=== PATIENT | female | born 1985 | race Caucasian/White ===

== ENCOUNTER 2019-09-12 09:33 | Emergency (ER) | payer OTHER, SELFPAY ==
[2019-09-12 09:39] VITALS: BP 126/86; PULSE 105; RESP 16; TEMP 36.8; O2SAT 97
--- NOTE | 2019-09-12 09:55 | ED.FEMALEGU ---
HPI - Female Genitourinary General Chief complaint: Urogenital-Female Stated complaint: uti Time Seen by Provider: 09/12/19 09:55 Source: patient Mode of arrival: ambulatory Limitations: no limitations History of Present Illness HPI Narrative: Adeline Gurrola is a 33 yo female with a PMH of MS, depression, anxiety, GERD, who comes with dysuria that started about midnight. She states that she has been drinking water, but has recurrent UTIs. Because of her MS she has had intermittent problems with movement and ability to swallow. Related Data Home Medications Medication Instructions Recorded Confirmed albuterol sulfate [Ventolin HFA] 2 puff INHALATION BID 02/15/19 03/25/19 bethanechol chloride 5 mg PO TID 02/15/19 03/25/19 biotin 5,000 mcg PO DAILY 02/15/19 03/25/19 carbamazepine 200 mg PO Q12H 02/15/19 03/25/19 cholecalciferol (vitamin D3) 14,000 unit PO DAILY 02/15/19 03/25/19 [Vitamin D3] clonazepam 0.5 mg PO BID PRN 02/15/19 03/25/19 dimethyl fumarate [Tecfidera] 240 mg PO BID 02/15/19 03/25/19 diphenhydramine HCl [Allergy 25 mg PO HS 02/15/19 03/25/19 Medication] fluticasone propionate 50 mcg INTRANASAL DAILY 02/15/19 03/25/19 gabapentin 600 mg PO TID 02/15/19 03/25/19 levetiracetam 500 mg PO BID 02/15/19 03/25/19 lithium carbonate 150 mg PO HS 02/15/19 03/25/19 melatonin 3 mg PO HS PRN 02/15/19 03/25/19 montelukast 10 mg PO HS 02/15/19 03/25/19 prochlorperazine maleate 10 mg PO BID PRN 02/15/19 03/25/19 sumatriptan succinate 100 mg PO ONCE PRN 02/15/19 03/25/19 topiramate 50 mg PO BID 02/15/19 03/25/19 venlafaxine 75 mg PO DAILY 02/15/19 03/25/19 Allergies Allergy/AdvReac Type Severity Reaction Status Date / Time Sulfa (Sulfonamide Allergy Mild Other Verified 09/12/19 09:59 Antibiotics) NSAIDS (Non-Steroidal AdvReac Intermediate GI doc Verified 09/12/19 09:59 Anti-Inflamma won't let her have it levofloxacin AdvReac Unknown Other Verified 09/12/19 09:59 AMOXICILLIN TRIHYDRATE Allergy Unknown Rash Uncoded 09/12/19 09:59 POTASSIUM CLAVULANATE Allergy Rash Uncoded 07 09:59 Review of Systems Review of Systems: Narrative: CONSTITUTIONAL: Denies fever, chills, sweats. EYES: Denies visual changes, redness, discharge. ENT: Denies rhinorrhea, congestion, sore throat, otalgia. CARDIOVASCULAR: Denies chest pain, palpitations, edema. RESPIRATORY: Denies dyspnea, wheezing, cough GASTROINTESTINAL: Denies abdominal pain, nausea, vomiting, diarrhea. GENITOURINARY:has dysuria, no hematuria, abnormal discharge SKIN: Denies rash or itching. NEUROLOGIC: Denies numbness, or focal weakness. PSYCHIATRIC: Denies anxiety or depression. [facility] Past Medical History Medical History Anxiety Asthma Depression Esophageal dysmotility GERD (gastroesophageal reflux disease) Hiatal hernia Migraine Multiple sclerosis Trigeminal neuralgia Surgical History Surgical History History of cholecystectomy Social History Social History (Updated 09/12/19 @ 10:03 by Jojo Bermudez CNP) Smoking status: Never smoker Alcohol intake: former Comments At time of signature, I agree with nursing past medical, surgical, social and family history. There is no relevant family history pertinent to the presenting complaint. Exam Narrative: Exam Narrative: GENERAL: This is a well-nourished, well-developed patient, in mild distress. HEAD: normocephalic, atraumatic. EYES:Sclera clear/white. Vision is grossly intact. EARS: External ears normal. Hearing grossly intact. NOSE: External nose normal without nasal discharge, nares without redness, no rhinorrhea. THROAT: Mucous membranes moist, NECK: Neck supple, CARDIOVASCULAR: Regular rate and rhythm without murmurs, gallops, or rubs. RESPIRATORY: Clear to auscultation. Breath sounds equal bilaterally. No wheezes, rales, or rhonchi. GASTROINTESTINAL: Abdomen s
== END 2019-09-12 10:10 | disposition home or self-care (01) ==
PROVIDERS: Emergency Provider Nurse Practitioner; PCP Internal Medicine
DX: N30.00 Acute cystitis without hematuria (principal); F41.9 Anxiety disorder, unspecified; F32.9 Major depressive disorder, single episode, unspecified; J45.909 Unspecified asthma, uncomplicated; K21.9 Gastro-esophageal reflux disease without esophagitis; G35 Multiple sclerosis
CPT/HCPCS: 81003; 87086; 87088; 99213; G0463

== ENCOUNTER 2019-10-14 10:41 | Emergency (ER) | payer OTHER, SELFPAY ==
[2019-10-14 10:45] VITALS: BP 129/86; PULSE 96; RESP 16; TEMP 36.3; O2SAT 98
--- NOTE | 2019-10-14 10:50 | ED.FEMALEGU ---
HPI - Female Genitourinary General Chief complaint: Urogenital-Female Stated complaint: urinary urgency/nausea Time Seen by Provider: 10/14/19 10:58 Source: patient and RN notes reviewed Mode of arrival: ambulatory Limitations: no limitations History of Present Illness HPI Narrative: This is a 33 years old female presents to the office for an evaluation of possible UTI. Onset three days ago with urinary pain, frequency and urgency. She was seen here recently with similar symptoms. She did not follow-up with her doctor. Stated her symptoms never resolved with an antibiotic. She used to see a urologist about 7 years ago to make sure her kidney is okay since she has MS. Related Data Home Medications Medication Instructions Recorded Confirmed albuterol sulfate [Ventolin HFA] 2 puff INHALATION BID 02/15/19 09/12/19 bethanechol chloride 5 mg PO TID 02/15/19 09/12/19 biotin 5,000 mcg PO DAILY 02/15/19 09/12/19 carbamazepine 200 mg PO Q12H 02/15/19 09/12/19 cholecalciferol (vitamin D3) 14,000 unit PO DAILY 02/15/19 09/12/19 [Vitamin D3] clonazepam 0.5 mg PO BID PRN 02/15/19 09/12/19 dimethyl fumarate [Tecfidera] 240 mg PO BID 02/15/19 09/12/19 diphenhydramine HCl [Allergy 25 mg PO HS 02/15/19 09/12/19 Medication] fluticasone propionate 50 mcg INTRANASAL DAILY 02/15/19 09/12/19 gabapentin 600 mg PO TID 02/15/19 09/12/19 levetiracetam 500 mg PO BID 02/15/19 09/12/19 lithium carbonate 150 mg PO HS 02/15/19 09/12/19 melatonin 3 mg PO HS PRN 02/15/19 09/12/19 montelukast 10 mg PO HS 02/15/19 09/12/19 prochlorperazine maleate 10 mg PO BID PRN 02/15/19 09/12/19 sumatriptan succinate 100 mg PO ONCE PRN 02/15/19 09/12/19 topiramate 50 mg PO BID 02/15/19 09/12/19 venlafaxine 75 mg PO DAILY 02/15/19 09/12/19 famotidine 40 mg PO DAILY 10/14/19 10/14/19 Allergies Allergy/AdvReac Type Severity Reaction Status Date / Time Sulfa (Sulfonamide Allergy Mild Other Verified 10/14/19 10:50 Antibiotics) NSAIDS (Non-Steroidal AdvReac Intermediate GI doc Verified 10/14/19 10:50 Anti-Inflamma won't let her have it levofloxacin AdvReac Unknown Other Verified 10/14/19 10:50 AMOXICILLIN TRIHYDRATE Allergy Unknown Rash Uncoded 09/12/19 09:59 POTASSIUM CLAVULANATE Allergy Rash Uncoded 09/12/19 09:59 Review of Systems Review of Systems: Narrative: CONSTITUTIONAL: Denies fever, chills ENT: Denies rhinorrhea, congestion, sore throat, otalgia. CARDIOVASCULAR: Denies chest pain, palpitation RESPIRATORY: Denies dyspnea, wheezing GASTROINTESTINAL: Denies abdominal pain, vomiting, diarrhea. Reports feeling nausea at times. GENITOURINARY: Denies vaginal discharge/lesions SKIN: Denies rash MUSCULOSKELETAL: Denies acute back pain NEUROLOGIC: Denies lightheaded All other systems reviewed are negative, except as documented in HPI. [facility] Past Medical History Medical History Anxiety Asthma Depression Esophageal dysmotility GERD (gastroesophageal reflux disease) Hiatal hernia Migraine Multiple sclerosis Trigeminal neuralgia Surgical History Surgical History History of cholecystectomy Family History Family History Mother Diabetes mellitus Sibling Family history of migraine headaches Social History Social History Smoking status: Never smoker Alcohol intake: former Comments At time of signature, I agree with nursing past medical, surgical, social and family history. There is no relevant family history pertinent to the presenting complaint. Exam Narrative: Exam Narrative: GENERAL: This is a well-nourished, well-developed patient, in no apparent distress. CARDIOVASCULAR: Regular rate and rhythm without murmurs, gallops, or rubs. RESPIRATORY: Clear to auscultation. Breath sounds equal bilaterally. No wheezes,
== END 2019-10-14 11:15 | disposition home or self-care (01) ==
PROVIDERS: Emergency Provider Nurse Practitioner; PCP Internal Medicine
DX: R39.15 Urgency of urination (principal); R11.0 Nausea; J45.909 Unspecified asthma, uncomplicated; F41.9 Anxiety disorder, unspecified; F32.9 Major depressive disorder, single episode, unspecified; K21.9 Gastro-esophageal reflux disease without esophagitis; G35 Multiple sclerosis; G50.0 Trigeminal neuralgia
CPT/HCPCS: 81003; 87086; 87088; 99213; G0463

== ENCOUNTER 2019-12-03 14:48 | Emergency (ER) | payer MEDICARE, SELFPAY ==
--- NOTE | ~2019-12-03 | XR_ITS ---
EXAMINATION: XR hand LT min 3V DATE: 12/03/2019 15:26 INDICATION: Swelling at the first metatarsophalangeal joint post fall TECHNIQUE: Posteroanterior, oblique and lateral views of the right hand were obtained. COMPARISON: None. FINDINGS: Alignment is normal. No fracture. Joint spaces are normal. Soft tissues are unremarkable. IMPRESSION: 1. Negative right hand radiographs. Reviewed, dictated and finalized at location A.
[2019-12-03 14:56] VITALS: BP 132/83; PULSE 105; RESP 20; TEMP 37.1; O2SAT 98
--- NOTE | 2019-12-03 14:57 | ED.UPPEXIN ---
HPI - Extremity Injury (Upper) General Chief Complaint: Extremity Injury, Upper Stated Complaint: left hand injury Time Seen by Provider: 12/03/19 14:57 Source: patient and RN notes reviewed History of Present Illness HPI narrative: Patient is a 34-year-old female who presents the urgent care with complaints of left hand pain. Patient states that she fell in her driveway earlier this morning and is still having hand pain. Patient denies of any pain to the wrist or left arm. Denies any use of [id number] medication for pain. Patient is right-hand dominant. Denies hitting her head. No other acute complaints or injuries. No acute distress noted. Patient aware of the plan of care. Some parts of this dictation were generated by voice recognition software and may contain typographical and/or grammatical inaccuracies. Related Data Home Medications Medication Instructions Recorded Confirmed albuterol sulfate [Ventolin HFA] 2 puff INHALATION BID 02/15/19 10/14/19 bethanechol chloride 5 mg PO TID 02/15/19 10/14/19 biotin 5,000 mcg PO DAILY 02/15/19 10/14/19 carbamazepine 200 mg PO Q12H 02/15/19 10/14/19 cholecalciferol (vitamin D3) 14,000 unit PO DAILY 02/15/19 10/14/19 [Vitamin D3] clonazepam 0.5 mg PO BID PRN 02/15/19 10/14/19 dimethyl fumarate [Tecfidera] 240 mg PO BID 02/15/19 10/14/19 diphenhydramine HCl [Allergy 25 mg PO HS 02/15/19 10/14/19 Medication] gabapentin 600 mg PO TID 02/15/19 10/14/19 levetiracetam 500 mg PO BID 02/15/19 10/14/19 lithium carbonate 150 mg PO HS 02/15/19 10/14/19 melatonin 3 mg PO HS PRN 02/15/19 10/14/19 montelukast 10 mg PO HS 02/15/19 10/14/19 prochlorperazine maleate 10 mg PO BID PRN 02/15/19 10/14/19 sumatriptan succinate 100 mg PO ONCE PRN 02/15/19 10/14/19 topiramate 50 mg PO BID 02/15/19 10/14/19 venlafaxine 75 mg PO DAILY 02/15/19 10/14/19 famotidine 40 mg PO DAILY 10/14/19 10/14/19 Allergies Allergy/AdvReac Type Severity Reaction Status Date / Time Sulfa (Sulfonamide Allergy Mild Other Verified 12/03/19 15:10 Antibiotics) amoxicillin [From Augmentin] Allergy Rash Verified 12/03/19 15:10 clavulanic acid Allergy Rash Verified 12/03/19 15:10 [From Augmentin] NSAIDS (Non-Steroidal AdvReac Intermediate GI doc Verified 12/03/19 15:10 Anti-Inflamma won't let her have it levofloxacin AdvReac Unknown Other Verified 12/03/19 15:10 Review of Systems Review of Systems: Narrative: CONSTITUTIONAL: Denies fever, chills, or sweats. EYES: Denies visual changes, redness, or discharge. ENT: Denies rhinorrhea, congestion, sore throat, or otalgia. CARDIOVASCULAR: Denies chest pain, palpitations, or edema. RESPIRATORY: Denies cough or dyspnea. GASTROINTESTINAL: Denies abdominal pain, nausea, vomiting, or diarrhea. GENITOURINARY: Denies dysuria or hematuria. SKIN: Denies rash or itching. Reports of multiple lacerations to left lower arm due to cutting patient states she is seeing a therapist/psychologist MUSCULOSKELETAL: Reports of left hand pain NEUROLOGIC: Denies headache, numbness, or weakness. All other systems reviewed are negative, except as documented in HPI. [facility] Social History Social History Smoking status: Never smoker Alcohol intake: former Comments At the time of my signature, I reviewed and agree with the nursing past medical, surgical, social, and family history. There is no relevant family history pertinent to the patient complaint. Exam Narrative: Exam Narrative: GENERAL: This is a well-nourished, well-developed patient, in no apparent distress. HEAD: normocephalic, atraumatic. EYES: PERRL. Sclera clear/white. Vision is grossly intact. EARS: External ears normal NOSE: External nose normal with no obvious nasal discharge, nares without redness, no rhinorrhea. THROAT: Mucous membranes moist NECK: Neck supple SKIN: warm, intact with no suspicious lesions or rash, good texture and turgor. NEURO:
== END 2019-12-03 15:40 | disposition home or self-care (01) ==
PROVIDERS: Emergency Provider Nurse Practitioner Family; PCP Internal Medicine
DX: S60.222A Contusion of left hand, initial encounter (principal); W19.XXXA Unspecified fall, initial encounter; G35 Multiple sclerosis; J45.909 Unspecified asthma, uncomplicated; K21.9 Gastro-esophageal reflux disease without esophagitis; F41.9 Anxiety disorder, unspecified; F32.9 Major depressive disorder, single episode, unspecified
CPT/HCPCS: 73130; 99213; G0463

== ENCOUNTER 2020-09-12 09:02 | Emergency (ER) | payer MEDICARE, SELFPAY ==
--- NOTE | 2020-09-12 09:04 | ED.FEMALEGU ---
HPI - Female Genitourinary General Chief complaint: Urogenital-Female Stated complaint: ?UTI Time Seen by Provider: 09/12/20 09:04 Source: patient Mode of arrival: ambulatory Limitations: no limitations History of Present Illness HPI Narrative: Patient is a 34-year-old female with a history of multiple sclerosis, depression, anxiety, recurrent urinary tract infections who presents for evaluation of nausea and urinary frequency. Patient states she feels as if she has another urinary tract infection. She reports mild pain with urination, denies hematuria. Mild lower abdominal pain. She denies any chest pain or shortness of breath. No fever or chills. She reports nausea without any episodes of emesis. Patient had a urinary tract infection last month which was treated with a course of ciprofloxacin. Patient has recurrent urinary tract infections, currently established with [facility] for her symptoms. Patient's neurologist is Dr. Ball. Related Data Home Medications Medication Instructions Recorded Confirmed albuterol sulfate [Ventolin HFA] 2 puff INHALATION BID 02/15/19 12/03/19 carbamazepine 200 mg PO Q12H 02/15/19 12/03/19 cholecalciferol (vitamin D3) 14,000 unit PO DAILY 02/15/19 12/03/19 [Vitamin D3] clonazepam 0.5 mg PO BID PRN 02/15/19 12/03/19 dimethyl fumarate [Tecfidera] 240 mg PO BID 02/15/19 12/03/19 gabapentin 600 mg PO TID 02/15/19 12/03/19 levetiracetam 500 mg PO BID 02/15/19 12/03/19 lithium carbonate 150 mg PO HS 02/15/19 12/03/19 montelukast 10 mg PO HS 02/15/19 12/03/19 prochlorperazine maleate 10 mg PO BID PRN 02/15/19 12/03/19 sumatriptan succinate 100 mg PO ONCE PRN 02/15/19 12/03/19 topiramate 50 mg PO BID 02/15/19 12/03/19 venlafaxine 75 mg PO DAILY 02/15/19 12/03/19 prednisolone acetate drp 09/12/20 Allergies Allergy/AdvReac Type Severity Reaction Status Date / Time Sulfa (Sulfonamide Allergy Mild Other Verified 07/10/21 09:14 Antibiotics) amoxicillin [From Augmentin] Allergy Rash Verified 09/12/20 09:14 clavulanic acid Allergy Rash Verified 09/12/20 09:14 [From Augmentin] NSAIDS (Non-Steroidal AdvReac Intermediate GI doc Verified 09/12/20 09:14 Anti-Inflamma won't let her have it levofloxacin AdvReac Unknown Other Verified 09/12/20 09:14 Review of Systems Review of Systems: Narrative: CONSTITUTIONAL: Denies fever, chills, or sweats. EYES: Denies visual changes, redness, or discharge. ENT: Denies rhinorrhea, congestion, sore throat, or otalgia. CARDIOVASCULAR: Denies chest pain, palpitations, or edema. RESPIRATORY: Denies cough or dyspnea. GASTROINTESTINAL: Reports lower abdominal pain, nausea without vomiting GENITOURINARY: Denies hematuria, reports frequency and urgency SKIN: Denies rash or itching. MUSCULOSKELETAL: Reports chronic upper and lower back pain NEUROLOGIC: Denies headache, numbness, or weakness. . [facility] Past Medical History Medical History (Updated 09/12/20 @ 11:21 by Jessica Connor MD) Anxiety Asthma Depression Esophageal dysmotility GERD (gastroesophageal reflux disease) Hiatal hernia Migraine Multiple sclerosis Trigeminal neuralgia Surgical History Surgical History History of cholecystectomy Family History Family History Mother Diabetes mellitus Sibling Family history of migraine headaches Social History Social History Smoking status: Never smoker Alcohol intake: former Gender identity (if verbalized by the patient): Female Exam Narrative: Exam Narrative: GENERAL: Awake, alert, conversant HEAD: Normocephalic, atraumatic. EYES: PERRLA and EOMI. ENT: Nares clear, no rhinorrhea or epistaxis. Mucous membranes moist. NECK: Supple. CHEST: No respiratory distress, breathing even and non labored HEART: Tachycardic rate, sinus rhythm ABDOMEN:No
[2020-09-12 09:07] VITALS: BP 134/88; PULSE 106; RESP 18; TEMP 37.1; O2SAT 97
[2020-09-12] MEDS: ONDANSETRON INJ 4 MG/2 ML VIAL IV PUSH (09:24)
[2020-09-12] MEDS: MORPHINE SULFATE (*CRX) 4 MG/ML INJ IV PUSH (09:24)
[2020-09-12] MEDS: SODIUM CHLORIDE 0.9% IV 1,000 ML 999 ML IV CONT (09:24)
[2020-09-12 09:27] LABS: Basophils Absolute Auto 0.1 K/mm3 (0.0-0.1); Basophils Percent Auto 0.6 % (0.2-1.2); Eosinophils Absolute Auto 0.3 K/mm3 (0-0.3); Eosinophils Percent Auto 3.2 % (0-4.4); Hematocrit 42.6 % (37.0-47.0); Hemoglobin 13.2 g/dL (12.0-15.0); Immature Granulocyte Absolute 0.04 K/mm3 (0.00-0.031); Immature Granulocyte Percent A 0.4 % (0-0.5); Lymphocytes Absolute Auto 2.36 K/mm3 (0.9-3.2); Lymphocytes Percent Auto 23.8 % (18.3-44.2); Mean Corpuscular Hemoglobin 25.1 pg (26-34); Mean Corpuscular Volume 81.1 fl (80-100); Monocytes Absolute Auto 0.5 K/mm3 (0.1-0.6); Neutrophils Absolute Auto 6.6 K/mm3 (1.3-6.7); Platelet Count Result 374 k/mm3 (150-375); Red Blood Count 5.25 M/mm3 (4.2-5.4); Red Cell Distribution Width 14.6 % (11.5-14.5); White Blood Count 9.9 K/mm3 (4.5-10.0)
[2020-09-12 09:41] LABS: Add Urine Microscopic? YES; Appearance Urine Clear (Clear); Bacteria Urine Trace /hpf; Bilirubin Urine Negative (Negative); Blood Urine 1+ (Negative); Color Urine Colorless (Yellow); Glucose Urine UA Negative (Negative); Ketones Urine Negative (Negative); Leukocyte Esterase Ur 1+ LEU/UL (Negative); Nitrate Urine Negative (Negative); Protein Urine Negative (Negative); RBC Urine 0-2 /hpf (0-2); Squamous Epithelial Cell Urine Occasional /hpf (Few); Transitional Epi Cells Urine Rare /hpf (None Seen); Urobilinogen Urine Negative mg/dL (<2.0)
[2020-09-12 09:42] LABS: Alanine Aminotransferase 24 U/L (4-35); Albumin Level 4.5 g/dL (3.5-5.1); Alkaline Phosphatase 97 U/L (38-126); Anion Gap 15 mmol/L (8-16); Aspartate Amino Transferase 36 U/L (14-36); Bilirubin,Total 0.4 mg/dL (0.2-1.3); Blood Urea Nitrogen 7 mg/dL (7-17); Calcium 9.5 mg/dL (8.4-10.2); Carbon Dioxide 20 mmol/L (22-30); Chloride 106 mmol/L (98-107); Estimated CRCL calculation 120 ml/min; Estimated Glomerular Filt Rate > 60; Glucose 148 mg/dL (65-105); Lipase 146 U/L (23-300); Lithium < 0.2 mmol/L (0.6-1.2); Potassium 4.2 mmol/L (3.4-5.0); Sodium 141 mmol/L (137-145)
[2020-09-12 09:43] LABS: Specific Grav Ur 1.002 (1.001-1.035)
[2020-09-12 10:58] VITALS: BP 126/83; PULSE 76; RESP 18; O2SAT 100
== END 2020-09-12 11:31 | disposition home or self-care (01) ==
PROVIDERS: Emergency Provider Emergency Medicine; PCP Internal Medicine
DX: N39.0 Urinary tract infection, site not specified (principal); G35 Multiple sclerosis; J45.909 Unspecified asthma, uncomplicated; K21.9 Gastro-esophageal reflux disease without esophagitis; F41.9 Anxiety disorder, unspecified; F32.9 Major depressive disorder, single episode, unspecified
CPT/HCPCS: 36415; 80053; 80178; 81001; 83690; 85025; 96365; 96375; 99284; J0131; J2270; J2405; J7030

== ENCOUNTER 2020-11-15 08:11 | Emergency (ER) | payer MEDICARE, SELFPAY ==
[2020-11-15 08:16] VITALS: BP 130/82; PULSE 100; RESP 18; TEMP 36.7; O2SAT 99
--- NOTE | 2020-11-15 08:38 | ED.URI ---
HPI - URI/Sore Throat General Chief Complaint: Upper Respiratory Infection Stated Complaint: cough pressure under eyes Time Seen by Provider: 11/15/20 08:36 Source: patient and RN notes reviewed Mode of arrival: ambulatory Limitations: no limitations History of Present Illness HPI Narrative: 35-year-old female with history of multiple sclerosis, asthma, GERD presents with concern for 11-day history of sinus congestion, pressure, drainage, cough. Reports just prior to symptoms starting she had a negative Covid test for a surgery. Reports she had an outpatient elbow surgery on November 03, the next day began having symptoms. Reports trying multiple [id number] remedies with little relief. Reports her primary doctor called her in a cough syrup that relieves the cough briefly. She denies fever, body aches. Reports general malaise. MD elicited complaint: nasal congestion Related Data Home Medications Medication Instructions Recorded Confirmed albuterol sulfate [Ventolin HFA] 2 puff INHALATION BID 02/15/19 11/15/20 carbamazepine 200 mg PO Q12H 02/15/19 11/15/20 cholecalciferol (vitamin D3) 14,000 unit PO DAILY 02/15/19 12/03/19 [Vitamin D3] clonazepam 0.5 mg PO BID PRN 02/15/19 12/03/19 dimethyl fumarate [Tecfidera] 240 mg PO BID 02/15/19 12/03/19 gabapentin 600 mg PO TID 02/15/19 12/03/19 levetiracetam 500 mg PO BID 02/15/19 12/03/19 lithium carbonate 150 mg PO HS 02/15/19 12/03/19 montelukast 10 mg PO HS 02/15/19 12/03/19 prochlorperazine maleate 10 mg PO BID PRN 02/15/19 12/03/19 sumatriptan succinate 100 mg PO ONCE PRN 02/15/19 12/03/19 topiramate 50 mg PO BID 02/15/19 12/03/19 venlafaxine 75 mg PO DAILY 02/15/19 12/03/19 prednisolone acetate drp 09/12/20 Allergies Allergy/AdvReac Type Severity Reaction Status Date / Time Sulfa (Sulfonamide Allergy Mild Other Verified 11/15/20 08:49 Antibiotics) amoxicillin [From Augmentin] Allergy Rash Verified 11/15/20 08:49 clavulanic acid Allergy Rash Verified 11/15/20 08:49 [From Augmentin] NSAIDS (Non-Steroidal AdvReac Intermediate GI doc Verified 11/15/20 08:49 Anti-Inflamma won't let her have it levofloxacin AdvReac Unknown Other Verified 11/15/20 08:49 Review of Systems Review of Systems: CONSTITUTIONAL: Reports malaise. Denies chills, sweats, or fever. EYES: Denies visual changes, redness, or discharge. ENT: Reports rhinorrhea, congestion, sinus pain, otalgia and scratchy throat. CARDIOVASCULAR: Denies chest pain, palpitations, or edema. RESPIRATORY: Reports cough. Denies dyspnea. GASTROINTESTINAL: Denies abdominal pain, nausea, vomiting, diarrhea SKIN: Denies rash or itching. MUSCULOSKELETAL: Denies myalgia. NEUROLOGIC: Denies headache. All systems reviewed & are unremarkable except as noted in HPI and below PMF[facility] Past Medical History Medical History (Updated 11/15/20 @ 08:46 by Chelsey Paulino NP) Anxiety Asthma Depression Esophageal dysmotility GERD (gastroesophageal reflux disease) Hiatal hernia Migraine Multiple sclerosis Trigeminal neuralgia Surgical History Surgical History History of cholecystectomy Family History Family History Mother Diabetes mellitus Sibling Family history of migraine headaches Social History Social History Smoking status: Never smoker Alcohol intake: former Gender identity (if verbalized by the patient): Female Comments At time of signature, agree with nursing past medical, surgical, social and family history. There is no relevant family history pertinent to the presenting complaint Exam Narrative: GENERAL: Well-appearing, nontoxic-nourished, and in no acute distress. HEAD: Normocephalic EYES: PERRLA, conjunctivae clear ENT: Nares clear, turbinates edematous and erythematous, sinus tenderness. Mucous membranes moist. TM pearly
== END 2020-11-15 08:56 | disposition home or self-care (01) ==
PROVIDERS: Emergency Provider Nurse Practitioner; PCP Internal Medicine
DX: J40 Bronchitis, not specified as acute or chronic (principal); F41.9 Anxiety disorder, unspecified; F32.9 Major depressive disorder, single episode, unspecified
CPT/HCPCS: 99213; G0463

== ENCOUNTER 2021-02-07 12:13 | Emergency (ER) | payer MEDICARE, SELFPAY ==
--- NOTE | ~2021-02-07 | XR_ITS ---
EXAMINATION: XR toe 1st RT min 2V DATE: 02/07/2021 12:58 INDICATION: Pain at the right great toe after jamming it against a door. TECHNIQUE: Dorsal plantar, lateral and oblique views of the right great toe were obtained. COMPARISON: None FINDINGS: Small nondisplaced likely avulsion fracture at the plantar/medial aspect of the base of the first dis tialia phalanx which likely involves a small portion of the margin of the articular surface. Alignment r emains essentially anatomic. No other fractures identified. Joint spaces are normal. IMPRESSION: Small nondisplaced likely intra-articular avulsion fracture at the plantar/medial base of the first d istal phalanx. Reviewed, dictated and finalized at location A. [employer] IMPRESSION: Small nondisplaced likely intra-articular avulsion fracture at the plantar/medi al base of the first distal phalanx.
[2021-02-07 12:33] VITALS: BP 144/96; PULSE 113; RESP 20; TEMP 36.5; O2SAT 99
--- NOTE | 2021-02-07 13:06 | ED.LOWEXIN ---
HPI - Extremity Injury (Lower) General Chief Complaint: Extremity Injury, Lower Stated Complaint: Toe Injury/Right Source: patient Mode of arrival: ambulatory Limitations: no limitations History of Present Illness HPI Narrative: Patient is a 35-year-old female who presents with a right great toe injury. She injured her toe while jamming on concrete this a.m. She denies other injuries. Abrasion to his left foot from where door closed. Tetanus up-to-date. Ambulatory without difficulty. Related Data Home Medications Medication Instructions Recorded Confirmed albuterol sulfate [Ventolin HFA] 2 puff INHALATION BID 02/15/19 11/15/20 carbamazepine 200 mg PO Q12H 02/15/19 11/15/20 cholecalciferol (vitamin D3) 14,000 unit PO DAILY 02/15/19 11/15/20 [Vitamin D3] clonazepam 0.5 mg PO BID PRN 02/15/19 11/15/20 dimethyl fumarate [Tecfidera] 240 mg PO BID 02/15/19 11/15/20 gabapentin 600 mg PO TID 02/15/19 11/15/20 levetiracetam 500 mg PO BID 02/15/19 11/15/20 lithium carbonate 150 mg PO HS 02/15/19 11/15/20 montelukast 10 mg PO HS 02/15/19 11/15/20 sumatriptan succinate 100 mg PO ONCE PRN 02/15/19 11/15/20 topiramate 50 mg PO BID 02/15/19 11/15/20 venlafaxine 75 mg PO DAILY 02/15/19 11/15/20 prednisolone acetate 1 drp LEFT EYE BID 09/12/20 11/15/20 ascorbic acid (vitamin C) [Vitamin 500 mg PO BID 11/15/20 11/15/20 C] hydroxyzine HCl 25 mg PO TID PRN 11/15/20 11/15/20 mirabegron [Myrbetriq] 25 mg PO HS 11/15/20 11/15/20 oxybutynin chloride 10 mg PO DAILY 11/15/20 11/15/20 timolol maleate 0.5 drp LEFT EYE QAM 11/15/20 11/15/20 Allergies Allergy/AdvReac Type Severity Reaction Status Date / Time Sulfa (Sulfonamide Allergy Mild Other Verified 11/15/20 08:49 Antibiotics) amoxicillin [From Augmentin] Allergy Rash Verified 11/15/20 08:49 clavulanic acid Allergy Rash Verified 11/15/20 08:49 [From Augmentin] NSAIDS (Non-Steroidal AdvReac Intermediate GI doc Verified 11/15/20 08:49 Anti-Inflamma won't let her have it levofloxacin AdvReac Unknown Other Verified 11/15/20 08:49 Review of Systems Review of Systems: CONSTITUTIONAL: Denies fever, chills, or sweats. EYES: Denies visual changes, redness, or discharge. ENT: Denies rhinorrhea, congestion, sore throat, or otalgia. CARDIOVASCULAR: Denies chest pain, palpitations, or edema. RESPIRATORY: Denies cough or dyspnea. GASTROINTESTINAL: Denies abdominal pain, nausea, vomiting, or diarrhea. GENITOURINARY: Denies dysuria or hematuria. SKIN: Denies rash or itching. MUSCULOSKELETAL: Reports right great toe pain NEUROLOGIC: Denies headache, numbness, dizziness, or weakness. PSYCHIATRIC: Denies anxiety or depression. [facility] Past Medical History Medical History (Updated 02/07/21 @ 13:13 by CHANTEL East) Anxiety Asthma Depression Esophageal dysmotility GERD (gastroesophageal reflux disease) Hiatal hernia Migraine Multiple sclerosis Trigeminal neuralgia Surgical History Surgical History History of cholecystectomy Family History Family History Mother Diabetes mellitus Sibling Family history of migraine headaches Social History Social History Smoking status: Never smoker Alcohol intake: former Gender identity (if verbalized by the patient): Female Comments At the time of signature, I have reviewed and agree with nursing past medical, surgical, social, and family history unless otherwise noted. Please see nursing chart for further information. There is no relevant family history pertinent to the presenting complaint. Exam Narrative: GENERAL: Well-appearing, well-nourished, and in no acute distress. HEAD: Normocephalic, atraumatic. EYES: EOMI. No redness or drainage. Conjunctiva are normal. ENT: Mucous membranes pink and moist. NECK: AROM. Supple. No lymphadenopathy. [facility]
== END 2021-02-07 13:20 | disposition home or self-care (01) ==
PROVIDERS: Emergency Provider Nurse Practitioner; PCP Internal Medicine
DX: S92.424A Nondisplaced fracture of distal phalanx of right great toe, initial encounter for closed fracture (principal); W22.8XXA Striking against or struck by other objects, initial encounter; K21.9 Gastro-esophageal reflux disease without esophagitis; G35 Multiple sclerosis; J45.909 Unspecified asthma, uncomplicated; F41.9 Anxiety disorder, unspecified; F32.9 Major depressive disorder, single episode, unspecified
CPT/HCPCS: 73660; 99214; G0463

== ENCOUNTER 2021-10-21 10:52 | Emergency (ER) | payer OTHER, MEDICARE, SELFPAY ==
--- NOTE | ~2021-10-21 | XR_ITS ---
EXAMINATION: XR hand LT min 3V INDICATION: Left hand pain TECHNIQUE: Three views of the left hand are obtained. COMPARISON: 12/03/2019 FINDINGS: There is no fracture, dislocation, or subluxation. The bones, soft tissues, and joint space s are normal. IMPRESSION: 1. No acute osseous abnormality. Reviewed, dictated and finalized at location A.
--- NOTE | ~2021-10-21 | XR_ITS ---
EXAMINATION: XR ribs RT 2V w CXR 2V INDICATION: Right-sided chest pain TECHNIQUE: PA and lateral views of the chest and 3 views of the right ribs were obtained. COMPARISON: None. FINDINGS: The lungs are free of acute opacities. No pleural effusion or pneumothorax. The cardiomedia stinal silhouette is normal. Surgical clips in the right upper quadrant are likely from prior cholecy stectomy. No displaced rib fracture is identified. IMPRESSION: 1. No acute cardiopulmonary abnormality or evidence of displaced rib fracture. Reviewed, dictated and finalized at location A.
[2021-10-21 11:17] VITALS: BP 122/70; PULSE 108; RESP 18; TEMP 36.5; O2SAT 99
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
[2021-10-21 14:00] VITALS: BP 137/101; PULSE 85; TEMP 36.6; O2SAT 100
== END 2021-10-21 14:03 | disposition home or self-care (01) ==
PROVIDERS: Emergency Provider Family Medicine; PCP Internal Medicine
DX: S20.211A Contusion of right front wall of thorax, initial encounter (principal); S60.312A Abrasion of left thumb, initial encounter; K21.9 Gastro-esophageal reflux disease without esophagitis; J45.909 Unspecified asthma, uncomplicated; G35 Multiple sclerosis; F41.9 Anxiety disorder, unspecified; F32.A Depression, unspecified; V43.52XA Car driver injured in collision with other type car in traffic accident, initial encounter
CPT/HCPCS: 71046; 71100; 73130; 99284

== ENCOUNTER 2023-07-05 16:07 | Emergency (ER) | payer MEDICARE, SELFPAY ==
[2023-07-05 16:13] VITALS: BP 146/91; PULSE 90; RESP 16; TEMP 36.6; O2SAT 100
--- NOTE | 2023-07-05 16:23 | ED.GENADULT ---
HPI - General Adult General Chief complaint: Skin/Abscess/Foreign Body Stated complaint: Skin Problem Source: patient, RN notes reviewed and old records reviewed Mode of arrival: ambulatory Limitations: no limitations History of Present Illness HPI narrative: 37-year-old female presents to [facility] with complaints of red excoriated area in her pelvic region. Patient states has been there for several weeks. Patient states normally uses cloth in between skin and it resolves on its own. Related Data Home Medications Medication Instructions Recorded Confirmed albuterol sulfate 90 mcg/actuation 2 puff inhalation BID 02/15/19 11/15/20 aerosol inhaler (Ventolin HFA) carbamazepine 200 mg tablet 200 mg PO Q12H 02/15/19 11/15/20 cholecalciferol (vitamin D3) 100 14,000 unit PO DAILY 02/15/19 11/15/20 mcg (4,000 unit) capsule (Vitamin D3) clonazepam 0.5 mg tablet 0.5 mg PO BID PRN Anxiety 02/15/19 11/15/20 dimethyl fumarate 240 mg 240 mg PO BID 02/15/19 11/15/20 capsule,delayed release (Tecfidera) gabapentin 600 mg tablet 600 mg PO TID 02/15/19 11/15/20 levetiracetam 500 mg tablet 500 mg PO BID 02/15/19 11/15/20 lithium carbonate 150 mg capsule 150 mg PO HS 02/15/19 11/15/20 sumatriptan succinate 100 mg tablet 100 mg PO ONCE PRN Migraine 02/15/19 11/15/20 Headache topiramate 50 mg capsule,extended 50 mg PO BID 02/15/19 11/15/20 release 24 hr venlafaxine 75 mg capsule,extended 75 mg PO DAILY 02/15/19 11/15/20 release 24 hr prednisolone acetate 1 % eye 1 drp LEFT EYE BID 09/12/20 11/15/20 drops,suspension ascorbic acid (vitamin C) 500 mg 500 mg PO BID 11/15/20 11/15/20 tablet (Vitamin C) hydroxyzine HCl 25 mg tablet 25 mg PO TID PRN Allergy Symptoms 11/15/20 11/15/20 mirabegron 25 mg tablet,extended 25 mg PO HS 11/15/20 11/15/20 release 24 hr (Myrbetriq) timolol maleate 0.5 % eye drops 0.5 drp LEFT EYE QAM 11/15/20 11/15/20 brimonidine 0.1 % eye drops 1 drp EACH EYE BID 10/21/21 Allergies Allergy/AdvReac Type Severity Reaction Status Date / Time Sulfa (Sulfonamide Allergy Mild Other Verified 10/21/21 11:40 Antibiotics) amoxicillin [From Augmentin] Allergy Rash Verified 10/21/21 11:40 clavulanic acid Allergy Rash Verified 10/21/21 11:40 [From Augmentin] NSAIDS (Non-Steroidal AdvReac Intermediate GI doc Verified 10/21/21 11:40 Anti-Inflamma won't let her have it levofloxacin AdvReac Unknown Other Verified 10/21/21 11:40 adhesive AdvReac Rash Verified 10/21/21 11:40 Review of Systems Constitutional: Constitutional: Reports no additional constitutional complaints, Denies body ache(s), Denies chills, Denies fatigue, Denies fever(s) and Denies headache(s) Eyes: Eyes: Reports no additional eye complaints and Denies blurry vision ENT: Reports system reviewed and no additional complaints, except as documented, Denies vertigo, Denies dizziness, Denies ear discharge, Denies otalgia, Denies facial pain, Denies headache(s), Denies nasal congestion, Denies nasal discharge, Denies sinus pain, Denies sinus pressure and Denies sore throat Cardiovascular: Cardiovascular: Reports no additional cardiovascular complaints, Denies chest pain, Denies chest pain at rest, Denies rapid heart rate and Denies dyspnea Respiratory: Respiratory: Reports no additional respiratory complaints, Denies chest congestion, Denies cough, Denies pain on inspiration, Denies pain with cough and Denies dyspnea Gastrointestinal: Gastrointestinal: Denies abdominal pain, Denies diarrhea, Denies nausea and Denies vomiting Integumentary/Breasts: Skin/Breast: Reports as per HPI, Reports rash and Reports skin pain Neurologic: Reports system reviewed and no additional complaints, except as documented, Denies vertigo, Denies dizziness and Denies headache(s) Endocrine: Endocrine: Denies fatigue [facility] Past Medical History Medical History (Updated 07/05/23 @ 16:27 by Jamia Gil, BUDDY) Anxiety Asthma Depression Esophageal
== END 2023-07-05 16:30 | disposition home or self-care (01) ==
PROVIDERS: Emergency Provider Registered Nurse; PCP Internal Medicine
DX: B37.89 Other sites of candidiasis (principal); J45.909 Unspecified asthma, uncomplicated; K21.9 Gastro-esophageal reflux disease without esophagitis; G35 Multiple sclerosis; F41.9 Anxiety disorder, unspecified; F32.A Depression, unspecified
CPT/HCPCS: 99213; G0463

== ENCOUNTER 2025-03-02 08:03 | Emergency (ER) | payer MEDICARE, SELFPAY ==
--- OUTSIDE RECORDS SUMMARY | 2025-03-02 08:09 | XMS_ITS | Clinical Summary ---
Author Organization [facility] Address [address] [place] [address] Phone Care Team Providers Care Assortment Planner Name Role Phone KODYTHANH Rogers Primary Care Provider [phone] AKI DUNN, JAZ C Unavailable [phone] Reason for Visit and Chief Complaint CHART UPDATE Problems Includes: Problems addressed during this encounter and other active Problems Current Visit Onset Date Resolved Date Provider Conditio n Status History of Irritable Bowel Syndrome 10/25/2012 MICHAELA SEPULVEDA RN [facility] Active Last Documented On 10/25/2012 8:03AM ; [facility] Note: Unchanged History of Esophagitis Chronic Reflux 03/18/2010 MANUEL WAYNE Active Last Documented On 03/18/2010 9:51AM ; [facility] Note: Unchanged Past Visits Onset Date Resolved Date Provider Condition Status Colonic Diverticulosis Without Perforation Or Abscess 07/28/2013 MICHAELA SEPULVEDA RN RACHEL Active Last Documented On 4 11:13AM ; [facility] Multiple Sclerosis 03/22/2012 MICHAELA SEPULVEDA RN RACHEL Active Last Documented On 4 8:07AM ; [facility] Urinary Tract Infection 03/22/2012 ANA CRISTINA SEPULVEDA RN RACHEL Active Last Documented On 03/22/2012 2:37PM ; [facility] Note: Unchanged FAMILY HX-BREAST MALIG 03/18/2010 MICHAELA SEPULVEDA RN RACHEL Active Last Documented On 07/29/2014 10:08AM ; [facility] Note: Mother diagnosed at age 45 ESTROGE N RECEPTOR POSITIVE. PT NEEDS ANNUAL MAMMOGRAM AGE 33 Smoking Cigarettes 03/18/2010 MANUEL Prather [place] Active Last Documented On 03/18/2010 9:40AM ; [facility] Note: Unchanged - 1/2 pack a day Plan of Treatment Pending Tests Order Diagnosis Results Due Ordering Denise felder Lab HSV 2 IGG, TYPE SPEC IFIC AB 07/31/23 MICHAELA SEPULVEDA RN [place] [facility] Last Documented On 4 8:14AM ; [facility] Assessments Includes: Assessments from this encounter Findings - [Z11.3 - Encounter for screening for infections with a predominantly sexual mode of transmission] SCREENING FOR STD - Last Documented On 07/24/2023 10:53AM ; [facility] - [N90.89 - Other specified noninflammatory disorders of vulva and perineum] Noninflammatory disorder of the vulva and perineum - Last Documented On 07/24/2023 10:53AM ; [facility] Medical Equipment - Implanted Devices Includes: Current Devices No Medical Equipment Recorded Medications Includes: Medications discussed during this encounter and other current Medications New / Renewed during this visit MICHAELA SEPULVEDA RN RACHEL HAYES on 07/24/2023 valACYclovir HCl 500 MG Oral Tablet Provider: MICHAELA SEPULVEDA RN RACHEL 90 day supply: 90 each, 2 refills Diagnosis: Oth noninflammatory disorders of vulva and perineum One tablet daily ONE TABLET DAILY DIRECTED Pharmacy: [address] [id number] - Last Documented On 4 11:00AM By MICHAELA RICHARDS ; [facility] Current Medications (continue as prescribed) Prolia 60 MG/ML Subcutaneous Solution Prefilled Syring e 10/06/2022 Provider: Diagnosis: Last Documented On 10/06/2022 9:45AM By Alexandria Dukes ; [facility] Ozurdex 0.7 MG Intravitreal Implant 10/06/2022 Provi lalo: Diagnosis: Last Documented On 10/06/2022 9:45AM By Alexandria Dukes ; [facility] Lyrica 150 MG Oral Capsule 10/06/2022 Provider: Diagnosis: Last Documented On 10/06/2022 9:44AM By Alexandria Dukes ; [facility] Atomoxetine HCl 60 MG Oral Capsule 09/05/2022 Provid er: NAVEED Winkler SUNI Diagnosis: Last Documented On 10/06/2022 9:41AM By Alexandria Dukes ; [facility] Zalma Carbonate 150 MG Oral Capsule 09/05/2022 Pro vider: NAVEED Winkler SUNI Diagnosis: Last Documented On 10/06/2022 9:41AM By Alexandria Dukes ; [facility] Venlafaxine HCl 100 MG Oral Tablet 09/05/2022 Provid er: NAVEED Winkler SUNI Diagnosis: Last Documented On 10/06/2022 9:42AM By Alexandria Dukes ; [facility] Myrbetriq 25 MG Oral Tablet Extended Release 24 Hour 0 07/18/2022 Provider: Diagnosis: Last Documented On 10/06/2022 9:42AM By Alexandria Dukes ; [facility] Timolol Maleate 0.5% Ophthalmic Solution 07/02/2022 Provider: Diagnosis: Last Documented On 10/06/2022 9:42AM By Alexandria Dukes ; [facility] clonazePAM 0.5 MG Oral Tablet 06/09/2022 Provider: NAVEED S SUNI Diagnosis: Last Documented On 10/06/2022 9:42AM By Alexandria Dukes ; [facility] Ondansetron HCl 4 MG Oral Tablet 04/15/2022 Provider : Diagnosis: Last Documented On 10/06/2022 9:42AM By Alexandria Dukes ; [facility] Brimonidine Tartrate 0.2% Ophthalmic Solution 04/06/19 Provider: Diagnosis: Last Documented On 10/06/2022 9:43AM By Alexandria Dukes ; [facility] hydrOXYzine HCl 50 MG Oral Tablet 10/05/2021 Provide r: Diagnosis: Last Documented On 10/05/2021 10:02AM By Alexandria Dukes ; [facility] All Day Allergy 10MG Oral Capsule 08/28/2018 Provide r: Diagnosis: Last Documented On 9 9:49AM By YAIMA MUNOZ ; [facility] Fluticasone Propionate 50MCG/ACT Nasal Suspension 08/28/2018 Provider: Diagnosis: Last Documented On 9 9:47AM By YAIMA MUNOZ ; [facility] Tecfidera 240MG Oral Capsule Delayed Release 8 Provider: Diagnosis: Last Documented On 08/24/2017 8:08AM By Juliet Degroot MA ; [facility] Biotin 5000MCG Oral Capsule 08/24/2017 Provider: Diagnosis: Last Documented On 08/24/2017 8:09AM By Juliet Degroot MA ; [facility] Bethanechol Chloride 5MG Oral Tablet 08/24/2017 Prov ider: Diagnosis: Last Documented On 08/24/2017 8:12AM By Juliet Degroot MA ; [facility] Zalma Carbonate 150MG Oral Capsule 08/24/2017 Prov ider: Diagnosis: Last Documented On 08/24/2017 8:12AM By Juliet Degroot MA ; [facility] Montelukast Sodium 10MG Oral Tablet 08/24/2017 Provi lalo: Diagnosis: Last Documented On 08/24/2017 8:11AM By Juliet Degroot MA ; [facility] LevETIRAcetam 500MG Oral Tablet 08/24/2017 Provider: Diagnosis: Last Documented On 08/24/2017 8:09AM By Juliet Degroot MA ; [facility] CarBAMazepine ER 200MG Oral Tablet Extended Rele ase 12 Hour 08/24/2017 Provider: Diagnosis: Last Documented On 08/24/2017 8:09AM By Juliet Degroot MA ; [facility] Omeprazole 40 MG Capsule, delayed-release 08/11/2015 Provider: Diagnosis: Last Documented On 08/11/2015 10:01AM By ARVIND CORONEL MA ; [facility] Ventolin HFA 108 (90 Base) MCG/ACT Aerosol, solution 0 08/11/2015 Provider: Diagnosis: Last Documented On 08/11/2015 10:00AM By ARVIND CORONEL MA ; [facility] SUMAtriptan Succinate 100 MG Tablet 08/11/2015 Provi lalo: Diagnosis: Last Documented On 08/11/2015 10:00AM By ARVIND CORONEL MA ; [facility] Vitamin D 1000 UNIT Tablet 07/29/2014 Provider: Diagnosis: 9000 mg Last Documented On 07/29/2014 9:32AM By BASIA VELASQUEZ ; [facility] Past Medications on file Lidocaine HCl 4% External Solution 07/20/2023 - 07/30/2023 Provider: MICHAELA SEPULVEDA RN [facility] Diagnosis: Oth noninflammat ory disorders of vulva and perineum as directed APPLY W/Q-TIP TO AFFECTED perineal AREAs tid Last Documented On 4 10:16AM By MICHAELA RICHARDS ; [facility] valACYclovir HCl 1 GM Oral Tablet 07/20/2023 - 07/30/2023 Provider: MICHAELA SEPULVEDA RN [facility] Diagnosis: Oth noninflammat ory disorders of vulva and perineum One tablet twice a day TAKE DIRECTED W/FOOD Last Documented On 4 10:16AM By MICHAELA RICHARDS ; [facility] Vitamin D (Ergocalciferol) 1.25 MG (59761 UT) Oral Capsule 10/22/2021 - 12/17/2021 Provider: MICHAELA SEPULVEDA RN RACHEL Diagnosis: Vitamin D defici ency, unspecified as directed ONE TABLET WEEKLY X 8 WEEKS Last Documented On 2 1:00PM By MICHAELA RICHARDS ; [facility] Acetaminophen 325MG Oral Tablet 2017 - 12/01/2017 Provider: MICHAELA SEPULVEDA RN RACHEL Diagnosis: Mastodynia as directed take 2 tablets QID as directed Last Documented On 8 9:01AM By MICHAELA RICHARDS ; [facility] Medications Administered Includes: Administered Medications from this encounter No Administered Medications Recorded Results Includes: Results discussed during this encounter No Results Recorded For Specified Dates History of Present Illness Includes: History of Present Illness from this encounter No History of Present Illness Recorded Social History No Social History Recorded - Smoking Status Unknown Procedures and Surgical History Surgical History Last Updated Surgical / procedural histor y pharengeal flap age 1 ~port instilled 03/21 ~[place] 202010/05/2021 Last Documented On 4 10:49AM ; [facility] History of hysterectomy 12/16/2013 Total hyst 08/11/2015 Last Documented On 4 10:49AM ; [facility] Surgical history unchanged 07/29/2014 Last Documented On 4 10:49AM ; [facility] History of total abdominal h ysterectomy BSO 10/2013 D/T CHRONIC PELVIC PAIN/FIBROIDS DR. GREEN 01/16/2014 Last Documented On 4 10:49AM ; [facility] History of cholecystectomy 05/2012 Last Documented On 4 10:49AM ; [facility] Tonsillectomy 198603/22/2012 Last Documented On 4 10:49AM ; [facility] History of appendectomy `198603/18/2010 Last Documented On 4 10:49AM ; [facility] Medical History Includes: Medical History addressed during this encounter Description Last Updated A mammogram was performed 10/2021 023 Last Documented On 4 10:49AM ; [facility] Last mammogram date: 10/202110/06/2022 Last Documented On 4 10:49AM ; [facility] History of screening mammogram was perfo rmed 10/202110/06/2022 Last Documented On 4 10:49AM ; [facility] Primary Care Provider: Yuki 10/05/2021 Last Documented On 4 10:49AM ; [facility] 0 10/05/2021 Last Documented On 4 10:49AM ; [facility] Result: normal [facility] 10/01/2020 Last Documented On 4 10:49AM ; [facility] Aborta 0 10/01/2020 Last Documented On 4 10:49AM ; [facility] Para 0 10/01/2020 Last Documented On 4 10:49AM ; [facility] Patient recently had a dexa scan 020 Last Documented On 4 10:49AM ; [facility] History of Pap smear done 07/28/201309/04 Last Documented On 4 10:49AM ; [facility] Not sexually active 10/01/2019 Last Documented On 4 10:49AM ; [facility] LMP: 201308/24/2017 Last Documented On 4 10:49AM ; [facility] Last pap smear date 03/22/2012 08/11/2015 Last Documented On 4 10:49AM ; [facility] No recent change in medical history 07/05 Last Documented On 4 10:49AM ; [facility] History of irritable bowel syndrome 10/04 Last Documented On 4 10:49AM ; [facility] History of chronic reflux esophagitis Last Documented On 4 10:50AM ; [facility] Family History Includes: Family History addressed during this encounter Description Last Updated No family history of malignant neoplasm of the ovary 2017 Last Documented On 4 10:49AM ; [facility] Maternal history of malignan t female breast neoplasm Mother ESTROGEN RECEPTOR POSITIVE PER PT REPORT 07/29/14 08/23/2016 Last Documented On 4 10:49AM ; [facility] Maternal uncle's history of malignant neoplasm of large intestine Maternal uncle 08/11/2015 Last Documented On 4 10:49AM ; [facility] Family history of malignant female breast neoplasm Mother ESTROGEN RECEPTOR POSITIVE PER PT REPORT 07/29/14 07/29/2014 Last Documented On 4 10:49AM ; [facility] Mother dx with endometrial cancer 11/201307/29/2014 Last Documented On 4 10:49AM ; [facility] Family history of diabetes mellitus Melgar rnal uncle 07/29/2014 Last Documented On 4 10:49AM ; [facility] Family history of malignant neoplasm of the large intestine Maternal uncle 07/29/2014 Last Documented On 4 10:49AM ; [facility] Family history unchanged 07/29/2014 Last Documented On 4 10:49AM ; [facility] Family history of hypertension Mother Last Documented On 4 10:49AM ; [facility] Family history of Cancer ---mom had sarc jocelyne in leg and mets to her lung 07/31/2013 Last Documented On 4 10:49AM ; [facility] Family history of hypercholesterolemia d ad 03/22/2012 Last Documented On 4 10:49AM ; [facility] Family medical history of Breast problem s 04/06/2009 Last Documented On 4 10:49AM ; [facility] Review of Systems Includes: Review of Systems from this encounter No Review of Systems Recorded Mental Status Includes: Mental Status from this encounter No Mental Status Recorded Functional Status Includes: Functional Status from this encounter No Functional Status Recorded Physical Exam Includes: Physical Exam from this encounter No Physical Exam Recorded Allergies Includes: Active Allergies Substance Type Reaction Onset Date Resolved Date Statu s NSAIDs Allergy Vomiting 2017 Active Last Documented On 4 9:26AM ; [facility] Note: d/t GERD levoFLOXacin Allergy 08/24/2017 Active Last Documented On 4 9:26AM ; [facility] Augmentin Allergy 04/06/2009 Active Last Documented On 4 9:26AM ; [facility] Adhesive Tape Allergy 10/05/2021 Activ e Last Documented On 4 9:26AM ; [facility] Encounters Encounter Provider Location Date Check-In Time Check-Out Time Diagnosis CHART UPDATE MICHAELA SEPULVEDA RN [facility]ACHEL 07/24/19 24 10:49AM 11:59PM Noninflammatory Disorder of Vulva and Perineum,Screening For Std Insurance Includes: Active Insurance Policies Plan Name Member ID Group # Subscriber Relationship Effect rohini Dates 1 - MEDICARE PART A CLAIMS/NGS [id number] [employer] 2 - [employer] [facility] [id number] PLAN G VALDEZ R VINSON Self Clinical Notes Includes: Clinical Notes from this encounter * Progress note Date Encounter Last Documented by 07/24/2023 CHART UPDATE Last documented on 07/24/2023; 10:53 AM, MICHAELA SEPULVEDA RN RACHEL ; [facility] Active Problems & Conditions - 562.10 - Colonic Diverticulosis Without Perforation Or Abscess - Z80.3 - Family History of Breast Neoplasm Malignant Female - mom - V17.49 - Family History of Hypertension Systemic - mom - 272.0 - Family History of Pure Hypercholesterolemia - dad - V16.3 - FAMILY HX-BREAST MALIG - Mother diagnosed at age 45 ESTROGEN RECEPTOR POSITIVE. PT NEEDS ANNUAL MAMMOGRAM AGE 33 - Z87.19 - History of Esophagitis Chronic Reflux - 564.1 - History of Irritable Bowel Syndrome - G35 - Multiple Sclerosis - V15.82 - Smoking Cigarettes - 1/2 pack a day - N39.0 - Urinary Tract Infection Current Medication - All Day Allergy 10MG Oral Capsule 10 MG 0 days, 0 refills - Atomoxetine HCl 60 MG Oral Capsule 28 days, 0 refills - Bethanechol Chloride 5MG Oral Tablet 5 MG 0 days, 0 refills - Biotin 5000MCG Oral Capsule 5000 MCG 0 days, 0 refills - Brimonidine Tartrate 0.2% Ophthalmic Solution 37 days, 0 refills - CarBAMazepine ER 200MG Oral Tablet Extended Release 12 Hour 200 MG 0 days, 0 refills - clonazePAM 0.5 MG Oral Tablet 30 days, 0 refills - [facility] Fluticasone Propionate 50MCG/ACT Nasal Suspension 50 MCG/ACT 0 days, 0 refills - hydrOXYzine HCl 50 MG Oral Tablet 0 days, 0 refills - LevETIRAcetam 500MG Oral Tablet 500 MG 0 days, 0 refills - Lidocaine HCl 4% External Solution as directed APPLY W/Q-TIP TO AFFECTED perineal AREAs tid, 10 days, 0 refills - Zalma Carbonate 150 MG Oral Capsule 28 days, 0 refills - Zalma Carbonate 150MG Oral Capsule 150 MG 0 days, 0 refills - Lyrica 150 MG Oral Capsule 0 days, 0 refills - Montelukast Sodium 10MG Oral Tablet 10 MG 0 days, 0 refills - Myrbetriq 25 MG Oral Tablet Extended Release 24 Hour 90 days, 0 refills - Omeprazole 40 MG Capsule, delayed-release Capsule Delayed Release 0 days, 0 refills - Ondansetron HCl 4 MG Oral Tablet 3 days, 0 refills - Ozurdex 0.7 MG Intravitreal Implant 0 days, 0 refills - Prolia 60 MG/ML Subcutaneous Solution Prefilled Syringe 0 days, 0 refills - SUMAtriptan Succinate 100 MG Tablet 0 days, 0 refills - Tecfidera 240MG Oral Capsule Delayed Release 240 MG 0 days, 0 refills - Timolol Maleate 0.5% Ophthalmic Solution 74 days, 0 refills - valACYclovir HCl 1 GM Oral Tablet One tablet twice a day TAKE DIRECTED W/FOOD, 10 days, 0 refills - Venlafaxine HCl 100 MG Oral Tablet 28 days, 0 refills - Ventolin HFA 108 (90 Base) MCG/ACT Aerosol, solution Aerosol Solution 0 days, 0 refills - Vitamin D 1000 UNIT Tablet 9000 mg, 0 days, 0 refills Past Medical/Surgical History Other: Primary Care Provider: Yuki Reported: No recent change in medical history, LMP: 2013, Last pap smear date 03/22/2012, and Last mammogram date: 10/2021 result: normal [facility]. Surgical / Procedural: Surgical / procedural history pharengeal flap age 1 port instilled 03/21 [place] 2020. Tonsillectomy 1986 and surgical history unchanged. Tests: A mammogram was performed 10/2021 and patient recently had a dexa scan. : 0, para 0, and aborta 0. Sexual: Not sexually active. Other: Screening mammogram was performed 10/2021 Diagnoses: Chronic reflux esophagitis Irritable bowel syndrome Procedural: - Pap smear done 07/28/2013 Surgical: - Appendectomy `1986 - Cholecystectomy 05/2012 - Hysterectomy 12/16/2013 Total hyst - Total abdominal hysterectomy BSO 10/2013 D/T CHRONIC PELVIC PAIN/FIBROIDS DR. GREEN Allergies - Adhesive Tape - Augmentin - levoFLOXacin - NSAIDs Reaction: Vomiting Family History Family history unchanged Family medical history of Breast problems Mother dx with endometrial cancer 11/2013 Cancer ---mom had sarcoma in leg and mets to her lung Systemic hypertension Mother Pure hypercholesterolemia dad Diabetes mellitus Paternal uncle Malignant neoplasm of large intestine Maternal uncle Malignant female breast neoplasm Mother ESTROGEN RECEPTOR POSITIVE PER PT REPORT 07/29/14 No diagnosis of malignant neoplasm of ovary Maternal: Malignant female breast neoplasm Mother ESTROGEN RECEPTOR POSITIVE PER PT REPORT 07/29/14 Maternal uncle's: Malignant neoplasm of large intestine Maternal uncle Assessment - [Z11.3 - Encounter for screening for infections with a predominantly sexual mode of transmission] SCREENING FOR STD - [N90.89 - Other specified noninflammatory disorders of vulva and perineum] Noninflammatory disorder of the vulva and perineum Plan StartCited - Encntr screen for infections w sexl mode of transmiss Lab: HSV 2 IGG, TYPE SPECIFIC AB EndCited StartCited - Oth noninflammatory disorders of vulva and perineum valACYclovir HCl 500 MG each One tablet daily ONE TABLET DAILY DIRECTED, 90 days, 2 refills EndCited
--- OUTSIDE RECORDS SUMMARY | 2025-03-02 08:09 | XMS_ITS | Continuity of Care Document ---
Author Organization [facility] Melyssa (Adult Med) Address [address] [place] [address] Care Team Providers Care Engineer Station Mainline Name Role Phone DEVANTE CUNNINGHAM Primary Care Provider Unavailabl e Assessment No assessment recorded. Plan of Treatment Reminders Order Date Submit Date Provider Last Modified By Organization Details Last Modified Time Details Appointments MEDICARE WELLNESS VISIT 2025 10:00A M DEVANTE CUNNINGHAM, [facility]- Not available Not available Not available Lab vitamin D, 25-hydrox y, total, serum 2024 025 [facility], [address] [place] [address], [place], [address], 12/27/2024 08:25:50 lipid panel, serum 2024 025 [facility], [address] [place] [address] 2, [place], [address], 12/27/2024 08:25:48 HbA1c (hemoglob in A1c), blood 2024 025 [facility], [address] [place] [address] 2, [place], [address], 12/27/2024 08:25:49 CBC w/ auto diff 2024 025 [facility], [address] [place] [address] 2, [place], [address], 12/27/2024 08:25:49 TSH + free T4, serum 2024 025 [facility], [address] [facility], [place], [address], 12/27/2024 08:25:47 CMP, serum or plasma 2024 025 [facility], [address] [facility], [place], [address], 12/27/2024 08:25:48 Referral None recorded. Procedures None recorded. Surgeries None recorded. Imaging None recorded. Medication Orders None recorded. Patient TargetsNo targets recorded. Patient Instructions Encounter Date Encounter Id Patient Instructions Last Modified By Organization Details Last Modified Time 12/26/2024 [id number] A healthy lifestyle: care instructions [email or web address] Not available 12/26/2024 09:24:58 Plan of care has been discussed with patient including expected therapeutic benefits and potential side effects of prescribed medication and treatments. Patient verbalizes understanding and is in agreement with the plan of care. Patient was instructed to keep all scheduled appointments and contact the clinic for any additional problems. Health Maintenance: - CRC screening (45-75):Due at 45 years. - Osteoporosis screening: Due at 65. - Lipid screening (>45 unless additional risk factors): 11/13/23 - HIV: declined - HepC: declined -Eye exam: 2023 -Dental Exam: endentulous - Immunizations: - Influenza: 12/06/23 - Prevnar 20: 10/17/22 - Tdap/Td ([id number]): 06/27/16 - Zoster (>60): 11/04/23, 08/04/23 - COVID-19: 11/04/23, 10/17/22, 05/30/21, 12/04/20, 06/01/20, 05/05/20 -Labs ordered this visit:annual lab work ordered Females: Pap smear: total hysterectomy Mammogram: December 2023-requesting records DEXA: n/a [email or web address] Not available 12/26/2024 09:24:39 Reason for Referral None Reported. Results Created Date Observation Date Name Description Value Unit Range Abnormal Flag Note LastModifiedBy Organization Detail LastModifiedTime 12/27/1912/27/2024 TSH+F REE T4 TSH 1.570 uIU/m L 0.450- 4.500 Not Available [facility] ([facility]) [address] [place], [address], 12/27/2024 08:25:47 12/27/1912/27/2024 TSH+F REE T4 T4,free(dire ct) 0.85 NG/dL 0.82-1 .77 Not Available [facility] ([facility]) [address] [place], [address], 12/27/2024 08:25:47 12/27/1912/27/2024 LIPID PANEL cholesterol, total 191 mg/dL 100-19 9 Not Available [facility] ([facility]) [address] [place], [address], 12/27/2024 08:25:48 12/27/1912/27/2024 LIPID PANEL triglyceride s 153 mg/dL 0-149 above high normal Not Available [facility] ([facility]) [address] [place], [address], 12/27/2024 08:25:48 12/27/1912/27/2024 LIPID PANEL HDL cholesterol 48 mg/dL >39 Not Available [facility] ([facility]) [address] [place], [address], 12/27/2024 08:25:48 12/27/1912/27/2024 LIPID PANEL VLDL cholesterol cyn 27 mg/dL 5-40 Not Available [facility] ([facility]) [address] [place], [address], 12/27/2024 08:25:48 12/27/1912/27/2024 LIPID PANEL LDL chol calc ([facility]) 116 mg/dL 0-99 above high normal Not Available [facility] ([facility]) [address] [place], [address], 12/27/2024 08:25:48 1012/26/2024 COMP. METAB OLIC PANEL (14) interpretati on: COMMEN T GFR estim ate at the follo wing level for >or=3 month s is class ified as follo ws: GFR WITH KIDNE Y DAMAG E WITHO UT KIDNE Y DAMAG E >or=9 0 Stage 1 Emily l 60-89 Stage 2 Decr eased GFR 30-59 Stage 3 Stage 3 15-29 Stage 4 Stage 4 <15 (or dialy sis) Stage 5 Stage 5 Estim ated GFR will over estim ate true GFR if serum creat inine is risin g as in acute renal failu re and will under estim ate true GFR if serum creat inine is decli monroe as in resol ving acute renal failu re. Addit ional infor lewis mcneil may be found at [email or web address]. org. Not Available [facility] ([facility]) [address] [place], [address], 12/27/2024 08:25:48 12/27/19 25 12/27/2024 COMP. METAB OLIC PANEL (14) glucose 86 mg/dL 70-99 Not Available [facility] ([facility]) [address] [place], [address], 12/27/2024 08:25:48 12/27/19 25 12/27/2024 COMP. METAB OLIC PANEL (14) BUN 14 mg/dL 6-24 Not Available [facility] ([facility]) [address] [place], [address], 12/27/2024 08:25:48 12/27/19 25 12/27/2024 COMP. METAB OLIC PANEL (14) creatinine 0.64 mg/dL 0.57-1 .00 Not Available [facility] ([facility]) [address] [place], [address], 12/27/2024 08:25:48 12/27/19 25 12/27/2024 COMP. METAB OLIC PANEL (14) eGFR 114 mL/mi n/1.7 3 >59 Not Available [facility] ([facility]) [address] [facility], [place], [address], 12/27/2024 08:25:48 12/27/1912/27/2024 COMP. METAB OLIC PANEL (14) BUN/creatini ne ratio 22 9-23 Not Available [facility] ([facility]) [address] [facility], [place], [address], 12/27/2024 08:25:48 12/27/19 25 12/27/2024 COMP. METAB OLIC PANEL (14) sodium 141 mmol/ L 134-14 4 Not Available [facility] ([facility]) [address] [facility], [place], [address], 12/27/2024 08:25:48 12/27/19 25 12/27/2024 COMP. METAB OLIC PANEL (14) potassium 4.8 mmol/ L 3.5-5. 2 Not Available [facility] ([facility]) [address] [facility], [place], [address], 12/27/2024 08:25:48 12/27/19 25 12/27/2024 COMP. METAB OLIC PANEL (14) chloride 107 mmol/ L 96-106 above high normal Not Available [facility] ([facility]) [address] [facility] [place], [address], 12/27/2024 08:25:48 12/27/19 25 12/27/2024 COMP. METAB OLIC PANEL (14) carbon dioxide, total 19 mmol/ L 20-29 below low normal Not Available [facility] ([facility]) [address] [facility] [place], [address], 12/27/2024 08:25:48 12/27/19 25 12/27/2024 COMP. METAB OLIC PANEL (14) calcium 9.0 mg/dL 8.7-10 .2 Not Available [facility] ([facility]) [address] [facility] [place], [address], 12/27/2024 08:25:48 12/27/19 25 12/27/2024 COMP. METAB OLIC PANEL (14) protein, total 7.2 g/dL 6.0-8. 5 Not Available [facility] ([facility]) [address] [facility], [place], [address], 12/27/2024 08:25:48 12/27/19 25 12/27/2024 COMP. METAB OLIC PANEL (14) albumin 4.4 g/dL 3.9-4. 9 Not Available [facility] ([facility]) [address] [facility], [place], [address], 12/27/2024 08:25:48 12/27/19 25 12/27/2024 COMP. METAB OLIC PANEL (14) globulin, total 2.8 g/dL 1.5-4. 5 Not Available [facility] ([facility]) [address] [facility], [place], [address], 12/27/2024 08:25:48 12/27/19 25 12/27/2024 COMP. METAB OLIC PANEL (14) bilirubin, total <0.2 mg/dL 0.0-1. 2 Not Available [facility] ([facility]) [address] [facility], [place], [address], 12/27/2024 08:25:48 12/27/1912/27/2024 COMP. METAB OLIC PANEL (14) alkaline phosphatase 81 IU/L 41-116 Not Available [facility] ([facility]) [address] [facility], [place], [address], 12/27/2024 08:25:48 12/27/19 25 12/27/2024 COMP. METAB OLIC PANEL (14) AST (SGOT) 14 IU/L 0-40 Not Available [facility] ([facility]) [address] [facility], [place], [address], 12/27/2024 08:25:48 12/27/1912/27/2024 COMP. METAB OLIC PANEL (14) ALT (SGPT) 25 IU/L 0-32 Not Available [facility] ([facility]) [address] [facility], [place], [address], 12/27/2024 08:25:48 12/27/19 25 12/27/2024 HEMOG LOBIN A1C hemoglobin A1C 5.6 % 4.8-5. 6 Predi abete s: 5.7 - 6.4 Diabe juan david: >6.4 Glyce milton contr ol for adult s with diabe juan david: <7.0 Not Available [facility] ([facility]) [address] [facility], [place], [address], 12/27/2024 08:25:49 12/27/19 25 12/27/2024 CBC WITH DIFFE RENTI AL/PL ATELE T WBC 10.0 x10e3 /uL 3.4-10 .8 Not Available [facility] ([facility]) [address] [facility], [place], [address], 12/27/2024 08:25:49 12/27/1912/27/2024 CBC WITH DIFFE RENTI AL/PL ATELE T RBC 5.43 x10e6 /uL 3.77-5 .28 above high normal Not Available [facility] ([facility]) [address] [place], [address], 12/27/2024 08:25:49 12/27/1912/27/2024 CBC WITH DIFFE RENTI AL/PL ATELE T hemoglobin 13.8 g/dL 11.1-1 5.9 Not Available [facility] ([facility]) [address] [place], [address], 12/27/2024 08:25:49 12/27/19 25 12/27/2024 CBC WITH DIFFE RENTI AL/PL ATELE T hematocrit 44.1 % 34.0-4 6.6 Not Available [facility] ([facility]) [address] [facility], [place], [address], 12/27/2024 08:25:49 12/27/1912/27/2024 CBC WITH DIFFE RENTI AL/PL ATELE T MCV 81 fL 79-97 Not Available [facility] ([facility]) [address] [facility], [place], [address], 12/27/2024 08:25:49 12/27/1912/27/2024 CBC WITH DIFFE RENTI AL/PL ATELE T MCH 25.4 pg 26.6-3 3.0 below low normal Not Available [facility] ([facility]) [address] [facility], [place], [address], 12/27/2024 08:25:49 12/27/1912/27/2024 CBC WITH DIFFE RENTI AL/PL ATELE T MCHC 31.3 g/dL 31.5-3 5.7 below low normal Not Available [facility] ([facility]) [address] [facility], [place], [address], 12/27/2024 08:25:49 12/27/1912/27/2024 CBC WITH DIFFE RENTI AL/PL ATELE T RDW 15.1 % 11.7-1 5.4 Not Available [facility] ([facility]) [address] [facility], [place], [address], 12/27/2024 08:25:49 12/27/1912/27/2024 CBC WITH DIFFE RENTI AL/PL ATELE T platelets 402 x10e3 /uL 150-45 0 Not Available [facility] ([facility]) [address] [facility], [place], [address], 12/27/2024 08:25:49 12/27/19 25 12/27/2024 CBC WITH DIFFE RENTI AL/PL ATELE T neutrophils 59 % notest ab. Not Available [facility] ([facility]) [address] [facility], [place], [address], 12/27/2024 08:25:49 12/27/1912/27/2024 CBC WITH DIFFE RENTI AL/PL ATELE T lymphs 30 % notest ab. Not Available [facility] ([facility]) [address] [facility], [place], [address], 12/27/2024 08:25:49 12/27/1912/27/2024 CBC WITH DIFFE RENTI AL/PL ATELE T monocytes 7 % notest ab. Not Available [facility] ([facility]) [address] [facility], [place], [address], 12/27/2024 08:25:49 12/27/1912/27/2024 CBC WITH DIFFE RENTI AL/PL ATELE T eos 3 % notest ab. Not Available [facility] ([facility]) [address] [facility], [place], [address], 12/27/2024 08:25:49 12/27/1912/27/2024 CBC WITH DIFFE RENTI AL/PL ATELE T basos 1 % notest ab. Not Available [facility] ([facility]) [address] [place], [address], 12/27/2024 08:25:49 12/27/1912/27/2024 CBC WITH DIFFE RENTI AL/PL ATELE T neutrophils (absolute) 5.9 x10e3 /uL 1.4-7. 0 Not Available [facility] ([facility]) [address] [place], [address], 12/27/2024 08:25:49 12/27/1912/27/2024 CBC WITH DIFFE RENTI AL/PL ATELE T lymphs (absolute) 3.0 x10e3 /uL 0.7-3. 1 Not Available [facility] ([facility]) [address] [place], [address], 12/27/2024 08:25:49 12/27/19 25 12/27/2024 CBC WITH DIFFE RENTI AL/PL ATELE T monocytes(ab solute) 0.7 x10e3 /uL 0.1-0. 9 Not Available [facility] ([facility]) [address] [facility], [place], [address], 12/27/2024 08:25:49 12/27/19 25 12/27/2024 CBC WITH DIFFE RENTI AL/PL ATELE T eos (absolute) 0.3 x10e3 /uL 0.0-0. 4 Not Available [facility] ([facility]) [address] [facility], [place], [address], 12/27/2024 08:25:49 12/27/19 25 12/27/2024 CBC WITH DIFFE RENTI AL/PL ATELE T baso (absolute) 0.1 x10e3 /uL 0.0-0. 2 Not Available [facility] ([facility]) [address] [facility], [place], [address], 12/27/2024 08:25:49 12/27/19 25 12/27/2024 CBC WITH DIFFE RENTI AL/PL ATELE T immature granulocytes 0 % notest ab. Not Available [facility] ([facility]) [address] [facility], [place], [address], 12/27/2024 08:25:49 12/27/19 25 12/27/2024 CBC WITH DIFFE RENTI AL/PL ATELE T immature grans (abs) 0.0 x10e3 /uL 0.0-0. 1 Not Available [facility] ([facility]) [address] [facility], [place], [address], 12/27/2024 08:25:49 12/27/19 25 12/27/2024 VITAM IN D, 25-HY DROXY vitamin D, 25-hydroxy 28.9 NG/mL 30.0-1 00.0 below low normal Vitam in D defic iency has been defin ed by the Insti tute of Medic ine and an Endoc rine Socie ty pract ice guide line as a level of serum 25-OH vitam in D less than 20 ng/mL (1,2) . The Endoc rine Socie ty went on to furth er defin e vitam in D insuf ficie ncy as a level betwe en 21 and 29 ng/mL (2). 1. IOM (Inst itute of Medic ine). 2009. Dieta ry refer ence intak es for calci um and D. Funmi mcdonald [place]: [facility] . 2. Mary Lou nayak MF, Brenda steward [place], Stacie off-F kaelynar i GOMES, et al. Evalu ation , treat ment, and preve ntion of vitam in D defic iency : an Endoc rine Socie ty clini cyn pract ice guide line. JCEM. 2010; 96(7) :1911 -30. Not Available [facility] ([facility]) [address] [facility], [place], [address], 12/27/2024 08:25:50 Result Notes None recorded. 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 Quinn Mirza MD Attn: Fernando petty,[address] [place], [address], [place] - [facility] 2 15:27:10 Spasmodi c movement 190401074 Completed 201711/16/2018 Kathy Mirza MD Attn: Fernando petty,[address] [place], [address], [place] [facility] 9 10:29:56 Chronic headache disorder 541421378 Active 2017 Kathy Mirza MD Attn: Fernando petty,[address] [place], [address], [place] [facility] 2 15:27:10 Dysphagi a 26732530 Active 2017 sees GI Kathy Mirza MD Attn: Fernando petty,[address] [facility], [place], [address], [place] [facility] 3 09:09:49 Lumbar radiculo guerline 842295557 Active 2017 Kathy Mirza MD Attn: Fernando petty,[address] [facility], [place], [address], [place] [facility] 3 09:12:46 Persiste nt cough 922327522 Completed 201711/16/2018 Kathy Mirza MD Attn: Fernando petty,[address] [facility], [place], [address], [place] [facility] 9 10:29:49 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 Kathy Mirza MD Attn: Fernando petty,[address] [facility], [place], [address], [place] [facility] 2 15:27:10 Generali zed anxiety disorder 68127075 Active 2017 sees psych /BHA Kathy Mirza MD Attn: Fernando petty,[address] [facility], [place], [address], [place] [facility] 2 15:27:10 Uterine leiomyom a 78162925 Completed 201704/05/2017 Removal Reason: s/p total hysterect lesly Yanelis Vasquez PA-C Attn: Fernando petty,[address] [facility], [place], [address], [place] [facility] 8 08:21:09 [facility] Completed 201704/05/2017 Yanelis Vasquez PA-C Attn: Fernando petty,[address] [facility], [place], [address], [place] [facility] 8 08:21:22 Cyst of ovary 60725980 Completed 201704/05/2017 Removal Reason: bilateral ; s/p BSO Yanelis Vasquez PA-C Attn: Fernando petty,[address] [facility], [place], [address], [facility] - [facility] 8 08:22:00 Psycholo gic conversi on disorder 37870833 Active 2017 Kathy Mirza MD Attn: Fernando petty,[address] [facility], [place], [address], [facility] - [facility] 2 15:27:10 Strain of Achilles tendon 41675687 Active 2017 Deloris little, [facility] 1 12:16:09 Bilatera l cataract s 33418706 Active 2020 sees ophthalmo logist Kathy Mirza MD Attn: Fernando petty,[address] [facility], [place], [address], [facility] 2 15:27:10 Pain of elbow region 32605146 Active 2020 sees ortho Deloris little, [facility] 1 12:16:09 Overacti ve urinary bladder 089834711 Active 2020 sees urologist Kathy Mirza MD Attn: Fernando petty,[address] [facility], [place], [address], [facility] SI 2 15:27:10 Problem Notes None recorded. Procedures Surgical History Date Name Laterality Status Provider Name and Address Organization Details Recorded Time 12/26/19 21 Eye Surgery completed Zunilda Fox MA [facility] 02/15/2021 09:42:02 11/04/19 21 procedure on elbow completed Zunilda Fox MA [facility] 11/12/2020 14:36:17 03/24/19 21 repair of retina completed ALEXANDER Argueta [facility] 05/04/2020 11:46:06 02/07/20 20 extraction of cataract completed ALEXANDER Argueta ID - [facility] 05/04/2020 11:45:43 05/25/19 19 Cerumen Removal completed Yanelis Vasquez PA-C Attn: Accounting, [address] [place], [place], [address] [place] [address], [facility] 05/24/2018 11:55:53 12/05/19 14 Total hysterectomy completed Yanelis Vasquez PA-C Attn: Accounting, [address] [place], [place], [address] [place] [address], [facility] 03/23/2017 10:11:03 03/06/19 14 Removal of ovary(s) completed Yanelis Vasquez PA-C Attn: Accounting, [address] [place], [place], [address] [place] [address], [facility] 03/23/2017 10:10:58 Gastrointestinal Surgery completed Morena hernandez MA [facility] 03/23/2017 09:19:55 Tonsillectomy completed Morena hernandez MA [facility] 03/23/2017 09:20:03 Insert picvad cath completed Yanelis Vasquez PA-C Attn: Accounting, [address] [place], [place], [address] [place] [address], [facility] 03/30/2017 13:12:32 Xcapsl ctrc rmvl cplx wo ecp completed Casandra Medrano MA [facility] 08/12/2020 09:15:38 Imaging Results None recorded. Procedure Notes None recorded. Medical Equipment None Reported. Allergies Allergen ID Allergen Name Allergen Category Reaction Reaction Severity Criticality Documentation Date Start Date Code Code System Note Provider Name and Address Organization Details Recorded Time [id number] Augmentin medicatio n rash Not available Not available 03/23/2017 35252 2 RxNorm DAQUAN Sen, [facility] 8 09:09:52 325826 Levaquin medicatio n other moderate Not available 04/03/20172017 20292 2 RxNorm left ankle achil les tendo n pain Yanelis Vasquez PA-C Attn: Accountin g,[address], [place], [address], [facility] 8 15:48:13 279181 Non-stero idal anti-infl ammatory agent (substanc e) medicatio n other moderate Not available 04/03/2017 73534 5008 SNOMED GIFTY Vasquez PA-C Attn: Accountin g,[address], [place], [address], [place] [facility] 8 16:18:27 578181 brimonidi ne medicatio n eye redness Not available Not available 05/04/2020 62423 5 RxNorm ALEXANDER Argueta, [facility] 11:53:23 101964 Substance with sulfonami de structure and antibacte rial mechanism of action (substanc e) medicatio n eye redness Not available Not available 05/05/2020 73611 8003 SNOMED ALEXANDER Argueta null, [facility] 11:35:29 015680 Adhesive agent (substanc e) environme nt,medica tion itching rash Not available Not available high 12/26/20242020 87338 0007 SNOMED unrec ogniz ed react ion (text : Carlos ers, code: 43102 [id number]) (from exter nal sourc e) Not Available [employer] - prod 03:12:58 331547 amoxicill in medicatio n rash Not available Not available 12/26/2024 723 RxNorm React ion: Rash, , Not Available bg - External Data Service - prod 03:12:58 347674 amoxicill in / clavulana te medicatio n rash Not available high 12/26/20242009 36157 RxNorm Occur red as child , Rash when taken as infan t Occur red as child , Rash when taken as infan t Occur red as child , Not Available bg - External Data Service - prod 03:12:58 026209 brimonidi ne / timolol medicatio n Not available Not available low 12/26/20242020 76731 2 RxNorm unrec ogniz ed react ion (text : Eye irrit ation , code: 53355 3008) (from extreplaced by [facility]) Not Available bg - External Data Service - prod 5 03:12:58 654616 levofloxa megan medicatio n arthralgi a (joint pain) other Not available Not available low 12/26/20242017 18254 RxNorm tendo nitis Other react ion(s ): Joint pain tendo nitis Tendo n swell s tendo nitis Tendo n swell s Joint pain, tendo nitis Not Available bg - External Data Service - prod 5 03:12:58 894088 tolmetin medicatio n Not available Not available Not available 02/11/20252017 37869 RxNorm GI DOCTO R DOESN 'T WANT PT TO TAKE Not Available bg - External Data Service - prod 5 03:24:51 Medications Name Sig Start Date Stop Date Status Note LastModified by Organization Details LastModified Time Tussin DM 10 mg-100 mg/5 mL oral syrup TAKE 10 ML 3 TIMES A DAY BY ORAL ROUTE FOR 5 DAYS. 11/20 completed Not Available Not Available Not Available amoxicill in 500 mg capsule 05/12 completed Not Available Not Available Not Available methocarb arthur 500 mg tablet TAKE 1 TABLET BY MOUTH EVERYDAY AT BEDTIME 07/02 completed Not Available Not Available Not Available buspirone 5 mg tablet active Not Available Not Available Not Available terbinafi ne HCl 1 % topical cream APPLY TO THE AFFECTED AND SURROUND ING AREAS OF SKIN BY TOPICAL ROUTE ONCE DAILY 12/19 completed Not Available Not Available Not Available venlafaxi ne ER 37.5 mg capsule,e xtended release 24 hr Take 1 capsule every day by oral route. 11/16 completed Not Available Not Available Not Available prednison e 10 mg tablet 11/16 completed Not Available Not Available Not Available gabapenti n 600 mg tablet TAKE 1 TABLET BY MOUTH FOUR TIMES A DAY 12/19 completed Not Available Not Available Not Available doxycycli ne hyclate 100 mg capsule TAKE 1 CAPSULE BY MOUTH TWICE A DAY FOR 7 DAYS 05/04 completed Not Available Not Available Not Available venlafaxi ne 75 mg tablet TAKE 1 TABLET BY MOUTH EVERY DAY 10/13 completed Not Available Not Available Not Available haloperid ol 5 mg tablet 08/23 completed Not Available Not Available Not Available Vitamin C 500 mg tablet TAKE 1 TABLET BY MOUTH TWICE A DAY 02/07 completed not taking Not Available Not Available Not Available cetirizin e 10 mg tablet 11/11 completed Not Available Not Available Not Available oxybutyni n chloride ER 10 mg tablet,ex tended release 24 hr TAKE 1 TABLET BY MOUTH EVERY 24HR 11/12 completed not taking Not Available Not Available Not Available azithromy emgan 250 mg tablet TAKE 2 TABLETS BY MOUTH TODAY, THEN TAKE 1 TABLET DAILY FOR 4 DAYS DIRECTED 05/24 completed Not Available Not Available Not Available ofloxacin 0.3 % eye drops INSTILL 1 DROP INTO AFFECTED EYE THREE TIMES A DAY DIRECTED TO BEGIN TWO DAYS PRIOR TO SURGERY 10/13 completed Not Available Not Available Not Available benzonata te 200 mg capsule 03/23 completed Not Available Not Available Not Available acetamino phen 120 mg-codein e 12 mg/5 mL oral solution 03/23 completed Not Available Not Available Not Available levetirac etam 500 mg tablet TAKE 1 TABLET BY MOUTH TWICE A DAY active Not Available Not Available No t Available valacyclo vir 1 gram tablet TAKE 1 TABLET BY MOUTH TWICE A DAY DIRECTED WITH FOOD 05/24 completed Not Available Not Available Not Available ranitidin e 300 mg tablet 11/16 completed Not Available Not Available Not Available sumatript an 100 mg tablet TAKE 1 TABLET BY MOUTH ONCE NEEDED FOR MIGRAINE DIRECTED MAY REPEAT IN 2 HOURS active Not Available Not Available No t Available hydrocodo ne 5 mg-acetam inophen 325 mg tablet TAKE 1 TABLET BY MOUTH EVERY 6 HOURS FOR UP TO 12 DOSES NEEDED FOR PAIN 07/02 completed Not Available Not Available Not Available Nystop 100,000 unit/gram topical powder APPLY TOPICALL Y TWICE A DAY 12/07 completed Not Available Not Available Not Available sucralfat e 100 mg/mL oral suspensio n GI 05/04 completed Not Available Not Available Not Available prochlorp erazine maleate 5 mg tablet TAKE 1 TABLET BY MOUTH EVERY 6 HOURS NEEDED FOR NAUSEA 12/07 completed Not Available Not Available Not Available sucralfat e 1 gram tablet TAKE 1 TABLET BY MOUTH THREE TIMES A DAY FOR 3 MONTHS 02/07 completed not taking Not Available Not Available Not Available phenazopy ridine 200 mg tablet TAKE 1 TABLET BY MOUTH 3 TIMES DAILY FOR 3 DAYS. 12/19 completed Not Available Not Available Not Available ondansetr on HCl 4 mg tablet TAKE 1 TABLET BY MOUTH EVERY 8 HOURS NEEDED FOR NAUSEA FIRST LINE 12/19 completed Not Available Not Available Not Available famotidin e 40 mg tablet TAKE 1 TABLET BY MOUTH EVERY DAY 02/07 completed not taking Not Available Not Available Not Available prednison e 20 mg tablet TAKE 2 TABLETS BY MOUTH DAILY FOR 5 DAYS 11/20 completed Not Available Not Available Not Available clonazepa m 0.5 mg tablet TAKE 1 TABLET BY MOUTH EVERY DAY NEEDED active Not Available Not Available No t Available clobetaso l 0.05 % topical cream PLEASE SEE ATTACHED FOR DETAILED DIRECTIO NS 07/19 completed Not Available Not Available Not Available haloperid ol 1 mg tablet TAKE 2 TABLETS BY MOUTH EVERY DAY active Not Available Not Available No t Available topiramat e 25 mg tablet Take 2 tablets twice a day by oral route for 30 days. 05/30 completed migraine s Not Available Not Available Not Available lithium carbonate 150 mg capsule TAKE 1 CAPSULE BY MOUTH EVERYDAY AT BEDTIME 07/19 completed Not Available Not Available Not Available hydroxyzi ne HCl 50 mg tablet TAKE 1 TABLET BY MOUTH THREE TIMES A DAY DIRECTED FOR 90 DAYS active Not Available Not Available No t Available acetamino phen 300 mg-codein e 30 mg tablet 02/15 completed not taking Not Available Not Available Not Available prochlorp erazine maleate 10 mg tablet TAKE 1 TABLET BY MOUTH EVERY 6 HOURS NEEDED FOR NAUSEA AND VOMITING 02/07 completed Not Available Not Available Not Available divalproe x 500 mg tablet,de layed release 05/24 completed Not Available Not Available Not Available valacyclo vir 500 mg tablet TAKE 1 TABLET BY MOUTH EVERY DAY active Not Available Not Available No t Available ciproflox acin 500 mg tablet TAKE 1 TABLET BY MOUTH EVERY 12 HOURS 10/13 completed Not Available Not Available Not Available sulfameth oxazole 800 mg-trimet hoprim 160 mg tablet TAKE 1 TABLET BY MOUTH EVERY 12 HOURS FOR 10 DAYS 12/19 completed Not Available Not Available Not Available omeprazol e 40 mg capsule,d elayed release TAKE 1 CAPSULE BY MOUTH TWICE A DAY active Not Available Not Available No t Available doxycycli ne monohydra te 100 mg tablet 03/23 completed Not Available Not Available Not Available tramadol 50 mg tablet TAKE 1 TABLET EVERY 6 HOURS NEEDED FOR PAIN. 11/12 completed not taking Not Available Not Available Not Available amitripty line 50 mg tablet Take 1 tablet every day by oral route at bedtime for 30 days. 08/23 completed Not Available Not Available Not Available triamcino lone acetonide 0.1 % topical cream APPLY A THIN LAYER TO THE AFFECTED AREA(S) BY TOPICAL ROUTE 2 TIMES PER DAY 08/24 completed Not Available Not Available Not Available butalbita l-acetami nophen-ca ffeine 50 mg-325 mg-40 mg tablet 03/23 completed Not Available Not Available Not Available ondansetr on 8 mg disintegr ating tablet TAKE 1 TABLET BY MOUTH EVERY 8 HOURS NEEDED FOR NAUSEA OR VOMITING . 07/02 completed Not Available Not Available Not Available ketorolac 0.5 % eye drops INSTILL 1 DROP INTO THE OPERATIV E EYE 3 TIMES DAILY BEGINNIN G 2 DAYS BEFORE SURGERY 10/13 completed Not Available Not Available Not Available cyclopent olate 1 % eye drops 11/11 completed Not Available Not Available Not Available neomycin- bacitraci n-polymyx n 3.5 mg-400 unit-10,0 00 unit/gram eye oint 02/19 completed Not Available Not Available Not Available venlafaxi ne 100 mg tablet TAKE 1 TABLET BY MOUTH EVERY DAY IN THE MORNING active Not Available Not Available No t Available amoxicill in 875 mg tablet TAKE 1 TABLET BY MOUTH TWICE A DAY FOR 7 DAYS 05/24 completed Not Available Not Available Not Available famotidin e 20 mg tablet TAKE 1 TABLET BY MOUTH EVERY DAY AT NIGHT active Not Available Not Available No t Available amitripty line 25 mg tablet 03/23 completed Not Available Not Available Not Available prednisol one acetate 1 % eye drops,ekaterina pension INSTILL 1 DROP INTO LEFT EYE 4 TIMES A DAY 07/02 completed PRN Not Available Not Available Not Available lidocaine HCl 4 % (40 mg/mL) mucosal solution DIRECTED APPLY W/Q-TIP TO AFFECTED PERINEAL AREAS 3 TIMES A DAY 07/19 completed Not Available Not Available Not Available dicyclomi ne 20 mg tablet 11/11 completed not taking Not Available Not Available Not Available prednison e 1 mg tablet 05/24 completed Not Available Not Available Not Available amitripty line 10 mg tablet take 1 tab PO QHS x7 days, then 1 tab PO every other day at bedtime x 7 days; then 1 tab PO twice a week for 7 days then stop 11/16 completed Not Available Not Available Not Available meclizine 25 mg tablet TAKE 1 TABLET BY MOUTH 3 TIMES A DAY NEEDED FOR DIZZINES S 12/07 completed Not Available Not Available Not Available carbamaze pine ER 200 mg tablet,ex tended release,1 2 hr Take 1 tablet 3 times a day by oral route for 30 days. 05/30 completed for trigemin al neuralgi a Not Available Not Available Not Available baclofen 10 mg tablet taking BID til 03/30 completed Not Available Not Available Not Available benzonata te 100 mg capsule Take 1 capsule 3 times a day by oral route as needed for 10 days. 12/08 completed Not Available Not Available Not Available doxycycli ne monohydra te 100 mg capsule Take 1 capsule twice a day by oral route for 7 days. 02/06 completed Not Available Not Available Not Available bethanech ol chloride 5 mg tablet Take 3 tablets every day by oral route before meal(s). active Not Available Not Available No t Available hydrocodo ne 7.5 mg-acetam inophen 325 mg tablet dentist 05/12 completed Not Available Not Available Not Available cephalexi n 500 mg capsule TAKE 1 CAPSULE (500 MG TOTAL) BY MOUTH 2 (TWO) TIMES A DAY FOR 4 DAYS FIRST DOSE GIVEN IN ER. 12/19 completed Not Available Not Available Not Available methylpre dnisolone 8 mg tablet 05/04 completed Not Available Not Available Not Available nitrofura ntoin macrocrys italia 100 mg capsule TAKE 1 CAPSULE BY MOUTH TWICE A DAY FOR 7 DAYS 06/13 completed Not Available Not Available Not Available ranitidin e 150 mg tablet Take 1 tablet twice a day by oral route. 11/16 completed Not Available Not Available Not Available prednison e 50 mg tablet 03/30 completed Not Available Not Available Not Available carbamaze pine 100 mg chewable tablet 03/23 completed Not Available Not Available Not Available brimonidi ne 0.2 % eye drops INSTILL ONE DROP INTO THE LEFT EYE TWICE A DAY active Not Available Not Available No t Available Mapap (acetamin ophen) 325 mg tablet 03/30 completed Not Available Not Available Not Available gabapenti n 300 mg capsule Take 3 capsules 3 times a day by oral route. 05/24 completed Not Available Not Available Not Available monteluka st 10 mg tablet TAKE 1 TABLET BY MOUTH EVERYDAY AT BEDTIME active Not Available Not Available No t Available hydroxyzi ne HCl 25 mg tablet TAKE 1 TABLET BY MOUTH THREE TIMES A DAY NEEDED 02/15 completed not taking Not Available Not Available Not Available levetirac etam 750 mg tablet TAKE 1 TABLET BY MOUTH TWICE A DAY active Not Available Not Available No t Available ergocalci ferol (vitamin D2) 1,250 mcg (50,000 unit) capsule TAKE 1 CAPSULE BY MOUTH EVERY WEEK active Not Available Not Available No t Available Prometheg an 25 mg rectal supposito ry Insert 1 supposit ory twice a day by rectal route as needed. 05/12 completed Not Available Not Available Not Available cefuroxim e axetil 500 mg tablet 03/30 completed bid x 7 days Not Available Not Available Not Available levofloxa megan 750 mg tablet 04/03 completed pt is not taking Not Available Not Available Not Available methylpre dnisolone 4 mg tablets in a dose pack TAKE 6 TABLETS ON DAY 1 DIRECTED ON PACKAGE AND DECREASE BY 1 TAB EACH DAY FOR A TOTAL OF 6 DAYS 11/21 completed Not Available Not Available Not Available albuterol sulfate HFA 90 mcg/actua tion aerosol inhaler INHALE 2 PUFFS BY MOUTH EVERY 6 HOURS NEEDED 07/02 completed Not Available Not Available Not Available timolol maleate 0.5 % eye drops INSTILL ONE DROP INTO THE LEFT EYE TWICE A DAY active Not Available Not Available No t Available haloperid ol 2 mg tablet TAKE 1 TABLET BY MOUTH THREE TIMES A DAY NEEDED FOR NERVE PAIN 07/19 completed Not Available Not Available Not Available methylpre dnisolone 16 mg tablet 05/04 completed Not Available Not Available Not Available ondansetr on 4 mg disintegr ating tablet TAKE 1 TABLET BY MOUTH EVERY 6 HOURS active Not Available Not Available No t Available cefdinir 300 mg capsule TAKE 1 CAPSULE BY MOUTH EVERY 12 HOURS FOR 10 DAYS 02/15 completed Not Available Not Available Not Available SF 5000 Plus 1.1 % dental cream 03/23 completed Not Available Not Available Not Available fluticaso ne propionat e 50 mcg/actua tion nasal spray,ekaterina pension SPRAY 2 SPRAYS INTO EACH NOSTRIL EVERY DAY NEEDED active Not Available Not Available No t Available amitripty line 100 mg tablet 03/30 completed Not Available Not Available Not Available dicyclomi ne 10 mg capsule TAKE 2 CAPSULES (20 MG TOTAL) BY MOUTH 4 TIMES A DAY BEFORE MEALS AND NIGHTLY 02/07 completed Not Available Not Available Not Available brimonidi ne 0.15 % eye drops INSTILL 1 DROP INTO LEFT EYE TWICE A DAY DIRECTED 05/04 completed Not Available Not Available Not Available metoclopr amide 10 mg tablet TAKE 1 TABLET BY MOUTH FOUR TIMES DAILY NEEDED FOR NAUSEA 07/02 completed Not Available Not Available Not Available tobramyci n 0.3 %-dexamet hasone 0.1 % eye drops,ekaterina pension 08/24 completed Not Available Not Available Not Available neomycin- polymyxin -hydrocor t 3.5 mg-10,000 unit/mL-1 % ear drops,ekaterina p ADMINIST ER 2 DROPS INTO THE RIGHT EAR 4 (FOUR) TIMES A DAY FOR 7 DAYS 05/24 completed Not Available Not Available Not Available atomoxeti ne 25 mg capsule 06/13 completed Not Available Not Available Not Available atomoxeti ne 40 mg capsule 06/13 completed Not Available Not Available Not Available atomoxeti ne 60 mg capsule Take 1 capsule every day by oral route. active Not Available Not Available No t Available guaifenes in 400 mg tablet Take 1 tablet every 4 hours by oral route as needed for 7 days, for cough. 12/05 completed Not Available Not Available Not Available cyclobenz aprine 5 mg tablet 02/15 completed not taking Not Available Not Available Not Available ciproflox acin 0.3 %-dexamet hasone 0.1 % ear drops,ekaterina pension INSTILL 4 DROPS INTO AFFECTED EAR(S) TWICE A DAY FOR 7 DAYS 11/21 completed Not Available Not Available Not Available topiramat e 50 mg tablet TAKE 1 TABLET BY MOUTH TWICE A DAY 12/19 completed Not Available Not Available Not Available nitrofura ntoin monohydra te/macroc rystals 100 mg capsule TAKE 1 CAPSULE BY MOUTH TWICE A DAY FOR 7 DAYS 07/02 completed Not Available Not Available Not Available duloxetin e 30 mg capsule,d elayed release TAKE 1 CAPSULE BY MOUTH EVERY DAY 11/16 completed Not Available Not Available Not Available carbamaze pine ER 200 mg capsule,e xtended release [id number] TAKE 1 CAPSULE BY MOUTH TWICE A DAY active Not Available Not Available No t Available pregabali n 100 mg capsule TAKE 1 CAPSULE BY MOUTH THREE TIMES A DAY 06/13 completed Not Available Not Available Not Available pregabali n 150 mg capsule TAKE 1 CAPSULE BY MOUTH THREE TIMES A DAY active Not Available Not Available No t Available Lyrica 25 mg capsule 08/23 completed Not Available Not Available Not Available Lyrica 300 mg capsule Take 1 capsule twice a day by oral route. 05/30 completed Not Available Not Available Not Available chlorhexi dine gluconate 0.12 % mouthwash 05/24 completed Not Available Not Available Not Available biotin 5,000mcg BID 02/19 completed for hair loss, weight loss Not Available Not Available Not Available famotidin e 20 mg at hs 11/21 completed Not Available Not Available Not Available sucralfat e 05/12 completed Not Available Not Available Not Available brimonidi ne 0.2 %-timolol 0.5 % eye drops INSTILL 1 DROP INTO LEFT EYE TWICE A DAY 07/02 completed Not Available Not Available Not Available diclofena c 1 % topical gel 03/23 completed Not Available Not Available Not Available Ozurdex active eye injectio ns every 4-6 mths Not Available Not Available Not Available Prolia active Not Available Not Availa ble Not Available Myrbetriq 25 mg tablet,ex tended release TAKE 1 TABLET BY MOUTH EVERYDAY AT BEDTIME active Not Available Not Available No t Available Tecfidera 120 mg (14)-240 mg (46) capsule,d elayed release 03/23 completed Not Available Not Available Not Available dimethyl fumarate 240 mg capsule,d elayed release Take 1 capsule twice a day by oral route for 23 days. 07/19 completed Not Available Not Available Not Available Tecfidera 120 mg capsule,d elayed release Take 1 capsule twice a day by oral route for 7 days. 04/03 completed Not Available Not Available Not Available marijuana (cannabis ) PRN 11/16 completed medical marijuan a for nerve pain from [place] Not Available Not Available Not Available cholecalc iferol (vitamin D3) 350 mcg (14,000 unit) capsule Take every day by oral route. 05/30 completed Not Available Not Available Not Available Fluzone Quad [id number] 60 mcg (15 mcg x 4)/0.5 mL IM suspensio n 03/30 completed Not Available Not Available Not Available Fluzone Quad 2017-(P F) 60 mcg(15 mcgx4)/0. 5 mL intramusc ular syringe 01/09 completed Not Available Not Available Not Available melatonin 3 mg capsule Take 2 capsules by oral route at bedtime. 05/05 completed Not Available Not Available Not Available Vitals Date Recorded Body height Body mass index (BMI) Body weight Oxygen saturation Heart rate Respiratory rate Body temperature Systolic And Diastolic Provider Name and Address Organization Details Last Updated DateTime 5 170.18 cm 37.4 kg/m2 158665. 86 g 98 % 92 /min 16 /min 97.3 [degF] 117/84 mm[Hg] Zunilda Fox MA ID - [facility] 5 09:10:00 Social History Question Answer Notes LastModified by Organizat ion Details LastModified Time Tobacco Smoking Status Former Smoker Quit 2011 Zunilda Fox MA null, [place] - [facility] 02/19/2019 15:12:18 Do You Have An Advance Directive? No Information not available 06/16/2020 Are You Blind Or Do You Have Difficulty Seeing? No Reading Glasses Information not available 02/15/2021 What Is Your Level Of Caffeine Consumption? Moderate Information not available 02/15/2021 How Much Tobacco Do You Chew? None [email or web address] Information not available 03/23/2017 In The 14 Days Before Symptom Onset, Have You Had Close Contact With A Laboratory-confi rmed COVID-19 While That Case Was Ill? No Information not available 11/12/2019 In The 14 Days Before Symptom Onset, Have You Had Close Contact With A Person Who Is Under Investigation For COVID-19 While That Person Was Ill? No Information not available 11/12/2019 Have You Been To An Area Known To Be High Risk For COVID-19? No Information not available 11/12/2019 Are You Deaf Or Do You Have Serious Difficulty Hearing? No Information not available 05/04/2020 What Type Of Diet Are You Following? REGULAR High Protein Low Carbs Information not available 11/21/2024 Which Illicit Or Recreational Drugs Have You Used? None Information not available 08/06/2018 Education 2 Year College [email or web address] Information not available 03/23/2017 What Is The Highest Grade Or Level Of School You Have Completed Or The Highest Degree You Have Received? [id number] Information not available 07/06/2020 Are There Any Guns Present In Your Home? No Information not available 03/23/2017 Marital Status Single Infor mation not available 03/23/2017 What Was The Date Of Your Most Recent Tobacco Screening? 02/11/2025 Information not available 02/11/2025 How Many Children Do You Have? 0 Information not available 12/26/2024 Performs Monthly Self-breast Exam? Yes Information not available 03/23/2017 Do You Have Any Pets? Yes 1 Dog Information not available 02/11/2025 What Is Your Relationship Status? Single Information not available 05/04/2020 Do You Use Your Seat Belt Or Car Seat Routinely? Yes Information not available 05/04/2020 Seat Belts Used Routinely Yes Information not available 03/23/2017 Smoke Alarm In Home Yes Information not available 03/23/2017 Do You Have Smoke And Carbon Monoxide Detectors In Your Home? Yes Information not available 06/16/2020 At What Age Did You Start Smoking Tobacco? 16 Information not available 06/26/2024 How Much Tobacco Do You Smoke? 0.5 PPD Information not available 03/23/2017 General Stress Level Medium Information not available 11/12/2019 Do You Use Sunscreen Routinely? Yes Information not available 03/23/2017 Has Tobacco Cessation Counseling Been Provided? No Information not available 02/07/2022 How Many Years Have You Smoked Tobacco? 10 Information not available 03/23/2017 Sex: Female Functional Status Question Answer Note LastModified by Organizat ion Details LastModified Time Do you use any illicit or recreational drugs? No [email or web address] Information not available 11/20/2020 Do you or have you ever used any other forms of tobacco or nicotine? No Information not available 06/16/2020 What is your level of alcohol consumption? None Information not available 03/23/2017 Do you or have you ever used smokeless tobacco? Never used smokeless tobacco Information not available 02/19/2019 Are you currently employed? No Information not available 05/04/2020 Are you able to care for yourself independently? Yes Information not available 07/06/2020 What is your occupation? disabled Information not available 03/23/2017 Do you or have you ever used e-cigarettes or vape? Never used electronic cigarettes Information not available 02/19/2019 What is your exercise level? None Information not available 12/26/2024 Mental Status Question Answer Note LastModified by Organization D etails LastModified Time Do you feel stressed (tense, restless, nervous, or anxious, or unable to sleep at night)? [id number] Information not available 08/24/2021 Family History Relationship Description Onset Age of this Age Resolved Age Notes LastModified by Organization Details LastModified Time Brother Migraine [email or web address] back Not available 03/23/2017 09:16:58 Mother Malignant neoplasm of breast Not available 2024 15:24:46 Mother Sarcoma Not available 06/26/2024 15:24:56 Notes:breast cancer- mom Medical History Condition Response Coronary Artery Disease N Other N High Blood Pressure N Atrial Fibrillation N Thyroid Problems N Kidney or Bladder Problems N GI Problems Y Depression Y COPD N Blood Clots N Skin Problems N Anemia N Heart Attack (NH) N Anxiety Disorder Y Diabetes N Muscle, Joint, or Bone Problems N Seizures/Epilepsy N Acid Reflux (GERD) Y Cancer N Stroke N Asthma Y Allergies N High Cholesterol N Hepatitis N Liver Disease N Headaches Y Osteoporosis N Heart Failure N Gynecological History Statement/Question Response Current Control Method Hysterectom y Obstetrics History GPAL:G 0 P 0 0 0 0 Immunizations Vaccine Type Date Status Note Provider Nam e and Address Organization Details Recorded Time Hib, unspecified formulation 9 completed Deloris Andrade null, [place] - [facility] 11/20/2020 12:16:14 Influenza, split virus, quadrivalent, preservative 0 completed [place] [facility] 11/20/2020 12:16:14 SARS-COV-2 (COVID-19) vaccine, UNSPECIFIED 1 completed Del[place] [facility] 11/20/2020 12:16:14 SARS-COV-2 (COVID-19) vaccine, UNSPECIFIED 1 completed Sunshine Flores RN [place] [facility] 06/04/2021 12:36:10 Influenza, split virus, quadrivalent, preservative 1 completed Zunilda Fox [place] [facility] 02/15/2021 09:37:38 COVID-19, mRNA, LNP-S, PF, 30 mcg/0.3 mL dose 1 completed Zunilda [place] [facility] 02/15/2021 09:38:48 COVID-19, mRNA, LNP-S, PF, 30 mcg/0.3 mL dose 2 completed Zunilda [place] [facility] 08/24/2021 08:48:01 influenza, unspecified formulation 3 completed Zunilda Fox [place] [facility] 12/19/2022 08:42:37 COVID-19, mRNA, LNP-S, bivalent, PF, 30 mcg/0.3 mL dose 3 completed Zunilda [place] [facility] 12/19/2022 08:44:11 influenza, unspecified formulation 4 completed Lulu Thorne [place] [facility] 12/08/2023 12:12:26 SARS-COV-2 (COVID-19) vaccine, UNSPECIFIED 4 completed Alanis Berger [place] [facility] 05/24/2024 16:16:40 zoster, unspecified formulation 4 completed Alanis Berger [place] [facility] 05/24/2024 16:17:13 zoster, unspecified formulation 4 completed Alanis Berger [place] [facility] 05/24/2024 16:17:18 pneumococcal, unspecified formulation 3 completed Alanis Berger [place] [facility] 05/24/2024 16:18:25 MMR 5 completed Not Available [facility] 02/11/2025 09:52:29 MMR 3 completed Not Available [facility] 02/11/2025 09:52:29 Hep A, pediatric, unspecified formulation 0 completed Not Available [facility] 02/11/2025 09:52:29 Influenza, split virus, trivalent, preservative 4 completed Not Available [facility] 02/11/2025 09:52:29 Influenza, split virus, quadrivalent, PF 5 completed Not Available [facility] 02/11/2025 09:52:29 zoster live 5 completed Not Available [facility] 02/11/2025 09:52:29 Influenza, split virus, trivalent, preservative 5 completed Not Available [facility] 02/11/2025 09:52:29 Influenza, split virus, trivalent, preservative 6 completed Not Available [facility] 02/11/2025 09:52:29 Influenza, split virus, quadrivalent, preservative 7 completed Not Available [facility] 02/11/2025 09:52:29 Influenza, split virus, quadrivalent, preservative 9 completed Not Available [facility] 02/11/2025 09:52:29 COVID-19, mRNA, LNP-S, bivalent, PF, 30 mcg/0.3 mL dose 2 completed Not Available [facility] 02/11/2025 09:52:29 Influenza, split virus, quadrivalent, PF 2 completed Not Available [facility] 02/11/2025 09:52:29 COVID-19, mRNA, LNP-S, PF, shelia-sucrose, 30 mcg/0.3 mL 4 completed Not Available [facility] 02/11/2025 09:52:29 Influenza, split virus, trivalent, PF 5 completed Not Available [facility] 02/11/2025 09:52:29 COVID-19, mRNA, LNP-S, PF, 50 mcg/0.5 mL 5 completed Not Available [facility] 02/11/2025 09:52:29 Influenza, split virus, quadrivalent, preservative 7 completed [place]is [place], [place] 11/20/2020 12:16:14 Tdap 7 completed DAQUAN Te[place], [place] 02/19/2019 15:11:17 Influenza, split virus, quadrivalent, PF 8 completed Deloris little, [place] - [facility] 11/20/2020 12:16:14 Past Encounters Encounter ID Performer Location Encounter Start Date Encounter Closed Date Diagnosis/Indication Diagnosis SNOMED-CT Code Diagnosis ICD10 Code Diagnosis IMO Codes Diagnosis Note [id number] Quinton Chávez MD [facility] (Adult Med) [address] [place] [address] 12/26/2024 08:39:51 12/27/2024 18:30:42 Mixed anxiety and depressive disorder [id number] F41.8 [id number] -Managemayito jack per psychiatry -Denies active suicidal or homicidal thoughts. Denies history of suicidal or homicidal thoughts.- patient reports symptoms are stable at this time-PHQ9 score: n/a-Kathe jack was educated on her prescribed medication s, rationale for medication s, dosing indication s, adverse reactions, black box warning, dosing indication s, SE (e.g., decreased libido, weight gain, gynecomast ia, and galactorrh ea) and the risks and benefits.- Patient instructed to go to ER or call 911 or 988 for crisis (e.g., suicidal behaviors, suicidal ideations, intent or plan emerge). Additional ly, patient has suicide hotline #.- continue current therapy-Ad vised patient to call clinic with questions Multiple sclerosis [id number] [id number] G35.D 25674 -Managemen t per Neurology- Symptoms worsening with change in season.-Dominic estrella to follow up with neurologis t to have medication adjustment s-ER precaution s advised Osteoporosis [id number] M8 1.0 [id number] -Last calcium level: ordered- Vitamin D level: ordered- DEXA scan: 2023-reque st records-Tr end vitamin d and calcium levels-Adv ised patient to:-Increa se calcium and vitamin D intake.-Sm oking cessation. -Limit alcohol intake.-Sandra rae caffeine intake.-Ta gege measures to prevent falling (with low bone density, falls can result in fractured or broken bones fairly easily) Prediabetes [id number] R7 3.03 678130 -Recheck A1c today-No medication therapy-Re commended diabetic diet-Educa swapna to check feet daily. Mixed hyperlipidemia [id number] 670508 E78.2 39594 -No medication therapy-Re check lipid panel-Nimo harris LFTs-Danny nt educated on the importance of diet, exercise and medication in the management of this condition. Long-term current use of drug therapy [id number] Z79.899 [id number] Overweight [id number] E66 .3 Health Concerns Section Related Observation LastModified by Organization Detai ls LastModified Time None Recorded Concern Status LastModified by Organization Details LastModified Time None Recorded Payers Encounter Date Sequence Insurance Name Policy Number Policy Orellana Covered Member ID Orellana Member ID Guarantor Name 12/26/2024 1 [place] Yue Gurrola [id number] Yue Gurrola 12/26/2024 2 [employer] (MEDICARE SUPPLEMENT) Yue Gurrola [id number] Yue Gurrola Notes Date Note Type Note Provider Name and Address Organization Details Recorded Time 12/26/2024 text/html Patient is a 39-year-old female presenting to the clinic for her six-month follow up appointment. Patient's past medical history includes: headache, anxiety, anxiety, depression, ADHD, back pain, tobacco use, marijuana use, GERD, asthma, prediabetes, MS, total hysterectomy, and tonsillectomyOther providersNeurologist-Dr Jessica Ball with [facility]. Amos [facility]ATIONS [facility]Dr. Amezquita -Patient reports she is feeling better.-She has follow up with neurology to discuss some new neurological side effects with MS. She may need her medications adjusted. CHANTEL RUBIO- Attn: Accounting,[address] [place], [address], [facility] - [facility] 12/26/2024 09:28:30 OBGyn Episode No OBEpisode recorded.
--- OUTSIDE RECORDS SUMMARY | 2025-03-02 08:09 | XMS_ITS | Encounter Summary ---
Author Organization [facility] Address [address] [place] [address] Phone Care Team Providers Care Radiation Control Health Physicist Name Role Phone Geovanna Alvarado APRN, MONOLOGIST Unavailable [phone] Kathy Mirza MD Primary Care Provider [phone] Loyd Ball MD Unavailable Unique Saba APRN, MONOLOGIST Primary Care Provider Reason for Visit * Reason Comments Medication Refill Encounter Details Date Type Department Care Team (Late st Contact Info) Description 07/21/2020 Refill [facility] [address] [place] [id number] Loyd Ball MD [address] [place] [address] Medication Refill Social History Tobacco Use Types Packs/Day Years Used Date Smoking Tobacco: Former Cigarettes 0.5 10 0 06/29/2004 - 06/29/2014 Smokeless Tobacco: Former Alcohol Use Standard Drinks/Week Comments No 0 (1 standard drink = 0.6 oz pur e alcohol) none Comments No Sex and Gender Information Value Date Recorded Sex Assigned at Female 11/12/2022 3:59 AM CDT Legal Sex Female 7:31 PM CDT Gender Identity Female 11/12/2022 3:59 AM CDT Sexual Orientation Not on file Occupation Industry Job Start Date Job End Date disabled Not on file Not on file Not on file COVID-19 Exposure Response Date Recorded In the last month, have you been in contact with someone who was confirmed or suspected to have Coronavirus / COVID-19? No / Unsure 07/22/2020 1:06 AM CDT documented as of this encounter Plan of Treatment Upcoming Encounters Date Type Department Care Team (Late st Contact Info) Description 07/17/2025 10:00 AM CDT Office Visit [facility] - Neurology [facility] [address] [place] [address] Loyd Ball MD [address] [place] [address] documented as of this encounter Visit Diagnoses Diagnosis Migraine without status migrainosus, not intractable, unspecified migraine type documented in this encounter Additional Health Concerns Infection Onset Date Last Indicated Resolved Time COVID - 19 08/13/2020 08/13/2020 08/15/2020 6:42 AM CDT COVID - 19 03/13/2021 03/13/2021 04/02/2021 12:1 6 AM PROJECT SCIENTIST COVID - 19 04/15/2021 04/15/2021 05/05/2021 12:1 6 AM PROJECT SCIENTIST COVID - 19 09/05/2021 09/05/2021 09/15/2021 12:1 6 AM CDT COVID - 19 02/16/2022 02/16/2022 02/26/2022 12:1 6 AM PROJECT SCIENTIST Respiratory Rule-Out 02/16/2022 02/16/2022 022 8:42 AM PROJECT SCIENTIST COVID - 19 06/21/2022 06/21/2022 07/01/2022 12:1 7 AM CDT COVID - 19 11/12/2022 11/12/2022 11/22/2022 12:1 6 AM CDT documented as of this encounter Care Teams Radiation Control Health Physicist Relationship Specialty Start Date End Date Kathy Mirza MD [address] [place] [address] PCP - General Internal Medicine 11/20/18 07/10/24 Unique Saba APRN, MONOLOGIST [address] [place] [address] PCP - General Advanced Practice Nurse 07/11/24 Geovanna Alvarado APRN, MONOLOGIST Nurse Practitioner Advanced Practice Nurse 03/24/16 Loyd Ball MD [address] [place] [address] Consulting Physician Neurology 02/08/22 documented as of this encounter
--- OUTSIDE RECORDS SUMMARY | 2025-03-02 08:09 | XMS_ITS | Clinical Summary ---
Author Organization [facility] Address [address] [place] [address] Phone Care Team Providers Care Territory Business Manager Name Role Phone THANH RYAN Primary Care Provider [phone] AKI DUNN, JAZ C Unavailable [phone] Reason for Visit and Chief Complaint The Chief Complaint is: Pt complains of a lump on right vagina lip, tender Problems Includes: Problems addressed during this encounter and other active Problems Current Visit Onset Date Resolved Date Provider Conditio n Status History of Irritable Bowel Syndrome 10/25/2012 MICHAELA SEPULVEDA RN RACHEL Active Last Documented On 10/25/2012 8:03AM ; [facility] Note: Unchanged History of Esophagitis Chronic Reflux 03/18/2010 MANUEL WAYNE Active Last Documented On 03/18/2010 9:51AM ; [facility] Note: Unchanged Past Visits Onset Date Resolved Date Provider Condition Status Colonic Diverticulosis Without Perforation Or Abscess 07/28/2013 MICHAELA SEPULVEDA RN RACHEL Active Last Documented On 4 11:13AM ; [facility] Multiple Sclerosis 03/22/2012 MICHAELA SEPULVEDA RN RACHEL Active Last Documented On 4 8:07AM ; [facility] Urinary Tract Infection 03/22/2012 MICHAELA Rogers RN RACHEL Active Last Documented On 03/22/2012 2:37PM ; [facility] Note: Unchanged FAMILY HX-BREAST MALIG 03/18/2010 MICHAELA SEPULVEDA RN RACHEL Active Last Documented On 07/29/2014 10:08AM ; [facility] Note: Mother diagnosed at age 45 ESTROGE N RECEPTOR POSITIVE. PT NEEDS ANNUAL MAMMOGRAM AGE 33 Smoking Cigarettes 03/18/2010 MANUEL WAYNE Active Last Documented On 03/18/2010 9:40AM ; [facility] Note: Unchanged - 1/2 pack a day Plan of Treatment Pending Tests Order Diagnosis Results Due Ordering P rovider Lab HSV IGG 1&2 Type Specific 07/20/23 MICHAELA SEPULVEDA RN RACHEL Last Documented On 4 8:15AM ; [facility] Lab Varicella Screen 07/20/23 MICHAELA SEPULVEDA RN RACHEL BC Last Documented On 4 8:15AM ; [facility] Lab Sureswab BV Panel Pl us (CT/NG ,Trich,BV, Yeast [id number] 07/27/23 MICHAELA SEPULVEDA RN N P BC Last Documented On 4 8:14AM ; [facility] Instructions to patient Return to the clinic if cond ition worsens or new symptoms arise Last Documented On 4 10:00AM ; [facility] Assessments Includes: Assessments from this encounter Findings - [N90.89 - Other specified noninflammatory disorders of vulva and perineum] Noninflammatory disorder of the vulva and perineum r/o HSV vs. varicella zoster - Last Documented On 07/20/2023 10:05AM ; [facility] Instructions Includes: Instructions from this encounter Instructions to patient Return to the clinic if cond ition worsens or new symptoms arise Last Documented On 4 10:00AM ; [facility] Medical Equipment - Implanted Devices Includes: Current Devices No Medical Equipment Recorded Medications Includes: Medications discussed during this encounter and other current Medications New / Renewed during this visit MICHAELA SEPULVEDA RN RACHEL on 07/20/2023 Lidocaine HCl 4% External Solution Provider: MICHAELA SEPULVEDA RN RACHEL 10 day supply: 1 mL, 0 refills Diagnosis: Oth noninflammatory disorders of vulva and perineum as directed APPLY W/Q-TIP TO AFFECTED perineal AREAs tid Pharmacy: [facility] [address], [address] - Last Documented On 4 10:16AM By MICHAELA SCHULZ- ; [facility] valACYclovir HCl 1 GM Oral Tablet Provider: MICHAELA SEPULVEDA RN RACHEL 10 day supply: 20 tablet, 0 refills Diagnosis: Oth noninflammatory disorders of vulva and perineum One tablet twice a day TAKE DIRECTED W/FOOD Pharmacy: [address], [address] - Last Documented On 10:16AM By MICHAELA SEPULVEDA [facility] ; [facility] Current Medications (continue as prescribed) Prolia 60 MG/ML Subcutaneous Solution Prefilled Syring e 10/06/2022 Provider: Diagnosis: Last Documented On 10/06/2022 9:45AM By Alexandria Dukes ; [facility] Ozurdex 0.7 MG Intravitreal Implant 10/06/2022 Provi lalo: Diagnosis: Last Documented On 10/06/2022 9:45AM By Alexandria Dukes ; [facility] Lyrica 150 MG Oral Capsule 10/06/2022 Provider: Diagnosis: Last Documented On 10/06/2022 9:44AM By Alexandria Dukes ; [facility] Atomoxetine HCl 60 MG Oral Capsule 09/05/2022 Provid er: NAVEED CULP Diagnosis: Last Documented On 10/06/2022 9:41AM By Alexandria Dukes ; [facility] [place] Carbonate 150 MG Oral Capsule 09/05/2022 Pro vider: NAVEED CULP Diagnosis: Last Documented On 10/06/2022 9:41AM By Alexandria Dukes ; [facility] Venlafaxine HCl 100 MG Oral Tablet 09/05/2022 Provid er: NAVEED CULP Diagnosis: Last Documented On 10/06/2022 9:42AM By Alexandria Dukes ; [facility] Myrbetriq 25 MG Oral Tablet Extended Release 24 Hour 0 07/18/2022 Provider: Diagnosis: Last Documented On 10/06/2022 9:42AM By Alexandria Dukes ; [facility] Timolol Maleate 0.5% Ophthalmic Solution 07/02/2022 Provider: Diagnosis: Last Documented On 10/06/2022 9:42AM By Alexandria Dukes ; [facility] clonazePAM 0.5 MG Oral Tablet 06/09/2022 Provider: NAVEED CULP Diagnosis: Last Documented On 10/06/2022 9:42AM By Alexandria Dukes ; [facility] Ondansetron HCl 4 MG Oral Tablet 04/15/2022 Provider : Diagnosis: Last Documented On 10/06/2022 9:42AM By Alexandria Dukes ; [facility] Brimonidine Tartrate 0.2% Ophthalmic Solution 04/06/19 Provider: Diagnosis: Last Documented On 10/06/2022 9:43AM By Alexandria Dukes ; [facility] hydrOXYzine HCl 50 MG Oral Tablet 10/05/2021 Provide r: Diagnosis: Last Documented On 10/05/2021 10:02AM By Alexandria Dukes ; [facility] All Day Allergy 10MG Oral Capsule 08/28/2018 Provide r: Diagnosis: Last Documented On 9 9:49AM By YAIMA MUNOZ ; [facility] Fluticasone Propionate 50MCG/ACT Nasal Suspension 08/28/2018 Provider: Diagnosis: Last Documented On 9 9:47AM By YAIMA MUNOZ ; [facility] Tecfidera 240MG Oral Capsule Delayed Release 8 Provider: Diagnosis: Last Documented On 08/24/2017 8:08AM By Juliet Degroot MA ; [facility] Biotin 5000MCG Oral Capsule 08/24/2017 Provider: Diagnosis: Last Documented On 08/24/2017 8:09AM By Juliet Degroot MA ; [facility] [place] Chloride 5MG Oral Tablet 08/24/2017 Prov ider: Diagnosis: Last Documented On 08/24/2017 8:12AM By Juliet Degroot MA ; [facility] [place] Carbonate 150MG Oral Capsule 08/24/2017 Prov ider: Diagnosis: Last Documented On 08/24/2017 8:12AM By Juliet Degroot MA ; [facility] Montelukast Sodium 10MG Oral Tablet 08/24/2017 Provi lalo: Diagnosis: Last Documented On 08/24/2017 8:11AM By Juliet Degroot MA ; [facility] LevETIRAcetam 500MG Oral Tablet 08/24/2017 Provider: Diagnosis: Last Documented On 08/24/2017 8:09AM By Juliet Degroot MA ; [facility] CarBAMazepine ER 200MG Oral Tablet Extended Rele ase 12 Hour 08/24/2017 Provider: Diagnosis: Last Documented On 08/24/2017 8:09AM By Juliet Degroot MA ; [facility] Omeprazole 40 MG Capsule, delayed-release 08/11/2015 Provider: Diagnosis: Last Documented On 08/11/2015 10:01AM By ARVIND CORONEL MA ; [facility] Ventolin HFA 108 (90 Base) MCG/ACT Aerosol, solution 0 08/11/2015 Provider: Diagnosis: Last Documented On 08/11/2015 10:00AM By ARVIND CORONEL MA ; [facility] SUMAtriptan Succinate 100 MG Tablet 08/11/2015 Provi lalo: Diagnosis: Last Documented On 08/11/2015 10:00AM By ARVIND CORONEL MA ; [facility] Vitamin D 1000 UNIT Tablet 07/29/2014 Provider: Diagnosis: 9000 mg Last Documented On 07/29/2014 9:32AM By BASIA VELASQUEZ ; [facility] Past Medications on file valACYclovir HCl 500 MG Oral Tablet 07/24/2023 - 04/19/2024 Provider: MICHAELA SEPULVEDA RN RACHEL Diagnosis: Oth noninflammat ory disorders of vulva and perineum One tablet daily ONE TABLET DAILY DIRECTED Last Documented On 4 11:00AM By MICHAELA RICHARDS ; [facility] Vitamin D (Ergocalciferol) 1.25 MG (91490 UT) Oral Capsule 10/22/2021 - 12/17/2021 Provider: MICHAELA HAYES Diagnosis: Vitamin D defici ency, unspecified as directed ONE TABLET WEEKLY X 8 WEEKS Last Documented On 2 1:00PM By MICHAELA RICHARDS ; [facility] Acetaminophen 325MG Oral Tablet 2017 - 12/01/2017 Provider: MICHAELA HAYES Diagnosis: Mastodynia as directed take 2 tablets QID as directed Last Documented On 8 9:01AM By MICHAELA RICHARDS ; [facility] Medications Administered Includes: Administered Medications from this encounter No Administered Medications Recorded Vital Signs Includes: Vital Signs from this encounter Vital Name 07/20/2023 09:18A Blood Pressure Sitting L 122/70 BP Cuff Size Regular Temp-Temporal 97.6 Height (in) 67 Weight (lb) 240 Body Mass Index 37.6 Body Surface Area 2.2 Last Documented: On 07/20/2023 9:28AM ; [facility] Results Includes: Results discussed during this encounter No Results Recorded For Specified Dates History of Present Illness Includes: History of Present Illness from this encounter HPI Pt comes with the below symptoms and history. - Allergy list reviewed - Medication list reviewed - Vulvar itching or burning since Monday as well as pain to R labia. Pt. denies area enlarging, no rx to date Social History No Social History Recorded - Smoking Status Unknown Procedures and Surgical History Surgical History Last Updated Surgical / procedural histor y pharengeal flap age 1 ~port instilled 03/21 ~Ellbow 202010/05/2021 Last Documented On 4 9:10AM ; [facility] History of hysterectomy 12/16/2013 Total hyst 08/11/2015 Last Documented On 4 9:10AM ; [facility] Surgical history unchanged 07/29/2014 Last Documented On 4 9:10AM ; [facility] History of total abdominal h ysterectomy BSO 10/2013 D/T CHRONIC PELVIC PAIN/FIBROIDS DR. GREEN 01/16/2014 Last Documented On 4 9:10AM ; [facility] History of cholecystectomy 05/2012 Last Documented On 4 9:10AM ; [facility] Tonsillectomy 198603/22/2012 Last Documented On 4 9:10AM ; [facility] History of appendectomy `198603/18/2010 Last Documented On 4 9:10AM ; [facility] Medical History Includes: Medical History addressed during this encounter Description Last Updated A mammogram was performed 10/2021 023 Last Documented On 4 9:10AM ; [facility] Last mammogram date: 10/202110/06/2022 Last Documented On 4 9:10AM ; [facility] History of screening mammogram was perfo rmed 10/202110/06/2022 Last Documented On 4 9:10AM ; [facility] Primary Care Provider: Yuki 10/05/2021 Last Documented On 4 9:10AM ; [facility] 0 10/05/2021 Last Documented On 4 9:10AM ; [facility] Result: normal [facility] 10/01/2020 Last Documented On 4 9:10AM ; [facility] Aborta 0 10/01/2020 Last Documented On 4 9:10AM ; [facility] Para 0 10/01/2020 Last Documented On 4 9:10AM ; [facility] Patient recently had a dexa scan 020 Last Documented On 4 9:10AM ; [facility] History of Pap smear done 07/28/201309/04 Last Documented On 4 9:10AM ; [facility] Not sexually active 10/01/2019 Last Documented On 4 9:10AM ; [facility] LMP: 201308/24/2017 Last Documented On 4 9:10AM ; [facility] Last pap smear date 03/22/2012 08/11/2015 Last Documented On 4 9:10AM ; [facility] No recent change in medical history 07/05 Last Documented On 4 9:10AM ; [facility] History of irritable bowel syndrome 10/04 Last Documented On 4 9:10AM ; [facility] History of chronic reflux esophagitis Last Documented On 4 9:44AM ; [facility] Family History Includes: Family History addressed during this encounter Description Last Updated No family history of malignant neoplasm of the ovary 2017 Last Documented On 4 9:10AM ; [facility] Maternal history of malignan t female breast neoplasm Mother ESTROGEN RECEPTOR POSITIVE PER PT REPORT 07/29/14 08/23/2016 Last Documented On 4 9:10AM ; [facility] Maternal uncle's history of malignant neoplasm of large intestine Maternal uncle 08/11/2015 Last Documented On 4 9:10AM ; [facility] Family history of malignant female breast neoplasm Mother ESTROGEN RECEPTOR POSITIVE PER PT REPORT 07/29/14 07/29/2014 Last Documented On 4 9:10AM ; [facility] Mother dx with endometrial cancer 11/201307/29/2014 Last Documented On 4 9:10AM ; [facility] Family history of diabetes mellitus Melgar rnal uncle 07/29/2014 Last Documented On 4 9:10AM ; [facility] Family history of malignant neoplasm of the large intestine Maternal uncle 07/29/2014 Last Documented On 4 9:10AM ; [facility] Family history unchanged 07/29/2014 Last Documented On 4 9:10AM ; [facility] Family history of hypertension Mother Last Documented On 4 9:10AM ; [facility] Family history of Cancer ---mom had sarc jocelyne in leg and mets to her lung 07/31/2013 Last Documented On 4 9:10AM ; [facility] Family history of hypercholesterolemia d ad 03/22/2012 Last Documented On 4 9:10AM ; [facility] Family medical history of Breast problem s 04/06/2009 Last Documented On 4 9:10AM ; [facility] Review of Systems Includes: Review of Systems from this encounter Systemic: No fever and no chills. Head: No headache. Eyes: No vision problems. Cardiovascular: No chest pain or discomfort. Pulmonary: No dyspnea. Gastrointestinal: No nausea, no vomiting, and no abdominal pain. Skin: Pruritus and skin lesion: Mental Status Includes: Mental Status from this encounter No Mental Status Recorded Functional Status Includes: Functional Status from this encounter No Functional Status Recorded Physical Exam Includes: Physical Exam from this encounter Allergies Includes: Active Allergies Substance Type Reaction Onset Date Resolved Date Statu s NSAIDs Allergy Vomiting 2017 Active Last Documented On 4 9:26AM ; [facility] Note: d/t GERD levoFLOXacin Allergy 08/24/2017 Active Last Documented On 4 9:26AM ; [facility] Augmentin Allergy 04/06/2009 Active Last Documented On 4 9:26AM ; [facility] Adhesive Tape Allergy 10/05/2021 Activ e Last Documented On 4 9:26AM ; [facility] Encounters Encounter Provider Location Date Check-In Time Check-Out Time Diagnosis PROBLEM VISIT MICHAELA SEPULVEDA RN RACHEL [facility] 024 9:05AM 9:57AM Noninflammatory Disorder of Vulva and Perineum Insurance Includes: Active Insurance Policies Plan Name Member ID Group # Subscriber Relationship Effect rohini Dates 1 - MEDICARE PART A CLAIMS/NGS [id number] VALDEZ VINSON Self 2 - [employer] [id number] PLAN G VALDEZ VINSON Self Clinical Notes Includes: Clinical Notes from this encounter * Progress note Date Encounter Last Documented by 07/20/2023 PROBLEM VISIT Last documented on 07/20/2023; 10:05 AM, MICHAELA SEPULVEDA RN RACHEL ; [facility] Active Problems & Conditions - 562.10 - [...] day - N39.0 - Urinary Tract Infection Chief Complaint The Chief Complaint is: Pt complains of a lump on right vagina lip, tender. History of Present Illness Pt comes with the below symptoms and history. - Allergy list reviewed - Medication list reviewed - Vulvar itching or burning since Monday as well as pain to R labia. Pt. denies area enlarging, no rx to date Current Medication - All Day Allergy 10MG [...] 500 MG 0 days, 0 refills - [place] Carbonate 150 MG Oral Capsule 28 days, 0 refills - [place] Carbonate 150MG Oral Capsule 150 MG 0 [...] Ophthalmic Solution 74 days, 0 refills - Venlafaxine HCl 100 [...] and Last mammogram date: 10/2021 result: normal [facility]. Surgical / Procedural: Surgical / procedural history pharengeal flap age 1 port instilled 03/21 Ellbow 2020. Tonsillectomy 1986 and surgical history unchanged. [...] Malignant neoplasm of large intestine Maternal uncle Review Of Systems Systemic: No fever and no chills. Head: No headache. Eyes: No vision problems. Cardiovascular: No chest pain or discomfort. Pulmonary: No dyspnea. Gastrointestinal: No nausea, no vomiting, and no abdominal pain. Skin: Pruritus and skin lesion: Physical Findings - Vitals taken 07/20/2023 09:18 am BP-Sitting L 122/70 mmHg BP Cuff Size Regular Temp-Temporal 97.6 F Height 67 in Weight 240 lbs Body Mass Index 37.6 kg/m2 Body Surface Area 2.2 m2 Lymph Nodes: - Normal. Genitalia: External: - Genitalia showed abnormalities single lesion to R labia majora near introitus erythema, no exudate on inspection. Area is not firm or pointed. Assessment - [N90.89 - Other specified noninflammatory disorders of vulva and perineum] Noninflammatory disorder of the vulva and perineum r/o HSV vs. varicella zoster Counseling/Education - Return to the clinic if condition worsens or new symptoms arise Plan StartCited - Oth noninflammatory disorders of vulva and perineum Lab: HSV IGG 1&2 Type Specific Instructions: IgG and IGM Lab: Varicella Screen Instructions: IgG and IGM Lidocaine HCl 4% mL as directed APPLY W/Q-TIP TO AFFECTED perineal AREAs tid, 10 days, 0 refills valACYclovir HCl 1 GM tablet One tablet twice a day TAKE DIRECTED W/FOOD, 10 days, 0 refills EndCited StartCited - Other PHY ORDER/COMMENT annual after 10/07/23 thanks EndCited Health Reminders - Assess BMI satisfied 07/20/2023.
--- OUTSIDE RECORDS SUMMARY | 2025-03-02 08:09 | XMS_ITS | Clinical Summary ---
Author Organization [facility] Address [address] [place] [address] Phone Care Team Providers Care Sulfonator Operator Name Role Phone KODYTHANH Rogers Primary Care Provider [phone] AKI DUNN, JAZ C Unavailable [phone] Reason for Visit and Chief Complaint CHART UPDATE Problems Includes: Problems addressed during this encounter and other active Problems Current Visit Onset Date Resolved Date Provider Conditio n Status History of Irritable Bowel Syndrome 10/25/2012 MICHAELA SEPULVEDA RN [facility] Active Last Documented On 10/25/2012 8:03AM ; [facility] Note: Unchanged History of Esophagitis Chronic Reflux 03/18/2010 MANUEL WAYNE Active Last Documented On 03/18/2010 9:51AM ; [facility] Note: Unchanged Past Visits Onset Date Resolved Date Provider Condition Status Colonic Diverticulosis Without Perforation Or Abscess 07/28/2013 MICHAELA SEPULVEDA RN [facility] Active Last Documented On 4 11:13AM ; [facility] Multiple Sclerosis 03/22/2012 MICHAELA SEPULVEDA RN [facility] Active Last Documented On 4 8:07AM ; [facility] Urinary Tract Infection 03/22/2012 ANA CRISTINA SEPULVEDA RN [facility] Active Last Documented On 03/22/2012 2:37PM ; [facility] Note: Unchanged FAMILY HX-BREAST MALIG 03/18/2010 MICHAELA SEPULVEDA RN [facility] Active Last Documented On 07/29/2014 10:08AM ; [facility] Note: Mother diagnosed at age 45 ESTROGE N RECEPTOR POSITIVE. PT NEEDS ANNUAL MAMMOGRAM AGE 35 Smoking Cigarettes 03/18/2010 MANUEL WAYNE Active Last Documented On 03/18/2010 9:40AM ; [facility] Note: Unchanged - 1/2 pack a day Plan of Treatment No Plan of Treatment Recorded Assessments Includes: Assessments from this encounter No Assessments Recorded Medical Equipment - Implanted Devices Includes: Current Devices No Medical Equipment Recorded Medications Includes: Medications discussed during this encounter and other current Medications Current Medications (continue as prescribed) Prolia 60 MG/ML Subcutaneous Solution Prefilled Syring e 10/06/2022 Provider: Diagnosis: Last Documented On 10/06/2022 9:45AM By Alexandria Dukes ; [facility] Ozurdex 0.7 MG Intravitreal Implant 10/06/2022 Provi lalo: Diagnosis: Last Documented On 10/06/2022 9:45AM By Alexandria Dukes ; [facility] Lyrica 150 MG Oral Capsule 10/06/2022 Provider: Diagnosis: Last Documented On 10/06/2022 9:44AM By Alexandria Dukes ; [facility] Atomoxetine HCl 60 MG Oral Capsule 09/05/2022 Provid er: NAVEED CULP Diagnosis: Last Documented On 10/06/2022 9:41AM By Alexandria Dukes ; [facility] [place] Carbonate 150 MG Oral Capsule 09/05/2022 Pro vider: NAVEED CULP Diagnosis: Last Documented On 10/06/2022 9:41AM By Alexandria Dukes ; [facility] Venlafaxine HCl 100 MG Oral Tablet 09/05/2022 Provid er: NAVEED CULP Diagnosis: Last Documented On 10/06/2022 9:42AM By Alexandria Dukes ; [facility] Myrbetriq 25 MG Oral Tablet Extended Release 24 Hour 0 07/18/2022 Provider: Diagnosis: Last Documented On 10/06/2022 9:42AM By Alexandria Dukes ; [facility] Timolol Maleate 0.5% Ophthalmic Solution 07/02/2022 Provider: Diagnosis: Last Documented On 10/06/2022 9:42AM By Alexandria Dukes ; [facility] clonazePAM 0.5 MG Oral Tablet 06/09/2022 Provider: NAVEED CULP Diagnosis: Last Documented On 10/06/2022 9:42AM By Alexandria Dukes ; [facility] Ondansetron HCl 4 MG Oral Tablet 04/15/2022 Provider : Diagnosis: Last Documented On 10/06/2022 9:42AM By Alexandria Dukes ; [facility] Brimonidine Tartrate 0.2% Ophthalmic Solution 04/06/19 Provider: Diagnosis: Last Documented On 10/06/2022 9:43AM By Alexandria Dukes ; [facility] hydrOXYzine HCl 50 MG Oral Tablet 10/05/2021 Provide r: Diagnosis: Last Documented On 10/05/2021 10:02AM By Alexandria Dukes ; [facility] All Day Allergy 10MG Oral Capsule 08/28/2018 Provide r: Diagnosis: Last Documented On 9 9:49AM By YAIMA MUNOZ ; [facility] Fluticasone Propionate 50MCG/ACT Nasal Suspension 08/28/2018 Provider: Diagnosis: Last Documented On 9 9:47AM By YAIMA MUNOZ ; [facility] Tecfidera 240MG Oral Capsule Delayed Release 8 Provider: Diagnosis: Last Documented On 08/24/2017 8:08AM By Juliet Degroot MA ; [facility] Biotin 5000MCG Oral Capsule 08/24/2017 Provider: Diagnosis: Last Documented On 08/24/2017 8:09AM By Juliet Degroot MA ; [facility] Bethanechol Chloride 5MG Oral Tablet 08/24/2017 Prov ider: Diagnosis: Last Documented On 08/24/2017 8:12AM By Juliet Degroot MA ; [facility] [place] Carbonate 150MG Oral Capsule 08/24/2017 Prov ider: Diagnosis: Last Documented On 08/24/2017 8:12AM By Juliet Degroot MA ; [facility] Montelukast Sodium 10MG Oral Tablet 08/24/2017 Provi lalo: Diagnosis: Last Documented On 08/24/2017 8:11AM By Juliet Degroot MA ; [facility] LevETIRAcetam 500MG Oral Tablet 08/24/2017 Provider: Diagnosis: Last Documented On 08/24/2017 8:09AM By Juliet Degroot MA ; [facility] CarBAMazepine ER 200MG Oral Tablet Extended Rele ase 12 Hour 08/24/2017 Provider: Diagnosis: Last Documented On 08/24/2017 8:09AM By Juliet Degroot MA ; [facility] Omeprazole 40 MG Capsule, delayed-release 08/11/2015 Provider: Diagnosis: Last Documented On 08/11/2015 10:01AM By ARVIND CORONEL MA ; [facility] Ventolin HFA 108 (90 Base) MCG/ACT Aerosol, solution 0 08/11/2015 Provider: Diagnosis: Last Documented On 08/11/2015 10:00AM By ARVIND CORONEL MA ; [facility] SUMAtriptan Succinate 100 MG Tablet 08/11/2015 Provi lalo: Diagnosis: Last Documented On 08/11/2015 10:00AM By ARVIND CORONEL MA ; [facility] Vitamin D 1000 UNIT Tablet 07/29/2014 Provider: Diagnosis: 9000 mg Last Documented On 07/29/2014 9:32AM By BASIA VELASQUEZ ; [facility] Past Medications on file valACYclovir HCl 500 MG Oral Tablet 07/24/2023 - 04/19/2024 Provider: MICHAELA SEPULVEDA RN [facility] Diagnosis: Oth noninflammat ory disorders of vulva and perineum One tablet daily ONE TABLET DAILY DIRECTED Last Documented On 4 11:00AM By MICHAELA BARRIOS ; [facility] Lidocaine HCl 4% External Solution 07/20/2023 - 07/30/2023 Provider: MICHAELA SEPULVEDA RN [facility] Diagnosis: Oth noninflammat ory disorders of vulva and perineum as directed APPLY W/Q-TIP TO AFFECTED perineal AREAs tid Last Documented On 4 10:16AM By MICHAELA RICHARDS ; [facility] valACYclovir HCl 1 GM Oral Tablet 07/20/2023 - 07/30/2023 Provider: MICHAELA SEPULVEDA RN [facility] Diagnosis: Oth noninflammat ory disorders of vulva and perineum One tablet twice a day TAKE DIRECTED W/FOOD Last Documented On 4 10:16AM By MICHAELA RICHARDS ; [facility] Vitamin D (Ergocalciferol) 1.25 MG (53769 UT) Oral Capsule 10/22/2021 - 12/17/2021 Provider: MICHAELA SEPULVEDA RN [facility] Diagnosis: Vitamin D defici ency, unspecified as directed ONE TABLET WEEKLY X 8 WEEKS Last Documented On 2 1:00PM By MICHAELA SEPULVEDA R[facility]HEL- ; [facility] Acetaminophen 325MG Oral Tablet 2017 - 12/01/2017 Provider: MICHAELA SEPULVEDA RN [facility] Diagnosis: Mastodynia as directed take 2 tablets QID as directed Last Documented On 8 9:01AM By MICHAELA SEPULVEDA RACHEL- ; [facility] Medications Administered Includes: Administered Medications [...] instilled 03/21 ~Ellbow 202010/05/2021 Last Documented On 2 12:16PM ; [facility] History of hysterectomy 12/16/2013 Total hyst 08/11/2015 Last Documented On 2 12:16PM ; [facility] Surgical history unchanged 07/29/2014 Last Documented On 2 12:16PM ; [facility] History of total abdominal h ysterectomy BSO 10/2013 D/T CHRONIC PELVIC PAIN/FIBROIDS DR. GREEN 01/16/2014 Last Documented On 2 12:16PM ; [facility] History of cholecystectomy 05/2012 Last Documented On 2 12:16PM ; [facility] Tonsillectomy 198603/22/2012 Last Documented On 2 12:16PM ; [facility] History of appendectomy `198603/18/2010 Last Documented On 2 12:16PM ; [facility] Medical History Includes: Medical History addressed during this encounter Description Last Updated A mammogram was performed 10/2020 023 Last Documented On 2 12:16PM ; [facility] Last mammogram date: 10/202010/06/2022 Last Documented On 2 12:16PM ; [facility] History of screening mammogram was perfo rmed 10/202010/06/2022 Last Documented On 2 12:16PM ; [facility] Primary Care Provider: Yuki 10/05/2021 Last Documented On 2 12:16PM ; [facility] 0 10/05/2021 Last Documented On 2 12:16PM ; [facility] Result: normal [facility] 10/01/2020 Last Documented On 2 12:16PM ; [facility] Aborta 0 10/01/2020 Last Documented On 2 12:16PM ; [facility] Para 0 10/01/2020 Last Documented On 2 12:16PM ; [facility] Patient recently had a dexa scan 020 Last Documented On 2 12:16PM ; [facility] History of Pap smear done 07/28/201309/04 Last Documented On 2 12:16PM ; [facility] Not sexually active 10/01/2019 Last Documented On 2 12:16PM ; [facility] LMP: 201308/24/2017 Last Documented On 2 12:16PM ; [facility] Last pap smear date 03/22/2012 08/11/2015 Last Documented On 2 12:16PM ; [facility] No recent change in medical history 07/05 Last Documented On 2 12:16PM ; [facility] History of irritable bowel syndrome 10/04 Last Documented On 2 12:16PM ; [facility] History of chronic reflux esophagitis Last Documented On 2 12:16PM ; [facility] Family History Includes: Family History addressed during this encounter Description Last Updated No family history of malignant neoplasm of the ovary 2017 Last Documented On 2 12:16PM ; [facility] Maternal history of malignan t female breast neoplasm Mother ESTROGEN RECEPTOR POSITIVE PER PT REPORT 07/29/14 08/23/2016 Last Documented On 2 12:16PM ; [facility] Maternal uncle's history of malignant neoplasm of large intestine Maternal uncle 08/11/2015 Last Documented On 2 12:16PM ; [facility] Family history of malignant female breast neoplasm Mother ESTROGEN RECEPTOR POSITIVE PER PT REPORT 07/29/14 07/29/2014 Last Documented On 2 12:16PM ; [facility] Mother dx with endometrial cancer 11/201307/29/2014 Last Documented On 2 12:16PM ; [facility] Family history of diabetes mellitus Melgar rnal uncle 07/29/2014 Last Documented On 2 12:16PM ; [facility] Family history of malignant neoplasm of the large intestine Maternal uncle 07/29/2014 Last Documented On 2 12:16PM ; [facility] Family history unchanged 07/29/2014 Last Documented On 2 12:16PM ; [facility] Family history of hypertension Mother Last Documented On 2 12:16PM ; [facility] Family history of Cancer ---mom had sarc jocelyne in leg and mets to her lung 07/31/2013 Last Documented On 2 12:16PM ; [facility] Family history of hypercholesterolemia d ad 03/22/2012 Last Documented On 2 12:16PM ; [facility] Family medical history of Breast problem s 04/06/2009 Last Documented On 2 12:16PM ; [facility] Review of Systems Includes: [...] Active Last Documented On 4 9:26AM ; [facility] Note: d/t GERD levoFLOXacin Allergy 08/24/2017 Active Last Documented On 4 9:26AM ; [facility] Augmentin Allergy 04/06/2009 Active Last Documented On 4 9:26AM ; [facility] Adhesive Tape Allergy 10/05/2021 Activ e Last Documented On 4 9:26AM ; [facility] Encounters Encounter Provider Location Date Check-In Time Check-Out Time Diagnosis CHART UPDATE MICHAELA SEPULVEDA RN [facility] 12/23/2021 12:16PM 11:59PM Insurance Includes: Active Insurance Policies Plan Name Member ID Group # Subscriber Relationship Effect rohini Dates 1 - MEDICARE PART A CLAIMS/NGS [id number] VALDEZ Potter 2 - [employer] [facility] [id number] PLAN G VALDEZ Potter Clinical Notes Includes: Clinical Notes from this encounter No Clinical Notes Recorded
--- OUTSIDE RECORDS SUMMARY | 2025-03-02 08:09 | XMS_ITS | Continuity of Care Document ---
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 Plan of Treatment Reminders Order Date Submit Date Provider Last Modified By Organization Details Last Modified Time Details Appointments MEDICARE WELLNESS VISIT 2025 10:00A M RANDOLPH RUBIOP-BC Not available Not available Not available Lab influenza virus A + B + SARS-CoV- 2 (COVID19) Ag panel, rapid IA, upper respirato ry specimen 2024 025 BG In-Office Order, Internal Use Only DO Not Attach Compendium DO Not Attach Compendium, Do Not Delete/merge, [id number] 01/23/2025 17:11:25 Referral None recorded. Procedures None recorded. Surgeries None recorded. Imaging None recorded. Medication Orders doxycycli ne monohydra te 100 mg capsule 2024 025 [facility] [id number], [address], 02/06/2025 05:02:21 Patient TargetsNo targets recorded. Patient Instructions Encounter Date Encounter Id Patient Instructions Last Modified By Organization Details Last Modified Time 01/23/2025 [id number] ear infection (otitis media): care instructions Not available 01/23/2025 12:13:27 Plan of care has been discussed with [...] 12/06/23 - Prevnar 20: 10/17/22 - Tdap/Td ([id number]): 06/27/16 - Zoster (>60): 11/04/23, 08/04/23 - COVID-19: 11/04/23, 10/17/22, 05/30/21, 12/04/20, 06/01/20, 05/05/20 -Labs ordered this visit:annual lab work ordered Females: Pap smear: total hysterectomy Mammogram: December 2023-requesting records DEXA: n/a [email or web address] Not available 01/23/2025 12:08:08 Reason for Referral None Reported. Results Created Date Observation Date Name Description Value Unit Range Abnormal Flag Note LastModifiedBy Organization Detail LastModifiedTime 12/27/1912/27/2024 TSH+F REE T4 TSH 1.570 uIU/m L 0.450- 4.500 Not Available [facility] ([facility]) [address] [place], [address], 12/27/2024 08:25:47 12/27/1912/27/2024 TSH+F REE T4 T4,free(dire ct) 0.85 NG/dL 0.82-1 .77 Not Available [facility] ([facility]) [address] [place], [address], 12/27/2024 08:25:47 12/27/1912/27/2024 LIPID PANEL cholesterol, total 191 mg/dL 100-19 9 Not Available [facility] ([facility]) [address] [place], [address], 12/27/2024 08:25:48 12/27/1912/27/2024 LIPID PANEL triglyceride s 153 mg/dL 0-149 above high normal Not Available [facility] ([facility]) [address] [place], [address], 12/27/2024 08:25:48 12/27/19 25 12/27/2024 LIPID PANEL HDL cholesterol 48 mg/dL >39 Not Available [facility] ([facility]) [address] [place], [address], 12/27/2024 08:25:48 12/27/1912/27/2024 LIPID PANEL VLDL cholesterol cyn 27 mg/dL 5-40 Not Available [facility] ([facility]) [address] [place], [address], 12/27/2024 08:25:48 12/27/19 25 12/27/2024 LIPID PANEL LDL chol calc ([facility]) 116 mg/dL 0-99 above high normal Not Available [facility] ([facility]) [address] [facility], [place], [address], 12/27/2024 08:25:48 12/27/1912/26/2024 COMP. METAB OLIC PANEL (14) interpretati on: [...] at www.k doqi. org. Not Available [facility] ([facility]) [address] [facility], [place], [address], 12/27/2024 08:25:48 12/27/19 25 12/27/2024 COMP. METAB OLIC PANEL (14) glucose 86 mg/dL 70-99 Not Available [facility] ([facility]) [address] [place], [address], 12/27/2024 08:25:48 12/27/19 25 12/27/2024 COMP. METAB OLIC PANEL (14) BUN 14 mg/dL 6-24 Not Available [facility] ([facility]) [address] [place], [address], 12/27/2024 08:25:48 12/27/19 25 12/27/2024 COMP. METAB OLIC PANEL (14) creatinine 0.64 mg/dL 0.57-1 .00 Not Available [facility] ([facility]) [address] [place], [address], 12/27/2024 08:25:48 12/27/19 25 12/27/2024 COMP. METAB OLIC PANEL (14) eGFR 114 mL/mi n/1.7 3 >59 Not Available [facility] ([facility]) [address] [place], [address], 12/27/2024 08:25:48 12/27/19 25 12/27/2024 COMP. METAB OLIC PANEL (14) BUN/creatini ne ratio 22 9-23 Not Available [facility] ([facility]) [address] [place], [address], 12/27/2024 08:25:48 12/27/19 25 12/27/2024 COMP. METAB OLIC PANEL (14) sodium 141 mmol/ L 134-14 4 Not Available [facility] ([facility]) [address] [place], [address], 12/27/2024 08:25:48 12/27/19 25 12/27/2024 COMP. METAB OLIC PANEL (14) potassium 4.8 mmol/ L 3.5-5. 2 Not Available [facility] ([facility]) [address] [facility] [place], [address], 12/27/2024 08:25:48 12/27/19 25 12/27/2024 COMP. METAB OLIC PANEL (14) chloride 107 mmol/ L 96-106 above high normal Not Available [facility] ([facility]) [address] [facility] [place], [address], 12/27/2024 08:25:48 12/27/19 25 12/27/2024 COMP. METAB OLIC PANEL (14) carbon dioxide, total 19 mmol/ L 20-29 below low normal Not Available [facility] ([facility]) [address] [facility], [place], [address], 12/27/2024 08:25:48 12/27/19 25 12/27/2024 COMP. METAB OLIC PANEL (14) calcium 9.0 mg/dL 8.7-10 .2 Not Available [facility] ([facility]) [address] [facility] [place], [address], 12/27/2024 08:25:48 12/27/19 25 12/27/2024 COMP. METAB OLIC PANEL (14) protein, total 7.2 g/dL 6.0-8. 5 Not Available [facility] ([facility]) [address] [facility] [place], [address], 12/27/2024 08:25:48 12/27/19 25 12/27/2024 COMP. METAB OLIC PANEL (14) albumin 4.4 g/dL 3.9-4. 9 Not Available [facility] ([facility]) [address] [facility] [place], [address], 12/27/2024 08:25:48 12/27/19 25 12/27/2024 COMP. METAB OLIC PANEL (14) globulin, total 2.8 g/dL 1.5-4. 5 Not Available [facility] ([facility]) [address] [facility], [place], [address], 12/27/2024 08:25:48 12/27/1912/27/2024 COMP. METAB OLIC PANEL (14) bilirubin, total <0.2 mg/dL 0.0-1. 2 Not Available [facility] ([facility]) [address] [place], [address], 12/27/2024 08:25:48 12/27/19 25 12/27/2024 COMP. METAB OLIC PANEL (14) alkaline phosphatase 81 IU/L 41-116 Not Available [facility] ([facility]) [address] [facility], [place], [address], 12/27/2024 08:25:48 12/27/19 25 12/27/2024 COMP. METAB OLIC PANEL (14) AST (SGOT) 14 IU/L 0-40 Not Available [facility] ([facility]) [address] [facility], [place], [address], 12/27/2024 08:25:48 12/27/1912/27/2024 COMP. METAB OLIC PANEL (14) ALT (SGPT) 25 IU/L 0-32 Not Available [facility] ([facility]) [address] [place], [address], 12/27/2024 08:25:48 12/27/1912/27/2024 HEMOG LOBIN A1C hemoglobin A1C 5.6 % 4.8-5. 6 Predi abete s: 5.7 - 6.4 Diabe juan david: >6.4 Glyce milton contr ol for adult s with diabe juan david: <7.0 Not Available [facility] ([facility]) [address] [place], [address], 12/27/2024 08:25:49 12/27/19 25 12/27/2024 CBC WITH DIFFE RENTI AL/PL ATELE T WBC 10.0 x10e3 /uL 3.4-10 .8 Not Available [facility] ([facility]) [address] [place], [address], 12/27/2024 08:25:49 12/27/1912/27/2024 CBC WITH DIFFE RENTI AL/PL ATELE T RBC 5.43 x10e6 /uL 3.77-5 .28 above high normal Not Available [facility] ([facility]) [address] [place], [address], 12/27/2024 08:25:49 12/27/1912/27/2024 CBC WITH DIFFE RENTI AL/PL ATELE T hemoglobin 13.8 g/dL 11.1-1 5.9 Not Available [facility] ([facility]) [address] [place], [address], 12/27/2024 08:25:49 12/27/1912/27/2024 CBC WITH DIFFE RENTI AL/PL ATELE T hematocrit 44.1 % 34.0-4 6.6 Not Available [facility] ([facility]) [address] [place], [address], 12/27/2024 08:25:49 12/27/1912/27/2024 CBC WITH DIFFE RENTI AL/PL ATELE T MCV 81 fL 79-97 Not Available [facility] ([facility]) [address] [place], [address], 12/27/2024 08:25:49 12/27/1912/27/2024 CBC WITH DIFFE RENTI AL/PL ATELE T MCH 25.4 pg 26.6-3 3.0 below low normal Not Available [facility] ([facility]) [address] [place], [address], 12/27/2024 08:25:49 12/27/1912/27/2024 CBC WITH DIFFE RENTI AL/PL ATELE T MCHC 31.3 g/dL 31.5-3 5.7 below low normal Not Available [facility] ([facility]) [address] [facility], [place], [address], 12/27/2024 08:25:49 12/27/19 25 12/27/2024 CBC WITH DIFFE RENTI AL/PL ATELE T RDW 15.1 % 11.7-1 5.4 Not Available [facility] ([facility]) [address] [facility], [place], [address], 12/27/2024 08:25:49 12/27/1912/27/2024 CBC WITH DIFFE RENTI AL/PL ATELE T platelets 402 x10e3 /uL 150-45 0 Not Available [facility] ([facility]) [address] [facility], [place], [address], 12/27/2024 08:25:49 12/27/1912/27/2024 CBC WITH DIFFE RENTI AL/PL ATELE T neutrophils 59 % notest ab. Not Available [facility] ([facility]) [address] [facility], [place], [address], 12/27/2024 08:25:49 12/27/1912/27/2024 CBC WITH DIFFE RENTI AL/PL ATELE T lymphs 30 % notest ab. Not Available [facility] ([facility]) [address] [place], [address], 12/27/2024 08:25:49 12/27/19 25 12/27/2024 CBC WITH DIFFE RENTI AL/PL ATELE T monocytes 7 % notest ab. Not Available [facility] ([facility]) [address] [place], [address], 12/27/2024 08:25:49 12/27/19 25 12/27/2024 CBC WITH DIFFE RENTI AL/PL ATELE T eos 3 % notest ab. Not Available [facility] ([facility]) [address] [facility], [place], [address], 12/27/2024 08:25:49 12/27/1912/27/2024 CBC WITH DIFFE RENTI AL/PL ATELE T basos 1 % notest ab. Not Available [facility] ([facility]) [address] [facility], [place], [address], 12/27/2024 08:25:49 12/27/19 25 12/27/2024 CBC WITH DIFFE RENTI AL/PL ATELE T neutrophils (absolute) 5.9 x10e3 /uL 1.4-7. 0 Not Available [facility] ([facility]) [address] [facility], [place], [address], 12/27/2024 08:25:49 12/27/1912/27/2024 CBC WITH DIFFE RENTI AL/PL ATELE T lymphs (absolute) 3.0 x10e3 /uL 0.7-3. 1 Not Available [facility] ([facility]) [address] [facility], [place], [address], 12/27/2024 08:25:49 12/27/19 25 12/27/2024 CBC WITH DIFFE RENTI AL/PL ATELE T monocytes(ab solute) 0.7 x10e3 /uL 0.1-0. 9 Not Available [facility] ([facility]) [address] [place], [address], 12/27/2024 08:25:49 12/27/19 25 12/27/2024 CBC WITH DIFFE RENTI AL/PL ATELE T eos (absolute) 0.3 x10e3 /uL 0.0-0. 4 Not Available [facility] ([facility]) [address] [facility], [place], [address], 12/27/2024 08:25:49 12/27/19 25 12/27/2024 CBC WITH DIFFE RENTI AL/PL ATELE T baso (absolute) 0.1 x10e3 /uL 0.0-0. 2 Not Available [facility] ([facility]) [address] [facility], [place], [address], 12/27/2024 08:25:49 12/27/19 25 12/27/2024 CBC WITH DIFFE RENTI AL/PL ATELE T immature granulocytes 0 % notest ab. Not Available [facility] ([facility]) [address] [facility], [place], [address], 12/27/2024 08:25:49 12/27/1912/27/2024 CBC WITH DIFFE RENTI AL/PL ATELE T immature grans (abs) 0.0 x10e3 /uL 0.0-0. 1 Not Available [facility] ([facility]) [address] [place], [address], 12/27/2024 08:25:49 12/27/1912/27/2024 VITAM IN D, 25-HY DROXY vitamin D, [...] 1. IOM (Inst itute of Medic ine). 2010. Dieta ry refer ence ifrah es for calci um and D. Funmi mcdonald [place]: The Natio nal [employer] [facility] Press . 2. Mary Lou nayak MF, Brenda ey [place], Stacie off-F errar i GOMES, et al. Evalu ation , treat ment, and preve ntion of vitam in D defic iency : an Endoc rine Socie ty clini cyn pract ice guide line. JCEM. 2010; 96(7) :1911 -30. Not Available [facility] ([facility]) [address] [facility], [place], [address], 12/27/2024 08:25:50 01/24/2001/23/2025 influ syeda virus A + B + SARS- CoV-2 (COVI D19) Ag panel , rapid IA, upper respi rator y speci men Flu A negati ve Not Available In-Office Order Internal Use Only DO Not Attach Compendium DO Not Attach Compendium, Do Not Delete/merge, [id number] 01/23/2025 12:13:47 01/24/2001/23/2025 influ syeda virus A + B + SARS- CoV-2 (COVI D19) Ag panel , rapid IA, upper respi rator y speci men Flu B negati ve Not Available In-Office Order Internal Use Only DO Not Attach Compendium DO Not Attach Compendium, Do Not Delete/merge, [id number] 01/23/2025 12:13:47 01/24/2001/23/2025 influ syeda virus A + B + SARS- CoV-2 (COVI D19) Ag panel , rapid IA, upper respi rator y speci men Rapid SARS CoV 2 Ag, QL IA, respiratory specimen negati ve Not Available In-Office Order Internal Use Only DO Not Attach Compendium DO Not Attach Compendium, Do Not Delete/merge, [id number] 01/23/2025 12:13:47 Result Notes None recorded. 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 Quinn Mirza MD Attn: Fernando petty,[address] [facility], [place], [address], [facility] - SI 15:27:10 Spasmodi c movement 334171509 Completed 201711/16/2018 Kathy Mirza MD Attn: Fernadno petty,[address] [facility], [place], [address], [place] - [facility] 9 10:29:56 Chronic headache disorder 029318421 Active 2017 Kathy Mirza MD Attn: Fernando petty,[address] [facility], [place], [address], [place] [facility] 2 15:27:10 Dysphagi a 10096407 Active 2017 sees GI Kathy Mirza MD Attn: Fernando petty,[address] [facility], [place], [address], [place] [facility] 3 09:09:49 Lumbar radiculo guerline 530867807 Active 2017 Kathy Mirza MD Attn: Fernando petty,[address] [facility], [place], [address], [place] [facility] 3 09:12:46 Persiste nt cough 141090267 Completed 201711/16/2018 Kathy Mirza MD Attn: Fernando petty,[address] 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, [place], [address], [place] [facility] 2 15:27:10 Generali zed anxiety disorder 31988078 Active 2017 sees psych /BHA Kathy Mirza MD Attn: Fernando petty,[address] [facility], [place], [address], [place] [facility] 2 15:27:10 Uterine leiomyom a 42426397 Completed 201704/05/2017 Removal Reason: s/p total hysterect lesly Vasquez PA-C Attn: Fernando petty,[address] [facility], [place], [address], [place] - [facility] 8 08:21:09 History of ramon es 777435791 Completed 201704/05/2017 Yanelis Vasquez PA-C Attn: Fernando petty,[address] [facility], [place], [address], [facility] - [facility] 8 08:21:22 Cyst of ovary 35630734 Completed 201704/05/2017 Removal Reason: bilateral ; s/p BSO Yanelis Vasquez PA-C Attn: Fernando petty,[address] [facility], [place], [address], [facility] - [facility] 8 08:22:00 Psycholo gic conversi on disorder 68789558 Active 2017 Kathy Mirza MD Attn: Fernando petty,[address] [facility], [place], [address], [facility] - SI 2 15:27:10 Strain of Achilles tendon 01145890 Active 2017 Deloris little, [place] - [facility] 1 12:16:09 Bilatera l cataract s 70182441 Active 2020 sees ophthalmo logist Kathy Mirza MD Attn: Fernando petty,[address] [facility], [place], [address], [facility] - SI 2 15:27:10 Pain of elbow region 97925264 Active 2020 sees ortho Deloris little [facility] 1 12:16:09 Overacti ve urinary bladder 659322673 Active 2020 sees urologist Kathy Mirza MD Attn: Fernando petty,[address] [facility], [place], [address], [facility] - [facility] 2 15:27:10 Problem Notes None recorded. Procedures Surgical History Date Name Laterality Status Provider Name and Address Organization Details Recorded Time 12/26/19 21 Eye Surgery completed Zunilda Fox MA [facility] 02/15/2021 09:42:02 11/04/19 21 procedure on elbow completed Zunilda Fox MA PA - [facility] 11/12/2020 14:36:17 03/24/19 21 repair of retina completed Jody El Daniela PA - [facility] 05/04/2020 11:46:06 02/07/20 20 extraction of cataract completed Jody El Daniela [facility] 05/04/2020 11:45:43 05/25/19 19 Cerumen Removal completed Yanelis Vasquez PA-C Attn: Accounting, [address] [place], [address], [facility] - [facility] 05/24/2018 11:55:53 12/05/19 14 Total hysterectomy completed Yanelis Vasquez PA-C Attn: Accounting, [address] [place], [address], [facility] - [facility] 03/23/2017 10:11:03 03/06/19 14 Removal of ovary(s) completed Yanelis Vasquez PA-C Attn: Accounting, [address] [place], [address], [facility] 03/23/2017 10:10:58 Gastrointestinal Surgery completed Morena hernandez MA PA - [facility] 03/23/2017 09:19:55 Tonsillectomy completed Morena hernandez MA PA - [facility] 03/23/2017 09:20:03 Insert picvad cath completed Yanelis Vasquez PA-C Attn: Accounting, [address] [place], [address], [facility] 03/30/2017 13:12:32 Xcapsl ctrc rmvl cplx wo ecp completed Casandra Medrano MA [facility] 08/12/2020 09:15:38 Imaging Results None recorded. Procedure Notes None recorded. Medical Equipment None Reported. Allergies Allergen ID Allergen Name Allergen Category Reaction Reaction Severity Criticality Documentation Date Start Date Code Code System Note Provider Name and Address Organization Details Recorded Time 457879 Augmentin medicatio n rash Not available Not available 03/23/2017 64295 2 RxNorm Morena hooker MA null, [place] - [facility] 8 09:09:52 474449 Levaquin medicatio n other moderate Not available 04/03/20172017 63570 2 RxNorm left ankle achil les tendo n pain Yanelis Vasquez PA-C Attn: Accountin g,[address] [facility], [place], [address], [facility] - [facility] 8 15:48:13 710750 Non-stero idal anti-infl ammatory agent (substanc e) medicatio n other moderate Not available 04/03/2017 56918 5008 SNOMED GERD Yanelis Vasquez PA-C Attn: Accountin g,[address] [facility], [place], [address], [facility] - [facility] 8 16:18:27 146148 brimonidi ne medicatio n eye redness Not available Not available 05/04/2020 05733 5 RxNorm Jody El, RMA null, [place] - [place] 11:53:23 291838 Substance with sulfonami de structure and antibacte rial mechanism of action (substanc e) medicatio n eye redness Not available Not available 05/05/2020 16514 8003 SNOMED Jody El, RMA null, [place] - [facility] 11:35:29 492377 Adhesive agent (substanc e) environme nt,medica tion itching rash Not available Not available high 12/26/20242020 19748 0007 SNOMED unrec ogniz ed react ion (text : Carlos ers, code: 44515 7009) (from exter nal sourc e) Not Available bg - External Data Service - prod 03:12:58 713093 amoxicill in medicatio n rash Not available Not available 12/26/2024 723 RxNorm React ion: Rash, , Not Available bg - External Data Service - prod 03:12:58 408942 amoxicill in / clavulana te medicatio n rash Not available high 12/26/20242009 00955 RxNorm Occur red as child , Rash when taken as infan t Occur red as child , Rash when taken as infan t Occur red as child , Not Available [employer] Data Service - prod 5 03:12:58 915038 brimonidi ne / timolol medicatio n Not available Not available low 12/26/20242020 21364 2 RxNorm unrec ogniz ed react ion (text : Eye irrit ation , code: 60147 3008) (from exter [facility] e) Not Available bg [employer] External Data Service - prod 5 03:12:58 359532 levofloxa megan medicatio n arthralgi a (joint pain) other Not available Not available low 12/26/20242017 60472 RxNorm tendo nitis Other react ion(s ): Joint pain tendo nitis Tendo n swell s tendo nitis Tendo n swell s Joint pain, tendo nitis Not Available [employer] Data Service - prod 5 03:12:58 749709 tolmetin medicatio n Not available Not available Not available 02/11/20252017 42446 RxNorm GI DOCTO R DOESN 'T WANT PT TO TAKE Not Available bg - External Data Service - prod 03:24:51 Medications Name Sig Start Date Stop [...] Not Available Not Available Not Available azithromy megan 250 mg tablet TAKE 2 TABLETS BY [...] pine ER 200 mg capsule,e xtended release [id number] r TAKE 1 CAPSULE BY MOUTH TWICE [...] Available Not Available Not Available Fluzone Quad 4469-1802 60 mcg (15 mcg x 4)/0.5 mL [...] Details Last Updated DateTime 5 170.18 cm 39.1 kg/m2 860455. 66 g 96 % 96 /min 16 /min 97.3 [degF] 120/85 mm[Hg] Zunilda Fox MA [place] - [facility] 5 11:53:05 Social History Question Answer Notes LastModified by Organizat ion Details LastModified Time Tobacco Smoking Status Former Smoker Quit 2011 Zunilda Fox MA [facility], [place] - [place] 02/19/2019 15:12:18 Do You Have An Advance Directive? No Information not available 06/16/2020 Are You Blind Or Do You Have Difficulty Seeing? No Reading Glasses Information not available 02/15/2021 What Is Your Level Of Caffeine Consumption? Moderate Information not available 02/15/2021 How Much Tobacco Do You Chew? None Information not available 03/23/2017 In The 14 [...] not available 08/06/2018 Education 2 Year College Information not available 03/23/2017 What Is The Highest Grade Or Level Of School You Have Completed Or The Highest Degree You Have Received? [id number] Information not available 07/06/2020 Are There Any Guns Present In Your Home? No Information not available 03/23/2017 Marital Status Single Infor mation not available 03/23/2017 What Was The Date Of Your Most Recent Tobacco Screening? 02/11/2025 Information not available 02/11/2025 How Many Children Do You Have? 0 Information not available 12/26/2024 Performs Monthly Self-breast Exam? Yes [email or web address] Information not available 03/23/2017 Do You Have Any Pets? Yes 1 Dog Information not available 02/11/2025 What Is Your Relationship Status? Single Information not available 05/04/2020 Do You Use Your Seat Belt Or Car Seat Routinely? Yes Information not available 05/04/2020 Seat Belts Used Routinely Yes Information not available 03/23/2017 Smoke Alarm In Home Yes [email or web address] Information not available 03/23/2017 Do You Have Smoke And Carbon Monoxide Detectors In Your Home? Yes Information not available 06/16/2020 At What Age Did You Start Smoking Tobacco? 16 Information not available 06/26/2024 How Much Tobacco Do You Smoke? 0.5 PPD Information not available 03/23/2017 General Stress Level Medium Information not available 11/12/2019 Do You Use Sunscreen Routinely? Yes [email or web address] Information not available 03/23/2017 Has Tobacco Cessation Counseling Been Provided? No Information not available 02/07/2022 How Many Years Have You Smoked Tobacco? 10 Information not available 03/23/2017 Sex: Female Functional Status Question Answer Note LastModified by Organizat ion Details LastModified Time Do you use any illicit or recreational drugs? No [email or web address] Information not available 11/20/2020 Do you or [...] anxious, or unable to sleep at night)? [id number] Information not available 08/24/2021 Family History Relationship Description Onset Age of this Age Resolved Age Notes LastModified by Organization Details LastModified Time Brother Migraine [email or web address] back Not available 03/23/2017 09:16:58 Mother Malignant neoplasm of breast Not available 2024 15:24:46 Mother Sarcoma Not available 06/26/2024 15:24:56 Notes:breast cancer- mom Medical History Condition Response Coronary Artery Disease N Other N Atrial Fibrillation N High Blood Pressure N Kidney or Bladder Problems N Thyroid Problems N GI Problems Y Depression Y COPD N Blood Clots N Skin Problems N Anemia N Heart Attack (MA) N Anxiety Disorder Y Diabetes N Muscle, [...] split virus, quadrivalent, preservative 1 completed Zunilda Fox, [place] null, [place] - [facility] 02/15/2021 09:37:38 [...] 05/24/2024 16:18:25 MMR 5 completed Not Available [facility] 02/11/2025 09:52:29 MMR 3 completed Not Available [facility] 02/11/2025 09:52:29 Hep A, pediatric, unspecified formulation 0 completed Not Available [facility] 02/11/2025 09:52:29 Influenza, split virus, trivalent, preservative 4 completed Not Available [facility] 02/11/2025 09:52:29 Influenza, split virus, quadrivalent, PF 5 completed Not Available [facility] 02/11/2025 09:52:29 zoster live 5 completed Not Available [facility] 02/11/2025 09:52:29 Influenza, split virus, trivalent, preservative 5 completed Not Available [facility] 02/11/2025 09:52:29 Influenza, split virus, trivalent, preservative 6 completed Not Available [facility] 02/11/2025 09:52:29 Influenza, split virus, quadrivalent, preservative 7 completed Not Available [facility] 02/11/2025 09:52:29 Influenza, split virus, quadrivalent, preservative 9 completed Not Available [facility] 02/11/2025 09:52:29 COVID-19, mRNA, LNP-S, bivalent, PF, 30 mcg/0.3 mL dose 2 completed Not Available [facility] 02/11/2025 09:52:29 Influenza, split virus, quadrivalent, PF 2 completed Not Available [facility] 02/11/2025 09:52:29 COVID-19, mRNA, LNP-S, PF, shelia-sucrose, 30 mcg/0.3 mL 4 completed Not Available [facility] 02/11/2025 09:52:29 Influenza, split virus, trivalent, PF 5 completed Not Available [facility] 02/11/2025 09:52:29 COVID-19, mRNA, LNP-S, PF, 50 mcg/0.5 mL 5 completed Not Available [facility] 02/11/2025 09:52:29 Influenza, split virus, quadrivalent, preservative 7 completed Deloris little, [facility] 11/20/2020 12:16:14 Tdap 7 completed DAQUAN Teague, [place] - [facility] 02/19/2019 15:11:17 Influenza, split virus, quadrivalent, PF 09/06/201 8 completed Deloris little [place] - [facility] 11/20/2020 12:16:14 Past Encounters Encounter ID Performer Location Encounter Start Date Encounter Closed Date Diagnosis/Indication Diagnosis SNOMED-CT Code Diagnosis ICD10 Code Diagnosis IMO Codes Diagnosis Note [id number] Quinton Chávez MD [facility] (Adult Med) [address] [place] [address] 12/26/2024 08:39:51 12/27/2024 18:30:42 Mixed anxiety and depressive disorder 623270184 F41.8 [id number] -Managemen t per psychiatry -Denies active suicidal or homicidal [...] to call clinic with questions Multiple sclerosis 96444 007 G35.D 99270 -Managemen t per Neurology- Symptoms worsening with change in season.-Dominic estrella to follow up with neurologis t to have medication adjustment s-ER precaution s advised Osteoporosis 45964865 M8 1.0 33149528 -Last calcium level: ordered- Vitamin D level: ordered- DEXA scan: 2023-reque st records-Tr end vitamin d and calcium levels-Adv ised patient to:-Increa se calcium and vitamin D intake.-Sm oking cessation. -Limit alcohol intake.-Li butch caffeine intake.-Ta ke measures to prevent falling (with low bone density, falls can result in fractured or broken bones fairly easily) Prediabetes 470213612 R7 3.03 396526 -Recheck A1c today-No medication therapy-Re commended diabetic diet-Educa swapna to check feet daily. Mixed hyperlipidemia 267 303917 E78.2 38459 -No medication therapy-Re check lipid panel-Nimo harris LFTs-Danny lutz educated on the importance of diet, exercise and medication in the management of this condition. Long-term current use of drug therapy 304969736 Z79.899 [id number] Overweight 848546057 E66 .3 [id number] [facility] [address] [place] [address] 01/23/2025 11:33:08 01/27/2025 14:18:19 Acute bilateral otitis media 536037528 H66.93 [id number] -Neative for influenza and covid-Bila teral TMs erythemato us. Patient presentati on consistent with bilateral otitis media.-Pat ient agreeable to treatment to doxycyclin e BID for 7 days. CONTRACT IMPLEMENTATION ANALYST advised patient to consume OTC probiotic or yogurt while on antibiotic therapy.-P atient to follow up in clinic if symptoms worsen or do not improve-ER precaution s advised Health Concerns Section Related Observation LastModified by Organization Detai ls LastModified Time None Recorded Concern Status LastModified by Organization Details LastModified Time None Recorded Payers Encounter Date Sequence Insurance Name Policy Number Policy Orellana Covered Member ID Orellana Member ID Guarantor Name 01/23/2025 1 [place] Adeline Gurrola [id number] Adeline Gurrola 01/23/2025 2 [employer]TRY [employer] (MEDICARE SUPPLEMENT) Adeline Gurrola [id number] Adeline Gurrola Notes Date Note Type Note Provider Name and Address Organization Details Recorded Time 01/23/2025 text/html Patient is a 39 year old female presenting to the clinic with acute complaint of sinus congestion. Patient's past medical history includes: headache, anxiety, anxiety, depression, ADHD, back pain, tobacco use, marijuana use, GERD, asthma, prediabetes, MS, total hysterectomy, and tonsillectomyOther providersNeurologist-Dr Jessica Ball with [facility]. 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 She is also taking benadryl. DEVANTE CUNNINGHAM, TAWNYA Attn: Accounting,[address] [place], [address], [facility] 01/23/2025 14:20:02 OBGyn Episode No OBEpisode recorded.
[2025-03-02 08:10] VITALS: BP 144/78; PULSE 99; RESP 20; TEMP 36.6; O2SAT 98
--- OUTSIDE RECORDS SUMMARY | 2025-03-02 08:10 | XMS_ITS | Clinical Summary ---
Author Organization [facility] Address [address] [facility], [address] [address] Phone Care Team Providers Care Product Marketing Consultant Name Role Phone Geovanna Alvarado APRN, CARDIAC CATH TECHNOLOGIST Unavailable [phone] Loyd Ball MD Unavailable [phone] Unique Saba VASCULAR TECH, CARDIAC CATH TECHNOLOGIST Primary Care Provider Allergies Active Allergy Reactions Criticality Noted Date Comments Amoxicillin-Pot Clavulanate Rash Levofloxacin Other (see Comments) Low 04/05/2017 tendonitis Nsaids Unknown 03/27/2017 GI DOCTOR DOESN'T WANT PT TO TAKE Sulfa Antibiotics Other (see Comments) 03/31/19 20 eye irritation Medications clonazePAM (KLONOPIN) 0.5 MG Tablet 0.5 mg 3 times daily as needed. 10/25/19 15 Active fluticasone (FLONASE) 50 MCG/ACT Suspension 1-2 Sprays by Nasal route daily. Use in each nostril as directed. Active venlafaxine (EFFEXOR-XR) 37.5 MG CAPSULE SR 24 HR Take 37.5 mg by mouth daily. Active omeprazole (PRILOSEC) 40 MG CAPSULE DELAYED RELEASE TAKE 1 CAPSULE BY MOUTH DAILY 30 Cap 6 11/13/19 19 Active Denosumab (PROLIA SC) by Subcutaneous route. Active brimonidine (ALPHAGAN) 0.2 % Solution Place 1 Drop in affected eye(s) 3 times daily. Active hydrOXYzine (ATARAX) 50 MG Tablet Take 50 mg by mouth every 6 hours as needed. Active montelukast (SINGULAIR) 10 MG Tablet Take 10 mg by mouth every evening. Active meclizine (ANTIVERT) 25 MG Tablet Take 1 Tablet by mouth 3 times daily as needed for Dizziness. 30 Tablet 07/02/19 23 Active ondansetron (ZOFRAN) 4 MG Tablet Take 1 Tablet by mouth every 8 hours as needed for Nausea - 1st line. 10 Tablet 11/11/19 23 Active METHOCARBAMOL PO Take 500 mg by mouth 2 times daily. Active clonazePAM ODT (KlonoPIN) 0.25 MG TABLET DISPERSIBLEInd ications:Anxie ty attack,Anxiety and depression Take 2 Tablets by mouth 2 times daily as needed for Anxiety. 10 Tablet 05/05/19 24 Active SUMAtriptan (IMITREX) 100 MG Tablet Take 1 Tablet by mouth once as needed for Migraine. Use as directed. May repeat dose in 2 hours if headache recurs. 9 Tablet 2 06/26/19 24 Active atomoxetine (STRATTERA) 60 MG Capsule 09/06/19 23 Active busPIRone (BUSPAR) 5 MG Tablet 08/01/19 24 Active carBAMazepine (CARBATROL) 200 MG CAPSULE SR 12 HRIndications: Trigeminal neuralgia of right side of face TAKE 1 CAPSULE BY MOUTH TWICE A DAY 180 Capsule 3 05/03/19 25 Active VITAMIN D PO Take by mouth. Ac tive TIMOLOL MALEATE OP Place in affected eye(s). Active pregabalin (LYRICA) 150 MG CapsuleIndicat ions:MS (multiple sclerosis) TAKE 1 CAPSULE BY MOUTH THREE TIMES A DAY 90 Capsule 12/14/19 25 Active Calcium Carbonate-Vit D-Min (CALCIUM 1200 PO) Take by mouth. Activ e levETIRAcetam (Keppra) 750 MG TabletIndicati ons:Neuropathi c pain Take 1 Tablet by mouth 2 times daily. 60 Tablet 2 01/28/20 25 Active haloperidol (HALDOL) 1 MG TabletIndicati ons:Trigeminal neuralgia of right side of face,Neuropath ic pain TAKE 2 TABLETS BY MOUTH EVERY DAY 60 Tablet 02/25/20 25 Active dimethyl fumarate (TECFIDERA) 240 MG CAPSULE DELAYED RELEASE TAKE 1 CAPSULE TWICE A DAY. (STORE IN ORIGINAL CONTAINER AT ROOM TEMPERATURE) 180 Capsule 1 02/25/20 Active Dimethyl Fumarate 240 MG CAPSULE DELAYED RELEASE TAKE 1 CAPSULE TWICE A DAY. (STORE IN ORIGINAL CONTAINER AT ROOM TEMPERATURE) 180 Capsule 1 09/24/19 25 025 Discontinued haloperidol (HALDOL) 1 MG TabletIndicati ons:Trigeminal neuralgia of right side of face,Neuropath ic pain Take 2 Tablets by mouth daily. 60 Tablet 01/28/20 025 Discontinued Active Problems Problem Noted Date Diagnosed Date Severe episode of recurrent major depressive disorder, without psychotic features 01/16/2025 Chronic pain in left foot 09/07/2017 Bursitis of left ankle 07/04/2017 Achilles tendinitis of left lower extremity 03/2017 Equinus contracture of left ankle 07/04/2017 Multiple sclerosis exacerbation 03/28/2017 UTI (urinary tract infection) 03/28/2017 GERD (gastroesophageal reflux disease) 8 PUD (peptic ulcer disease) 03/28/2017 Ochoa's esophagus 03/28/2017 Anxiety and depression 03/28/2017 Migraines 03/28/2017 Neuropathy 03/28/2017 Encounters Date Type Department Care Team Description 02/24/2025 Refill [facility] [address] [place] [phone] Loyd Ball MD Medication Refill 02/24/2025 Refill [facility] [address] [place] [phone] Loyd Ball MD Medication Refill 02/06/2025 Results Follow-Up [facility] [address] [place] [phone] Tessa Avalos RN MRI BRAIN W/WO CONTRAST 01/30/2025 Refill [facility] [address] [place] [address] Loyd Ball MD Medication Refill 01/27/2025 Telephone [facility] [address] [place] [address] Loyd Ball MD 01/24/2025 6:35 AM INTERNAL INVESTIGATOR - 01/24/2025 11:59 PM INTERNAL INVESTIGATOR Hospital Encounter [facility] MRI [address] [place] [address] Loyd Ball MD Discharge Disposition: Discharged to home or Selfcare 01/24/2025 Travel 01/16/2025 9:30 AM INTERNAL INVESTIGATOR Office Visit [facility] [address] [place] [address] Loyd Ball MD Multiple sclerosis (Primary Dx); Neuropathic pain; Vitamin D deficiency Discharge Disposition: Discharged to home or Selfcare 01/16/2025 Travel 01/01/2025 Refill [facility] [address] [place] [address] Loyd Ball MD Medication Refill 12/12/2024 Refill [facility] [address] [place] [address] Loyd Ball MD Medication Refill from Last 3 Months Immunizations Immunization Administration Dates Next Due Covid-19, Mrna, Lnp-s, Pf, 3 0 Mcg/0.3 Ml Dose (Medityplus) 05/26/2020,05/05/2020 Influenza Vaccine greater than 3 yrs 11/26/2015 Influenza Vaccine, Quadrivalent, PF 10/04,11/18/2021,12/04/2020,2019 Influenza, Injectable, Mdck, Preservative Free 12/06/2023 Family History Medical History Relation Name Comments No Known Problems Father Breast Cancer Mother Cancer Mother sarcoma x2 Endometrial Cancer Mother Relation Name Status Comments Father Alive Mother Alive Social History Tobacco Use Types Packs/Day Years Used Date Smoking Tobacco: Former Cigarettes 0.5 10 0 06/29/2004 - 06/29/2014 Smokeless Tobacco: Former Tobacco Cessation:Counseling Given: Not Answered Alcohol Use Standard Drinks/Week Comments No 0 (1 standard drink = 0.6 oz pur e alcohol) none [facility] Utilities Answer Date Recorded In the past 12 months has th e electric, gas, oil, or water company threatened to shut off services in your home? No 02/21/2024 Social Connection and Isolation Panel Answer Date Recorded In a typical week, how many times do you talk on the phone with family, friends, or neighbors? More than three times a week 02/21/2024 How often do you get togethe r with friends or relatives? More than three times a week 02/21/2024 How often do you attend chur ch or hinduism services? Never 02/21/2024 Do you belong to any clubs o r organizations such as yazdanism groups, unions, fraternal or athletic groups, or school groups? No 02/21/2024 How often do you attend meet ings of the clubs or organizations you belong to? Never 02/21/2024 Are you , , di vorced, , never , or living with a partner? Never 02/21/2024 AUDIT-C Answer Date Recorded Q1: How often do you have a drink containing alcohol? Never 02/21/2024 Q2: How many drinks containi ng alcohol do you have on a typical day when you are drinking? Patient does not drink Q3: How often do you have si x or more drinks on one occasion? Never 02/21/2024 Overall Financial Resource Strain (CARDIA) Answe r Date Recorded How hard is it for you to pa y for the very basics like food, housing, medical care, and heating? Somewhat hard 02/21/2024 [facility] - Occupational Stress Questionnaire Answer Date Recorded Do you feel stress - tense, restless, nervous, or anxious, or unable to sleep at night because your mind is troubled all the time - these days? To some extent 02/21/2024 Exercise Vital Sign Answer Date Recorde d On average, how many days pe r week do you engage in moderate to strenuous exercise (like a brisk walk)? 0 days 02/21/2024 On average, how many minutes do you engage in exercise at this level? 0 min 02/21/2024 Hunger Vital Sign Answer Date Recorded Within the past 12 months, y ou worried that your food would run out before you got the money to buy more. Never true 02/21/20 24 Within the past 12 months, t he food you bought just didn't last and you didn't have money to get more. Never true 02/21/2024 PRAPARE - Transportation Answer Date Re corded In the past 12 months, has l ack of transportation kept you from medical appointments or from getting medications? No 02/03 In the past 12 months, has l ack of transportation kept you from meetings, work, or from getting things needed for daily living? No 02/21/2024 Housing Stability Vital Sign Answer Brennan e Recorded In the last 12 months, was t here a time when you were not able to pay the mortgage or rent on time? No 02/21/2024 Number of Times Moved in the Last Year Not on fi le 02/21/2024 At any time in the past 12 m [facility], were you homeless or living in a usp (including now)? No 02/21/2024 Comments No Sex and Gender Information Value Date Recorded Sex Assigned at Female 11/12/2022 3:59 AM CDT Legal Sex Female 7:31 PM CDT Gender Identity Female 11/12/2022 3:59 AM CDT Sexual Orientation Not on file Occupation Industry Job Start Date Job End Date disabled Not on file Not on file Not on file Last Filed Vital Signs Vital Sign Reading Time Taken Comments Blood Pressure 110/80 01/16/2025 9:09 AM INTERNAL INVESTIGATOR Pulse 106 01/16/2025 9:09 AM INTERNAL INVESTIGATOR Temperature 36.5 C (97.7 F) 01/16/2025 9:09 AM INTERNAL INVESTIGATOR Respiratory Rate 16 01/16/2025 9:09 AM INTERNAL INVESTIGATOR Oxygen Saturation 96% 01/16/2025 9:09 AM INTERNAL INVESTIGATOR Inhaled Oxygen Concentration - - Weight 110.3 kg (243 lb 3.2 oz) 01/16/2025 9:09 AM INTERNAL INVESTIGATOR Height 165.1 cm (5' 5) 01/16/2025 9:09 AM INTERNAL INVESTIGATOR Body Mass Index 40.47 01/16/2025 9:09 AM INTERNAL INVESTIGATOR Plan of Treatment Upcoming Encounters Date Type Department Care Team (Late st Contact Info) Description 07/17/2025 10:00 AM CDT [facility] [address] [place] [address] Loyd Ball MD [address] [place] [address] Health Maintenance Due Date Last Done Comments Hepatitis C Virus (HCV) Screening 1983 Varicella Immunization (1 of 2 - 13+ 2-dose series) 10/31/1996 Hepatitis B Immunization (1 of 3 - 19+ 3-dose series) 10/31/2002 Medicare Initial AWV [id number] 11/04/2020 Mammogram 10/23/2025 10/23/2024, 07/2023, 10/21/2022, Additional history exists Respiratory Syncytial Virus (RSV) Immunization (Adult) (1 - 1-dose 75+ series) 10/31/2058 Human Papillomavirus (HPV) Immunization Completed 06/09/2008, 02/11/2008, 12/04/2007 DTaP/Tdap/Td Immunization Discontinued 06/27/2016 TdaP Immunization Completed 06/27/2016 Pneumococcal Immunization Combined Aged Out 10/17/2022, 10/17/2022 No longer eligibl e based on patient's age to complete this topic Discussion re Starting/Frequency of Mammograms Completed 10/23/2024, 01/09/2024, 10/21/2022, Additional history exists Influenza Immunization Completed , 12/06/2023, 10/17/2022, Additional history exists SARS-COV-2 Immunization Completed 12/10/19, 11/04/2023, 05/13/2023, Additional history exists Meningococcal Immunization (ACWY) Aged Out No longer eligible based on patient's age to complete this topic Rotavirus Immunization Aged Out No lo nger eligible based on patient's age to complete this topic Procedures Procedure Name Priority Date/Time Associated Diagnosis Comments MRI BRAIN W/WO CONTRAST Routine 01/24/2025 7:27 AM INTERNAL INVESTIGATOR Multiple sclerosis SHAMIKA SCREENING BILATERAL DIGITAL W CAD W MILAGROS Routine 01/09/2024 9:05 AM INTERNAL INVESTIGATOR Encounter for screening mammogram for malignant neoplasm of breast from Last 3 Months or Most Recently Relevant to Health Maintenance Results * MRI BRAIN W/WO CONTRAST (01/24/2025 7:27 AM INTERNAL INVESTIGATOR) Anatomical Region Laterality Modality Head N/A Magnetic Resonan ce 01/24/2025 7:27 AM INTERNAL INVESTIGATOR Impressions 01/25/2025 7:13 PM INTERNAL INVESTIGATOR IMPRESSION: 1. No acute intracranial abnormality. 2. Scattered white matter change as described. These findings are most consistent with chronic demyelination in a patient with known multiple sclerosis. There is no evidence of abnormal enhancement to suggest acute or active demyelination. Narrative 01/25/2025 7:13 PM INTERNAL INVESTIGATOR DICTATING PHYSICIAN: Gatito Drake Jr., MD EXAMINATION: MRI BRAIN W/WO CONTRAST, 01/24/2025 7:27 AM HISTORY: Multiple sclerosis, unspecified. TECHNIQUE: Imaging protocol: Multiplanar, multisequence MR images of the brain. Contrast: 20 mL ProHance IV. COMPARISON: Brain MRI May 17, 2023. FINDINGS: Pre-gadolinium brain: Sulci, cisterns and ventricles are age appropriate. There are a few scattered foci of T2 prolongation in the periventricular and subcortical white matter of both hemispheres. This is a nonspecific finding which would be consistent with chronic demyelination in a patient with known multiple sclerosis. There is no evidence of acute territorial infarction, hemorrhage, mass, mass effect, or midline shift. There are no abnormal intra-axial or extra axial fluid collections. The major intracranial vascular flow voids are intact. Post-gadolinium brain: Following the uneventful administration of intravenous gadolinium, there is no evidence of abnormal brain parenchymal or leptomeningeal enhancement. Orbits: No acute abnormality. Bilateral aphakia. Skullbase/Calvarium: No acute abnormality. Soft tissues: Unremarkable. Paranasal sinuses: No air fluid levels. Mastoid air cells: The mastoid air cells are well aerated. No significant effusion. Procedure Note Gatito Drake MD - 01/25/2025 DICTATING PHYSICIAN: Gatito Drake Jr., MD EXAMINATION: MRI BRAIN W/WO CONTRAST, 01/24/2025 7:27 AM HISTORY: Multiple sclerosis, unspecified. TECHNIQUE: Imaging protocol: Multiplanar, multisequence MR images of the brain. Contrast: 20 mL ProHance IV. COMPARISON: Brain MRI May 17, 2023. FINDINGS: Pre-gadolinium brain: Sulci, cisterns and ventricles are age appropriate. There are a few scattered foci of T2 prolongation in the periventricularand subcortical white matter of both hemispheres. This is a nonspecificfinding which would be consistent with chronic demyelination in a patientwith known multiple sclerosis. There is no evidence of acute territorial infarction, hemorrhage, mass,mass effect, or midline shift. There are no abnormal intra-axial or extraaxial fluid collections. The major intracranial vascular flow voids areintact. Post-gadolinium brain: Following the uneventful administration ofintravenous gadolinium, there is no evidence of abnormal brain parenchymalor leptomeningeal enhancement. Orbits: No acute abnormality. Bilateral aphakia. Skullbase/Calvarium: No acute abnormality. Soft tissues: Unremarkable. Paranasal sinuses: No air fluid levels. Mastoid air cells: The mastoid air cells are well aerated. No significanteffusion. IMPRESSION: 1. No acute intracranial abnormality. 2. Scattered white matter change as described. These findings are mostconsistent with chronic demyelination in a patient with known multiplesclerosis. There is no evidence of abnormal enhancement to suggest acuteor active demyelination. us Loyd Ball MD IMG MR ORDERABLES Final Resu lt * SHAMIKA SCREENING BILATERAL DIGITAL W CAD W MILAGROS (01/09/2024 9:05 AM INTERNAL INVESTIGATOR) Anatomical Region Laterality Modality breast Bilateral Mammography 01/09/2024 9:49 AM INTERNAL INVESTIGATOR Narrative 01/10/2024 4:05 PM INTERNAL INVESTIGATOR - SHAMIKA SCREENING BILATERAL DIGITAL W CAD W MILAGROS BILATERAL DIGITAL SCREENING MAMMOGRAM 3D/2D WITH CAD WITH MEDIOLATERAL OBLIQUE CRANIOCAUDAL: 01/09/2024 The study was acquired using digital technology and interpreted from soft copy. Current study was also evaluated with ICAD version 7.2. 2D digital mammographic views, as well as 3D digital tomosynthesis were performed in the CC and MLO projections. CLINICAL: Routine screening. Patient has no complaints. She reports a 15 pound weight loss since her last exam. No personal history of cancer. Mother with premenopausal breast cancer. COMPARISONS: Comparison is made to exams dated: 10/21/2022, 10/06/2021 [facility], and 10/05/2020 [facility]. BREAST TISSUE:There are scattered areas of fibroglandular density. FINDINGS: No significant masses, calcifications, or other findings are seen in either breast. There has been no significant interval change. IMPRESSION: NEGATIVE There is no mammographic evidence of malignancy. A 1 year screening mammogram is recommended. A letter will be sent to the patient with these results. The patient will be entered into a reminder system with a target due date of 1 year for her next screening exam. Electronically signed by: Harmony marina/petr:01/09/2024 22:53:29 Clutch Inspector(s): RT Jeannie(R)(M), [facility] letter sent: Normal Exam Reading location: [facility] Mammogram BI-RADS: Category 1: Negative Procedure Note Harmony Gallego MD - 01/10/2024 - SHAMIKA SCREENING BILATERAL DIGITAL W CAD W MILAGROS BILATERAL DIGITAL SCREENING MAMMOGRAM 3D/2D WITH CAD WITH MEDIOLATERAL OBLIQUE CRANIOCAUDAL: 01/09/2024 The study was acquired using digital technology and interpreted from soft copy. Current study was also evaluated with ICAD version 7.2. 2D digital mammographic views, as well as 3D digital tomosynthesis were performed in the CC and MLO projections. CLINICAL: Routine screening. Patient has no complaints. She reports a 15 pound weight loss since her last exam. No personal history of cancer. Mother with premenopausal breast cancer. COMPARISONS: Comparison is made to exams dated: 10/21/2022, 10/06/2021 [facility], and 10/05/2020 [facility]. BREAST TISSUE:There are scattered areas of fibroglandular density. FINDINGS: No significant masses, calcifications, or other findings are seen in either breast. There has been no significant interval change. IMPRESSION: NEGATIVE There is no mammographic evidence of malignancy. A 1 year screening mammogram is recommended. A letter will be sent to the patient with these results. The patient will be entered into a reminder system with a target due date of 1 year for her next screening exam. Electronically signed by: Harmony marina/petr:01/09/2024 22:53:29 Clutch Inspector(s): RT Jeannie(R)(M), [facility] letter sent: Normal Exam Reading location: [place] Mammogram BI-RADS: Category 1: Negative Sabine Batista APRN, CNP IMG MAMMO ORDERABLES Fi nal Result from Last 3 Months or Most Recently Relevant to Health Maintenance Insurance MEDICARE Advance Directives * Full Code (Latest Code Status on File) Date Activated Date Inactivated Comments 03/28/2017 2:30 PM 03/28/2017 5:45 PM CPR-Full Girma atment: FULL ARREST: Attempt Resuscitation/CPR wit intubation and mechanical ventilation. PRE-ARREST: Use entire range of life support measures to stabilize the patient. Care Teams Product Marketing Consultant Relationship Specialty Start Date End Date Unique Saba APRN, KYLE [address] [place] [address] PCP - General Advanced Practice Nurse 07/11/24 Geovanna Alvarado APRN, CARDIAC CATH TECHNOLOGIST Nurse Practitioner Advanced Practice Nurse 03/24/16 Loyd Ball MD [address] [place] [address] Consulting Physician Neurology 02/08/22
--- OUTSIDE RECORDS SUMMARY | 2025-03-02 08:10 | XMS_ITS | Encounter Summary ---
Author Organization [facility] Address [address] [place] [address] Phone Care Team Providers Care Cap Sewer Name Role Phone Geovanna Alvarado APRN, PERFORMANCE SPECIALIST Unavailable [phone] Kathy Mirza MD Primary Care Provider [phone] Loyd Ball MD Unavailable [phone] Unique Saba APRN, PERFORMANCE SPECIALIST Primary Care Provider Reason for Visit * Reason Comments Medication Refill Encounter Details Date Type Department Care Team (Late st Contact Info) Description 05/13/2021 Refill [facility] [address] [place] [phone] Loyd Ball MD [address] [place] [address] Medication Refill Social History Tobacco Use Types [...] have Coronavirus / COVID-19? No / Unsure 04/15/2021 7:55 AM MANAGER INTERN documented as of this encounter Plan of Treatment Upcoming Encounters Date Type Department Care Team (Late st Contact Info) Description 07/17/2025 10:00 AM CDT [facility] [address] [place] [address] Loyd Ball MD [address] [place] [address] documented as of this encounter Visit Diagnoses Diagnosis Neuropathy Mononeuritis of unspecified site documented in this encounter Additional Health Concerns Infection Onset Date Last Indicated Resolved Time COVID - 19 09/05/2021 09/05/2021 09/15/2021 12:1 6 AM CDT COVID - 19 02/16/2022 02/16/2022 02/26/2022 12:1 6 AM MANAGER INTERN Respiratory Rule-Out 02/16/2022 02/16/2022 022 8:42 AM MANAGER INTERN COVID - 19 06/21/2022 06/21/2022 07/01/2022 12:1 7 AM CDT COVID - 19 11/12/2022 11/12/2022 11/22/2022 12:1 6 AM CDT documented as of this encounter Care Teams Cap Sewer Relationship Specialty Start Date End Date Kathy Mirza MD [address] [place] [address] PCP - General Internal Medicine 11/20/18 07/10/24 Unique Saba, FUR SCRAPER, PERFORMANCE SPECIALIST [address] [place] [address] PCP - General Advanced Practice Nurse 07/11/24 Geovanna Alvarado APRN, KYLE Nurse Practitioner Advanced Practice Nurse 03/24/16 Loyd Ball MD [address] [place] [address] Consulting Physician Neurology 02/08/22 documented as of this encounter
--- OUTSIDE RECORDS SUMMARY | 2025-03-02 08:10 | XMS_ITS | Clinical Summary ---
Author Organization [facility] Address [address] [place] [address] Phone Care Team Providers Care Pattern Scratcher Name Role Phone THANH RYAN Primary Care Provider [phone] AKI DUNN, JAZ C Unavailable [phone] Reason for Visit and Chief Complaint visit for: screening for malignant breast neoplasm, gynecologic annual exam - The Chief Complaint is: CBE only Problems Includes: Problems addressed during this encounter and other active Problems Current Visit Onset Date Resolved Date Provider Conditio n Status History of Irritable Bowel Syndrome 10/25/2012 MICHAELA SEPULVEDA RN RACHEL Active Last Documented On 10/25/2012 8:03AM ; [facility] Note: Unchanged History of Esophagitis Chronic Reflux 03/18/2010 MANUEL WAYNE Active Last Documented On 03/18/2010 9:51AM ; [facility] Note: Unchanged Past Visits Onset Date Resolved Date Provider Condition Status Colonic Diverticulosis Without Perforation Or Abscess 07/28/2013 MICHAELA SEPULVEDA RN RACHEL Active Last Documented On 4 11:13AM ; [facility] Multiple Sclerosis 03/22/2012 MICHAELA SEPULVEDA RN RACHEL Active Last Documented On 4 8:07AM ; [facility] Urinary Tract Infection 03/22/2012 MICHAELA Rogers RN RACHEL Active Last Documented On 03/22/2012 2:37PM ; [facility] Note: Unchanged FAMILY HX-BREAST MALIG 03/18/2010 MICHAELA SEPULVEDA RN RACHEL Active Last Documented On 07/29/2014 10:08AM ; [facility] Note: Mother diagnosed at age 45 ESTROGE N RECEPTOR POSITIVE. PT NEEDS ANNUAL MAMMOGRAM AGE 35 Smoking Cigarettes 03/18/2010 MANUEL WAYNE Active Last Documented On 03/18/2010 9:40AM ; [facility] Note: Unchanged - 1/2 pack a day Plan of Treatment - Weight loss diet - Last Documented On 10/06/2022 9:56AM ; [facility] - Clinical summary provided to patient - Last Documented On 10/06/2022 9:56AM ; [facility] PT TO CALL WITH ANY CHANGE IN STATUS ALL QUESTIONS ANSWERED WITH UNDERSTANDING VERBALIZED BY PT. - Last Documented On 10/06/2022 9:56AM ; [facility] Instructions to patient Instructions for patient : B reast Self Exam discussed and technique reviewed Last Documented On 3 9:52AM ; [facility] Instructed to call if excess orhini bleeding or abdominal/pelvic pain Last Documented On 3 9:52AM ; [facility] Recommend diet and exercise at least 30 min three times per week Last Documented On 3 9:52AM ; [facility] Education and Decision Aids were provided during visit for: Discussed smoking and drug u se Last Documented On 3 9:52AM ; [facility] Discussed risk-taking behavi or Last Documented On 3 9:52AM ; [facility] Patient Education: Daily cyn cium and vitamin D Last Documented On 3 9:52AM ; [facility] Assessments Includes: Assessments from this encounter Findings - [Z12.39 - Encounter for other screening for malignant neoplasm of breast] OTHER SCREENING FOR MALIGNANT NEOPLASM OF BREAST Z12.39 - Last Documented On 10/06/2022 9:56AM ; [facility] Instructions Includes: Instructions from this encounter Instructions to patient Instructions for patient : B reast Self Exam discussed and technique reviewed Last Documented On 3 9:52AM ; [facility] Instructed to call if excess rohini bleeding or abdominal/pelvic pain Last Documented On 3 9:52AM ; [facility] Recommend diet and exercise at least 30 min three times per week Last Documented On 3 9:52AM ; [facility] Education and Decision Aids were provided during visit for: Discussed smoking and drug u se Last Documented On 9:52AM ; [facility] Discussed risk-taking behavi or Last Documented On 9:52AM ; [facility] Patient Education: Daily cyn cium and vitamin D Last Documented On 9:52AM ; [facility] Medical Equipment - Implanted Devices Includes: Current Devices No Medical Equipment Recorded Medications Includes: Medications discussed during this encounter and other current Medications Discontinued / Stopped on this date on 08/28/2018 Gabapentin 600MG Oral Tablet Provider: Diagnosis: Last Documented On 10/06/2022 9:38AM By Alexandria Dukes ; [facility] Venlafaxine HCl 37.5MG Oral Tablet Provid er: Diagnosis: Last Documented On 10/06/2022 9:37AM By Alexandria Dukes ; [facility] Topiramate 50MG Oral Tablet Provider: Diagnosis: Last Documented On 10/06/2022 9:36AM By Alexandria Dukes ; [facility] Sucralfate 1 GM Tablet Provider: Diagnosis: Last Documented On 10/06/2022 9:35AM By Alexandria Dukes ; [facility] Famotidine 20 MG Tablet Provider: Diagnosis: Last Documented On 10/06/2022 9:36AM By Alexandria Dukes ; [facility] Current Medications (continue as prescribed) Prolia 60 MG/ML Subcutaneous Solution Prefilled Syring e 10/06/2022 Provider: Diagnosis: Last Documented On 10/06/2022 9:45AM By Alexandria Dukes ; [facility] Ozurdex 0.7 MG Intravitreal Implant 10/06/2022 Provi lalo: Diagnosis: Last Documented On 10/06/2022 9:45AM By Alexandria Dukes ; [facility] Lyrica 150 MG Oral Capsule 10/06/2022 Provider: Diagnosis: Last Documented On 10/06/2022 9:44AM By Alexandria Dukes ; [facility] Atomoxetine HCl 60 MG Oral Capsule 09/05/2022 Provid er: NAVEED CULP Diagnosis: Last Documented On 10/06/2022 9:41AM By Alexandria Dukes ; [facility] [place] Carbonate 150 MG Oral Capsule 09/05/2022 Pro vider: NAVEED CULP Diagnosis: Last Documented On 10/06/2022 9:41AM By Alexandria uDkes ; [facility] Venlafaxine HCl 100 MG Oral Tablet 09/05/2022 Provid er: NAVEED CULP Diagnosis: Last Documented On 10/06/2022 9:42AM By Alexandria Dukes ; [facility] Myrbetriq 25 MG Oral Tablet Extended Release 24 Hour 0 07/18/2022 Provider: Diagnosis: Last Documented On 10/06/2022 9:42AM By Alexandria Dukes ; [facility] Timolol Maleate 0.5% Ophthalmic Solution 07/02/2022 Provider: Diagnosis: Last Documented On 10/06/2022 9:42AM By Alexandria Dukes ; [facility] clonazePAM 0.5 MG Oral Tablet 06/09/2022 Provider: NAVEED CULP Diagnosis: Last Documented On 10/06/2022 9:42AM By Alexandria Dukes ; [facility] Ondansetron HCl 4 MG Oral Tablet 04/15/2022 Provider : Diagnosis: Last Documented On 10/06/2022 9:42AM By Alexandria Dukes ; [facility] Brimonidine Tartrate 0.2% Ophthalmic Solution 04/06/19 Provider: Diagnosis: Last Documented On 10/06/2022 9:43AM By Alexandria Dukes ; [facility] hydrOXYzine HCl 50 MG Oral Tablet 10/05/2021 Provide r: Diagnosis: Last Documented On 10/05/2021 10:02AM By Alexandria Dukes ; [facility] All Day Allergy 10MG Oral Capsule 08/28/2018 Provide r: Diagnosis: Last Documented On 9 9:49AM By YAIMA MUNOZ ; [facility] Fluticasone Propionate 50MCG/ACT Nasal Suspension 08/28/2018 Provider: Diagnosis: Last Documented On 9 9:47AM By YAIMA MUNOZ ; [facility] Tecfidera 240MG Oral Capsule Delayed Release 8 Provider: Diagnosis: Last Documented On 08/24/2017 8:08AM By Juliet Degroot MA ; [facility] Biotin 5000MCG Oral Capsule 08/24/2017 Provider: Diagnosis: Last Documented On 08/24/2017 8:09AM By Juliet Degroot MA ; [facility] Bethanechol Chloride 5MG Oral Tablet 08/24/2017 Prov ider: Diagnosis: Last Documented On 08/24/2017 8:12AM By Juliet Degroot MA ; [facility] [place] Carbonate 150MG Oral Capsule 08/24/2017 Prov ider: Diagnosis: Last Documented On 08/24/2017 8:12AM By Juliet Degroot MA ; [facility] Montelukast Sodium 10MG Oral Tablet 08/24/2017 Provi lalo: Diagnosis: Last Documented On 08/24/2017 8:11AM By Juliet Degroot MA ; [facility] LevETIRAcetam 500MG Oral Tablet 08/24/2017 Provider: Diagnosis: Last Documented On 08/24/2017 8:09AM By Juliet Degroot MA ; [facility] CarBAMazepine ER 200MG Oral Tablet Extended Rele ase 12 Hour 08/24/2017 Provider: Diagnosis: Last Documented On 08/24/2017 8:09AM By Juliet Degroot MA ; [facility] Omeprazole 40 MG Capsule, delayed-release 08/11/2015 Provider: Diagnosis: Last Documented On 08/11/2015 10:01AM By ARVIND CORONEL MA ; [facility] Ventolin HFA 108 (90 Base) MCG/ACT Aerosol, solution 0 08/11/2015 Provider: Diagnosis: Last Documented On 08/11/2015 10:00AM By ARVIND COROENL MA ; [facility] SUMAtriptan Succinate 100 MG Tablet 08/11/2015 Provi lalo: Diagnosis: Last Documented On 08/11/2015 10:00AM By ARVIND CORONEL MA ; [facility] Vitamin D 1000 UNIT Tablet 07/29/2014 Provider: Diagnosis: 9000 mg Last Documented On 07/29/2014 9:32AM By BASIA VELASQUEZ ; [facility] Past Medications on file valACYclovir HCl 500 MG Oral Tablet 07/24/2023 - 04/19/2024 Provider: MICHAELA SCHULZ Diagnosis: Oth noninflammat ory disorders of vulva and perineum One tablet daily ONE TABLET DAILY DIRECTED Last Documented On 11:00AM By MICHAELA SCHULZ- ; [facility] Lidocaine HCl 4% External Solution 07/20/2023 - 07/30/2023 Provider: MICHAELA HAYES Diagnosis: Oth noninflammat ory disorders of vulva and perineum as directed APPLY W/Q-TIP TO AFFECTED perineal AREAs tid Last Documented On 4 10:16AM By MICHAELA RICHARDS ; [facility] valACYclovir HCl 1 GM Oral Tablet 07/20/2023 - 07/30/2023 Provider: MICHAELA HAYES Diagnosis: Oth noninflammat ory disorders of vulva and perineum One tablet twice a day TAKE DIRECTED W/FOOD Last Documented On 4 10:16AM By MICHAELA RICHARDS ; [facility] Vitamin D (Ergocalciferol) 1.25 MG (25401 UT) Oral Capsule 10/22/2021 - 12/17/2021 Provider: MICHAELA HAYES Diagnosis: Vitamin D defici ency, unspecified as directed ONE TABLET WEEKLY X 8 WEEKS Last Documented On 2 1:00PM By MICHAELA RICHARDS ; [facility] Acetaminophen 325MG Oral Tablet 2017 - 12/01/2017 Provider: MICHAELA HAYES Diagnosis: Mastodynia as directed take 2 tablets QID as directed Last Documented On 8 9:01AM By MICHAELA RICHARDS ; [facility] Medications Administered Includes: Administered Medications from this encounter No Administered Medications Recorded Vital Signs Includes: Vital Signs from this encounter Vital Name 10/06/2022 09:17A Blood Pressure Sitting L 124/68 BP Cuff Size Regular Temp-Temporal 97.6 Height (in) 67 Weight (lb) 227 Body Mass Index 35.6 Body Surface Area 2.1 Last Documented: On 10/06/2022 9:26AM ; [facility] Results Includes: Results discussed during this encounter No Results Recorded For Specified Dates History of Present Illness Includes: History of Present Illness from this encounter HPI - Allergy list reviewed - Medication list reviewed Social History Description Last Updated not sexually active 10/06/2022 Last Documented On 3 9:56AM ; [facility] Activities 10/06/2022 Last Documented On 3 9:56AM ; [facility] Age of 1st intercourse was was 14 08/03/ 2023 Last Documented On 3 9:56AM ; [facility] Alcohol use: 2 drinks or less per day no ne 10/06/2022 Last Documented On 3 9:56AM ; [facility] Caffeine use 10/06/2022 Last Documented On 3 9:56AM ; [facility] Currently in school 10/06/2022 Last Documented On 3 9:56AM ; [facility] Daily coffee consumption was one cups pe r day 10/06/2022 Last Documented On 3 9:56AM ; [facility] Denied sexual activity 10/06/2022 Last Documented On 3 9:56AM ; [facility] Education history 10/06/2022 Last Documented On 3 9:56AM ; [facility] Educational level 10/06/2022 Last Documented On 3 9:56AM ; [facility] Educational level: grade 10/06/2022 Last Documented On 3 9:56AM ; [facility] Former smoker 10/06/2022 Last Documented On 3 9:56AM ; [facility] No consumption of alcohol 10/06/2022 Last Documented On 3 9:56AM ; [facility] Non-smoker 10/06/2022 Last Documented On 3 9:56AM ; [facility] Not a smoker 10/06/2022 Last Documented On 3 9:56AM ; [facility] Not exercising regularly 10/06/2022 Last Documented On 3 9:56AM ; [facility] Not using alcohol 10/06/2022 Last Documented On 3 9:56AM ; [facility] Not using drugs 10/06/2022 Last Documented On 3 9:56AM ; [facility] Occupation [employer] 10/06/2022 Last Documented On 3 9:56AM ; [facility] Personal history 10/06/2022 Last Documented On 3 9:56AM ; [facility] Racial background 10/06/2022 Last Documented On 3 9:56AM ; [facility] Sexually active 10/06/2022 Last Documented On 3 9:56AM ; [facility] Single 10/06/2022 Last Documented On 3 9:56AM ; [facility] Smoking status : Former smoker 3 Last Documented On 3 9:56AM ; [facility] Social history unchanged 10/06/2022 Last Documented On 3 9:56AM ; [facility] Tobacco non-user 10/06/2022 Last Documented On 3 9:56AM ; [facility] Not using drugs 10/06/2022 Last Documented On 3 9:56AM ; [facility] Procedures and Surgical History Includes: Procedures from this encounter Procedures Code Diagnosis Performing Provider Service L ocation Service Date education and instructions Last Documented On 3 9:52AM ; [facility] explanation of plan Last Documented On 3 9:52AM ; [facility] junk-free diet including sodas Last Documented On 3 9:52AM ; [facility] medical regimen review Last Documented On 3 9:52AM ; [facility] Urged Exercise and Diet , exercise at le ast 30 min three times per week Last Documented On 3 9:52AM ; [facility] Clinical summary provided to patient Last Documented On 3 9:52AM ; [facility] Surgical History Last Updated Surgical / procedural histor y pharengeal flap age 1 ~port instilled 03/21 ~Ellbow 202010/05/2021 Last Documented On 3 9:17AM ; [facility] History of hysterectomy 12/16/2013 Total hyst 08/11/2015 Last Documented On 3 9:17AM ; [facility] Surgical history unchanged 07/29/2014 Last Documented On 3 9:17AM ; [facility] History of total abdominal h ysterectomy BSO 10/2013 D/T CHRONIC PELVIC PAIN/FIBROIDS DR. GREEN 01/16/2014 Last Documented On 3 9:17AM ; [facility] History of cholecystectomy 05/2012 Last Documented On 3 9:17AM ; [facility] Tonsillectomy 198603/22/2012 Last Documented On 3 9:17AM ; [facility] History of appendectomy `198603/18/2010 Last Documented On 3 9:17AM ; [facility] Medical History Includes: Medical History addressed during this encounter Description Last Updated A mammogram was performed 10/2021 023 Last Documented On 3 9:56AM ; [facility] Last mammogram date: 10/202110/06/2022 Last Documented On 3 9:56AM ; [facility] History of screening mammogram was perfo rmed 10/202110/06/2022 Last Documented On 3 9:56AM ; [facility] Primary Care Provider: Yuki 10/05/2021 Last Documented On 3 9:17AM ; [facility] 0 10/05/2021 Last Documented On 3 9:17AM ; [facility] Result: normal [facility] 10/01/2020 Last Documented On 3 9:17AM ; [facility] Aborta 0 10/01/2020 Last Documented On 3 9:17AM ; [facility] Para 0 10/01/2020 Last Documented On 3 9:17AM ; [facility] Patient recently had a dexa scan 020 Last Documented On 3 9:17AM ; [facility] History of Pap smear done 07/28/201309/04 Last Documented On 3 9:17AM ; [facility] Not sexually active 10/01/2019 Last Documented On 3 9:17AM ; [facility] LMP: 201308/24/2017 Last Documented On 3 9:17AM ; [facility] Last pap smear date 03/22/2012 08/11/2015 Last Documented On 3 9:17AM ; [facility] No recent change in medical history 07/05 Last Documented On 3 9:17AM ; [facility] History of irritable bowel syndrome 10/04 Last Documented On 3 9:17AM ; [facility] History of chronic reflux esophagitis Last Documented On 3 9:44AM ; [facility] Family History Includes: Family History addressed during this encounter Description Last Updated No family history of malignant neoplasm of the ovary 2017 Last Documented On 3 9:17AM ; [facility] Maternal history of malignan t female breast neoplasm Mother ESTROGEN RECEPTOR POSITIVE PER PT REPORT 07/29/14 08/23/2016 Last Documented On 3 9:17AM ; [facility] Maternal uncle's history of malignant neoplasm of large intestine Maternal uncle 08/11/2015 Last Documented On 3 9:17AM ; [facility] Family history of malignant female breast neoplasm Mother ESTROGEN RECEPTOR POSITIVE PER PT REPORT 07/29/14 07/29/2014 Last Documented On 3 9:17AM ; [facility] Mother dx with endometrial cancer 11/201307/29/2014 Last Documented On 3 9:17AM ; [facility] Family history of diabetes mellitus Melgar rnal uncle 07/29/2014 Last Documented On 3 9:17AM ; [facility] Family history of malignant neoplasm of the large intestine Maternal uncle 07/29/2014 Last Documented On 3 9:17AM ; [facility] Family history unchanged 07/29/2014 Last Documented On 3 9:17AM ; [facility] Family history of hypertension Mother Last Documented On 3 9:17AM ; [facility] Family history of Cancer ---mom had sarc jocelyne in leg and mets to her lung 07/31/2013 Last Documented On 3 9:17AM ; [facility] Family history of hypercholesterolemia d ad 03/22/2012 Last Documented On 3 9:17AM ; [facility] Family medical history of Breast problem s 04/06/2009 Last Documented On 3 9:17AM ; [facility] Review of Systems Includes: Review of Systems from this encounter Systemic: General overall feeling. Feeling fine, not tiring easily, no unusual bleeding, and no recent weight change. No pain. Head: No headache. Neck: No neck pain and no swollen glands in the neck. Eyes: No vision problems. Breasts: No breast symptoms, no breast lump, no nipple discharge, and no pain in breast. Cardiovascular: No chest pain or discomfort, no palpitations, no intermittent leg claudication, and no varicosities. Pulmonary: No pulmonary symptoms, no dyspnea, no rapid breathing, no cough, and no wheezing. Gastrointestinal: No nausea, no vomiting, no abdominal pain, no diarrhea, and no constipation. Genitourinary: No change in urinary frequency and no incomplete emptying of bladder. No urinary loss of control and no dysuria. No genital lesion and no vaginal discharge. Endocrine: No polydipsia and no temperature intolerance. Hematologic: No blood clotting problems. Musculoskeletal: No back pain, no muscle aches, and no localized joint pain. Neurological: No dizziness. Psychological: No anxiety, no depression, no sleep disturbances, and a desire to continue living. Skin: No pruritus. No skin lesions and no rash. Allergic and Immunologic: No hay fever. Mental Status Includes: Mental Status from this encounter Description Oriented to time, place, and person No anxiety A desire to continue living Functional Status Includes: Functional Status from this encounter No Functional Status Recorded Physical Exam Includes: Physical Exam from this encounter Allergies Includes: Active Allergies Substance Type Reaction Onset Date Resolved Date Statu s NSAIDs Allergy Vomiting 2017 Active Last Documented On 4 9:26AM ; [facility] Note: d/t GERD levoFLOXacin Allergy 08/24/2017 Active Last Documented On 4 9:26AM ; [facility] Augmentin Allergy 04/06/2009 Active Last Documented On 4 9:26AM ; [facility] Adhesive Tape Allergy 10/05/2021 Activ e Last Documented On 4 9:26AM ; [facility] Encounters Encounter Provider Location Date Check-In Time Check-Out Time Diagnosis BREAST EXAM MICHAELA SEPULVEDA RN RACHEL [facility] 3 9:16AM 9:46AM Other Screening For Malignant Neoplasm of Breast Z12.39 Insurance Includes: Active Insurance Policies Plan Name Member ID Group # Subscriber Relationship Effect rohini Dates 1 - MEDICARE PART A CLAIMS/NGS [id number] VALDEZ VINSON Self 2 - [employer] [facility] [id number] PLAN G VALDEZ Potter Clinical Notes Includes: Clinical Notes from this encounter * Progress note Date Encounter Last Documented by 10/06/2022 BREAST EXAM Last documented on 10/06/2022; 9:56 AM, MICHAELA SEPULVEDA RN NP ; [facility] Active Problems & Conditions - 562.10 - [...] Infection Chief Complaint The Chief Complaint is: CBE only. Well Woman visit Reason For Visit Visit for: screening for malignant breast neoplasm and gynecologic annual exam. Denies onset of sexual activity History of Present Illness - Allergy list reviewed - Medication list reviewed Current Medication - All Day Allergy 10MG [...] 500 MG 0 days, 0 refills - [place] Carbonate 150 MG Oral Capsule 28 days, 0 refills - [place] Carbonate 150MG Oral Capsule 150 MG 0 [...] and Last mammogram date: 10/2021 result: normal [facility]. Surgical / Procedural: Surgical / procedural history pharengeal flap age 1 [facility] 1986 and surgical history unchanged. [...] 10/2013 D/T CHRONIC PELVIC PAIN/FIBROIDS DR. GREEN Social History Racial background and social history unchanged. Personal: Personal history. Caffeine use: Daily coffee consumption was one cups per day. Tobacco use: Former smoker. Not a smoker. Non-smoker. Smoking status: Former smoker. Alcohol: No consumption of alcohol and not using alcohol. Alcohol use: 2 drinks or less per day none. Drug Use: Not using drugs and not using drugs. Habits: Not exercising regularly. Education: Currently in school and grade level. Work: Occupation [employer]. Activities: Activities. Marital: Single. Sexual: Sexually active age of 1st intercourse was was 14 and denied sexual activity. Not sexually active. Allergies - Adhesive Tape - Augmentin - [...] intestine Maternal uncle Review Of Systems Systemic: General overall feeling. Feeling fine, not tiring easily, no unusual bleeding, and no recent weight change. No pain. Head: No headache. Neck: No neck pain and no swollen glands in the neck. Eyes: No vision problems. Breasts: No breast symptoms, no breast lump, no nipple discharge, and no pain in breast. Cardiovascular: No chest pain or discomfort, no palpitations, no intermittent leg claudication, and no varicosities. Pulmonary: No pulmonary symptoms, no dyspnea, no rapid breathing, no cough, and no wheezing. Gastrointestinal: No nausea, no vomiting, no abdominal pain, no diarrhea, and no constipation. Genitourinary: No change in urinary frequency and no incomplete emptying of bladder. No urinary loss of control and no dysuria. No genital lesion and no vaginal discharge. Endocrine: No polydipsia and no temperature intolerance. Hematologic: No blood clotting problems. Musculoskeletal: No back pain, no muscle aches, and no localized joint pain. Neurological: No dizziness. Psychological: No anxiety, no depression, no sleep disturbances, and a desire to continue living. Skin: No pruritus. No skin lesions and no rash. Allergic and Immunologic: No hay fever. Physical Findings - Vitals taken 10/06/2022 09:17 am BP-Sitting L 124/68 mmHg BP Cuff Size Regular Temp-Temporal 97.6 F Height 67 in Weight 227 lbs Body Mass Index 35.6 kg/m2 Body Surface Area 2.1 m2 Standard Measurements: - Weight. General Appearance: - Normal. - Well developed. - Well nourished. - In no acute distress. - No jaundice. - Well developed. - Well nourished. - In no acute distress. Neck: - Normal. Appearance: - Neck was not swollen. - Neck was symmetrical. Palpation: - No tenderness of the neck. Thyroid: - Showed no abnormalities. - Did not have a nodule. - Not tender. - Is normal. Eyes: General/bilateral: Pupils: - PERRL. Nose: Right Side Of Nose: - Normal. Left Side Of Nose: - Normal. Oral Cavity: Gums: - Examination showed no abnormalities. Teeth: - Dental abnormalities teeth absent. Lymph Nodes: - No adenopathy. - Cervical lymph nodes: normal. - Supraclavicular lymph Nodes: normal. Breasts: General/bilateral: - Palpation of the breast revealed dense, thickened tissue. - Nipples showed no abnormalities. - No abnormal breast secretion was observed. - No dimpling was seen in the breast. - No breast asymmetry was observed. - No breast mass was found. - No tenderness of the breast. Right Breast: - Normal. - Was normal to palpation. Left Breast: - Normal. - Was normal to palpation. Lungs: - Respiration rhythm and depth was normal. - Clear to auscultation. - No wheezing was heard. - No rhonchi were heard. Cardiovascular: - System: normal. Heart Rate And Rhythm: - Normal. - Heart rhythm regular. Heart Sounds: - Normal. - S1 normal. - S2 normal. - No gallop was heard. Murmurs: - No murmurs were heard. Edema: - Not present. Abdomen: - No organomegaly. Visual Inspection: - Abdomen was normal on visual inspection. Palpation: - Abdominal non-tender. Liver: - Not enlarged. Spleen: - Not enlarged. Musculoskeletal System: Fingers: General/bilateral: - No cyanosis of the fingers. - No acropachy of the fingers was observed. Neurological: - System: normal. - Oriented to time, place, and person. Psychiatric: - Mood was not anxious. - Mood was not depressed. Appearance: - Grooming was normal. Affect: - Normal. - Not agitated. Skin: - General appearance was normal. - Texture was normal. - Turgor was normal. - Moisture was normal. - No skin lesions. - No rash. Assessment - [Z12.39 - Encounter for other screening for malignant neoplasm of breast] OTHER SCREENING FOR MALIGNANT NEOPLASM OF BREAST Z12.39 Therapy - Urged Exercise and Diet, exercise at least 30 min three times per week. - Junk-free diet including sodas. - Education and instructions. - Medical regimen review. - Clinical summary provided to patient. - Explanation of plan. Counseling/Education - Instructions for patient: Breast Self Exam discussed and technique reviewed - Instructed to call if excessive bleeding or abdominal/pelvic pain - Recommend diet and exercise at least 30 min three times per week - Discussed smoking and drug use - Discussed risk-taking behavior - Patient Education: Daily calcium and vitamin D Plan StartCited - Encounter for [facility] screening for malignant neoplasm of breast Radiology @ other/*MAMMOGRAPHY: SCREENING MAMMOGRAM Instructions: Additional images/ultrasounds if indicated Please send to PCP EndCited StartCited - Other PHY ORDER/COMMENT 1 yr and release for [facility] Prolia injection 08/26 thanks PHY ORDER/COMMENT Please begin Prolia paperwork for admin. twice yearly at [facility] thanks EndCited - Weight loss diet - Clinical summary provided to patient PT TO CALL WITH ANY CHANGE IN STATUS ALL QUESTIONS ANSWERED WITH UNDERSTANDING VERBALIZED BY PT. Health Reminders - Assess BMI satisfied 10/06/2022. - Assess Tobacco Use satisfied 10/06/2022.
--- OUTSIDE RECORDS SUMMARY | 2025-03-02 08:10 | XMS_ITS | Clinical Summary ---
Author Organization [facility] Address [address] [place] [address] Phone Care Team Providers Care [employer] Worker Name Role Phone SHELBYTHANH Primary Care Provider [phone] AKI DUNN, JAZ C Unavailable [phone] Reason for Visit and Chief Complaint * PHONE CALL Problems Includes: Problems addressed during this encounter and other active Problems Current Visit Onset Date Resolved Date Provider Conditio n Status History of Irritable Bowel Syndrome 10/25/2012 MICHAELA SEPULVEDA RN [facility] Active Last Documented On 10/25/2012 8:03AM ; [facility] Note: Unchanged History of Esophagitis Chronic Reflux 03/18/2010 MANUEL WAYNE Active Last Documented On 03/18/2010 9:51AM ; [facility] Note: Unchanged Past Visits Onset Date Resolved Date Provider Condition Status Colonic Diverticulosis Without Perforation Or Abscess 07/28/2013 MICHAELA SEPULVEDA RN [facility] Active Last Documented On 4 11:13AM ; [facility] Multiple Sclerosis 03/22/2012 MICHAELA SEPULVEDA RN [facility]HEL Active Last Documented On 4 8:07AM ; [facility] Urinary Tract Infection 03/22/2012 ANA CRISTINA SEPULVEDA RN [facility]ACHEL Active Last Documented On 03/22/2012 2:37PM ; [facility] Note: Unchanged FAMILY HX-BREAST MALIG 03/18/2010 MICHAELA SEPULVEDA RN [facility]HEL Active Last Documented On 07/29/2014 10:08AM ; [facility] Note: Mother diagnosed at age 45 ESTROGE N RECEPTOR POSITIVE. PT NEEDS ANNUAL MAMMOGRAM AGE 33 Smoking Cigarettes 03/18/2010 MANUEL WAYNE Active Last Documented On 03/18/2010 9:40AM ; [facility] Note: Unchanged - 1/2 pack [...] Dukes ; [facility] Ozurdex 0.7 MG Intravitreal Implant 10/06/2022 Provi lalo: Diagnosis: Last Documented On 10/06/2022 9:45AM By Alexandria Dukes ; [facility] Lyrica 150 MG Oral Capsule 10/06/2022 Provider: Diagnosis: Last Documented On 10/06/2022 9:44AM By Alexandria Dukes ; [facility] Atomoxetine HCl 60 MG Oral Capsule 09/05/2022 Provid er: NAVEED CULP Diagnosis: Last Documented On 10/06/2022 9:41AM By Alexandria Dukes ; [facility] Correll Carbonate 150 MG Oral Capsule 09/05/2022 Pro vider: NAVEED CULP Diagnosis: Last Documented On 10/06/2022 9:41AM By Alexandria Dukes ; [facility] Venlafaxine HCl 100 MG Oral Tablet 09/05/2022 Provid er: NAVEED CULP Diagnosis: Last Documented On 10/06/2022 9:42AM By Alexandria Dukes ; [facility] Myrbetriq 25 MG Oral Tablet Extended Release 24 Hour 0 07/18/2022 Provider: Diagnosis: Last Documented On 10/06/2022 9:42AM By Alexandria Dukes ; [facility] Timolol Maleate 0.5% Ophthalmic Solution 07/02/2022 Provider: Diagnosis: Last Documented On 10/06/2022 9:42AM By Alexandria Dukes ; [facility] clonazePAM 0.5 MG Oral Tablet 06/09/2022 Provider: NAVEED CULP Diagnosis: Last Documented On 10/06/2022 9:42AM By Alexandria Dukes ; [facility] Ondansetron HCl 4 MG Oral Tablet 04/15/2022 Provider : Diagnosis: Last Documented On 10/06/2022 9:42AM By Alexandria Dukes ; [facility] Brimonidine Tartrate 0.2% Ophthalmic Solution 04/06/19 Provider: Diagnosis: Last Documented On 10/06/2022 9:43AM By Alexandria Dukes ; [facility] hydrOXYzine HCl 50 MG Oral Tablet 10/05/2021 Provide r: Diagnosis: Last Documented On 10/05/2021 10:02AM By Alexandria Dukes ; [facility] All Day Allergy 10MG Oral Capsule 08/28/2018 Provide r: Diagnosis: Last Documented On 9 9:49AM By YAIMA MUNOZ ; [facility] Fluticasone Propionate 50MCG/ACT Nasal Suspension 08/28/2018 Provider: Diagnosis: Last Documented On 9 9:47AM By YAIMA MUNOZ ; [facility] Tecfidera 240MG Oral Capsule Delayed Release 8 Provider: Diagnosis: Last Documented On 08/24/2017 8:08AM By Juliet Degroot MA ; [facility] Biotin 5000MCG Oral Capsule 08/24/2017 Provider: Diagnosis: Last Documented On 08/24/2017 8:09AM By Juliet Degroot MA ; [facility] Bethanechol Chloride 5MG Oral Tablet 08/24/2017 Prov ider: Diagnosis: Last Documented On 08/24/2017 8:12AM By Juliet Degroot MA ; [facility] Correll Carbonate 150MG Oral Capsule 08/24/2017 Prov ider: Diagnosis: Last Documented On 08/24/2017 8:12AM By Juliet Degroot MA ; [facility] Montelukast Sodium 10MG Oral Tablet 08/24/2017 Provi lalo: Diagnosis: Last Documented On 08/24/2017 8:11AM By Juliet Degroot MA ; [facility] LevETIRAcetam 500MG Oral Tablet 08/24/2017 Provider: Diagnosis: Last Documented On 08/24/2017 8:09AM By Juliet Degroot MA ; [facility] CarBAMazepine ER 200MG Oral Tablet Extended Rele ase 12 Hour 08/24/2017 Provider: Diagnosis: Last Documented On 08/24/2017 8:09AM By Juliet Degroot MA ; [facility] Omeprazole 40 MG Capsule, delayed-release 08/11/2015 Provider: Diagnosis: Last Documented On 08/11/2015 10:01AM By ARVIND CORONEL MA ; [facility] Ventolin HFA 108 (90 Base) MCG/ACT Aerosol, solution 0 08/11/2015 Provider: Diagnosis: Last Documented On 08/11/2015 10:00AM By ARVIND CORONEL MA ; [facility] SUMAtriptan Succinate 100 MG Tablet 08/11/2015 Provi lalo: Diagnosis: Last Documented On 08/11/2015 10:00AM By ARVIND CORONEL MA ; [facility] Vitamin D 1000 UNIT Tablet 07/29/2014 Provider: Diagnosis: 9000 mg Last Documented On 07/29/2014 9:32AM By BASIA VELASQUEZ ; [facility] Past Medications on file valACYclovir HCl 500 MG Oral Tablet 07/24/2023 - 04/19/2024 Provider: MICHAELA SEPULVEDA RN [facility] Diagnosis: Oth noninflammat ory disorders of vulva and perineum One tablet daily ONE TABLET DAILY DIRECTED Last Documented On 4 11:00AM By MICHAELA BARRIOS ; [facility] Lidocaine HCl 4% External Solution 07/20/2023 - 07/30/2023 Provider: MICHAELA SEPULVEDA RN [facility] Diagnosis: Oth noninflammat ory disorders of vulva and perineum as directed APPLY W/Q-TIP TO AFFECTED perineal AREAs tid Last Documented On 4 10:16AM By MICHAELA BARRIOS ; [facility] valACYclovir HCl 1 GM Oral Tablet 07/20/2023 - 07/30/2023 Provider: MICHAELA SEPULVEDA RN R[facility]HEL Diagnosis: Oth noninflammat ory disorders of vulva and perineum One tablet twice a day TAKE DIRECTED W/FOOD Last Documented On 4 10:16AM By MICHAELA RICHARDS ; [facility] Vitamin D (Ergocalciferol) 1.25 MG (39371 UT) Oral Capsule 10/22/2021 - 12/17/2021 Provider: MICHAELA SEPULVEDA RN [facility] Diagnosis: Vitamin D defici ency, unspecified as directed ONE TABLET WEEKLY X 8 WEEKS Last Documented On 2 1:00PM By MICHAELA SEPULVEDA RACHEL- ; [facility] Acetaminophen 325MG Oral Tablet 2017 - 12/01/2017 Provider: MICHAELA SEPULVEDA RN RACHEL BC Diagnosis: Mastodynia as directed take 2 tablets QID as directed Last Documented On 8 9:01AM By MICHAELA SEPULVEDA RACHEL-ABIGAIL ; [facility] Medications Administered Includes: Administered Medications from this [...] 03/21 ~Ellbow 202010/05/2021 Last Documented On 3 11:33AM ; [facility] History of hysterectomy 12/16/2013 Total hyst 08/11/2015 Last Documented On 3 11:33AM ; [facility] Surgical history unchanged 07/29/2014 Last Documented On 3 11:33AM ; [facility] History of total abdominal h ysterectomy BSO 10/2013 D/T CHRONIC PELVIC PAIN/FIBROIDS DR. GREEN 01/16/2014 Last Documented On 3 11:33AM ; [facility] History of cholecystectomy 05/2012 Last Documented On 3 11:33AM ; [facility] Tonsillectomy 198603/22/2012 Last Documented On 3 11:33AM ; [facility] History of appendectomy `198603/18/2010 Last Documented On 3 11:33AM ; [facility] Medical History Includes: Medical History addressed during this encounter Description Last Updated A mammogram was performed 10/2021 023 Last Documented On 3 11:33AM ; [facility] Last mammogram date: 10/202110/06/2022 Last Documented On 3 11:33AM ; [facility] History of screening mammogram was perfo rmed 10/202110/06/2022 Last Documented On 3 11:33AM ; [facility] Primary Care Provider: Yuki 10/05/2021 Last Documented On 3 11:33AM ; [facility] 0 10/05/2021 Last Documented On 3 11:33AM ; [facility] Result: normal [facility] 10/01/2020 Last Documented On 3 11:33AM ; [facility] Aborta 0 10/01/2020 Last Documented On 3 11:33AM ; [facility] Para 0 10/01/2020 Last Documented On 3 11:33AM ; [facility] Patient recently had a dexa scan 020 Last Documented On 3 11:33AM ; [facility] History of Pap smear done 07/28/201309/04 Last Documented On 3 11:33AM ; [facility] Not sexually active 10/01/2019 Last Documented On 3 11:33AM ; [facility] LMP: 201308/24/2017 Last Documented On 3 11:33AM ; [facility] Last pap smear date 03/22/2012 08/11/2015 Last Documented On 3 11:33AM ; [facility] No recent change in medical history 07/05 Last Documented On 3 11:33AM ; [facility] History of irritable bowel syndrome 10/04 Last Documented On 3 11:33AM ; [facility] History of chronic reflux esophagitis Last Documented On 3 9:59AM ; [facility] Family History Includes: Family History addressed during this encounter Description Last Updated No family history of malignant neoplasm of the ovary 2017 Last Documented On 3 11:33AM ; [facility] Maternal history of malignan t female breast neoplasm Mother ESTROGEN RECEPTOR POSITIVE PER PT REPORT 07/29/14 08/23/2016 Last Documented On 3 11:33AM ; [facility] Maternal uncle's history of malignant neoplasm of large intestine Maternal uncle 08/11/2015 Last Documented On 3 11:33AM ; [facility] Family history of malignant female breast neoplasm Mother ESTROGEN RECEPTOR POSITIVE PER PT REPORT 07/29/14 07/29/2014 Last Documented On 3 11:33AM ; [facility] Mother dx with endometrial cancer 11/201307/29/2014 Last Documented On 3 11:33AM ; [facility] Family history of diabetes mellitus Melgar rnal uncle 07/29/2014 Last Documented On 3 11:33AM ; [facility] Family history of malignant neoplasm of the large intestine Maternal uncle 07/29/2014 Last Documented On 3 11:33AM ; [facility] Family history unchanged 07/29/2014 Last Documented On 3 11:33AM ; [facility] Family history of hypertension Mother Last Documented On 3 11:33AM ; [facility] Family history of Cancer ---mom had sarc jocelyne in leg and mets to her lung 07/31/2013 Last Documented On 3 11:33AM ; [facility] Family history of hypercholesterolemia d ad 03/22/2012 Last Documented On 3 11:33AM ; [facility] Family medical history of Breast problem s 04/06/2009 Last Documented On 3 11:33AM ; [facility] Review of Systems Includes: Review of Systems [...] Active Last Documented On 4 9:26AM ; [facility] Note: d/t GERD levoFLOXacin Allergy 08/24/2017 Active Last Documented On 4 9:26AM ; [facility] Augmentin Allergy 04/06/2009 Active Last Documented On 4 9:26AM ; [facility] Adhesive Tape Allergy 10/05/2021 Activ e Last Documented On 4 9:26AM ; [facility] Encounters Encounter Provider Location Date Check-In Time Check-Out Time Diagnosis * PHONE CALL MICHAELA SCHULZ 10/07/2022 11:33AM 11:59PM Insurance Includes: Active Insurance Policies Plan Name Member ID Group # Subscriber Relationship Effect rohini Dates 1 - MEDICARE PART A CLAIMS/NGS [id number] VALDEZ Potter 2 - [employer] [facility] [id number] PLAN G VALDEZ VINSON Self Clinical Notes Includes: Clinical Notes from this encounter * Progress note Date Encounter Last Documented by 10/07/2022 * PHONE CALL Last documented on 10/09/2022; 10:00 AM, MICHAELA SCHULZ ; [facility] Active Problems & Conditions - 562.10 - [...] N39.0 - Urinary Tract Infection Chief Complaint Phone Call - Chief Concern: Reason for call: [facility] called stating that dx code on mammogram order is Z12.39 and it is flagging an ABN for pt, dx code needs to be Z12.31 so insurance will cover it. pt phone # for return call: Date/Initials: 10/07/2022 MY. Current Medication - All Day Allergy 10MG [...] 500 MG 0 days, 0 refills - [place] Carbonate 150 MG Oral Capsule 28 days, 0 refills - [place] Carbonate 150MG Oral Capsule 150 MG 0 [...] result: normal [facility]. Surgical / Procedural: Surgical / procedural history [...] Malignant neoplasm of large intestine Maternal uncle Plan StartCited - Encntr screen mammogram for malignant neoplasm of breast Radiology @ other/*MAMMOGRAPHY: SCREENING MAMMOGRAM Instructions: Additional images/ultrasounds if indicated Please send to PCP EndCited StartCited - Other PHY ORDER/COMMENT new order in chart thanks EndCited
--- OUTSIDE RECORDS SUMMARY | 2025-03-02 08:10 | XMS_ITS | Encounter Summary ---
Author Organization [facility] Address [address] [place] [address] Phone Care Team Providers Care Malt Specifications Control Assistant Name Role Phone Geovanna Alvarado APRN, ENTERPRISE ACCOUNT MANAGER Unavailable [phone] Kathy Mirza MD Primary Care Provider [phone] Loyd Ball MD Unavailable Unique Saba APRN, ENTERPRISE ACCOUNT MANAGER Primary Care Provider Reason for Visit * Reason Comments Medication Refill Encounter Details Date Type Department Care Team (Late st Contact Info) Description 10/20/2020 Refill [facility] [address] [place] [id number] Loyd Ball MD [address] [place] [address] Medication Refill Social History Tobacco Use Types [...] have Coronavirus / COVID-19? No / Unsure 09/30/2020 1:25 PM CDT documented as of this encounter Plan of Treatment Upcoming Encounters Date Type Department Care Team (Late st Contact Info) Description 07/17/2025 10:00 AM CDT Office Visit [facility] - Neurology [facility] [address] [place] [phone] Loyd Ball MD [address] [place] [address] documented as of this encounter Visit Diagnoses Diagnosis Migraine without status migrainosus, not intractable, unspecified migraine type documented in this encounter Additional Health Concerns Infection Onset Date Last Indicated Resolved Time COVID - 19 03/13/2021 03/13/2021 04/02/2021 12:1 6 AM NUCLEAR FUELS RECLAMATION ENGINEER COVID - 19 04/15/2021 04/15/2021 05/05/2021 12:1 6 AM NUCLEAR FUELS RECLAMATION ENGINEER COVID - 19 09/05/2021 09/05/2021 09/15/2021 12:1 6 AM CDT COVID - 19 02/16/2022 02/16/2022 02/26/2022 12:1 6 AM NUCLEAR FUELS RECLAMATION ENGINEER Respiratory Rule-Out 02/16/2022 02/16/2022 022 8:42 AM NUCLEAR FUELS RECLAMATION ENGINEER COVID - 19 06/21/2022 06/21/2022 07/01/2022 12:1 7 AM CDT COVID - 19 11/12/2022 11/12/2022 11/22/2022 12:1 6 AM CDT documented as of this encounter Care Teams Malt Specifications Control Assistant Relationship Specialty Start Date End Date Kathy Mirza MD [address] [place] [address] PCP - General Internal Medicine 11/20/18 07/10/24 Unique Saba APRN, ENTERPRISE ACCOUNT MANAGER [address] [place] [address] PCP - General Advanced Practice Nurse 07/11/24 Geovanna Alvarado APRN, ENTERPRISE ACCOUNT MANAGER Nurse Practitioner Advanced Practice Nurse 03/24/16 Loyd Ball MD [address] [place] [address] Consulting Physician Neurology 02/08/22 documented as of this encounter
--- OUTSIDE RECORDS SUMMARY | 2025-03-02 08:10 | XMS_ITS | Encounter Summary ---
Author Organization [facility] Address [address] [place] [address] Phone Care Team Providers Care Supervisor Jewelry Department Name Role Phone Geovanna Alvarado APRN, MEDICAL DETAILIST Unavailable Kathy Mirza MD Primary Care Provider [phone] Loyd Ball MD Unavailable Unique Saab APRN, MEDICAL DETAILIST Primary Care Provider Reason for Visit * Reason Comments Medication Refill Encounter Details Date Type Department Care Team (Late st Contact Info) Description 05/28/2021 Refill [facility] [address] [place] [phone] Loyd Ball MD [address] [place] [address] Medication Refill Social History Tobacco Use Types [...] file Not on file Not on file documented as of this encounter Plan of Treatment Upcoming Encounters Date Type Department Care Team (Late st Contact Info) Description 07/17/2025 10:00 AM CDT Office Visit [facility] [address] [place] [address] Loyd Ball MD [address] [place] [address] documented as of this encounter Visit Diagnoses Diagnosis Trigeminal neuralgia of right side of face documented in this encounter Additional Health Concerns Infection Onset Date Last Indicated Resolved Time COVID - 19 09/05/2021 09/05/2021 09/15/2021 12:1 6 AM CDT COVID - 19 02/16/2022 02/16/2022 02/26/2022 12:1 6 AM ATHLETIC EVENTS SCORER Respiratory Rule-Out 02/16/2022 02/16/2022 022 8:42 AM ATHLETIC EVENTS SCORER COVID - 19 06/21/2022 06/21/2022 07/01/2022 12:1 7 AM CDT COVID - 19 11/12/2022 11/12/2022 11/22/2022 12:1 6 AM CDT documented as of this encounter Care Teams Supervisor Jewelry Department Relationship Specialty Start Date End Date Kathy Mirza MD [address] [place] [address] PCP - General Internal Medicine 11/20/18 07/10/24 Unique Saba SENIOR SOUS CHEF, MEDICAL DETAILIST [address] [place] [address] PCP - General Advanced Practice Nurse 07/11/24 Geovanna Alvarado SENIOR SOUS CHEF, MEDICAL DETAILIST Nurse Practitioner Advanced Practice Nurse 03/24/16 Loyd Ball MD [address] [place] [phone] Consulting Physician Neurology 02/08/22 documented as of this encounter
--- OUTSIDE RECORDS SUMMARY | 2025-03-02 08:10 | XMS_ITS | Continuity of Care Document ---
Author Organization [facility] Melyssa (Adult Med) Address [address] [place] [address] Care Team Providers Care Erp Consultant Name Role Phone DEVANTE CUNNINGHAM Primary Care Provider Unavailabl e Assessment No assessment recorded. Plan of Treatment Reminders Order Date Submit Date Provider Last Modified By Organization Details Last Modified Time Details Appointments MEDICARE WELLNESS VISIT 2025 10:00A M YAIR RUBIO Not available Not available Not available Lab None recorded. Referral None recorded. Procedures None recorded. Surgeries None recorded. Imaging None recorded. Medication Orders None recorded. Patient TargetsNo targets recorded. Patient InstructionsNo instructions recorded. Reason for Referral None Reported. Results Created Date Observation Date Name Description Value Unit Range Abnormal Flag Note LastModifiedBy Organization Detail LastModifiedTime 01/24/2001/23/2025 influ syeda virus A + B + SARS- CoV-2 (COVI D19) Ag panel , rapid IA, upper respi rator y speci men Flu A negati ve Not Available In-Office Order Internal Use Only DO Not Attach Compendium DO Not Attach Compendium, Do Not Delete/merge, [id number] 01/23/2025 12:13:47 01/24/2001/23/2025 influ syeda virus A + B + SARS- CoV-2 (COVI D19) Ag panel , rapid IA, upper respi rator y speci men Flu B negati ve Not Available In-Office Order Internal Use Only DO Not Attach Compendium DO Not Attach Compendium, Do Not Delete/merge, [id number] 01/23/2025 12:13:47 01/24/2001/23/2025 influ syeda virus A + B + SARS- CoV-2 (COVI D19) Ag panel , rapid IA, upper respi rator y speci men Rapid SARS CoV 2 Ag, QL IA, respiratory specimen negati ve Not Available In-Office Order Internal Use Only DO Not Attach Compendium DO Not Attach Compendium, Do Not Delete/merge, [id number] 01/23/2025 12:13:47 Result Notes None recorded. 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 Quinn Mirza MD Attn: Fernando petty,[address] [place], [address], [facility] - [facility] 2 15:27:10 Spasmodi c movement 872566780 Completed 201711/16/2018 Kathy Mirza MD Attn: Fernando petty,[address] [place], [address], [place] - [facility] 9 10:29:56 Chronic headache disorder 199366985 Active 2017 Kathy Mirza MD Attn: Fernando petty,[address] [place], [address], [place] [facility] 2 15:27:10 Dysphagi a 85435008 Active 2017 sees GI Kathy Mirza MD Attn: Fernando petty,[address] [place], [address], [place] [facility] 3 09:09:49 Lumbar radiculo guerline 005720605 Active 2017 Kathy Mirza MD Attn: Fernando petty,[address] [place], [address], [place] [facility] 3 09:12:46 Persiste nt cough 305801497 Completed 201711/16/2018 Kathy Mirza MD Attn: Fernando petty,[address] [place], [address], [place] [facility] 9 10:29:49 Transien t global amnesia 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 2017 Kathy Mirza MD Attn: Fernando petty,[address] [facility], [place], [address], [place] - [facility] 2 15:27:10 Generali zed anxiety disorder 80329571 Active 2017 sees psych /BHA Kathy Mirza MD Attn: Fernando petty,[address] [facility], [place], [address], [place] - [facility] 2 15:27:10 Uterine leiomyom a 42301424 Completed 201704/05/2017 Removal Reason: s/p total hysterect lesly Yanelis Vasquez PA-C Attn: Fernando petty,[address] [facility], [place], [address], [place] - [facility] 8 08:21:09 History of [facility] es 228340308 Completed 201704/05/2017 Yanelis Vasquez PA-C Attn: Fernando petty,[address] [facility], [place], [address], [place] - [facility] 8 08:21:22 Cyst of ovary 32439570 Completed 201704/05/2017 Removal Reason: bilateral ; s/p BSO Yanelis Vasquez PA-C Attn: Fernando petty,[address] [facility], [place], [address], [place] - [facility] 8 08:22:00 Psycholo gic conversi on disorder 97628026 Active 2017 Kathy Mirza MD Attn: Fernando petty,[address] [facility], [place], [address], [place] [facility] 2 15:27:10 Strain of Achilles tendon 15951124 Active 2017 Deloris little, [place] - [facility] 1 12:16:09 Bilatera l cataract s 96229241 Active 2020 sees ophthalmo logist Kathy Mirza MD Attn: Fernando petty,[address] [facility], [place], [address], [facility] 2 15:27:10 Pain of elbow region 35529803 Active 2020 sees ortho Deloris little, [facility] 1 12:16:09 Overacti ve urinary bladder 505117771 Active 2020 sees urologist Kathy Mirza MD Attn: Fernando petty,[address] [facility], [place], [address], [facility] 2 15:27:10 Problem Notes None recorded. Procedures Surgical History Date Name Laterality Status Provider Name and Address Organization Details Recorded Time 12/26/19 21 Eye Surgery completed Zunilda Fox MA [facility] 02/15/2021 09:42:02 11/04/19 21 procedure on elbow completed Zunilda Fox MA [facility] 11/12/2020 14:36:17 03/24/19 21 repair of retina completed Jody El [facility] 05/04/2020 11:46:06 02/07/20 20 extraction of cataract completed Jody El Daniela [facility] 05/04/2020 11:45:43 05/25/19 19 Cerumen Removal completed Yanelis Vasquez PA-C Attn: Accounting, [address] [facility], [place], [address], [facility] 05/24/2018 11:55:53 12/05/19 14 Total hysterectomy completed Yanelis Vasquez PA-C Attn: Accounting, [address] [facility], [place], [address], [facility] 03/23/2017 10:11:03 03/06/19 14 Removal of ovary(s) completed Yanelis Vasquez PA-C Attn: Accounting, [address] [facility], [place], [address], [facility] 03/23/2017 10:10:58 Gastrointestinal Surgery completed Morena hernandez MA [place] - [facility] 03/23/2017 09:19:55 Tonsillectomy completed Morena hernandez [place] - [facility] 03/23/2017 09:20:03 Insert picvad cath completed Yanelis Vasquez PA-C Attn: Accounting, [address] [place], [address], [facility] - [place] 03/30/2017 13:12:32 Xcapsl ctrc rmvl cplx wo ecp completed Casandra Medrano MA [place] - [facility] 08/12/2020 09:15:38 Imaging Results None recorded. Procedure Notes None recorded. Medical Equipment None Reported. Allergies Allergen ID Allergen Name Allergen Category Reaction Reaction Severity Criticality Documentation Date Start Date Code Code System Note Provider Name and Address Organization Details Recorded Time 176746 Augmentin medicatio n rash Not available Not available 03/23/2017 90380 2 RxNorm Morena hooker MA null, [facility] 8 09:09:52 641899 Levaquin medicatio n other moderate Not available 04/03/20172017 63579 2 RxNorm left ankle achil les tendo n pain Yanelis Vasquez PA-C Attn: Accountin g,[address] [place], [address], [facility] - [facility] 8 15:48:13 491694 Non-stero idal anti-infl ammatory agent (substanc e) medicatio n other moderate Not available 04/03/2017 63776 5008 SNOMED GERD Yanelis Vasquez PA-C Attn: Accountin g,[address] [place], [address], [facility] - [facility] 8 16:18:27 977136 brimonidi ne medicatio n eye redness Not available Not available 05/04/2020 46573 5 RxNorm ALEXANDER Argueta, [facility] 1 11:53:23 388818 Substance with sulfonami de structure and antibacte rial mechanism of action (substanc e) medicatio n eye redness Not available Not available 05/05/2020 79969 8003 SNOMED Jody El, ALEXANDER little, [place] - [facility] 11:35:29 817880 Adhesive agent (substanc e) environme nt,medica tion itching rash Not available Not available high 12/26/20242020 62885 0007 SNOMED unrec ogniz ed react ion (text : Blist ers, code: 09994 7009) (from exter nal sourc e) Not Available [employer] - prod 03:12:58 769017 amoxicill in medicatio n rash Not available Not available 12/26/2024 723 RxNorm React ion: Rash, , Not Available [employer] - prod 03:12:58 410587 amoxicill in / clavulana te medicatio n rash Not available high 12/26/20242009 60796 RxNorm Occur red as child , Rash when taken as infan t Occur red as child , Rash when taken as infan t Occur red as child , Not Available [employer] - prod 03:12:58 438769 brimonidi ne / timolol medicatio n Not available Not available low 12/26/20242020 35770 2 RxNorm unrec ogniz ed react ion (text : Eye irrit ation , code: 85651 3008) (from exter nal sourc e) Not Available [employer] - prod 5 03:12:58 242846 levofloxa megan medicatio n arthralgi a (joint pain) other Not available Not available low 12/26/20242017 28390 RxNorm tendo nitis Other react ion(s ): Joint pain tendo nitis Tendo n swell s tendo nitis Tendo n swell s Joint pain, tendo nitis Not Available [employer] - prod 5 03:12:58 788790 tolmetin medicatio n Not available Not available Not available 02/11/20252017 75244 RxNorm GI DOCTO R DOESN 'T WANT PT TO TAKE Not Available hart - [employer] - prod 5 [...] pine ER 200 mg capsule,e xtended release [id number] r TAKE 1 CAPSULE BY MOUTH TWICE [...] Available Not Available Not Available Fluzone Quad 60 mcg (15 mcg x 4)/0.5 mL IM suspensio n 03/30 completed Not Available Not Available Not Available Fluzone Quad (P F) 60 mcg(15 mcgx4)/0. 5 mL intramusc ular syringe 01/09 completed Not Available Not Available Not Available melatonin 3 mg capsule Take 2 capsules by oral route at bedtime. 05/05 completed Not Available Not Available Not Available Vitals Date Recorded Body height Body mass index (BMI) Body weight Heart rate Respiratory rate Body temperature Systolic And Diastolic Provider Name and Address Organization Details Last Updated DateTime 5 170.18 cm 39.4 kg/m2 435785. 84 g 99 /min 16 /min 97.3 [degF] 115/82 mm[Hg] Zunilda Fox MA [place] - [place] 5 10:03:33 Social History Question Answer Notes LastModified by Organizat ion Details LastModified Time Tobacco Smoking Status Former Smoker Quit 2011 Zunilda Fox [place] null, [place] [facility] 02/19/2019 15:12:18 Do You Have An Advance [...] Or The Highest Degree You Have Received? [id number] Information not available 07/06/2020 Are There Any [...] use any illicit or recreational drugs? No [email or web address] Information not available 11/20/2020 Do you or [...] anxious, or unable to sleep at night)? [id number] Information not available 08/24/2021 Family History Relationship Description Onset Age of this Age Resolved Age Notes LastModified by Organization Details LastModified Time Brother Migraine arynhung me Not available 03/23/2017 09:16:58 Mother Malignant neoplasm [...] Skin Problems N Anemia N Heart Attack ([place]) N Anxiety Disorder Y Diabetes N Muscle, Joint, or Bone Problems N Seizures/Epilepsy N Acid Reflux (GERD) Y Cancer N Stroke N Asthma Y Allergies N High Cholesterol N Hepatitis N Liver Disease N Headaches Y Heart Failure N Osteoporosis N Gynecological History Statement/Question Response Current Control [...] SARS-COV-2 (COVID-19) vaccine, UNSPECIFIED 4 completed Alanis Berger, [place], [place] [facility] 05/24/2024 16:16:40 zoster, unspecified formulation 4 completed Alanis Shoemakerts, [place], [place] [facility] 05/24/2024 16:17:13 zoster, unspecified formulation 4 completed Alanis [place], [place] [facility] 05/24/2024 16:17:18 pneumococcal, unspecified formulation 3 completed Alanis Sho[place]erts, [place], [place] [facility] 05/24/2024 16:18:25 MMR 5 completed Not Available [facility] 02/11/2025 09:52:29 MMR 3 completed Not Available [facility] 02/11/2025 09:52:29 Hep A, pediatric, unspecified formulation 0 completed Not Available [facility] 02/11/2025 09:52:29 Influenza, split virus, trivalent, preservative 4 completed Not Available [facility] 02/11/2025 09:52:29 Influenza, split virus, quadrivalent, PF 5 completed Not Available [facility] 02/11/2025 09:52:29 zoster live 5 completed Not Available [facility] 02/11/2025 09:52:29 Influenza, split virus, trivalent, preservative 5 completed Not Available [facility] 02/11/2025 09:52:29 Influenza, split virus, trivalent, preservative 6 completed Not Available [facility] 02/11/2025 09:52:29 Influenza, split virus, quadrivalent, preservative 7 completed Not Available [facility] 02/11/2025 09:52:29 Influenza, split virus, quadrivalent, preservative 9 completed Not Available [facility] 02/11/2025 09:52:29 COVID-19, mRNA, LNP-S, bivalent, PF, 30 mcg/0.3 mL dose 2 completed Not Available [facility] 02/11/2025 09:52:29 Influenza, split virus, quadrivalent, PF 2 completed Not Available [facility] 02/11/2025 09:52:29 COVID-19, mRNA, LNP-S, PF, shelia-sucrose, 30 mcg/0.3 mL 4 completed Not Available [facility] 02/11/2025 09:52:29 Influenza, split virus, trivalent, PF 5 completed Not Available [facility] 02/11/2025 09:52:29 COVID-19, mRNA, LNP-S, PF, 50 mcg/0.5 mL 5 completed Not Available [facility] 02/11/2025 09:52:29 Influenza, split virus, quadrivalent, preservative 7 completed Deloris little, [place] - [place] 11/20/2020 12:16:14 Tdap 7 completed Zunilda Fox [place] null, [place] [facility] 02/19/2019 15:11:17 Influenza, split virus, quadrivalent, PF 8 completed Deloris little, [place] - [place] 11/20/2020 12:16:14 Past Encounters Encounter ID Performer Location Encounter Start Date Encounter Closed Date Diagnosis/Indication Diagnosis SNOMED-CT Code Diagnosis ICD10 Code Diagnosis IMO Codes Diagnosis Note [id number] [facility] [address] [place] [address] 01/23/2025 11:33:08 01/27/2025 14:18:19 Acute bilateral otitis media 722110142 H66.93 6915691 -Neative for influenza and covid-Bila teral TMs erythemato us. Patient presentati on consistent with bilateral otitis media.-Pat ient agreeable to treatment to doxycyclin e BID for 7 days. DIRECTOR OF CHILD WELFARE SERVICES advised patient to consume OTC probiotic or yogurt while on antibiotic therapy.-P atient to follow up in clinic if symptoms worsen or do not improve-ER precaution s advised [id number] MD [facility] (Adult Med) [address] [place] [address] 02/11/2025 09:51:30 02/12/2025 11:59:32 Temporomandibular joint disorder 98269501 M26.609 984979 soft diet anti inflammato francia return if she has more problems Health Concerns Section Related Observation LastModified by Organization Detai ls LastModified Time None Recorded Concern Status LastModified by Organization Details LastModified Time None Recorded Payers Encounter Date Sequence Insurance Name Policy Number Policy Orellana Covered Member ID Orellana Member ID Guarantor Name 02/11/2025 1 [place] Adeline Gurrola [id number] Adeline Gurrola 02/11/2025 2 [employer]TRY [employer] (MEDICARE SUPPLEMENT) Adeline Gurrola [id number] Adeline Gurrola Notes Date Note Type Note Provider Name and Address Organization Details Recorded Time 02/11/2025 text/html ROS as noted in the HPI Pt complaining of ear pain for the last month. She was told she had an ear infection. She does not have a problem with hearing. She says she has had infections 4 times this year Austen Holland MD Attn: Accounting[address] [facility], [place], [address], [facility] - [facility] 02/11/2025 10:15:12 OBGyn Episode No OBEpisode recorded.
--- OUTSIDE RECORDS SUMMARY | 2025-03-02 08:10 | XMS_ITS | Encounter Summary ---
Author Organization [facility] Address [address] [place] [address] Phone Care Team Providers Care Director Of Cardiac Rehabilitation Name Role Phone Geovanna Alvarado APRN, ELECTRICAL ASSEMBLY TECHNICIAN Unavailable [phone] Kathy Mirza MD Primary Care Provider Loyd Ball MD Unavailable Unique Saba APRN, ELECTRICAL ASSEMBLY TECHNICIAN Primary Care Provider Reason for Visit * Reason Comments Medication Refill Encounter Details Date Type Department Care Team (Late st Contact Info) Description 12/03/2020 Refill [facility] [address] [place] [address] Loyd Ball MD [address] [place] [address] Medication Refill Social History Tobacco Use Types [...] have Coronavirus / COVID-19? No / Unsure 11/24/2020 3:07 AM CDT documented as of this encounter Plan of Treatment Upcoming Encounters Date Type Department Care Team (Late st Contact Info) Description 07/17/2025 10:00 AM CDT [facility] [address] [place] [phone] Loyd Ball MD [address] [place] [address] documented as of this encounter Visit Diagnoses Not on filedocumented in this encounter Additional Health Concerns Infection Onset Date Last Indicated Resolved Time COVID - 19 03/13/2021 03/13/2021 04/02/2021 12:1 6 AM [employer]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 COVID - 19 04/15/2021 04/15/2021 05/05/2021 12:1 6 AM [employer]ETING COVID - 19 09/05/2021 09/05/2021 09/15/2021 12:1 6 AM CDT COVID - 19 02/16/2022 02/16/2022 02/26/2022 12:1 6 AM [employer]P MARKETING Respiratory Rule-Out 02/16/2022 02/16/2022 022 8:42 AM [employer]ETING COVID - 19 06/21/2022 06/21/2022 07/01/2022 12:1 7 AM CDT COVID - 19 11/12/2022 11/12/2022 11/22/2022 12:1 6 AM CDT documented as of this encounter Care Teams Director Of Cardiac Rehabilitation Relationship Specialty Start Date End Date Kathy Mirza MD [address] [place] [address] PCP - General Internal Medicine 11/20/18 07/10/24 Unique Saba APRN, ELECTRICAL ASSEMBLY TECHNICIAN [address] [place] [address] PCP - General Advanced Practice Nurse 07/11/24 Geovanna Alvarado APRN, ELECTRICAL ASSEMBLY TECHNICIAN Nurse Practitioner Advanced Practice Nurse 03/24/16 Loyd Ball MD [address] [place] [address] Consulting Physician Neurology 02/08/22 documented as of this encounter
--- OUTSIDE RECORDS SUMMARY | 2025-03-02 08:10 | XMS_ITS ---
Author Organization [facility] Address [address] [place] [address] Phone Care Team Providers Care Gin Operator Name Role Phone THANH RYAN Primary Care Provider [phone] AKI DUNN, JAZ C Unavailable [phone] Reason for Referral Date Encounter Description Provider Reason for Referral 11/13/17 REFERRAL MICHAELA SPEULVEDA RN RACHEL BC Req uest Consultation By Specialist Problems Includes: Active, inactive, and resolved Problems All Visits Onset Date Resolved Date Provider Condition S tatus Colonic Diverticulosis Without Perforation Or Abscess 07/28/2013 MICHAELA SEPULVEDA RN RACHEL BC Active Last Documented On 4 11:13AM ; [facility] History of Irritable Bowel Syndrome 10/25/2012 MICHAELA SEPULVEDA RN RACHEL BC Active Last Documented On 10/25/2012 8:03AM ; [facility] Note: Unchanged Nonpuerperal Uterine Hypertrophy 10/25/2012 Unknown MICHAELA SEPULVEDA RN RACHEL BC Resolved Last Documented On 02/20/2014 8:08AM ; [facility] Note: Unchanged - MICHELLE/BSO 10/17 Ovarian Cyst Right 03/26/2012 Unknown MICHAELA CONRAD RN RACHEL BC Resolved Last Documented On 02/20/2014 8:07AM ; [facility] Note: Unchanged - MICHELEL/BSO 10/17 Uterine Neoplasm, Benign Leiomyoma 03/26/2012 Unknown MICHAELA SCHULZ BC Resolved Last Documented On 02/20/2014 8:07AM ; [facility] Note: Unchanged - CT OF UTERUS 07/19/13 I NDICATES ISCHEMIC CHANGES TO FIBROID MICHELLE/BSO 10/17 Female Pelvic Pain 03/22/2012 Unknown MICHAELA [place] CONRAD RN NP BC Resolved Last Documented On 02/20/2014 8:06AM ; [facility] Note: Unchanged - MICHELLE/BSO 10/17 Multiple Sclerosis 03/22/2012 MICHAELA [place] CONRAD RN NP BC Active Last Documented On 4 8:07AM ; [facility] Urinary Tract Infection 03/22/2012 ANA CRISTINA SEPULVEDA RN NP BC Active Last Documented On 03/22/2012 2:37PM ; [facility] Note: Unchanged FAMILY HX-BREAST MALIG 03/18/2010 MICHAELA SEPULVEDA RN NP Active Last Documented On 07/29/2014 10:08AM ; [facility] Note: Mother diagnosed at age 45 ESTROGE N RECEPTOR POSITIVE. PT NEEDS ANNUAL MAMMOGRAM AGE 33 MIGRNE UNSP WO NTRC MGRN 03/18/2010 TORRIE SEPULVEDA RN [facility] Inactive Last Documented On 07/29/2014 10:13AM ; [facility] Note: H/O MIGRAINES RESOLVED W/MICHELLE/BSO History of Esophagitis Chronic Reflux 03/18/2010 MANUEL WAYNE Active Last Documented On 03/18/2010 9:51AM ; [facility] Note: Unchanged Smoking Cigarettes 03/18/2010 MANUEL M URAM Active Last Documented On 03/18/2010 9:40AM ; [facility] Note: Unchanged - 1/2 pack a day Plan of Treatment Findings Encounter Date Ordered Clinical summary pro vided to patient BREAST EXAM with MICHAELA SEPULVEDA RN [facility] 10/06/2022 Last Documented On 3 9:56AM ; [facility] Ordered weight loss diet BREAST EXAM with MICHAELA SEPULVEDA RN [facility] 10/06/2022 Last Documented On 3 9:56AM ; [facility] Ordered Clinical summary pro vided to patient WELL WOMAN - ESTABLISHED PT with MICHAELA SEPULVEDA RN [facility] 10/05/2021 Last Documented On 2 10:21AM ; [facility] Ordered weight loss diet WELL WOMAN - ES TABLISHED PT with MICHAELA SEPULVEDA RN [facility] 10/05/2021 Last Documented On 2 10:21AM ; [facility] Ordered Clinical summary pro vided to patient WELL WOMAN - ESTABLISHED PT with MICHAELA SEPULVEDA RN [facility] 10/01/2020 Last Documented On 1 8:39AM ; [facility] Ordered weight loss diet WELL WOMAN - ES TABLISHED PT with MICHAELA SEPULVEDA RN [facility] 10/01/2020 Last Documented On 1 8:39AM ; [facility] Ordered Clinical summary pro vided to patient 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 EXAM with MICHAELA SEPULVEDA RN [facility] 10/01/2019 Last Documented On 0 8:29AM ; [facility] Ordered Clinical summary pro vided to patient 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 EXAM with MICHAELA SEPULVEDA RN [facility] 08/28/2018 Last Documented On 9 10:04AM ; [facility] Ordered Transition in care, clinical summary provided REFERRAL with MICHAELA SEPULVEDA RN [facility] 11/13/2017 Last Documented On 8 10:41AM ; [facility] Requested request consultati on by specialist REFERRAL with MICHAELA SEPULVEDA RN [facility]HEL 11/13/2017 Last Documented On 8 10:41AM ; [facility] Ordered Clinical summary pro vided to patient PROBLEM VISIT with MICHAELA SEPULVEDA RN RACHEL 2017 Last Documented On 8 8:57AM ; [facility] Ordered Clinical summary pro vided to patient ANNUAL COUNTER CLERK EXAM with MICHAELA SEPULVEDA RN RACHEL 08/24/2017 Last Documented On 8 8:29AM ; [facility] Ordered Clinical summary pro vided to patient 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 EXAM with MICHAELA SEPULVEDA RN [facility] 08/23/2016 Last Documented On 7 2:36PM ; [facility] Ordered Clinical summary pro vided to patient 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 EXAM with MICHAELA SEPULVEDA RN [facility] 08/11/2015 Last Documented On 6 10:33AM ; [facility] Ordered Clinical summary pro vided to patient 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 Ordered DNA probe for Neisse gricel gonorrhoeae and Chlamydia trachomatis NEW 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 EXAM with MICHAELA SEPULVEDA RN [facility] 03/22/2012 Last Documented On 3 2:37PM ; [facility] Ordered follow-up visit as n eeded or at annual exam NEW 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 EXAM with MICHAELA SEPULVEDA RN [facility] 03/22/2012 Last Documented On 3 2:37PM ; [facility] Ordered follow-up visit 1 year or as needed 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 EXAM with MANUEL WAYNE 03/18/2010 Last Documented On 1 10:04AM ; [facility] Referrals To Diagnosis Breast Specialist JACE Micheli celina Note: bilateral mastodynia w ith negative mammogram. Mom breast cancer age 39 please evaluate Last Documented On 0 9:20AM ; [facility] Instructions to patient Return to the clinic if cond ition worsens or new symptoms arise Last Documented On 4 10:00AM ; [facility] Instructions for patient : B reast Self Exam discussed and technique reviewed Last Documented On 3 9:52AM ; [facility] Instructed to call if excess rohini bleeding or abdominal/pelvic pain Last Documented On 3 9:52AM ; [facility] Recommend diet and exercise at least 30 min three times per week Last Documented On 3 9:52AM ; [facility] Instructions for patient : B reast Self Exam discussed and technique reviewed Last Documented On 2 10:07AM ; [facility] Use a condom during sexual i ntercourse Last Documented On 2 10:07AM ; [facility] Instructed to call if excess rohini bleeding or abdominal/pelvic pain Last Documented On 2 10:07AM ; [facility] Recommend diet and exercise at least 30 min three times per week Last Documented On 2 10:07AM ; [facility] Instructions for patient : B reast Self Exam discussed and technique reviewed Last Documented On 1 8:23AM ; [facility] Use a condom during sexual i ntercourse Last Documented On 1 8:23AM ; [facility] Instructed to call if excess rohini bleeding or abdominal/pelvic pain Last Documented On 1 8:23AM ; [facility] Recommend diet and exercise at least 30 min three times per week Last Documented On 1 8:23AM ; [facility] Lose weight Last Documented On 0 8:10AM ; [facility] Instructed to call if excess rohini bleeding or abdominal/pelvic pain Last Documented On 0 8:10AM ; [facility] Instructions For Patient: Mo nthly Self Breast Exam Last Documented On 0 8:10AM ; [facility] Recommend diet and exercise at least 30 min three times per week Last Documented On 0 8:10AM ; [facility] Instructed to call if excess rohini bleeding or abdominal/pelvic pain Last Documented On 9 9:51AM ; [facility] Instructions For Patient: Mo nthly Self Breast Exam Last Documented On 9 9:51AM ; [facility] Recommend diet and exercise at least 30 min three times per week Last Documented On 9 9:51AM ; [facility] Instructed to call if excess rohini bleeding or abdominal/pelvic pain Last Documented On 8 8:04AM ; [facility] Instructions For Patient: Mo nthly Self Breast Exam Last Documented On 8 8:04AM ; [facility] Recommend diet and exercise at least 30 min three times per week Last Documented On 8 8:04AM ; [facility] Instructed to call if excess rohini bleeding or abdominal/pelvic pain Last Documented On 7 2:12PM ; [facility] Instructions For Patient: Mo nthly Self Breast Exam Last Documented On 7 2:12PM ; [facility] Recommend diet and exercise at least 30 min three times per week Last Documented On 7 2:12PM ; [facility] Instructions for patient : B reast Self Exam discussed and technique reviewed Last Documented On 6 10:02AM ; [facility] Use a condom during sexual i ntercourse Last Documented On 6 10:02AM ; [facility] Instructed to call if excess rohini bleeding or abdominal/pelvic pain Last Documented On 6 10:02AM ; [facility] Recommend diet and exercise at least 30 min three times per week Last Documented On 6 10:02AM ; [facility] Instructions for patient : B reast Self Exam discussed and technique reviewed Last Documented On 5 9:31AM ; [facility] Use a condom during sexual i ntercourse Last Documented On 5 9:31AM ; [facility] Instructed to call if excess rohini bleeding or abdominal/pelvic pain Last Documented On 5 9:31AM ; [facility] Recommend diet and exercise at least 30 min three times per week Last Documented On 5 9:31AM ; [facility] Return to the clinic if cond ition worsens or new symptoms arise Last Documented On 3 10:10AM ; [facility] ER/ Pain Precautions Last Documented On 3 10:10AM ; [facility] Instructions for patient :GRACE WinklerX REVIEW. ENC PT TO SEE DR. BOSCH FOR MIGRAINE MGT OPTIONS Last Documented On 3 2:00PM ; [facility] Instructions for patient : B reast Self Exam discussed and technique reviewed Last Documented On 3 1:09PM ; [facility] Instructions for patient : t he patient was instructed in the use and possible side effects of the medication prescribed. She is to maintain good hydration via p.o. fluids. We also discussed possible triggers for UTI and preventive measures Last Documented On 3 2:34PM ; [facility] Return to the clinic if cond ition worsens or new symptoms arise Last Documented On 3 2:34PM ; [facility] Use a condom during sexual i ntercourse Last Documented On 3 1:09PM ; [facility] Instructions For Patient: Mo nthly Self Breast Exam Last Documented On 3 1:09PM ; [facility] Recommend diet and exercise at least 30 min three times per week Last Documented On 3 1:09PM ; [facility] Recommend CBC, TSH, fasting glucose, fasting lipid panel if patient aged 25 or older Last Documented On 3 1:09PM ; [facility] Recommend preventative vacci nation including but not limited to influenza/flu vaccine, DTP, Rubella, Hepatitis B vaccination series Last Documented On 3 1:09PM ; [facility] Instructions for patient : B reast Self Exam discussed and technique reviewed Last Documented On 1 9:25AM ; [facility] Recommend diet and exercise at least 30 min three times per week Last Documented On 1 9:25AM ; [facility] Recommend preventative vacci nation including but not limited to influenza/flu vaccine, DTP, Rubella, Hepatitis B vaccination series ~Mom didn't have genetic testing. Patient to start mammograms at age 33. ~Dr. Norwood's phone number given for breast genetic counseling Last Documented On 1 10:04AM ; [facility] Education and Decision Aids were provided during visit for: Discussed smoking and drug u se Last Documented On 3 9:52AM ; [facility] Discussed risk-taking behavi or Last Documented On 3 9:52AM ; [facility] Patient Education: Daily cyn cium and vitamin D Last Documented On 3 9:52AM ; [facility] Patient Education: Daily cyn cium and vitamin D Last Documented On 2 10:07AM ; [facility] Patient Education: Daily cyn cium and vitamin D Last Documented On 1 8:23AM ; [facility] Discussed smoking and drug u se Last Documented On 0 8:10AM ; [facility] Patient Education: Daily cyn cium and vitamin D Last Documented On 0 8:10AM ; [facility] Patient Education: Daily cyn cium and vitamin D Last Documented On 9 9:51AM ; [facility] Patient Education: Daily cyn cium and vitamin D Last Documented On 8 8:04AM ; [facility] Discussed smoking and drug u se Last Documented On 7 2:12PM ; [facility] Patient Education: Daily cyn cium and vitamin D Last Documented On 7 2:12PM ; [facility] Discussed smoking and drug u se Last Documented On 6 10:02AM ; [facility] Patient Education: Daily cyn cium and vitamin D Last Documented On 6 10:02AM ; [facility] Discussed smoking and drug u se Last Documented On 5 9:31AM ; [facility] Patient Education: Daily cyn cium and vitamin D Last Documented On 5 9:31AM ; [facility] Patient education : Last Documented On 3 2:00PM ; [facility] Patient counseling : Use of oral contraceptives discussed in detail including rare occurrence of heart attack, stroke, and leg clots. Patient understands that smoking increases the risk of serious side effects with any steroid-based contraceptive method Last Documented On 3 2:00PM ; [facility] Discussed use of seat belts Last Documented On 3 1:09PM ; [facility] Discussed risk-taking behavi or Last Documented On 3 1:09PM ; [facility] Patient education KEEP ALL PREV APPT SCHED ~PT TO BE CONTACTED W/ALL RESULTS FOR PLAN OF CARE Last Documented On 3 2:34PM ; [facility] Patient Education: Daily cyn cium and vitamin D Last Documented On 3 1:09PM ; [facility] Patient Education: weight be aring exercise Last Documented On 3 1:09PM ; [facility] Patient will maintain adequa te intake of dietary Ca+ and Mg+ Last Documented On 3 1:09PM ; 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 varicella zoster PROBLEM VISIT with MICHAELA SEPULVEDA RN [facility] 07/20/2023 Last Documented On 4 10:05AM ; [facility] OTHER SCREENING FOR MALIGNAN T NEOPLASM OF BREAST Z12.39 BREAST EXAM with MICHAELA SEPULVEDA RN [facility] 10/06/2022 Last Documented On 3 9:56AM ; [facility] NORMAL FEMALE EXAM WELL WOMAN - ESTABLI SHED PT with MICHAELA SEPULVEDA RN [facility] 10/05/2021 Last Documented On 2 10:21AM ; [facility] Screening mammogram for jacob gnant neoplasm of breast WELL WOMAN - ESTABLISHED PT with MICHAELA SEPULVEDA RN [facility] 10/05/2021 Last Documented On 2 10:21AM ; [facility] NORMAL FEMALE EXAM WELL WOMAN - ESTABLI SHED PT with MICHAELA SEPULVEDA RN [facility] 10/01/2020 Last Documented On 1 8:39AM ; [facility] NORMAL FEMALE EXAM 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 EXAM with MICHAELA Chowdhury RACHEL 10/01/2019 Last Documented On 0 8:29AM ; [facility] NORMAL FEMALE EXAM 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 EXAM with MICHAELA Chowdhury RACHEL 08/28/2018 Last Documented On 9 10:04AM ; [facility] Family history of breast lexii plasm malignant PROBLEM VISIT with MICHAELA SEPULVEDA RN [facility] 2017 Last Documented On 8 8:57AM ; [facility] Mastodynia PROBLEM VISIT with MICHAELA SEPULVEDA RN [facility] 2017 Last Documented On 8 8:57AM ; [facility] NORMAL FEMALE EXAM ANNUAL COUNTER CLERK EXAM with MICHAELA SEPULVEDA RN [facility] 08/24/2017 Last Documented On 8 8:29AM ; [facility] NORMAL FEMALE EXAM 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 EXAM with MICHAELA Chowdhury RACHEL 08/23/2016 Last Documented On 7 2:36PM ; [facility] MASTALGIA 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 EXAM with MICHAELA SEPULVEDA RN [facility] 08/11/2015 Last Documented On 6 10:33AM ; [facility] NORMAL FEMALE EXAM 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 EXAM with MICHAELA Chowdhury RACHEL 08/11/2015 Last Documented On 6 10:33AM ; [facility] Risk: tobacco use 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 EXAM with MICHAELA SEPULVEDA RN [facility] 07/29/2014 Last Documented On 5 10:15AM ; [facility] Routine gynecological exam 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 EXAM with MICHAELA SEPULVEDA RN [facility] 07/29/2014 Last Documented On 5 10:15AM ; [facility] Female pelvic pain CONSULTATION with JAZ GOMES MD 07/31/2013 Last Documented On 4 9:07AM ; [facility] Leiomyomatous degeneration o f the uterus CONSULTATION with JAZ PRABHAKAR MD 07/31/2013 Last Documented On 4 9:07AM ; [facility] Leiomyoma of the uterus PELVIC W/TVT with MICHAELA SEPULVEDA RN [facility] 10/19/2012 Last Documented On 3 3:37PM ; [facility] Nonpuerperal uterine hypertrophy PELVIC W/TVT with MICHAELA SEPULVEDA RN [facility] 10/19/2012 Last Documented On 3 3:37PM ; [facility] Female pelvic pain PROBLEM VISIT with MICHAELA GUSMAN RN [facility] 10/16/2012 Last Documented On 3 10:30AM ; [facility] Contraceptive management: in itiate contraception PROBLEM VISIT with MICHAELA SEPULVEDA RN [facility] 06/18/2012 Last Documented On 3 2:22PM ; [facility] Cyst on the right ovary CHART UPDATE with MICHAELA SEPULVEDA RN [facility] 03/26/2012 Last Documented On 3 5:20PM ; [facility] Leiomyoma of the uterus CHART UPDATE with MICHAELA SEPULVEDA RN [facility] 03/26/2012 Last Documented On 3 5:20PM ; [facility] Female pelvic pain NEW 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 EXAM with MICHAELA LAWSON RN [facility] 03/22/2012 Last Documented On 3 2:37PM ; [facility] NORMAL FEMALE EXAM NEW 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 EXAM with MICHAELA LAWSON RN [facility] 03/22/2012 Last Documented On 3 2:37PM ; [facility] Routine gynecological exam NEW 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 EXAM with TORRIE SEPULVEDA RN [facility] 03/22/2012 Last Documented On 3 2:37PM ; [facility] SCREENING FOR STD NEW 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 EXAM with MICHAELA Rogers RN RACHEL 03/22/2012 Last Documented On 3 2:37PM ; [facility] Urinary tract infection NEW 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 EXAM with MICHAELA SEPULVEDA RN [facility] 03/22/2012 Last Documented On 3 2:37PM ; [facility] Contraceptive management 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 EXAM with MANUEL M URAM 03/18/2010 Last Documented On 1 10:04AM ; [facility] NORMAL FEMALE EXAM 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 EXAM with MANUEL M URA M 03/18/2010 Last Documented On 1 10:04AM ; [facility] Instructions Includes: Instructions for all patient encounters Instructions to patient Return to the clinic if cond ition worsens or new symptoms arise Last Documented On 4 10:00AM ; [facility] Instructions for patient : B reast Self Exam discussed and technique reviewed Last Documented On 3 9:52AM ; [facility] Instructed to call if excess rohini bleeding or abdominal/pelvic pain Last Documented On 3 9:52AM ; [facility] Recommend diet and exercise at least 30 min three times per week Last Documented On 3 9:52AM ; [facility] Instructions for patient : B reast Self Exam discussed and technique reviewed Last Documented On 2 10:07AM ; [facility] Use a condom during sexual i ntercourse Last Documented On 2 10:07AM ; [facility] Instructed to call if excess rohini bleeding or abdominal/pelvic pain Last Documented On 2 10:07AM ; [facility] Recommend diet and exercise at least 30 min three times per week Last Documented On 2 10:07AM ; [facility] Instructions for patient : B reast Self Exam discussed and technique reviewed Last Documented On 1 8:23AM ; [facility] Use a condom during sexual i ntercourse Last Documented On 1 8:23AM ; [facility] Instructed to call if excess rohini bleeding or abdominal/pelvic pain Last Documented On 1 8:23AM ; [facility] Recommend diet and exercise at least 30 min three times per week Last Documented On 1 8:23AM ; [facility] Lose weight Last Documented On 0 8:10AM ; [facility] Instructed to call if excess rohini bleeding or abdominal/pelvic pain Last Documented On 0 8:10AM ; [facility] Instructions For Patient: Mo nthly Self Breast Exam Last Documented On 0 8:10AM ; [facility] Recommend diet and exercise at least 30 min three times per week Last Documented On 0 8:10AM ; [facility] Instructed to call if excess rohini bleeding or abdominal/pelvic pain Last Documented On 9 9:51AM ; [facility] Instructions For Patient: Mo nthly Self Breast Exam Last Documented On 9 9:51AM ; [facility] Recommend diet and exercise at least 30 min three times per week Last Documented On 9 9:51AM ; [facility] Instructed to call if excess rohini bleeding or abdominal/pelvic pain Last Documented On 8 8:04AM ; [facility] Instructions For Patient: Mo nthly Self Breast Exam Last Documented On 8 8:04AM ; [facility] Recommend diet and exercise at least 30 min three times per week Last Documented On 8 8:04AM ; [facility] Instructed to call if excess rohini bleeding or abdominal/pelvic pain Last Documented On 7 2:12PM ; [facility] Instructions For Patient: Mo nthly Self Breast Exam Last Documented On 7 2:12PM ; [facility] Recommend diet and exercise at least 30 min three times per week Last Documented On 7 2:12PM ; [facility] Instructions for patient : B reast Self Exam discussed and technique reviewed Last Documented On 6 10:02AM ; [facility] Use a condom during sexual i ntercourse Last Documented On 6 10:02AM ; [facility] Instructed to call if excess rohini bleeding or abdominal/pelvic pain Last Documented On 6 10:02AM ; [facility] Recommend diet and exercise at least 30 min three times per week Last Documented On 6 10:02AM ; [facility] Instructions for patient : B reast Self Exam discussed and technique reviewed Last Documented On 5 9:31AM ; [facility] Use a condom during sexual i ntercourse Last Documented On 5 9:31AM ; [facility] Instructed to call if excess rohini bleeding or abdominal/pelvic pain Last Documented On 5 9:31AM ; [facility] Recommend diet and exercise at least 30 min three times per week Last Documented On 5 9:31AM ; [facility] Return to the clinic if cond ition worsens or new symptoms arise Last Documented On 3 10:10AM ; [facility] ER/ Pain Precautions Last Documented On 3 10:10AM ; [facility] Instructions for patient :GRACE SIDDIQI SX REVIEW. ENC PT TO SEE DR. BOSCH FOR MIGRAINE MGT OPTIONS Last Documented On 3 2:00PM ; [facility] Instructions for patient : B reast Self Exam discussed and technique reviewed Last Documented On 3 1:09PM ; [facility] Instructions for patient : t he patient was instructed in the use and possible side effects of the medication prescribed. She is to maintain good hydration via p.o. fluids. We also discussed possible triggers for UTI and preventive measures Last Documented On 3 2:34PM ; [facility] Return to the clinic if cond ition worsens or new symptoms arise Last Documented On 3 2:34PM ; [facility] Use a condom during sexual i ntercourse Last Documented On 3 1:09PM ; [facility] Instructions For Patient: Mo nthly Self Breast Exam Last Documented On 3 1:09PM ; [facility] Recommend diet and exercise at least 30 min three times per week Last Documented On 3 1:09PM ; [facility] Recommend CBC, TSH, fasting glucose, fasting lipid panel if patient aged 25 or older Last Documented On 3 1:09PM ; [facility] Recommend preventative vacci nation including but not limited to influenza/flu vaccine, DTP, Rubella, Hepatitis B vaccination series Last Documented On 3 1:09PM ; [facility] Instructions for patient : B reast Self Exam discussed and technique reviewed Last Documented On 1 9:25AM ; [facility] Recommend diet and exercise at least 30 min three times per week Last Documented On 1 9:25AM ; [facility] Recommend preventative vacci nation including but not limited to influenza/flu vaccine, DTP, Rubella, Hepatitis B vaccination series ~Mom didn't have genetic testing. Patient to start mammograms at age 33. ~Dr. Norwood's phone number given for breast genetic counseling Last Documented On 1 10:04AM ; [facility] Education and Decision Aids were provided during visit for: Discussed smoking and drug u se Last Documented On 3 9:52AM ; [facility] Discussed risk-taking behavi or Last Documented On 3 9:52AM ; [facility] Patient Education: Daily cyn cium and vitamin D Last Documented On 3 9:52AM ; [facility] Patient Education: Daily cyn cium and vitamin D Last Documented On 2 10:07AM ; [facility] Patient Education: Daily cyn cium and vitamin D Last Documented On 1 8:23AM ; [facility] Discussed smoking and drug u se Last Documented On 0 8:10AM ; [facility] Patient Education: Daily cyn cium and vitamin D Last Documented On 0 8:10AM ; [facility] Patient Education: Daily cyn cium and vitamin D Last Documented On 9 9:51AM ; [facility] Patient Education: Daily cyn cium and vitamin D Last Documented On 8 8:04AM ; [facility] Discussed smoking and drug u se Last Documented On 7 2:12PM ; [facility] Patient Education: Daily cyn cium and vitamin D Last Documented On 7 2:12PM ; [facility] Discussed smoking and drug u se Last Documented On 6 10:02AM ; [facility] Patient Education: Daily cyn cium and vitamin D Last Documented On 6 10:02AM ; [facility] Discussed smoking and drug u se Last Documented On 5 9:31AM ; [facility] Patient Education: Daily cyn cium and vitamin D Last Documented On 5 9:31AM ; [facility] Patient education : Last Documented On 3 2:00PM ; [facility] Patient counseling : Use of oral contraceptives discussed in detail including rare occurrence of heart attack, stroke, and leg clots. Patient understands that smoking increases the risk of serious side effects with any steroid-based contraceptive method Last Documented On 3 2:00PM ; [facility] Discussed use of seat belts Last Documented On 3 1:09PM ; [facility] Discussed risk-taking behavi or Last Documented On 3 1:09PM ; [facility] Patient education KEEP ALL P REV APPT SCHED ~PT TO BE CONTACTED W/ALL RESULTS FOR PLAN OF CARE Last Documented On 3 2:34PM ; [facility] Patient Education: Daily cyn cium and vitamin D Last Documented On 3 1:09PM ; [facility] Patient Education: weight be aring exercise Last Documented On 3 1:09PM ; [facility] Patient will maintain adequa te intake of dietary Ca+ and Mg+ Last Documented On 3 1:09PM ; [facility] Medical Equipment - Implanted Devices Includes: Current and historical Devices No Medical Equipment Recorded Medications Includes: Current and historical Medications Current Medications (continue as prescribed) Prolia 60 MG/ML Subcutaneous Solution Prefilled Syring e 10/06/2022 Provider: Diagnosis: Last Documented On 10/06/2022 9:45AM By Alexandria Dukes ; [facility] Ozurdex 0.7 MG Intravitreal Implant 10/06/2022 Provi lalo: Diagnosis: Last Documented On 10/06/2022 9:45AM By Alexandria Dukes ; [facility] Lyrica 150 MG Oral Capsule 10/06/2022 Provider: Diagnosis: Last Documented On 10/06/2022 9:44AM By Alexandria Dukes ; [facility] Atomoxetine HCl 60 MG Oral Capsule 09/05/2022 Provid er: NAVEED S SUNI Diagnosis: Last Documented On 10/06/2022 9:41AM By Alexandria Dukes ; [facility] [place] Carbonate 150 MG Oral Capsule 09/05/2022 Pro vider: NAVEED S SUNI Diagnosis: Last Documented On 10/06/2022 9:41AM By Alexandria Dukes ; [facility] Venlafaxine HCl 100 MG Oral Tablet 09/05/2022 Provid er: NAVEED CULP Diagnosis: Last Documented On 10/06/2022 9:42AM By Alexandria Dukes ; [facility] Myrbetriq 25 MG Oral Tablet Extended Release 24 Hour 0 07/18/2022 Provider: Diagnosis: Last Documented On 10/06/2022 9:42AM By Alexandria Dukes ; [facility] Timolol Maleate 0.5% Ophthalmic Solution 07/02/2022 Provider: Diagnosis: Last Documented On 10/06/2022 9:42AM By Alexandria Dukes ; [facility] clonazePAM 0.5 MG Oral Tablet 06/09/2022 Provider: NAVEED CULP Diagnosis: Last Documented On 10/06/2022 9:42AM By Alexandria Dukes ; [facility] Ondansetron HCl 4 MG Oral Tablet 04/15/2022 Provider : Diagnosis: Last Documented On 10/06/2022 9:42AM By Alexandria Dukes ; [facility] Brimonidine Tartrate 0.2% Ophthalmic Solution 04/06/19 Provider: Diagnosis: Last Documented On 10/06/2022 9:43AM By Alexandria Dukes ; [facility] hydrOXYzine HCl 50 MG Oral Tablet 10/05/2021 Provide r: Diagnosis: Last Documented On 10/05/2021 10:02AM By Alexandria Dukes ; [facility] All Day Allergy 10MG Oral Capsule 08/28/2018 Provide r: Diagnosis: Last Documented On 9 9:49AM By YAIMA MUNOZ ; [facility] Fluticasone Propionate 50MCG/ACT Nasal Suspension 08/28/2018 Provider: Diagnosis: Last Documented On 9 9:47AM By YAIMA MUNOZ ; [facility] Tecfidera 240MG Oral Capsule Delayed Release 8 Provider: Diagnosis: Last Documented On 08/24/2017 8:08AM By Juliet Degroot MA ; [facility] Biotin 5000MCG Oral Capsule 08/24/2017 Provider: Diagnosis: Last Documented On 08/24/2017 8:09AM By Juliet Degroot MA ; [facility] [place] Chloride 5MG Oral Tablet 08/24/2017 Prov ider: Diagnosis: Last Documented On 08/24/2017 8:12AM By Juliet Degroot MA ; [facility] [place] Carbonate 150MG Oral Capsule 08/24/2017 Prov ider: Diagnosis: Last Documented On 08/24/2017 8:12AM By Juliet Degroot MA ; [facility] Montelukast Sodium 10MG Oral Tablet 08/24/2017 Provi lalo: Diagnosis: Last Documented On 08/24/2017 8:11AM By Juliet Degroot MA ; [facility] LevETIRAcetam 500MG Oral Tablet 08/24/2017 Provider: Diagnosis: Last Documented On 08/24/2017 8:09AM By Juliet Degroot MA ; [facility] CarBAMazepine ER 200MG Oral Tablet Extended Rele ase 12 Hour 08/24/2017 Provider: Diagnosis: Last Documented On 08/24/2017 8:09AM By Juliet Degroot MA ; [facility] Omeprazole 40 MG Capsule, delayed-release 08/11/2015 Provider: Diagnosis: Last Documented On 08/11/2015 10:01AM By ARVIND CORONEL MA ; [facility] Ventolin HFA 108 (90 Base) MCG/ACT Aerosol, solution 0 08/11/2015 Provider: Diagnosis: Last Documented On 08/11/2015 10:00AM By ARVIND CORONEL MA ; [facility] SUMAtriptan Succinate 100 MG Tablet 08/11/2015 Provi lalo: Diagnosis: Last Documented On 08/11/2015 10:00AM By ARVIND CORONEL MA ; [facility] Vitamin D 1000 UNIT Tablet 07/29/2014 Provider: Diagnosis: 9000 mg Last Documented On 07/29/2014 9:32AM By BASIA VELASQUEZ ; [facility] Past Medications on file valACYclovir HCl 500 MG Oral Tablet 07/24/2023 - 04/19/2024 Provider: MICHAELA SEPULVEDA RN RACHEL Diagnosis: Oth noninflammat ory disorders of vulva and perineum One tablet daily ONE TABLET DAILY DIRECTED Last Documented On 4 11:00AM By MICHAELA BARRIOS ; [facility] Lidocaine HCl 4% External Solution 07/20/2023 - 07/30/2023 Provider: MICHAELA SEPULVEDA RN RACHEL Diagnosis: Oth noninflammat ory disorders of vulva and perineum as directed APPLY W/Q-TIP TO AFFECTED perineal AREAs tid Last Documented On 4 10:16AM By MICHAELA BARRIOS ; [facility] valACYclovir HCl 1 GM Oral Tablet 07/20/2023 - 07/30/2023 Provider: MICHAELA SEPULVEDA RN RACHEL Diagnosis: Oth noninflammat ory disorders of vulva and perineum One tablet twice a day TAKE DIRECTED W/FOOD Last Documented On 4 10:16AM By MICHAELA BARRIOS ; [facility] Vitamin D (Ergocalciferol) 1.25 MG (96142 UT) Oral Capsule 10/22/2021 - 12/17/2021 Provider: MICHAELA SEPULVEDA RN RACHEL Diagnosis: Vitamin D defici ency, unspecified as directed ONE TABLET WEEKLY X 8 WEEKS Last Documented On 2 1:00PM By MICHAELA BARRIOS ; [facility] [place] Carbonate 150MG Oral Capsule 08/28/2018 - 04/2021 Provider: Diagnosis: Last Documented On 10/05/2021 10:01AM By Alexandria Dukes ; [facility] Gabapentin 600MG Oral Tablet 08/28/2018 - 10/06/2022 Denise felder: Diagnosis: Last Documented On 10/06/2022 9:38AM By Alexandria Dukes ; [facility] Venlafaxine HCl 37.5MG Oral Tablet 08/28/2018 - 2022 Provider: Diagnosis: Last Documented On 10/06/2022 9:37AM By Alexandria Dukes ; [facility] raNITIdine HCl 300MG Oral Tablet 08/28/2018 - 10/06/19 22 Provider: Diagnosis: Last Documented On 10/05/2021 10:01AM By Alexandria Dukes ; [facility] Acetaminophen 325MG Oral Tablet 2017 - 12/01/2017 Provider: MICHAELA SEPULVEDA RN RACHEL Diagnosis: Mastodynia as directed take 2 tablets QID as directed Last Documented On 8 9:01AM By MICHAELA SEPULVEDA RACHEL- ; [facility] Prochlorperazine Maleate 10MG Oral Tablet 08/24/2017 - 10/05/2021 Provider: Diagnosis: Last Documented On 10/05/2021 10:01AM By Alexandria Dukes ; [facility] Topiramate 50MG Oral Tablet 08/24/2017 - 10/06/2022 Pr ovider: Diagnosis: Last Documented On 10/06/2022 9:36AM By Alexandria Dukes ; [facility] Sucralfate 1 GM Tablet 08/11/2015 - 10/06/2022 Provide r: Diagnosis: Last Documented On 10/06/2022 9:35AM By Alexandria Dukes ; [facility] Famotidine 20 MG Tablet 08/11/2015 - 10/06/2022 Provid er: Diagnosis: Last Documented On 10/06/2022 9:36AM By Alexandria Dukes ; [facility] ClonazePAM 0.5 MG Tablet Dispersible 08/11/2015 - 09/2015 Provider: Diagnosis: Last Documented On 08/11/2015 10:01AM By ARVIND CORONEL MA ; [facility] Amitriptyline HCl 50 MG Tablet 08/11/2015 - 10/05/2021 Provider: Diagnosis: Last Documented On 10/05/2021 10:00AM By Alexandria Dukes ; [facility] Gabapentin 800 MG Tablet 08/11/2015 - 08/24/2017 Provi lalo: Diagnosis: Last Documented On 08/24/2017 8:06AM By Juliet Degroot MA ; [facility] Tysabri 300 MG/15ML Concentrate 08/11/2015 - 8 Provider: Diagnosis: 1 every 28 days Last Documented On 08/24/2017 8:08AM By Juliet Degroot MA ; [facility] Lyrica 300 MG Capsule, conventional 07/29/2014 - 08/24 Provider: Diagnosis: Last Documented On 08/24/2017 8:08AM By Juliet Degroot MA ; [facility] ClonazePAM 0.5 MG Tablet 07/29/2014 - 10/05/2021 Provi lalo: Diagnosis: Last Documented On 10/05/2021 10:00AM By Alexandria Dukes ; [facility] Dexilant 60 MG Capsule, delayed-release 07/29/2014 - 0 08/11/2015 Provider: Diagnosis: Last Documented On 08/11/2015 9:58AM By ARVIND CORONEL MA ; [facility] Vivelle-Dot 0.05 MG/24HR Patch Twice Weekly 07/29/2014 - 08/11/2015 Provider: Diagnosis: Last Documented On 08/11/2015 9:58AM By ARVIND CORONEL MA ; [facility] Tecfidera 240 MG OR CPDR 07/31/2013 - 08/11/2015 Provi lalo: Diagnosis: for MS Last Documented On 08/11/2015 9:58AM By ARVIND CORONEL MA ; [facility] Pantoprazole Sodium 40 MG OR TBEC 07/31/2013 - 015 Provider: Diagnosis: GERD and hernia and esoph ulcer Last Documented On 07/29/2014 9:29AM By BASIA VELASQUEZ ; [facility] VESIcare 10 MG OR TABS 07/31/2013 - 07/29/2014 Provide r: Diagnosis: urinary freq Last Documented On 07/29/2014 9:30AM By BASIA VELASQUEZ ; [facility] Badger 7.5-325 MG OR TABS 07/31/2013 - 07/29/2014 Provi lalo: Diagnosis: taking 2 tabs every 4 hours Last Documented On 07/29/2014 9:28AM By BASIA VELASQUEZ ; [facility] Lexapro 20 MG OR TABS 07/31/2013 - 07/29/2014 Provider : Diagnosis: Last Documented On 07/29/2014 9:28AM By BASIA VELASQUEZ ; [facility] Amethia 0.15-0.03 &0.01 MG OR TABS 04/01/2013 - 07/29/2014 Provider: MICHAELA SEPULVEDA RN NP BC Diagnosis: NO FURTHER REFILLS AUTHORIZED PT NEEDS ANNUAL EX AM Last Documented On 07/29/2014 9:29AM By BASIA VELASQUEZ ; [facility] Gabapentin 100 MG OR CAPS 10/16/2012 - 07/31/2013 Prov ider: Diagnosis: MULTIPLE SCLEROS IS Last Documented On 07/31/2013 8:22AM By JAZ PRABHAKAR MD ; [facility] Naprosyn 500 MG OR TABS 10/16/2012 - 07/29/2014 Provider: MICHAELA SEPULVEDA RN RACHEL Diagnosis: Fem Genital Symp toms NOS ONE TAB TWICE A DAY WITH FAITH D DON'T EXCEED 2 TABS IN 24 HOURS Last Documented On 07/29/2014 9:29AM By BASIA VELASQUEZ ; [facility] Baclofen 10 MG OR TABS 10/16/2012 - 07/31/2013 Provide r: Diagnosis: 1QID Last Documented On 07/31/2013 8:22AM By JAZ PRABHAKAR MD ; [facility] Lexapro 10 MG OR TABS 10/16/2012 - 07/31/2013 Provider : Diagnosis: 1QD Last Documented On 07/31/2013 8:23AM By JAZ PRABHAKAR MD ; [facility] Camrese 0.15-0.03 &0.01 MG OR TABS 06/18/2012 - 07/29/2014 Provider: MICHAELA SEPULVEDA RN RACHEL Diagnosis: INITIATE CONTRAC EPT NEC start pack Monday after next menses and back up as directed Last Documented On 07/29/2014 9:28AM By BASIA VELASQUEZ ; [facility] Camrese 0.15-0.03 &0.01 MG OR TABS 06/18/2012 - 10/16/2012 Provider: MICHAELA SEPULVEDA RN RACHEL BC Diagnosis: INITIATE CONTRAC EPT NEC START PACK 10/14/11 DIRECTED Last Documented On 3 10:29AM By MICHAELA SCHULZ- ; [facility] Gilenya 0.5 MG OR CAPS 03/22/2012 - 07/31/2013 Provide r: Diagnosis: for ms 1/2 mg a day Last Documented On 07/31/2013 8:22AM By JAZ PRABHAKAR MD ; [facility] Nitrofurantoin Macrocrystal 100 MG OR CAPS 03/22/2012 - 10/16/2012 Provider: MICHAELA SEPULVEDA RN [facility] Diagnosis: URIN TRACT INFEC TION NOS TAKE DIRECTED W/FOOD Last Documented On 10/16/2012 9:32AM By FLORES TARANGO LPN ; [facility] NexIUM 20 MG OR CPDR 03/18/2010 - 07/31/2013 Provider: Diagnosis: Last Documented On 07/31/2013 8:23AM By JAZ PRABHAKAR MD ; [facility] predniSONE 50 MG OR TABS 03/18/2010 - 03/22/2012 Provi lalo: Diagnosis: GOES DOWN 10 MG Q 3 DAYS, TIL WEANED OFF. Last Documented On 03/22/2012 1:15PM By JILLIAN MUNOZ ; [facility] Seasonique 0.15-0.03 &0.01 M G OR TABS 03/18/2010 - 07/29/2014 Provider: MANUEL WAYNE Diagnosis: Last Documented On 07/29/2014 9:28AM By BASIA VELASQUEZ ; [facility] Topamax 25 MG OR TABS 03/18/2010 - 03/22/2012 Provider : Diagnosis: Last Documented On 03/22/2012 1:15PM By JILLIAN MUNOZ ; [facility] Maxalt 10 MG OR TABS 01/20/2010 - 07/29/2014 Provider: HERMILO STERLING RACHEL-,CNM Diagnosis: Take 1 at onset of H/A---may repeat one in 2 hours---max 2/day Last Documented On 07/29/2014 9:30AM By BASIA VELASQUEZ ; [facility] Seasonique 0.15-0.03 &0.01 MG OR TABS 12/09/2008 - Provider: Diagnosis: Last Documented On 03/18/2010 10:03AM By MANUEL WAYNE ; [facility] Medications Administered Includes: Administered Medications in patient's chart No Administered Medications Recorded Results Includes: Results from 03/02/2024 through 03/02/2025 No Results Recorded For Specified Dates History of Present Illness History of Present Illness not supported for this document type No History of Present Illness Recorded Social History Description Last Updated not sexually active 10/06/2022 Last Documented On 3 9:56AM ; [facility] Activities 10/06/2022 Last Documented On 3 9:56AM ; [facility] Age of 1st intercourse was was 14 2022 Last Documented On 3 9:56AM ; [facility] Alcohol use: 2 drinks or less per day no ne 10/06/2022 Last Documented On 3 9:56AM ; [facility] Caffeine use 10/06/2022 Last Documented On 3 9:56AM ; [facility] Currently in school 10/06/2022 Last Documented On 3 9:56AM ; [facility] Daily coffee consumption was one cups pe r day 10/06/2022 Last Documented On 3 9:56AM ; [facility] Denied sexual activity 10/06/2022 Last Documented On 3 9:56AM ; [facility] Education history 10/06/2022 Last Documented On 3 9:56AM ; [facility] Educational level 10/06/2022 Last Documented On 3 9:56AM ; [facility] Educational level: grade 10/06/2022 Last Documented On 3 9:56AM ; [facility] Former smoker 10/06/2022 Last Documented On 3 9:56AM ; [facility] No consumption of alcohol 10/06/2022 Last Documented On 3 9:56AM ; [facility] Non-smoker 10/06/2022 Last Documented On 3 9:56AM ; [facility] Not a smoker 10/06/2022 Last Documented On 3 9:56AM ; [facility] Not exercising regularly 10/06/2022 Last Documented On 3 9:56AM ; [facility] Not using alcohol 10/06/2022 Last Documented On 3 9:56AM ; [facility] Not using drugs 10/06/2022 Last Documented On 3 9:56AM ; [facility] Occupation [employer] 10/06/2022 Last Documented On 3 9:56AM ; [facility] Personal history 10/06/2022 Last Documented On 3 9:56AM ; [facility] Racial background 10/06/2022 Last Documented On 3 9:56AM ; [facility] Sexually active 10/06/2022 Last Documented On 3 9:56AM ; [facility] Single 10/06/2022 Last Documented On 3 9:56AM ; [facility] Smoking status : Former smoker 3 Last Documented On 3 9:56AM ; [facility] Social history unchanged 10/06/2022 Last Documented On 3 9:56AM ; [facility] Tobacco non-user 10/06/2022 Last Documented On 3 9:56AM ; [facility] Procedures and Surgical History Surgical History Last Updated Surgical / procedural histor y pharengeal flap age 1 ~port instilled 03/21 ~Ellbow 202010/05/2021 Last Documented On 2 10:21AM ; [facility] History of hysterectomy 12/16/2013 Total hyst 08/11/2015 Last Documented On 6 10:33AM ; [facility] Surgical history unchanged 07/29/2014 Last Documented On 5 10:15AM ; [facility] History of total abdominal h ysterectomy BSO 10/2013 D/T CHRONIC PELVIC PAIN/FIBROIDS DR. GREEN 01/16/2014 Last Documented On 4 11:52AM ; [facility] History of cholecystectomy 05/2012 Last Documented On 3 2:22PM ; [facility] Tonsillectomy 198603/22/2012 Last Documented On 3 2:37PM ; [facility] History of appendectomy `198603/18/2010 Last Documented On 1 10:04AM ; [facility] Medical History Includes: Medical History in patient's chart Description Last Updated A mammogram was performed 10/2021 023 Last Documented On 3 9:56AM ; [facility] Last mammogram date: 10/202110/06/2022 Last Documented On 3 9:56AM ; [facility] History of screening mammogram was perfo rmed 10/202110/06/2022 Last Documented On 3 9:56AM ; [facility] Primary Care Provider: Yuki 10/05/2021 Last Documented On 2 10:21AM ; [facility] 0 10/05/2021 Last Documented On 2 10:21AM ; [facility] Result: normal [facility] 10/01/2020 Last Documented On 1 8:39AM ; [facility] Aborta 0 10/01/2020 Last Documented On 1 8:39AM ; [facility] Para 0 10/01/2020 Last Documented On 1 8:39AM ; [facility] Patient recently had a dexa scan 020 Last Documented On 0 8:29AM ; [facility] History of Pap smear done 07/28/201309/04 Last Documented On 0 8:29AM ; [facility] Not sexually active 10/01/2019 Last Documented On 0 8:29AM ; [facility] LMP: 201308/24/2017 Last Documented On 8 8:29AM ; [facility] Last pap smear date 03/22/2012 08/11/2015 Last Documented On 6 10:33AM ; [facility] No recent change in medical history 07/05 Last Documented On 5 10:15AM ; [facility] History of irritable bowel syndrome 10/04 Last Documented On 3 10:30AM ; [facility] History of chronic reflux esophagitis Last Documented On 1 10:04AM ; [facility] Family History Includes: Family History in patient's chart Description Last Updated No family history of malignant neoplasm of the ovary 2017 Last Documented On 8 8:57AM ; [facility] Maternal history of malignan t female breast neoplasm Mother ESTROGEN RECEPTOR POSITIVE PER PT REPORT 07/29/14 08/23/2016 Last Documented On 7 2:36PM ; [facility] Maternal uncle's history of malignant neoplasm of large intestine Maternal uncle 08/11/2015 Last Documented On 6 10:33AM ; [facility] Family history of malignant female breast neoplasm Mother ESTROGEN RECEPTOR POSITIVE PER PT REPORT 07/29/14 07/29/2014 Last Documented On 5 10:15AM ; [facility] Mother dx with endometrial cancer 11/201307/29/2014 Last Documented On 5 10:15AM ; [facility] Family history of diabetes mellitus Melgar rnal uncle 07/29/2014 Last Documented On 5 10:15AM ; [facility] Family history of malignant neoplasm of the large intestine Maternal uncle 07/29/2014 Last Documented On 5 10:15AM ; [facility] Family history unchanged 07/29/2014 Last Documented On 5 10:15AM ; [facility] Family history of hypertension Mother Last Documented On 5 10:15AM ; [facility] Family history of Cancer ---mom had sarc jocelyne in leg and mets to her lung 07/31/2013 Last Documented On 4 9:07AM ; [facility] Family history of hypercholesterolemia d ad 03/22/2012 Last Documented On 3 2:37PM ; [facility] Family medical history of Breast problem s 04/06/2009 Last Documented On 0 11:09AM ; [facility] Review of Systems Review of Systems not supported for this document type No Review of Systems Recorded Mental Status No Mental Status Recorded Functional Status No Functional Status Recorded Physical Exam Physical Exam not supported for this document type No Physical Exam Recorded Immunizations Includes: Immunizations in patient's chart Vaccine Dose # Date Site Reaction(s) Status Source HPV, (quadrivalent) Gardasil 1 12/04/2007 Complete (Reported) Patient Last Documented On 0 11:04AM ; [facility] HPV, (quadrivalent) Gardasil 2 02/11/2008 Complete (Reported) Patient Last Documented On 0 11:04AM ; [facility] HPV, (quadrivalent) Gardasil 3 06/09/2008 Complete (Reported) Patient Last Documented On 0 11:04AM ; [facility] Allergies Includes: Active, inactive, and resolved Allergies Substance Type Reaction Onset Date Resolved Date Statu s NSAIDs Allergy Vomiting 2017 Active Last Documented On 4 9:26AM ; [facility] Note: d/t GERD levoFLOXacin Allergy 08/24/2017 Active Last Documented On 4 9:26AM ; [facility] Augmentin Allergy 04/06/2009 Active Last Documented On 4 9:26AM ; [facility] Adhesive Tape Allergy 10/05/2021 Activ e Last Documented On 4 9:26AM ; [facility] Insurance Includes: Active Insurance Policies Plan Name Member ID Group # Subscriber Relationship Effect rohini Dates 1 - MEDICARE PART A CLAIMS/NGS [id number] VALDEZ Potter 2 - [employer] [facility] [id number] PLAN G VALDEZ Potter Clinical Notes Includes: Signed Clinical Notes starting from 03/25/2022 No Clinical Notes Recorded
--- OUTSIDE RECORDS SUMMARY | 2025-03-02 08:10 | XMS_ITS | Encounter Summary ---
Author Organization [facility] Address [address] [place] [address] Phone Care Team Providers Care Hide Splitter Name Role Phone Geovanna Alvarado APRN, TECHNOLOGY SPECIALIST Unavailable [phone] Kathy Mirza MD Primary Care Provider [phone] Loyd Ball MD Unavailable Unique Saba APRN, TECHNOLOGY SPECIALIST Primary Care Provider Reason for Visit * Reason Comments Medication Refill Encounter Details Date Type Department Care Team (Late st Contact Info) Description 05/13/2022 Refill [facility] [address] [place] [phone] Loyd Ball MD [address] [place] [address] Medication Refill Social History Tobacco Use Types [...] Exposure Response Date Recorded In the last 10 days, have yo u been in contact with someone who was confirmed or suspected to have Coronavirus/COVID-19? No / Unsure 05/05/2022 8:51 AM DIRECTOR ACUTE documented as of this encounter Miscellaneous Notes * Telephone Encounter - Casandra Xiong RN - 05/13/2022 3:12 PM CST Medication failed the protocol, provider to review and approve the medication order if appropriate. Requested Prescriptions Pending Prescriptions Disp Refills levETIRAcetam (KEPPRA) 500 MG Tablet [Pharmacy Med Name: LEVETIRACETAM 500 MG TABLET] 180 Tablet 3 Sig: TAKE 1 TABLET BY MOUTH TWICE A DAY Not Delegated - Anticonvulsants Excluding Benzodiazepines Protocol Failed - 05/13/2022 3:10 PM Failed - This refill cannot be delegated Passed - Visit with relevant provider in past 12 months or upcoming 90 days Recent Visits Date Type Provider Dept 02/08/22 Office Visit Loyd Ball MD [facility] 09/17/21 Office Visit Loyd Ball MD [facility] Showing recent visits within past 365 days and meeting all other requirements Future Appointments Date Type Provider Dept 08/09/22 Appointment Loyd Ball MD [facility] Showing future appointments within next 90 days and meeting all other requirements CTOR ACUTE documented in this encounter Plan of Treatment Upcoming Encounters Date Type Department Care Team (Late st Contact Info) Description 07/17/2025 10:00 AM CDT Office Visit [facility] - [place] [address] [place] [address] Loyd Ball MD [address] [place] [address] documented as of this encounter Visit Diagnoses Diagnosis Trigeminal neuralgia of right side of face documented in this encounter Additional Health Concerns Infection Onset Date Last Indicated Resolved Time COVID - 19 06/21/2022 06/21/2022 07/01/2022 12:1 7 AM CDT COVID - 19 11/12/2022 11/12/2022 11/22/2022 12:1 6 AM CDT documented as of this encounter Care Teams Hide Splitter Relationship Specialty Start Date End Date Kathy Mirza MD [address] [place], [place] [id number] PCP - General Internal Medicine 11/20/18 07/10/24 Unique Saba APRN, TECHNOLOGY SPECIALIST [address] [place] [address] PCP - General Advanced Practice Nurse 07/11/24 Geovanna Alvarado, SIGNALS OFFICER, TECHNOLOGY SPECIALIST Nurse Practitioner Advanced Practice Nurse 03/24/16 Loyd Ball MD [address] [place] [address] Consulting Physician Neurology 02/08/22 documented as of this encounter
--- OUTSIDE RECORDS SUMMARY | 2025-03-02 08:10 | XMS_ITS | Encounter Summary ---
Author Organization [facility] Address [address] [place] [address] Phone Care Team Providers Care Ion Exchange Operator Name Role Phone Geovanna Alvarado APRN, DOGMAN/WOMAN Unavailable [phone] Loyd Ball MD Unavailable [phone] Unique Saba APRN, DOGMAN/WOMAN Primary Care Provider Reason for Visit * Reason Comments Medication Refill Encounter Details Date Type Department Care Team (Late st Contact Info) Description 01/30/2025 Refill [facility] [address] [place] [address] Loyd Ball MD [address] [place] [address] Medication Refill Social History Tobacco Use Types Packs/Day Years Used Date Smoking Tobacco: Former Cigarettes 0.5 10 0 06/29/2004 - 06/29/2014 Smokeless Tobacco: Former Alcohol Use Standard Drinks/Week Comments No 0 (1 standard drink = 0.6 oz pur e alcohol) none [facility] Utilities Answer Date Recorded In the past 12 months has [employer] electric, gas, oil, or water company threatened [...] often do you attend chur ch or holiness services? Never 02/21/2024 Do you belong to any clubs o r organizations such as sikhism groups, unions, fraternal or athletic groups, or [...] medical care, and heating? Somewhat hard 02/21/2024 [facility] - Occupational Stress [...] any time in the past 12 m [facility], were you homeless or living in a care home (including now)? No 02/21/2024 Comments No Sex [...] 07/17/2025 10:00 AM CDT Office Visit [facility] - [facility] [address] [place] [address] Loyd Ball MD [address] [place] [address] documented as of this encounter Visit Diagnoses Diagnosis Trigeminal neuralgia of right side of face Neuropathic pain Neuralgia, neuritis, and radiculitis, unspecified documented in this encounter Care Teams Ion Exchange Operator Relationship Specialty Start Date End Date Unique Saba APRN, DOGMAN/WOMAN [address] [place] [address] PCP - General Advanced Practice Nurse 07/11/24 Geovanna Alvarado APRN, DOGMAN/WOMAN Nurse Practitioner Advanced Practice Nurse 03/24/16 Loyd Ball MD [address] [place] [address] Consulting Physician Neurology 02/08/22 documented as of this encounter
--- OUTSIDE RECORDS SUMMARY | 2025-03-02 08:10 | XMS_ITS | Encounter Summary ---
Author Organization [facility] Address [address] [place] [address] Phone Care Team Providers Care Real Estate Intern Name Role Phone Geovanna Alvarado APRN, BROILER CHEF OR COOK Unavailable [phone] Kathy Mirza MD Primary Care Provider [phone] Loyd Ball MD Unavailable Unique Saba APRN, BROILER CHEF OR COOK Primary Care Provider Reason for Visit * Reason Comments Medication Refill Encounter Details Date Type Department Care Team (Late st Contact Info) Description 07/11/2021 Refill [facility] [address] [place] [phone] Loyd Ball MD [address] [place] [address] Medication Refill Social History Tobacco Use Types [...] Description 07/17/2025 10:00 AM CDT Office [facility] [address] [place] [address] Loyd Ball MD [address] [place] [address] documented as of this encounter Visit Diagnoses Diagnosis Migraine without status migrainosus, not intractable, unspecified migraine type documented in this encounter Additional Health Concerns Infection Onset Date Last Indicated Resolved Time COVID - 19 09/05/2021 09/05/2021 09/15/2021 12:1 6 AM CDT COVID - 19 02/16/2022 02/16/2022 02/26/2022 12:1 6 AM 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 COVERER Respiratory Rule-Out 02/16/2022 02/16/2022 022 8:42 AM PIPE COVERER COVID - 19 06/21/2022 06/21/2022 07/01/2022 12:1 7 AM CDT COVID - 19 11/12/2022 11/12/2022 11/22/2022 12:1 6 AM CDT documented as of this encounter Care Teams Real Estate Intern Relationship Specialty Start Date End Date Kathy Mirza MD [address] [place] [address] PCP - General Internal Medicine 11/20/18 07/10/24 Unique Saba APRN, BROILER CHEF OR COOK [address] [place] [address] PCP - General Advanced Practice Nurse 07/11/24 Geovanna Alvarado APRN, BROILER CHEF OR COOK Nurse Practitioner Advanced Practice Nurse 03/24/16 Loyd Ball MD [address] [place] [address] Consulting Physician Neurology 02/08/22 documented as of this encounter
--- OUTSIDE RECORDS SUMMARY | 2025-03-02 08:10 | XMS_ITS | Clinical Summary ---
Author Organization [facility] Address [address] [place] [address] Care Team Providers Care Protective Signal Operations Supervisor Name Role Phone Terri Salter RN Unavailable Unavailab Evaristo Pineda RN Unavailable UnavailUnique Cotter NP Primary Care Provider Allergies Active Allergy Reactions Criticality Noted Date Comments Adhesive Blisters,Itching,Javier h High 01/13/2021 Amoxicillin Rash Reaction: Rash, , Amoxicillin-Pot Clavulanate Rash Medium 04/06/2009 Occurred as child, Rash when taken as Occurred as child, Rash when taken as Occurred as child, Brimonidine-Timolol Eye irritation Low 03/30/2020 Levofloxacin Joint pain,Other (See comments) Low 04/05/2017 tendonitis Other reaction(s): Joint pain tendonitis Tendon swells tendonitis Tendon swells Joint pain, tendonitis Nsaids (Non-Steroidal Anti-Inflammatory Drug) Other (See comments),Stomach upset,Unknown Low 11/30/2017 Contraindicated with dx of GERD. D/t GERD Sulfa (Sulfonamide Antibiotics) Eye irritation Low 03/31/2019 eye irritation from ophthalmic ointment, p.o. okay Medications SUMAtriptan (IMITREX) 100 mg tablet 1 tablet po once as early as onset of a migraine attack;may repeat after 2 hours if headache returns, not to exceed 200mg in 24hrs 9 07/09/19 16 Active levETIRAcetam (KEPPRA) 500 mg tablet Take 1 tablet (500 mg total) by mouth 2 (two) times a day. 60 tablet 3 12/30/19 17 Active montelukast (SINGULAIR) 10 mg tabletIndications: Allergic Rhinitis Take 1 tablet (10 mg total) by mouth nightly. 30 tablet 3 02/18/20 17 Active dimethyl fumarate 240 mg capsule,delayed release(DR/EC) Take 1 capsule (240 mg total) by mouth 2 (two) times a day Active lithium 150 mg capsule 02/10/20 20 Active venlafaxine (EFFEXOR) 100 mg tablet Take 1 tablet (100 mg total) by mouth every morning 01/29/20 20 Active dexAMETHasone (OZURDEX) 0.7 mg ocular implant Gets one injection every 6 months Active Myrbetriq 25 mg tablet extended release 24 hr TAKE 1 TABLET BY MOUTH EVERYDAY AT BEDTIME 10/20/19 21 Active triamcinolone (KENALOG) 0.1 % cream 12/29/19 21 Active fluticasone propionate (FLONASE) 50 mcg/actuation nasal spray 02/15/20 21 Active topiramate (TOPAMAX) 50 mg tablet 01/20/20 21 Active haloperidoL (HALDOL) 2 mg tablet 03/13/19 22 Active hydrOXYzine (ATARAX) 50 mg tablet 04/19/19 22 Active brimonidine (ALPHAGAN) 0.2 % ophthalmic solution 06/15/19 22 Active prednisoLONE acetate (PRED FORTE) 1 % ophthalmic suspension 05/26/19 22 Active timolol (TIMOPTIC) 0.5 % ophthalmic solution PLEASE SEE ATTACHED FOR DETAILED DIRECTIONS 06/15/19 22 Active carBAMazepine ER (CARBATROL) 200 mg 12 hr capsule Take 1 capsule (200 mg total) by mouth 2 (two) times a day 06/03/19 22 Active ergocalciferol (VITAMIN D) 50,000 unit capsule TAKE 1 CAPSULE BY MOUTH ONCE A WEEK FOR 8 WEEKS 10/23/19 22 Active clonazePAM (KlonoPIN) 0.5 mg tablet Take 1 tablet (0.5 mg total) by mouth daily as needed 03/14/19 23 Active meclizine (ANTIVERT) 25 mg tablet 07/02/19 23 Active atomoxetine (STRATTERA) 60 mg capsule 09/06/19 23 Active pregabalin (LYRICA) 150 mg capsule 09/08/19 Active bethanechol (URECHOLINE) 5 mg tabletIndications: Urinary Retention Take 1 tablet (5 mg total) by mouth 3 (three) times a day Active ondansetron ODT (ZOFRAN-ODT) 8 mg disintegrating tablet Take 1 tablet (8 mg total) by mouth every 8 (eight) hours as needed for nausea or vomiting 30 tablet 01/08/20 Active lidocaine (LIDODERM) 5 % Place 1 patch on the skin daily Remove & discard patch within 12 hours or as directed by MD. 14 patch 01/29/20 Active Additional Information Patient not taking.Reported on 12/19/2024 methocarbamoL (ROBAXIN) 500 mg tablet Take 1 tablet (500 mg total) by mouth 2 (two) times a day 20 tablet 01/29/20 Active Additional Information Patient not taking.Reported on 02/04/2025 ondansetron (ZOFRAN) 4 mg tablet Take 1 tablet (4 mg total) by mouth every 6 (six) hours 12 tablet 07/16/19 Active famotidine (PEPCID) 20 mg tablet Take 1 tablet (20 mg total) by mouth nightly 30 tablet 6 11/12/19 25 Active omeprazole (PriLOSEC) 40 mg capsule TAKE 1 CAPSULE BY MOUTH TWICE A DAY 180 capsule 1 01/28/20 Active Active Problems Problem Noted Date Diagnosed Date Gastric polyps 02/04/2025 Tingling sensation 02/26/2023 Migraine aura without headache 02/26/2023 Gastroenteritis 02/05/2023 Acute kidney injury 02/04/2023 Viral gastroenteritis 02/03/2023 Early satiety 11/30/2022 Assessment & Plan (11/30/2022 1:42 PM CDT): Differential diagnoses includes esophagitis, peptic ulcer disease, gastroparesis. Check CBC, CMP, amylase lipase. Will schedule for EGD. If EGD is negative we will obtain gastric emptying study. Nausea and vomiting 11/18/2022 Assessment & Plan (03/20/2024 1:32 PM ASPHALT SPREADER OPERATOR): Doing better. Currently elevated stressful situation in her life. Takes Zofran p.r.n. Advised to continue same medication. Assessment & Plan (09/06/2023 10:11 AM CDT): Doing better. Takes Zofran p.r.n. Advised to continue same medication. Choking sensation 04/14/2021 Assessment & Plan (04/14/2021 8:54 AM ASPHALT SPREADER OPERATOR): -will add Pepcid p.r.n. for trial. Concern for sleep apnea. Will monitor symptoms Class 2 obesity without seri ous comorbidity with body mass index (BMI) of 36.0 to 36.9 in adult 12/14/2020 Assessment & Plan (12/14/2020 12:16 PM CDT): -doing well. Has started to work out every day. Encouraged weight-bearing exercises. Has lost 6 lb since last clinic visit Cubital tunnel syndrome on left 10/22/2020 Overview (10/22/2020): Added automatically from request for surgery [id number] Ulnar nerve entrapment syndrome, left 10/22/2020 Overview (10/22/2020): Added automatically from request for surgery [id number] Nausea 09/23/2020 Assessment & Plan (11/30/2022 1:43 PM CDT): Worsening. Maybe due to esophagitis, gastritis, gastroparesis. Scheduled for EGD. Will likely need gastric emptying study after EGD. Assessment & Plan (07/20/2022 1:43 PM CDT): Recurrent nausea. Aggravated by anxiety. Sublingual Zofran has been helpful. She was encouraged to take anxiety medications and follow up with a mental health professional. Will approve p.r.n. Zofran for nausea. Assessment & Plan (01/17/2022 11:10 AM ASPHALT SPREADER OPERATOR): -symptom improved. not taking any Zofran at this time. will continue with zofran prn 4 mg q.6 hours sublingual p.r.n.. -esophagitis, hiatal hernia on endoscopy -note that her laboratory workup including CBC, CMP, UA, within normal limits. -has quit milk. -also recommended non pharmacological measures as below -ROOM TEMPERATURE BEVERAGES. No carbonated drinks -Maintain good hydration. With approximately 64 oz of water a day -AVOID RAW VEGETABLES. EAT COOKED VEGETABLES. -drink coconut water as one of the preferred beverages. -consider use of yogurt, which is a good probiotic. -consider use of honey with lemon, sarah if possible. -MINDFULLNESS WITH 20MIN FOR TWICE A DAY. -30 minutes of low intensity walking every day. Assessment & Plan (07/14/2021 10:24 AM CDT): -symptom improved. will continue with zofran prn 4 mg q.6 hours sublingual p.r.n.. -esophagitis, hiatal hernia on endoscopy -note that her laboratory workup including CBC, CMP, UA, within normal limits. -recommended to quit milk. -also recommended non pharmacological measures as below -ROOM TEMPERATURE BEVERAGES. No carbonated drinks -Maintain good hydration. With approximately 64 oz of water a day -AVOID RAW VEGETABLES. EAT COOKED VEGETABLES. -drink coconut water as one of the preferred beverages. -consider use of yogurt, which is a good probiotic. -consider use of honey with lemon, sarah if possible. -MINDFULLNESS WITH 20MIN FOR TWICE A DAY. -30 minutes of low intensity walking every day. Assessment & Plan (04/14/2021 8:40 AM ASPHALT SPREADER OPERATOR): -symptom somewhat improved. will give zofran prn 4 mg q.6 hours sublingual. Will reassess on follow-up visit. -esophagitis, hiatal hernia on endoscopy -note that her laboratory workup including CBC, CMP, UA, within normal limits. -recommended to quit milk. -also recommended non pharmacological measures as below -ROOM TEMPERATURE BEVERAGES. No carbonated drinks -Maintain good hydration. With approximately 64 oz of water a day -AVOID RAW VEGETABLES. EAT COOKED VEGETABLES. -drink coconut water as one of the preferred beverages. -consider use of yogurt, which is a good probiotic. -consider use of honey with lemon, sarah if possible. -MINDFULLNESS WITH 20MIN FOR TWICE A DAY. -30 minutes of low intensity walking every day. Assessment & Plan (03/15/2021 1:05 PM ASPHALT SPREADER OPERATOR): -symptom worsening. Urinary tract infection. On Macrobid. will give zofran inset-lht-yllou 4 mg q.6 hours sublingual. Will reassess on follow-up visit. -esophagitis, hiatal hernia on endoscopy -note that her laboratory workup including CBC, CMP, UA, within normal limits. -recommended to quit milk. -also recommended non pharmacological measures as below -ROOM TEMPERATURE BEVERAGES. No carbonated drinks -Maintain good hydration. With approximately 64 oz of water a day -AVOID RAW VEGETABLES. EAT COOKED VEGETABLES. -drink coconut water as one of the preferred beverages. -consider use of yogurt, which is a good probiotic. -consider use of honey with lemon, sarah if possible. -MINDFULLNESS WITH 20MIN FOR TWICE A DAY. -30 minutes of low intensity walking every day. Assessment & Plan (12/14/2020 12:16 PM CDT): -improved symptom from before. Had the exacerbation with having a rib fracture. Will again do around the clock Zofran. will give zofran [id number]-ubn-[id number] 4 mg q.6 hours sublingual. This will help break the cycle of chronic nausea. Will reassess on follow-up visit. -esophagitis, hiatal hernia on endoscopy -note that her laboratory workup including CBC, CMP, UA, within normal limits. -recommended to quit milk. -also recommended non pharmacological measures as below -ROOM TEMPERATURE BEVERAGES. No carbonated drinks -Maintain good hydration. With approximately 64 oz of water a day -AVOID RAW VEGETABLES. EAT COOKED VEGETABLES. -drink coconut water as one of the preferred beverages. -consider use of yogurt, which is a good probiotic. -consider use of honey with lemon, sarah if possible. -MINDFULLNESS WITH 20MIN FOR TWICE A DAY. -30 minutes of low intensity walking every day. Assessment & Plan (10/21/2020 9:22 AM CDT): -improved symptom from before. Exacerbated with extreme anxiety at this time. Will do around the clock Zofran. will give zofran cqkct-xrr-kwpxa 4 mg q.6 hours sublingual. This will help break the cycle of chronic nausea. Will reassess on follow-up visit. -esophagitis, hiatal hernia on endoscopy -note that her laboratory workup including CBC, CMP, UA, within normal limits. -also recommended non pharmacological measures as below -ROOM TEMPERATURE BEVERAGES. No carbonated drinks -Maintain good hydration. With approximately 64 oz of water a day -AVOID RAW VEGETABLES. EAT COOKED VEGETABLES. -drink coconut water as one of the preferred beverages. -consider use of yogurt, which is a good probiotic. -consider use of honey with lemon, sarah if possible. -MINDFULLNESS WITH 20MIN FOR TWICE A DAY. -30 minutes of low intensity walking every day. Assessment & Plan (09/23/2020 1:28 PM CDT): -will give zofran gxklz-jrq-hooun 4 mg q.6 hours sublingual. This will help break the cycle of chronic nausea. Will reassess on 4 week visit. -esophagitis, hiatal hernia on previous endoscopy, will schedule for an upper endoscopy for further evaluation -note that her laboratory workup including CBC, CMP, UA, within normal limits. TSH not done. Will do TSH. -also recommended non pharmacological measures as below -ROOM TEMPERATURE BEVERAGES. No carbonated drinks -Maintain good hydration. With approximately 64 oz of water a day -AVOID RAW VEGETABLES. EAT COOKED VEGETABLES. -drink coconut water as one of the preferred beverages. -consider use of yogurt, which is a good probiotic. -consider use of honey with lemon, sarah if possible. -MINDFULLNESS WITH 20MIN FOR TWICE A DAY. -30 minutes of low intensity walking every day. Conversion disorder 08/15/2019 Overview (04/28/2020): Per neurology note 03/11/19 Last Assessment & Plan: Condition: asymptomatic Follow up in: three months Body mass index (BMI) of 29.0-29.9 in adult 08/04 Overview (10/09/2020): Last Assessment & Plan: Condition: stable Educated patient on normal BMI range of 18.5 to 24.9 Advised to monitor nutrition to not exceed caloric needs, or as indicated by PCP in order to maintain a healthy weight and BMI. Advised to engage in aerobic physical activity, if indicated to be safe by PCP, to assist with maintaining a healthy weight and BMI. Advised to follow up with PCP to address nutrition as needed to assist with reaching or maintaining a healthy weight and BMI. Follow up in: three months Mastodynia 11/30/2017 Dysphagia 05/18/2017 Overview (10/09/2020): Last Assessment & Plan: Condition: stable On Bethanecol, states this is helping. Follow up in: three months Anxiety 03/28/2017 Overview (04/28/2020): Last Assessment & Plan: Condition: stable Last mental health visit was last week. She going to counseling weekly. Take medications as ordered by Provider; notify Provider if you cannot take medications as ordered or are having difficulties or side-effects from medications (do not stop medications without notifying Provider). If symptoms worsen or do not improve/stabilize, notify health care provider right away. If thoughts of harming self or others notify health care provider immediately &/or seek urgent/emergent care including calling Suicide Hotline ( ) or 911. Follow up in three months with Psychologist/Counselor/SupportGroup/Psychiatrist and PCP Assessment & Plan (04/14/2021 8:55 AM ASPHALT SPREADER OPERATOR): -followed up by psychiatrist and psychologist. However did discuss non pharmacological measures that would help including mind fullness, focusing on breathing, deep breathing. Daily walks. Counseled to the best of my ability Assessment & Plan (10/21/2020 9:23 AM CDT): -she will talk to her psychiatrist and psychologist. However did discuss non pharmacological measures that would help including mind fullness, focusing on breathing, deep breathing. PUD (peptic ulcer disease) 03/28/2017 Overview (04/28/2020): Last Assessment & Plan: Condition: stable Awaiting insurance approval for a PPI bid. Follow up in: three months Neuropathy 03/28/2017 Overview (04/28/2020): Last Assessment & Plan: Condition: stable Pt relates she has chronic tingling in her feet, left arm and hand; she relates it is always there; she relates it isn't any worse than normal. Follow up in: three months Migraines 03/28/2017 Fitting and adjustment of vascular catheter 03/06 Lumbar radiculopathy 02/06/2017 Cough in adult 02/03/2017 Assessment & Plan (02/17/2017 12:15 PM ASPHALT SPREADER OPERATOR): Encouraged Pt. To use Albuterol inhaler in the AM and PM since her symptoms are worse during those times. Also to take Claritin/Kell/Zyrtec daily at bedtime. Jerky body movements 10/11/2016 Contusion of toenail 07/07/2016 Overview (07/29/2016): Toenail bruise, left, initial encounter Trigeminal neuralgia 06/24/2016 Overview (07/29/2016): Right trigeminal neuralgia Cellulitis of finger 06/21/2016 Overview (07/29/2016): Cellulitis of thumb, right Loss of hair 02/26/2016 Overview (06/10/2016): Hair loss Transient global amnesia 01/15/2016 Overview (06/10/2016): Transient global amnesia Memory loss 06/23/2015 Overview (06/08/2016): Memory loss Shortness of breath 05/12/2015 Overview (06/10/2016): Shortness of breath Shortness of breath at rest 05/12/2015 Overview (06/10/2016): Shortness of breath at rest Disorder of sacrococcygeal spine 05/07/2015 Overview (06/10/2016): Disorder of sacrococcygeal spine Vitamin D deficiency 04/10/2015 Overview (06/10/2016): Vitamin D deficiency Hereditary vitamin D dependency syndrome, 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 Unfortunately she still has to take omeprazole twice daily. She attempted to wean, but her symptoms worsened. She was advised to continue PPI b.i.d. She was counseled about her diet and lifestyle. She verbalized understanding. Assessment & Plan (07/14/2021 10:24 AM CDT): -on omeprazole 40 mg twice daily. Pepcid p.r.n. No more Night time breakthrough symptoms. Assessment & Plan (09/23/2020 1:26 PM CDT): -continue with omeprazole daily. Will readjust therapy depending on the upper endoscopy which has been scheduled Assessment & Plan (02/17/2017 10:59 AM ASPHALT SPREADER OPERATOR): Will Defer to GI Specialist. Pt is waiting for insurance approval for further testing and referral. Pt had a Esophageal motility study done on 08/30/16-which showed a normal LES, Ineffective esophageal motility with no contraction reserve, hiatus hernia. Also had a Esophageal PH monitoring Test which showed 1. Increase acid exposure in the distal channel off antisecretory medications. Increased acid occurred during Supine position. 2. Four of 6 episodes of heartburn occurred within 2 minutes of the onset of an acid reflux event, Total acid reflux events-112 and number of symptoms was statistically significant Her GERD may be the cause of her persistent Cough. Will wait and if no improvement after there recommendations, will test for Asthma. Diverticulosis of colon 07/28/2013 Irritable bowel syndrome 10/25/2012 Overview (04/28/2020): Note: Unchanged Last Assessment & Plan: Condition: asymptomatic Follow up in: three months Note: Unchanged Assessment & Plan (03/20/2024 1:30 PM ASPHALT SPREADER OPERATOR): IBS with constipation. Symptoms improve with coffee consumption Doing better at this time. She lost some weight. She was encouraged to continue fiber supplements Assessment & Plan (09/06/2023 10:10 AM CDT): IBS with constipation. Doing better at this time. She lost some weight. She got a new pet. She was encouraged to continue fiber supplements Assessment & Plan (01/17/2022 11:09 AM ASPHALT SPREADER OPERATOR): -continue with non pharmacological measures as above. Use of methylcellulose daily. Dicyclomine on a p.r.n. basis Assessment & Plan (07/14/2021 10:25 AM CDT): -continue with non pharmacological measures as above. Use of methylcellulose daily. Dicyclomine on a p.r.n. basis Assessment & Plan (04/14/2021 8:37 AM ASPHALT SPREADER OPERATOR): -continue with non pharmacological measures as above. Use of methylcellulose daily. Dicyclomine on a p.r.n. basis Assessment & Plan (03/15/2021 1:06 PM ASPHALT SPREADER OPERATOR): -continue with non pharmacological measures as above. Use of methylcellulose daily. Dicyclomine on a p.r.n. basis Relapsing remitting multiple sclerosis 1 Overview (06/10/2016): Relapsing remitting multiple sclerosis Cigarette smoker 03/18/2010 Overview (10/09/2020): Note: Unchanged - 1/2 pack a day Family history of malignant neoplasm of breast 0 03/18/2010 Overview (10/09/2020): Note: Mother diagnosed at age 45 ESTROGEN RECEPTOR POSITIVE. PT NEEDS ANNUAL MAMMOGRAM AGE 33 - SHAMIKA SCREENING BILATERAL DIGITAL W CAD W PANFILO BILATERAL DIGITAL SCREENING MAMMOGRAM 3D/2D WITH CAD WITH MEDIOLATERAL OBLIQUE CRANIOCAUDAL: 09/11/2018 The study was acquired using digital technology and interpreted from soft copy. Current study was also evaluated with ICAD version 7.2. CLINICAL: Routine screening. Patient has no complaints. No personal history of cancer. Mother with breast cancer at age 44. COMPARISONS: Comparison is made to exam dated: 11/09/2017 [facility]. BREAST TISSUE:There are scattered fibroglandular densities in both breasts. FINDINGS: No significant masses, calcifications, or other findings are seen in either breast. There has been no significant interval change. IMPRESSION: BI-RAD 1 NEGATIVE There is no mammographic evidence of malignancy. A 1 year screening mammogram is recommended. The patient has been or will be contacted. The patient will be entered into a reminder system with a target due date of age 38 for her next mammogram, unless otherwise warranted by the [employer] Practice Parameter for the Performance of Screening and Diagnostic Mammography. Electronically signed by: Juan Carlos patel/petr:09/18/2018 13:51:24 Last Assessment & Plan: Condition: asymptomatic Follow up in: three months Note: Mother diagnosed at age 45 ESTROGEN RECEPTOR POSITIVE. PT NEEDS ANNUAL MAMMOGRAM AGE 33 Gastroesophageal reflux disease with esophagitis 03/18/2010 Overview (10/09/2020): Overview: GERD Last Assessment & Plan: Will Defer to GI Specialist. Pt is waiting for insurance approval for further testing and referral. Pt had a Esophageal motility study done on 08/30/16-which showed a normal LES, Ineffective esophageal motility with no contraction reserve, hiatus hernia. Also had a Esophageal PH monitoring Test which showed 1. Increase acid exposure in the distal channel off antisecretory medications. Increased acid occurred during Supine position. 2. Four of 6 episodes of heartburn occurred within 2 minutes of the onset of an acid reflux event, Total acid reflux events-112 and number of symptoms was statistically significant Her GERD may be the cause of her persistent Cough. Will wait and if no improvement after there recommendations, will test for Asthma. GERD Last Assessment & Plan: Will Defer to GI Specialist. Pt is waiting for insurance approval for further testing and referral. Pt had a Esophageal motility study done on 08/30/16-which showed a normal LES, Ineffective esophageal motility with no contraction reserve, hiatus hernia. Also had a Esophageal PH monitoring Test which showed 1. Increase acid exposure in the distal channel off antisecretory medications. Increased acid occurred during Supine position. 2. Four of 6 episodes of heartburn occurred within 2 minutes of the onset of an acid reflux event, Total acid reflux events-112 and number of symptoms was statistically significant Patient Name: Valdez Vinson Procedure Date: 10/25/2018 1:41 PM Date of : 1985 Classification: Outpatient Gender: Female Ethnicity: Not or Race: White _ Providers: Jovanny Santana (Fellow) Referring MD: Procedure: Upper GI endoscopy Indications: Follow-up of reflux esophagitis Medications: Monitored Anesthesia Care Comorbidities History of Zhang's Description of Procedure: Pre-Anesthesia Assessment: - Prior to the procedure, a History and Physical was performed, and patient medications and allergies were reviewed. The patient is competent. The risks and benefits of the procedure and the sedation options and risks were discussed with the patient. All questions were answered and informed consent was obtained. Patient identification and proposed procedure were verified by the physician and the nurse in the endoscopy suite. Mental Status Examination: normal. Airway Examination: normal oropharyngeal airway and neck mobility. Respiratory Examination: clear to auscultation. CV Examination: normal. Prophylactic Antibiotics: The patient does not require prophylactic antibiotics. Prior Anticoagulants: The patient has taken no previous anticoagulant or antiplatelet agents. ASA Grade Assessment: II - A patient with mild systemic disease. After reviewing the risks and benefits, the patient was deemed in satisfactory condition to undergo the procedure. The anesthesia plan was to use monitored anesthesia care (MAC). Immediately prior to administration of medications, the patient was re-assessed for adequacy to receive sedatives. The heart rate, respiratory rate, oxygen saturations, blood pressure, adequacy of pulmonary ventilation, and response to care were monitored throughout the procedure. The physical status of the patient was re-assessed after the procedure. After obtaining informed consent, the endoscope was passed under direct vision. Throughout the procedure, the patient's blood pressure, pulse, and oxygen saturations were monitored continuously. The GIF-H190 was introduced through the mouth, and advanced to the second part of duodenum. The upper GI endoscopy was technically difficult and complex due to poor endoscopic visualization. The patient tolerated the procedure well. Findings: Esophagogastric landmarks were identified: the Z-line was irregular and found at 34 cm, the gastroesophageal junction was found at 34 cm and the site of hiatal narrowing was found at 37 cm from the incisors. 3cm hiatal hernia. LA Grade D (one or more mucosal breaks involving at least 75% of esophageal circumference) esophagitis with no bleeding was found 32 cm from the incisors. No biopsies were taken with active inflammation. One esophageal ulcer with no bleeding and no stigmata of recent bleeding was found at the level of the GE junction. Bilious fluid was found in the entire examined stomach. Visualization of stomach was limited as unable to fully insufflate. Patient would belch air making full insufflaction difficulty. Diffuse mildy erythematous mucosa without bleeding was found in the gastric antrum. The examined duodenum was normal. Estimated Blood Loss: Estimated blood loss: none. Complications: No immediate complications. Impression: - LA Grade D esophagitis. - Non-bleeding esophageal ulcer. - Bilious gastric fluid. Visualization was limited by inability to fully insufflate - Erythematous mucosa in the antrum. - Normal examined duodenum. - No specimens collected. Recommendation: - Patient has a contact number available for emergencies. The signs and symptoms of potential delayed complications were discussed with the patient. Return to normal activities tomorrow. Written discharge instructions were provided to the patient. - Resume previous diet. - Continue present medications. Will need to increase PPI to BID - Repeat upper endoscopy 3 months after increasing PPI to BID. - Return to GI clinic as previously scheduled. Attending Participation: I was present and participated during the entire procedure, including non-knapp portions. Procedure Code(s): --- Professional --- 63932, Esophagogastroduodenoscopy, flexible, transoral; diagnostic, including collection of specimen(s) by brushing or washing, when performed (separate procedure) Diagnosis Code(s): --- Professional --- K21.0, Gastro-esophageal reflux disease with esophagitis CPT copyright 2016 [employer]. All rights reserved. The codes documented in this report are preliminary and upon contribution solicitor review may be revised to meet current compliance requirements. Aliya Graff, 10/25/2018 2:34:48 PM Last Assessment & Plan: Condition: stable Pt relates she continues to have discomfort; she relates she is awaiting insurance approval for PPI bid; she relates she was gong to try Pepcid OTC, but states it is on back-order. Follow up in: three months Note: Unchanged Assessment & Plan (03/20/2024 1:32 PM ASPHALT SPREADER OPERATOR): Chronic GERD. Questionable history of Zhang's esophagus in the past. I reviewed all the 3 previous endoscopies that I could find on her [facility] and C are everywhere records. There was no documentation of Zhang's esophagus on the endoscopy or pathology reports. EGD performed by me (November 23, 2022) revealed hiatal hernia and reflux esophagitis. No evidence of Zhang's esophagus. She is however doing well on PPI b.i.d.. Advised to continue same regimen and follow anti-reflux measures. Assessment & Plan (07/20/2022 1:42 PM CDT): Chronic GERD. With questionable history of Zhang's esophagus in the past. I reviewed all the 3 previous endoscopies that I could find on her [facility] and C are everywhere records. There was no documentation of Zhang's esophagus on the endoscopy or pathology reports. She is however doing well on PPI b.i.d.. Advised to continue same regimen and follow anti-reflux measures. Assessment & Plan (01/17/2022 11:09 AM ASPHALT SPREADER OPERATOR): -on omeprazole 40 mg twice daily. Pepcid p.r.n. No more Night time breakthrough symptoms. Assessment & Plan (04/14/2021 8:38 AM ASPHALT SPREADER OPERATOR): -on omeprazole 40 mg twice daily. Night time breakthrough symptoms. Assessment & Plan (03/15/2021 1:05 PM ASPHALT SPREADER OPERATOR): -on omeprazole 40 mg twice a day at this time. Had ER visit secondary to her nerve pain and urinary tract infection with fever. Recommended her to decrease the does if symptoms improved. Otherwise will reassess and re-evaluate for therapy with Dexilant Assessment & Plan (12/14/2020 12:14 PM CDT): -EGD as above. Continue with Omeprazole as prescribed. Assessment & Plan (10/21/2020 8:42 AM CDT): -EGD as above. Continue with Omeprazole as prescribed. Resolved Problems Problem Noted Date Diagnosed Date Resolved Date Uterine leiomyoma 12/17/2013 12/02/2024 Overview (06/10/2016): Uterine fibroid Leiomyoma of uterus, unspecified 08/28/2013 12/02/2024 Encounters Date Type Department Care Team Description 8:42 AM ASPHALT SPREADER OPERATOR Anesthesia Event [facility] [address] [place] [address] Rebecca Joel Jr., MD 5 8:00 AM ASPHALT SPREADER OPERATOR - 5 8:30 AM ASPHALT SPREADER OPERATOR Surgery [facility] [address] [place] [address] Lily Amos MD ESOPHAGOGASTRODUODENOSCOPY BIOPSY 5 6:42 AM ASPHALT SPREADER OPERATOR - 5 9:53 AM ASPHALT SPREADER OPERATOR Hospital Encounter [facility] [address] [place] [address] Lily Amos MD Esophageal dysphagia Discharge Disposition: Discharge to home or self care 5 8:00 AM CDT Office Visit [facility] at [address] [place] [address] Bella Amezquita, Other osteoporosis without current pathological fracture (Primary Dx) 5 10:30 AM CDT Office Visit [facility] [address] [place] [phone] Olga Lidia Genao MD Premature surgical menopause (Primary Dx); Other osteoporosis without current pathological fracture from Last 3 Months Immunizations Immunization Administration Dates Next Due Influenza, Quadrivalent, Spl it, Preservative Free, Intramuscular 12/01/2015,12/02/2014 Influenza, Trivalent, IM (MDV) 11/20/2015,2014,12/04/2013 Influenza, Unspecified 11/28/2016 Pfizer SARS-CoV-2 Monovalent Vaccination (12+ Yrs) PURPLE 05/30/2021 Sars-CoV-2, Unspecified 06/01/2020 Tdap 06/27/2016 Surgical History Surgery Date Site/Laterality Comments OTHER SURGICAL HISTORY 1985 - 03[birth year]05/1984 pharyngeal flap HYSTERECTOMY W/ BILATERAL SALPINGOOPHORECTOMY 03/06/2013 - 03/05/2014 [facility]-BSO with Dr. Valencia - pain, fibroids, menstrual migraines CHOLECYSTECTOMY 03/06/2012 - 03/05/2013 gallstones TONSILLECTOMY 03/06/1987 - 03/05/1988 LUMBAR PUNCTURE WO INJECTION , DIAGNOSTIC 07/06/2015 N/A OTHER SURGICAL HISTORY esophageal strictures: esophageal dilitation EYE SURGERY Left Medical History Medical History Date Comments Hx Other Medical zhang's esoph adrián Hx Other Medical CYST IN RIGHT O VARY AND FIBROID UTERUS Hx Other Medical GALLBLADDER ARACELI YP Hx Other Medical ovarian cyst R Hx Other Medical fibroids L ovar y Hx Other Medical gallstones Hx Other Medical 04/22/2010 MS; Comments: Yamilka INGRAM 04/29/2014 - Gastroesophageal reflux disease GERD Anxiety disorder Anxiety Hx Other Medical esophageal stri ctures; Comments: STEPHANIE 07/07/2016 - Peripheral neuropathy Asthma Gastric reflux Depression Pneumonia 1997 MS (multiple sclerosis) Migraines Hx of hysterectomy Marijuana use Nausea 09/23/2020 Nausea and vomiting 11/18/2022 Family History Medical History Relation Name Comments Other Brother 3 Alive and well; Migraines Brother 4 Migraines; Other Father Alive and well; /Alive and well; Lung cancer Father's Brother 1 Cancer, l anayeli; Thyroid cancer Father's Brother 2 Breast cancer Mother Daniele Vinson Endometrial cancer Mother Daniele Vinson Cancer, endometrial; Hypertension Mother Daniele Vinson Hypertension; Other Mother Daniele Vinson Cancer -breas t/sarcoma; /Sarcoma; Pancreatic cancer Mother's Sister 1 Brain cancer Mother's Sister 2 Cancer Mother's Sister 3 details la cking Other Other 1 No family histo ry of MS/Lupus; Other Other 2 Family history of Gallbladder disease; Other Other 3 Family history of Sarcoma; Breast cancer Other 4 Family history of Cancer, breast; Headache Other 5 Headaches; Relation Name Status Comments Brother 1 Alive Brother 2 Alive Brother 3 Brother 4 Father Alive Father's Brother 1 Father's Brother 2 Mother Daniele Vinson Mother's Sister 1 Mother's Sister 2 Mother's Sister 3 Other 1 Other 2 Other 3 Other 4 Other 5 Social History Tobacco Use Types Packs/Day Years Used Date Smoking Tobacco: Former Cigarettes Q uit: 2010 Smokeless Tobacco: Never Tobacco Cessation:Counseling Given: Not Answered Alcohol Use Standard Drinks/Week Comments No 0 (1 standard drink = 0.6 oz pur e alcohol) [facility] Utilities Answer Date Recorded In the past 12 months has [employer] gas, oil, or water Tavern threatened to shut off services in your home? No 02/06/2023 Social Connection and Isolation Panel Answer Date Recorded In a typical week, how many times do you talk on the phone with family, friends, or neighbors? More than three times a week 02/06/2023 How often do you get togethe r with friends or relatives? More than three times a week 02/06/2023 How often do you attend chur ch or lutheran services? Never 02/06/2023 Do you belong to any clubs o r organizations such as christianity groups, unions, fraternal or athletic groups, or school groups? No 02/06/2023 How often do you attend meet ings of the clubs or organizations you belong to? Never 02/06/2023 Are you , , di vorced, , never , or living with a partner? Never 02/06/2023 Overall Financial Resource Strain (CARDIA) Answe r Date Recorded How hard is it for you to pa y for the very basics like food, housing, medical care, and heating? Not hard at all 02/06/2023 PHQ-2 Answer Date Recorded PHQ-2 Total Score (If total score is 3 or more points, staff should administer the PHQ-9) 0 07/20/2022 Hunger Vital Sign Answer Date Recorded Within the past 12 months, y ou worried that your food would run out before you got the money to buy more. Never true 02/07/20 23 Within the past 12 months, t he food you bought just didn't last and you didn't have money to get more. Never true 02/06/2023 PRAPARE - Transportation Answer Date Re corded In the past 12 months, has l ack of transportation kept you from medical appointments or from getting medications? No 06/2022 In the past 12 months, has l ack of transportation kept you from meetings, work, or from getting things needed for daily living? No 02/06/2023 Housing Stability Vital Sign Answer Brennan e Recorded In the last 12 months, was t here a time when you were not able to pay the mortgage or rent on time? No 02/06/2023 In the last 12 months, how many places have you lived? 1 02/06/2023 In the last 12 months, was t here a time when you did not have a steady place to sleep or slept in a penitentiary (including now)? No 02/06/2023 AUDIT-C Answer Date Recorded Frequency of Alcohol Consumption Not on file 02/04/2025 Q2: How many drinks containi ng alcohol do you have on a typical day when you are drinking? Patient does not drink Frequency of Binge Drinking Not on file 04/2024 Personal Safety Answer Date Recorded Have you ever been in or are you currently in a harmful physical or emotional relationship or is someone making you feel afraid or unsafe? Denies 02/04/2025 Education Answer Date Recorded What is the highest level of school you have completed or the highest degree you have received? Associate degree: occupational, technical, or vocational program 02/06/2023 Comments No Sex and Gender Information Value Date Recorded Sex Assigned at Not on file Legal Sex Female 11:42 AM ASPHALT SPREADER OPERATOR Gender Identity Female 09/17/2020 7:12 AM CDT Sexual Orientation Straight 07/08/2020 1: 36 AM CDT Obstetrics History Para Term AB IAB SAB Ectopic Multiple Livin g Live Births 0 0 0 0 0 0 0 0 0 0 0 Last Filed Vital Signs Vital Sign Reading Time Taken Comments Blood Pressure 108/81 02/04/2025 9:35 AM ASPHALT SPREADER OPERATOR Pulse 84 02/04/2025 9:35 AM ASPHALT SPREADER OPERATOR Temperature 36.7 C (98 F) 02/04/2025 9:05 AM ASPHALT SPREADER OPERATOR Respiratory Rate 13 02/04/2025 9:35 AM ASPHALT SPREADER OPERATOR Oxygen Saturation 97% 02/04/2025 9:35 AM ASPHALT SPREADER OPERATOR Inhaled Oxygen Concentration - - Weight 113.4 kg (250 lb) 02/04/2025 7:31 AM ASPHALT SPREADER OPERATOR Height 165.1 cm (5' 5) 02/04/2025 7:31 AM ASPHALT SPREADER OPERATOR Body Mass Index 41.6 02/04/2025 7:31 AM ASPHALT SPREADER OPERATOR Plan of Treatment Health Maintenance Due Date Last Done Comments Hepatitis C Screening 1985 Varicella Vaccines (1 of 2 - 13+ 2-dose series) 10/31/1996 Hepatitis B Screening 10/31/2001 Regular Well Visit/Exam 18-64 10/31/2001 Depression Screening 07/21/2023 07/20/2022, 01/17/2022, 04/14/2021, Additional history exists Covid-19 Vaccine ( season) 2024 11/18/2021, 06/01/2021, 05/30/2021, Additional history exists Breast Cancer Screening-Mammogram 10/23/2025 10/23/2024, 01/09/2024, 01/09/2024, Additional history exists DTaP/Tdap/Td Vaccine (2 - Td or Tdap) 06/27/2026 06/27/2016 HPV Vaccines Completed 06/09/2008, 10/2007, 12/04/2007 Pneumococcal vaccine <65 Aged Out 10/17/2022 No longer eligible based on patient's age to complete this topic Influenza Vaccine Completed 12/09/2024, , 10/17/2022, Additional history exists Goals Goal Patient Goal Type Associated Problems Recent Progress Patient-Stated? Author [facility] No change(2017 1:49 PM ASPHALT SPREADER OPERATOR) No Terri Salter RN Note: Pt states, would like to be able to be able to walk up stairs and resume sleeping in own up-stairs bedroom. Procedures Procedure Name Priority Date/Time Associated Diagnosis Comments SURGICAL PATHOLOGY Routine 02/04/2025 10:25 AM ASPHALT SPREADER OPERATOR Esophageal dysphagia ESOPHAGOGASTRODUODENOSCOPY BIOPSY 02/04/2025 8:41 AM ASPHALT SPREADER OPERATOR Esophageal dysphagia EGD 02/04/2025 7:45 AM ASPHALT SPREADER OPERATOR DIAGNOSTIC MAMMOGRAM BILATER AL W PANFILO Schedule Routine, Read Routine (OP Routine) 10/23/2024 1:16 PM CDT Mastodynia from Last 3 Months or Most Recently Relevant to Health Maintenance Results * Surgical pathology (02/04/2025 10:25 AM ASPHALT SPREADER OPERATOR) Tissue (Esophageal biopsy) 02/04/2025 8:53 AM ASPHALT SPREADER OPERATOR Tissue specimen (specimen) (Esophageal biopsy) 02/04/2025 8:54 AM ASPHALT SPREADER OPERATOR Tissue specimen (specimen) (Esophageal biopsy) 02/04/2025 8:56 AM ASPHALT SPREADER OPERATOR Narrative PATHOLOGY CH - 02/05/2025 9:17 PM ASPHALT SPREADER OPERATOR EPIC results best viewed via link to PDF [facility] Department of Pathology [address] [place] [id number] Note to Patients: This report may contain a detailed description of human tissue sent by a health care provider to the laboratory for pathologic evaluation. The content of this report is essential for diagnosis and may provide important critical findings. This information may be unfamiliar to patients to review without a medical professional present. It is advised that the patient review this report in the presence of a health care provider who can answer questions and explain the details. Final Report Patient Name: VALDEZ VINSON Address: [address] [place] [address]- Gender: F : 1985 (Age: 39) Service: Gastro Location: GI Lab Hospital #: [id number] Patient Type: [facility] Taken: 02/04/2025 Received: 02/04/2025 Accessioned: 02/04/2025 Reported: 02/05/2025 Physician(s):Diamante Walker NP Diagnosis: A. Stomach, antrum, biopsy: - Mild reactive gastropathy. - Negative for H.pylori. B. Stomach, body, biopsy: - Mild inactive chronic gastritis. - Negative for H.pylori. C. Esophagus, biopsy: - Mild chronic inflammation. - Negative for H.pylori. - No evidence of intestinal metaplasia, dysplasia or malignancy. Makayla Babin M.D. Report Electronically Reviewed and Signed Out By Makayla Babin M.D. 02/05/2025 21:17:40 Specimen(s) Received: A: Antrum biopsy B: Gastric body polyps C: Esophageal biopsy Microscopic Description: A. Microscopic examination of the gastric antrum, examined at multiple levels, shows a single fragment of minimally edematous and congested gastric mucosa with changes consistent with a mild reactive gastropathy. I do not identify evidence of microorganisms morphologically compatible with Helicobacter species by routine light microscopy on review of the negative H.pylori immunostain (performed with appropriate controls).. There is no evidence of dysplasia or malignancy. B. Microscopic examination of the gastric body biopsy, examined at multiple levels, shows a focally eroded fragment of gastric mucosa with alterations consistent with a mild inactive chronic gastritis. The lamina propria is expanded by an inflammatory infiltrate composed of lymphocytes, plasma cells and eosinophils. Review of both the H&E and H. pylori immunohistochemical stain (performed with appropriate controls) shows no evidence of microorganisms that are morphologically compatible with Helicobacter species. While there is some mild reactive glandular atypia, there is no evidence of dysplasia or malignancy. C. Microscopic examination of the esophageal biopsy, examined at multiple levels, shows a single fragments of columnar mucosa with mild nonspecific chronic inflammation. There are no changes diagnostic of reflux esophagitis, eosinophilic esophagitis, or any other specific clinical etiology. Review of both the H&E and H. pylori immunohistochemical stain (performed with appropriate controls) shows no evidence of microorganisms that are morphologically compatible with Helicobacter species. There is no evidence of intestinal-type metaplasia, dysplasia or malignancy. Clinical History: Esophageal dysphagia Procedure: EGD biopsy Gross Description: The specimen is submitted in three formalin containers labeled VALDEZ VINSON. A. The first container is labeled antrum biopsy. It is 1 cardenas 4 mm fragments. All in A. B. The second container is labeled gastric body. It is one cardenas tissue fragment measuring 2 mm. All in B. C. The third container is labeled esophageal biopsy. It is 1 cardenas 1 mm fragments. All in C. T.A. Zuleika Kan., P.A./Mirian Hough M.D. REPORT IMAGES AND SCANNED DOCUMENTS, IF INCLUDED, ONLY VIEWABLE IN PDF VERSION OF REPORT The performance characteristics of some immunohistochemical stains, fluorescence in-situ hybridization tests and immunophenotyping by flow cytometry cited in this report (if any) were determined by the Surgical Pathology Department at [facility] as part of an ongoing quality supervisor program and in compliance with federally mandated regulations drawn from the Clinical Laboratory Improvement Act of 1988 (CLIA '88). Some of these tests rely on the use of analyte specific reagents and are subject to specific labeling requirements by the US Food and Drug Administration. Such diagnostic tests may only be performed in a facility that is certified by the Department of Health and Human Services as a high complexity laboratory under CLIA '88. The FDA has determined that such clearance or approval is not necessary. This test is used for clinical purposes. It should not be regarded as investigational or for research. Nevertheless, federal rules concerning the medical use of analyte specific reagents require that the following disclaimer be attached to the report: This test was developed and its performance characteristics determined by the Surgical Pathology Department [facility]. It has not been cleared or approved by the U. S. Food and Drug Administration. Note for decalcified specimens: This assay has not been validated on decalcified tissues. Results should be interpreted with caution given the possibility of false negativity on decalcified specimens us Lily Amos MD LAB PATHOLOGY ORDERABLE S Final Result PATHOLOGY [facility] [id number] * EGD (02/04/2025 7:45 AM ASPHALT SPREADER OPERATOR) Anatomical Region Laterality Modality Other Narrative Procedure Note Lily Amos MD - 02/04/2025 7:45 AM CST [facility] Patient Name: Valdez Vinson Procedure Date: 02/04/2025 7:45 AM Date of : 1985 Admit Type: Outpatient Age: 39 Gender: Female Note Status: Finalized Attending MD: Lily Amos M.D., Procedure Date: 02/04/2025 Procedure: Upper GI endoscopy Indications: Dysphagia, Heartburn Providers: Lily Amos M.D., STEPHANIE Morrell (Anesthesia Staff), Felecia Skinner, RN, Larisa Luna, Senior Abap Developer Referring MD: Unique Saba NP Medicines: Monitored Anesthesia Care Complications: No immediate complications. Estimated Blood Loss: Estimated blood loss was minimal. Procedure: After obtaining informed consent, the endoscope was passed under direct vision. Throughout theprocedure, the patient's blood pressure, pulse, and oxygen saturations were monitored continuously. The scopewas passed under direct vision. The Colonoscope was introduced through the mouth, and advanced to the third part of duodenum. The upper GI endoscopy was accomplished without difficulty. The patienttolerated the procedure well. Findings: The examined duodenum was normal. The esophagus was normal. Diffuse moderately erythematous mucosa without bleeding was found inthe gastric antrum. Biopsies were taken with a cold forceps forhistology. Estimated blood loss was minimal. A few medium papules (nodules) with no bleeding and no stigmata of recent bleeding were found in the gastric body. The nodules wereParis classification Is (protruding, sessile). Biopsies were taken with acold forceps for histology. Estimated blood loss was minimal. A 4 cm hiatal hernia was present. There were esophageal mucosal changes suspicious for short-segment Zhang's esophagus present in the lower third of the esophagus. The maximum longitudinal extent of these mucosal changes was 1 cm inlength. Biopsies were taken with a cold forceps for histology. Estimatedblood loss was minimal. The upper third of the esophagus and middle third of the esophaguswere normal. Impression: - Normal examined duodenum. - Normal esophagus. - Erythematous mucosa in the antrum. Biopsied. - A few papules (nodules) found in the stomach. Biopsied. - 4 cm hiatal hernia. - Esophageal mucosal changes suspicious for short-segment Zhang's esophagus. Biopsied. - Normal upper third of esophagus and middle thirdof esophagus. Recommendation: - Await pathology results. - Follow an antireflux regimen. - Continue present medications.(PPI plus H2RA at bedtime) Procedure Code(s): --- Professional --- 80250, Esophagogastroduodenoscopy, flexible, transoral; with biopsy, single or multiple Diagnosis Code(s): --- Professional --- K22.89, Other specified disease of esophagus K31.89, Other diseases of stomach and duodenum K44.9, Diaphragmatic hernia without obstruction or gangrene R13.10, Dysphagia, unspecified R12, Heartburn CPT copyright 2022 [employer]. All rights reserved. The codes documented in this report are preliminary and upon contribution solicitor reviewmay be revised to meet current compliance requirements. Electronically signed by Lily Amos M.D. Lily Amos M.D. 02/04/2025 9:12:50 AM Number of Addenda: 0 Note Initiated On: 02/04/2025 7:45 AM Lily Amos MD ENDOSCOPY PROCEDURES Ed ited Result - Final * Diagnostic Mammogram Bilateral W Panfilo (10/23/2024 1:16 PM CDT) Anatomical Region Laterality Modality Breast Bilateral Mammography 10/23/2024 5:08 PM CDT Impressions 10/23/2024 5:08 PM CDT No imaging findings to suggest malignancy are seen. The patient may return to screening mammography as per ACR guidelines. OVERALL FINAL ASSESSMENT: [id number] Electronically signed by: Meenu Jackson M.D. Narrative 10/23/2024 5:08 PM CDT EXAMINATION: BILATERAL DIGITAL DIAGNOSTIC MAMMOGRAM AND DIGITAL BREAST TOMOSYNTHESIS; LEFT BREAST SONOGRAM HISTORY: Pain in the lateral left breast COMPARISON: 2023, 2022, and 2021. TECHNIQUE: Full field digital mammographic views of the bilateral breast(s) were performed, including computer aided detection (CAD) and digital breast tomosynthesis (DBT). Directed ultrasound evaluation of the left breast(s) was performed. BREAST PARENCHYMAL COMPOSITION: There are scattered areas of fibroglandular density. MAMMOGRAM FINDINGS: There are no suspicious masses. No suspicious calcifications are seen. There is no unexplained architectural distortion. There is no skin thickening seen. There are no mammographically abnormal lymph nodes seen in the axillae or elsewhere. ULTRASOUND FINDINGS: Sonography through the area of pain demonstrates no cystic or solid masses. us Sabine Batista PRECISION INSPECTOR IMG MAMMO PROCEDURES Final Res ult from Last 3 Months or Most Recently Relevant to Health Maintenance Insurance MEDICARE COMMERCIAL GENERIC MEDICARE [facility] Address: [address] [address] [place] [address] [employer] [facility] COMMERCIAL GENERIC MEDICARE [employer] IDPA Advance Directives For more information, please contact: [phone] * Full Code (Latest Code Status on File) Date Activated Date Inactivated Comments 02/03/2023 9:25 PM 02/06/2023 6:01 PM Care Teams Protective Signal Operations Supervisor Relationship Specialty Start Date End Date Unique Saba NP PCP - General Nurse Practitioner 11/13/24 Terri Salter, RN Registered Nurse 02/06/17 Evaristo Fu, RN Registered Nurse 04/05/17
--- OUTSIDE RECORDS SUMMARY | 2025-03-02 08:10 | XMS_ITS | Encounter Summary ---
Author Organization [facility] Address [address] [place] [address] Phone Care Team Providers Care Coil Cutter Name Role Phone Geovanna Alvarado APRN, PLATE MILL MILL HAND Unavailable [phone] Kathy Mirza MD Primary Care Provider Loyd Ball MD Unavailable [phone] Uniuqe Saba APRN, PLATE MILL MILL HAND Primary Care Provider Reason for Visit * Reason Comments Medication Refill Encounter Details Date Type Department Care Team (Late st Contact Info) Description 10/13/2022 Refill [facility] [address] [place] [phone] Loyd Ball MD [address] [place] [address] Medication Refill Social History Tobacco Use Types [...] suspected to have Coronavirus/COVID-19? No / Unsure 10/01/2022 4:44 AM CDT documented as of this encounter Miscellaneous Notes * Telephone Encounter - Casandra Xiong RN - 10/13/2022 9:17 AM CDT Medication failed the protocol, provider to review and approve the medication order if appropriate. Requested Prescriptions Pending Prescriptions Disp Refills pregabalin (LYRICA) 150 MG Capsule [Pharmacy Med Name: PREGABALIN 150 MG CAPSULE] 90 Capsule 2 Sig: TAKE 1 CAPSULE BY MOUTH THREE TIMES A DAY Not Delegated - Anticonvulsants Excluding Benzodiazepines Protocol Failed - 10/13/2022 9:02 AM Failed - This refill cannot be delegated Passed - Visit with relevant provider in past 12 months or upcoming 90 days Recent Visits Date Type Provider Dept 08/09/22 Office Visit Loyd Ball MD [facility] 07/01/22 Office Visit Loyd Ball MD [facility] 02/08/22 Office Visit Loyd Ball MD [facility] Showing recent visits within past 365 days and meeting all other requirements Future Appointments No visits were found meeting these conditions. Showing future appointments within next 90 days and meeting all other requirements documented in this encounter Plan of Treatment Upcoming Encounters Date Type Department Care Team (Late st Contact Info) Description 07/17/2025 10:00 AM CDT Office Visit [facility] - [place] [address] [place] [address] Loyd Ball MD [address] [place] [address] documented as of this encounter Visit Diagnoses Diagnosis MS (multiple sclerosis) Multiple sclerosis documented in this encounter Additional Health Concerns Infection Onset Date Last Indicated Resolved Time COVID - 19 11/12/2022 11/12/2022 11/22/2022 12:1 6 AM CDT documented as of this encounter Care Teams Coil Cutter Relationship Specialty Start Date End Date Kathy Mirza MD [address] [place] [address] PCP - General Internal Medicine 11/20/18 07/10/24 Unique Saba, BEAUTY ADVISOR, PLATE MILL MILL HAND [address] [place] [address] PCP - General Advanced Practice Nurse 07/11/24 Geovanna Alvarado APRN, PLATE MILL MILL HAND Nurse Practitioner Advanced Practice Nurse 03/24/16 Loyd Ball MD [address] [place] [address] Consulting Physician Neurology 02/08/22 documented as of this encounter
--- OUTSIDE RECORDS SUMMARY | 2025-03-02 08:10 | XMS_ITS | Encounter Summary ---
Author Organization [facility] Address [address] [place] [address] Phone Care Team Providers Care Cutter Aluminum Sheet Name Role Phone Geovanna Alvarado APRN, UTILITY LINEMAN Unavailable [phone] Kathy Mirza MD Primary Care Provider [phone] Loyd Ball MD Unavailable Unique Saba APRN, UTILITY LINEMAN Primary Care Provider Reason for Visit * Reason Comments Medication Refill Encounter Details Date Type Department Care Team (Late st Contact Info) Description 05/26/2022 Refill [facility] [address] [place] [phone] Loyd Ball MD [address] [place] [address] Medication Refill Social History Tobacco Use Types [...] Coronavirus/COVID-19? No / Unsure 05/05/2022 8:51 AM [employer] HCM CONSULTANT documented as of this encounter Miscellaneous Notes * Telephone Encounter - Casandra Xiong RN - 05/27/2022 8:00 AM CDT Medication failed the protocol, provider to review and approve the medication order if appropriate. Requested Prescriptions Pending Prescriptions Disp Refills carBAMazepine (CARBATROL) 200 MG CAPSULE SR 12 HR [Pharmacy Med Name: CARBAMAZEPINE ER 200 MG CAP] 180 Capsule 3 Sig: TAKE 1 CAPSULE BY MOUTH TWICE A DAY Not Delegated - Anticonvulsants Excluding Benzodiazepines Protocol Failed - 05/26/2022 4:04 PM Failed - This refill cannot be delegated Passed - Visit with relevant provider in past 12 months or upcoming 90 days Recent Visits Date Type Provider Dept 02/08/22 Office Visit Loyd Ball MD [facility]rology [facility] 09/17/21 Office Visit Loyd Ball MD [facility] Showing recent visits within past 365 days and meeting all other requirements Future Appointments Date Type Provider Dept 08/09/22 Appointment Loyd Ball MD [facility] Showing future appointments within next 90 days and meeting all other requirements documented in this encounter Plan of Treatment Upcoming Encounters Date Type Department Care Team (Late st Contact Info) Description 07/17/2025 10:00 AM CDT Office Visit [facility] - [facility] - [place] [address] [place] [address] Loyd Ball MD [address] [place] [address] documented as of this encounter Visit Diagnoses Diagnosis Trigeminal neuralgia of right side of face documented in this encounter Additional Health Concerns Infection Onset Date Last Indicated Resolved Time COVID - 19 06/21/2022 06/21/2022 07/01/2022 12:1 7 AM CDT COVID - 19 11/12/2022 11/12/2022 11/22/2022 12:1 6 AM CDT documented as of this encounter Care Teams Cutter Aluminum Sheet Relationship Specialty Start Date End Date Kathy Mirza MD [address] [place], [place] [id number] PCP - General Internal Medicine 11/20/18 07/10/24 Unique Saba, HVAC SALES REPRESENTATIVE, UTILITY LINEMAN [address] [place] [address] PCP - General Advanced Practice Nurse 07/11/24 Geovanna Alvarado, HVAC SALES REPRESENTATIVE, UTILITY LINEMAN Nurse Practitioner Advanced Practice Nurse 03/24/16 Loyd Ball MD [address] [place] [address] Consulting Physician Neurology 02/08/22 documented as of this encounter
--- OUTSIDE RECORDS SUMMARY | 2025-03-02 08:10 | XMS_ITS | Encounter Summary ---
Author Organization [facility] Address [address] [place] [address] Phone Care Team Providers Care Storeroom Clerk Name Role Phone Geovanna Alvarado APRN, FRONT END DEVELOPER DESIGNER Unavailable [phone] Kathy Mirza MD Primary Care Provider [phone] Loyd Ball MD Unavailable Unique Saba APRN, FRONT END DEVELOPER DESIGNER Primary Care Provider Reason for Visit * Reason Comments Medication Refill Encounter Details Date Type Department Care Team (Late st Contact Info) Description 12/26/2020 Refill [facility] [address] [place] [phone] Loyd Ball MD [address] [place] [address] Medication Refill Social History Tobacco Use Types [...] 07/17/2025 10:00 AM CDT Office Visit [facility] [address] [place] [address] Loyd Ball MD [address] [place] [address] documented as of this encounter Visit Diagnoses Not on filedocumented in this encounter Additional Health Concerns Infection Onset Date Last Indicated Resolved Time COVID - 19 03/13/2021 03/13/2021 04/02/2021 12:1 6 AM SYNCHRONOUS MOTOR ASSEMBLER COVID - 19 04/15/2021 04/15/2021 05/05/2021 12:1 6 AM SYNCHRONOUS MOTOR ASSEMBLER COVID - 19 09/05/2021 09/05/2021 09/15/2021 12:1 6 AM CDT COVID - 19 02/16/2022 02/16/2022 02/26/2022 12:1 6 AM SYNCHRONOUS MOTOR ASSEMBLER Respiratory Rule-Out 02/16/2022 02/16/2022 022 8:42 AM SYNCHRONOUS MOTOR ASSEMBLER COVID - 19 06/21/2022 06/21/2022 07/01/2022 12:1 7 AM CDT COVID - 19 11/12/2022 11/12/2022 11/22/2022 12:1 6 AM CDT documented as of this encounter Care Teams Storeroom Clerk Relationship Specialty Start Date End Date Kathy Mirza MD [address] [place] [address] PCP - General Internal Medicine 11/20/18 07/10/24 Unique Saba, SENIOR COMPENSATION ANALYST, FRONT END DEVELOPER DESIGNER [address] [place] [address] PCP - General Advanced Practice Nurse 07/11/24 Geovanna Alvarado APRN, KYLE Nurse Practitioner Advanced Practice Nurse 03/24/16 Loyd Ball MD [address] [place] [phone] Consulting Physician Neurology 02/08/22 documented as of this encounter
--- OUTSIDE RECORDS SUMMARY | 2025-03-02 08:10 | XMS_ITS | Encounter Summary ---
Author Organization [facility] Address [address] [place] [address] Phone Care Team Providers Care Resort Desk Clerk Name Role Phone Geovanna Alvarado APRN, WILDLIFE BIOLOGY INTERNSHIP Unavailable [phone] Kathy Mirza MD Primary Care Provider [phone] Loyd Ball MD Unavailable [phone] Unique Saba APRN, WILDLIFE BIOLOGY INTERNSHIP Primary Care Provider Reason for Visit * Reason Comments Medication Refill Encounter Details Date Type Department Care Team (Late st Contact Info) Description 04/16/2021 Refill [facility] [address] [place] [phone] Loyd Ball MD [address] [place] [address] Medication Refill Social History Tobacco Use Types [...] COVID-19? No / Unsure 04/15/2021 7:55 AM PROPERTY INSPECTOR documented as of this encounter Plan of Treatment Upcoming Encounters Date Type Department Care Team (Late st Contact Info) Description 07/17/2025 10:00 AM CDT [facility] [address] [place] [phone] Loyd Ball MD [address] [place] [phone] documented as of this encounter Visit Diagnoses Diagnosis Neuropathy Mononeuritis of unspecified site documented in this encounter Additional Health Concerns Infection Onset Date Last Indicated Resolved Time COVID - 19 04/15/2021 04/15/2021 05/05/2021 12:1 6 AM PROPERTY INSPECTOR COVID - 19 09/05/2021 09/05/2021 09/15/2021 12:1 6 AM CDT COVID - 19 02/16/2022 02/16/2022 02/26/2022 12:1 6 AM PROPERTY INSPECTOR Respiratory Rule-Out 02/16/2022 02/16/2022 022 8:42 AM PROPERTY INSPECTOR COVID - 19 06/21/2022 06/21/2022 07/01/2022 12:1 7 AM CDT COVID - 19 11/12/2022 11/12/2022 11/22/2022 12:1 6 AM CDT documented as of this encounter Care Teams Resort Desk Clerk Relationship Specialty Start Date End Date Kathy Mirza MD [address] [place], [place] [phone] PCP - General Internal Medicine 11/20/18 07/10/24 Unique Saba, ANALYTICS SPECIALIST, WILDLIFE [employer]Y INTERNSHIP [address] [place] [address] PCP - General Advanced Practice Nurse 07/11/24 Geovanna Alvarado APRN, WILDLIFE BIOLOGY INTERNSHIP Nurse Practitioner Advanced Practice Nurse 03/24/16 Loyd Ball MD [address] [place] [address] Consulting Physician Neurology 02/08/22 documented as of this encounter
--- OUTSIDE RECORDS SUMMARY | 2025-03-02 08:10 | XMS_ITS | Data Portability ---
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 Plan of Treatment Reminders Order Date Submit Date Provider Last Modified By Organization Details Last Modified Time Details Appointments MEDICARE WELLNESS VISIT 2025 10:00A M RANDOLPH RUBIOP- Not available Not available Not available Lab influenza virus A + B + SARS-CoV- 2 (COVID19) Ag panel, rapid IA, upper respirato ry specimen 2024 025 [facility] In-Office Order, Internal Use Only DO Not Attach Compendium DO Not Attach Compendium, Do Not Delete/merge, [id number] 01/23/2025 17:11:25 vitamin D, 25-hydrox y, total, serum 2024 025 [facility], [address] [facility], [facility] [address], [place], [address], 12/27/2024 08:25:50 lipid panel, serum 2024 025 BG [facility], [address] [facility], [facility] [address], [place], [address], 12/27/2024 08:25:48 HbA1c (hemoglob in A1c), blood 2024 025 BG [facility], [address] [facility], [facility] [address], [place], [address], 12/27/2024 08:25:49 CBC w/ auto diff 2024 025 [facility], [address] [facility] [address], [place], [address], 12/27/2024 08:25:49 TSH + free T4, serum 2024 025 [facility], [address] [facility] [address], [place], [address], 12/27/2024 08:25:47 CMP, serum or plasma 2024 025 BG [facility], [address] [facility], [facility] [address], [place], [address], 12/27/2024 08:25:48 influenza virus A + B + SARS-CoV- 2 (COVID19) Ag panel, rapid IA, upper respirato ry specimen 2024 [facility] In-Office Order, Internal Use Only DO Not Attach Compendium DO Not Attach Compendium, Do Not Delete/merge, [id number] 11/21/2024 13:09:58 Referral None recorded. Procedures None recorded. Surgeries None recorded. Imaging None recorded. Medication Orders doxycycli ne monohydra te 100 mg capsule 2024 025 [facility] [id number], [address], 02/06/2025 05:02:21 benzonata te 100 mg capsule 2024 025 [facility] [address], [address], 12/08/2024 05:01:34 guaifenes in 400 mg tablet 2024 025 [facility] [address], [address], 12/05/2024 05:02:07 fluticaso ne propionat e 50 mcg/actua tion nasal spray,ekaterina pension 2024 025 [facility] [address], [address], 07/19/2024 14:56:19 Ciprodex 0.3 %-0.1 % ear drops,ekaterina pension 2024 025 [facility] [id number], [address], 11/21/2024 12:33:25 Patient TargetsNo targets recorded. Patient Instructions Encounter Date Encounter Id Patient Instructions Last Modified By Organization Details Last Modified Time 07/19/2024 [id number] A healthy lifestyle: care instructions [email or web address] Not available 07/19/2024 14:56:46 Plan of care has been discussed with [...] 12/06/23 - Prevnar 20: 10/17/22 - Tdap/Td ([id number]): 06/27/16 - Zoster (>60): 11/04/23, 08/04/23 - COVID-19: 11/04/23, 10/17/22, 05/30/21, 12/04/20, 06/01/20, 05/05/20 -Labs ordered this visit: n/a Females: Pap smear: total hysterectomy Mammogram: December 2023-requesting records DEXA: n/a Not available 08/03/2024 23:29:11 11/21/2024 [id number] Plan of care has been discussed with [...] 12/06/23 - Prevnar 20: 10/17/22 - Tdap/Td ([id number]): 06/27/16 - Zoster (>60): 11/04/23, 08/04/23 - COVID-19: 11/04/23, 10/17/22, 05/30/21, 12/04/20, 06/01/20, 05/05/20 -Labs ordered this visit: n/a Females: Pap smear: total hysterectomy Mammogram: December 2023-requesting records DEXA: n/a [email or web address] Not available 11/21/2024 14:40:39 12/26/2024 [id number] A healthy lifestyle: care instructions Not available 12/26/2024 09:24:58 Plan of care [...] 12/06/23 - Prevnar 20: 10/17/22 - Tdap/Td ([id number]): 06/27/16 - Zoster (>60): 11/04/23, 08/04/23 - COVID-19: 11/04/23, 10/17/22, 05/30/21, 12/04/20, 06/01/20, 05/05/20 -Labs ordered this visit:annual lab work ordered Females: Pap smear: total hysterectomy Mammogram: December 2023-requesting records DEXA: n/a [email or web address] Not available 12/26/2024 09:24:39 01/23/2025 [id number] ear infection (otitis media): care instructions Not [...] 12/06/23 - Prevnar 20: 10/17/22 - Tdap/Td ([id number]): 06/27/16 - Zoster (>60): 11/04/23, 08/04/23 - COVID-19: 11/04/23, 10/17/22, 05/30/21, 12/04/20, 06/01/20, 05/05/20 -Labs ordered this visit:annual lab work ordered Females: Pap smear: total hysterectomy Mammogram: December 2023-requesting records DEXA: n/a [email or web address] Not available 01/23/2025 12:08:08 Reason for Referral None Reported. Results Created Date Observation Date Name Description Value Unit Range Abnormal Flag Note LastModifiedBy Organization Detail LastModifiedTime 11/22/1911/21/2024 influ syeda virus A + B + SARS- CoV-2 (COVI D19) Ag panel , rapid IA, upper respi rator y speci men Flu A negati ve Not Available In-Office Order Internal Use Only DO Not Attach Compendium DO Not Attach Compendium, Do Not Delete/merge, [id number] 11/21/2024 12:53:04 11/22/19 25 11/21/2024 influ syeda virus A + B + SARS- CoV-2 (COVI D19) Ag panel , rapid IA, upper respi rator y speci men Flu B negati ve Not Available In-Office Order Internal Use Only DO Not Attach Compendium DO Not Attach Compendium, Do Not Delete/merge, [id number] 11/21/2024 12:53:04 11/22/1911/21/2024 influ syeda virus A + B + SARS- CoV-2 (COVI D19) Ag panel , rapid IA, upper respi rator y speci men Rapid SARS CoV 2 Ag, QL IA, respiratory specimen negati ve Not Available In-Office Order Internal Use Only DO Not Attach Compendium DO Not Attach Compendium, Do Not Delete/merge, [id number] 11/21/2024 12:53:04 12/27/1912/27/2024 TSH+F REE T4 TSH 1.570 uIU/m L 0.450- 4.500 Not Available [facility] ([facility]) [address] [place], [address], 12/27/2024 08:25:47 12/27/1912/27/2024 TSH+F REE T4 T4,free(dire ct) 0.85 NG/dL 0.82-1 .77 Not Available [facility] ([facility]) [address] [place], [address], 12/27/2024 08:25:47 12/27/19 25 12/27/2024 LIPID PANEL cholesterol, total 191 mg/dL 100-19 9 Not Available [facility] ([facility]) [address] [place], [address], 12/27/2024 08:25:48 12/27/19 25 12/27/2024 LIPID PANEL triglyceride s 153 mg/dL 0-149 above high normal Not Available [facility] ([facility]) [address] [place], [address], 12/27/2024 08:25:48 12/27/19 25 12/27/2024 LIPID PANEL HDL cholesterol 48 mg/dL >39 Not Available [facility] ([facility]) [address] [place], [address], 12/27/2024 08:25:48 12/27/19 25 12/27/2024 LIPID PANEL VLDL cholesterol cyn 27 mg/dL 5-40 Not Available [facility] ([facility]) [address] [facility], [place], [address], 12/27/2024 08:25:48 12/27/19 25 12/27/2024 LIPID PANEL LDL chol calc ([facility]) 116 mg/dL 0-99 above high normal Not Available [facility] ([facility]) [address] [facility], [place], [address], 12/27/2024 08:25:48 12/27/1912/26/2024 COMP. METAB OLIC PANEL [...] at [email or web address]. org. Not Available [facility] ([facility]) [address] [facility], [place], [address], 12/27/2024 08:25:48 12/27/1912/27/2024 COMP. METAB OLIC PANEL (14) glucose 86 mg/dL 70-99 Not Available [facility] ([facility]) [address] [facility], [place], [address], 12/27/2024 08:25:48 12/27/19 25 12/27/2024 COMP. METAB OLIC PANEL (14) BUN 14 mg/dL 6-24 Not Available [facility] ([facility]) [address] [facility], [place], [address], 12/27/2024 08:25:48 12/27/19 25 12/27/2024 COMP. METAB OLIC PANEL (14) creatinine 0.64 mg/dL 0.57-1 .00 Not Available [facility] ([facility]) [address] [facility], [place], [address], 12/27/2024 08:25:48 12/27/19 25 12/27/2024 COMP. METAB OLIC PANEL (14) eGFR 114 mL/mi n/1.7 3 >59 Not Available [facility] ([facility]) [address] [facility], [place], [address], 12/27/2024 08:25:48 12/27/19 25 12/27/2024 COMP. METAB OLIC PANEL (14) BUN/creatini ne ratio 22 9-23 Not Available [facility] ([facility]) [address] [facility], [place], [address], 12/27/2024 08:25:48 12/27/19 25 12/27/2024 COMP. METAB OLIC PANEL (14) sodium 141 mmol/ L 134-14 4 Not Available [facility] ([facility]) [address] [facility], [place], [address], 12/27/2024 08:25:48 12/27/19 25 12/27/2024 COMP. METAB OLIC PANEL (14) potassium 4.8 mmol/ L 3.5-5. 2 Not Available [facility] ([facility]) [address] [place], [address], 12/27/2024 08:25:48 12/27/19 25 12/27/2024 COMP. METAB OLIC PANEL (14) chloride 107 mmol/ L 96-106 above high normal Not Available [facility] ([facility]) [address] [facility], [place], [address], 12/27/2024 08:25:48 12/27/19 25 12/27/2024 COMP. METAB OLIC PANEL (14) carbon dioxide, total 19 mmol/ L 20-29 below low normal Not Available [facility] ([facility]) [address] [facility], [place], [address], 12/27/2024 08:25:48 12/27/19 25 12/27/2024 COMP. METAB OLIC PANEL (14) calcium 9.0 mg/dL 8.7-10 .2 Not Available [facility] ([facility]) [address] [facility], [place], [address], 12/27/2024 08:25:48 12/27/19 25 12/27/2024 COMP. METAB OLIC PANEL (14) protein, total 7.2 g/dL 6.0-8. 5 Not Available [facility] ([facility]) [address] [facility], [place], [address], 12/27/2024 08:25:48 12/27/19 25 12/27/2024 COMP. METAB OLIC PANEL (14) albumin 4.4 g/dL 3.9-4. 9 Not Available [facility] ([facility]) [address] [place], [address], 12/27/2024 08:25:48 12/27/19 25 12/27/2024 COMP. METAB OLIC PANEL (14) globulin, total 2.8 g/dL 1.5-4. 5 Not Available [facility] ([facility]) [address] [place], [address], 12/27/2024 08:25:48 12/27/19 25 12/27/2024 COMP. METAB OLIC PANEL (14) bilirubin, total <0.2 mg/dL 0.0-1. 2 Not Available [facility] ([facility]) [address] [place], [address], 12/27/2024 08:25:48 12/27/19 25 12/27/2024 COMP. METAB OLIC PANEL (14) alkaline phosphatase 81 IU/L 41-116 Not Available [facility] ([facility]) [address] [facility], [place], [address], 12/27/2024 08:25:48 12/27/19 25 12/27/2024 COMP. METAB OLIC PANEL (14) AST (SGOT) 14 IU/L 0-40 Not Available [facility] ([facility]) [address] [facility], [place], [address], 12/27/2024 08:25:48 12/27/19 25 12/27/2024 COMP. METAB OLIC PANEL (14) ALT (SGPT) 25 IU/L 0-32 Not Available [facility] ([facility]) [address] [facility], [place], [address], 12/27/2024 08:25:48 12/27/1912/27/2024 HEMOG LOBIN A1C hemoglobin A1C 5.6 % 4.8-5. 6 Predi abete s: 5.7 - 6.4 Diabe juan david: >6.4 Glyce milton contr ol for adult s with diabe juan david: <7.0 Not Available [facility] ([facility]) [address] [facility], [place], [address], 12/27/2024 08:25:49 12/27/1912/27/2024 CBC WITH DIFFE RENTI AL/PL ATELE T WBC 10.0 x10e3 /uL 3.4-10 .8 Not Available [facility] ([facility]) [address] [facility], [place], [address], 12/27/2024 08:25:49 12/27/19 25 12/27/2024 CBC WITH DIFFE RENTI AL/PL ATELE T RBC 5.43 x10e6 /uL 3.77-5 .28 above high normal Not Available [facility] ([facility]) [address] [place], [address], 12/27/2024 08:25:49 12/27/1912/27/2024 CBC WITH DIFFE RENTI AL/PL ATELE T hemoglobin 13.8 g/dL 11.1-1 5.9 Not Available [facility] ([facility]) [address] [place], [address], 12/27/2024 08:25:49 12/27/1912/27/2024 CBC WITH DIFFE RENTI AL/PL ATELE T hematocrit 44.1 % 34.0-4 6.6 Not Available [facility] ([facility]) [address] [place], [address], 12/27/2024 08:25:49 12/27/1912/27/2024 CBC WITH DIFFE RENTI AL/PL ATELE T MCV 81 fL 79-97 Not Available [facility] ([facility]) [address] [place], [address], 12/27/2024 08:25:49 12/27/1912/27/2024 CBC WITH DIFFE RENTI AL/PL ATELE T MCH 25.4 pg 26.6-3 3.0 below low normal Not Available [facility] ([facility]) [address] [place], [address], 12/27/2024 08:25:49 12/27/1912/27/2024 CBC WITH DIFFE RENTI AL/PL ATELE T MCHC 31.3 g/dL 31.5-3 5.7 below low normal Not Available [facility] ([facility]) [address] [place], [address], 12/27/2024 08:25:49 12/27/1912/27/2024 CBC WITH DIFFE RENTI AL/PL ATELE T RDW 15.1 % 11.7-1 5.4 Not Available [facility] ([facility]) [address] [facility], [place], [address], 12/27/2024 08:25:49 12/27/1912/27/2024 CBC WITH DIFFE RENTI AL/PL ATELE T platelets 402 x10e3 /uL 150-45 0 Not Available [facility] ([facility]) [address] [facility], [place], [address], 12/27/2024 08:25:49 12/27/1912/27/2024 CBC WITH DIFFE RENTI AL/PL ATELE T neutrophils 59 % notest ab. Not Available [facility] ([facility]) [address] [facility], [place], [address], 12/27/2024 08:25:49 12/27/1912/27/2024 CBC WITH DIFFE RENTI AL/PL ATELE T lymphs 30 % notest ab. Not Available [facility] ([facility]) [address] [facility], [place], [address], 12/27/2024 08:25:49 12/27/1912/27/2024 CBC WITH DIFFE RENTI AL/PL ATELE T monocytes 7 % notest ab. Not Available [facility] ([facility]) [address] [facility], [place], [address], 12/27/2024 08:25:49 12/27/1912/27/2024 CBC WITH DIFFE RENTI AL/PL ATELE T eos 3 % notest ab. Not Available [facility] ([facility]) [address] [facility], [place], [address], 12/27/2024 08:25:49 12/27/1912/27/2024 CBC WITH DIFFE RENTI AL/PL ATELE T basos 1 % notest ab. Not Available [facility] ([facility]) [address] [facility], [place], [address], 12/27/2024 08:25:49 12/27/19 25 12/27/2024 CBC WITH DIFFE RENTI AL/PL ATELE T neutrophils (absolute) 5.9 x10e3 /uL 1.4-7. 0 Not Available [facility] ([facility]) [address] [facility], [place], [address], 12/27/2024 08:25:49 12/27/1912/27/2024 CBC WITH DIFFE RENTI AL/PL ATELE T lymphs (absolute) 3.0 x10e3 /uL 0.7-3. 1 Not Available [facility] ([facility]) [address] [facility], [place], [address], 12/27/2024 08:25:49 12/27/19 25 12/27/2024 CBC WITH DIFFE RENTI AL/PL ATELE T monocytes(ab solute) 0.7 x10e3 /uL 0.1-0. 9 Not Available [facility] ([facility]) [address] [facility], [place], [address], 12/27/2024 08:25:49 12/27/19 25 12/27/2024 CBC WITH DIFFE RENTI AL/PL ATELE T eos (absolute) 0.3 x10e3 /uL 0.0-0. 4 Not Available [facility] ([facility]) [address] [facility], [place], [address], 12/27/2024 08:25:49 12/27/19 25 12/27/2024 CBC WITH DIFFE RENTI AL/PL ATELE T baso (absolute) 0.1 x10e3 /uL 0.0-0. 2 Not Available [facility] ([facility]) [address] [facility], [place], [address], 12/27/2024 08:25:49 12/27/19 25 12/27/2024 CBC WITH DIFFE RENTI AL/PL ATELE T immature granulocytes 0 % notest ab. Not Available [facility] ([facility]) [address] [facility], [place], [address], 12/27/2024 08:25:49 12/27/19 25 12/27/2024 CBC WITH DIFFE RENTI AL/PL ATELE T immature grans (abs) 0.0 x10e3 /uL 0.0-0. 1 Not Available [facility] ([facility]) [address] [facility], [place], [address], 12/27/2024 08:25:49 12/27/19 25 12/27/2024 VITAM IN [...] um and D. Funmi mcdonald [place]: [facility] . 2. Mary Lou nayak [place], Brenda ey [place], Stacie off-F errar i GOMES, et al. Evalu ation , treat ment, and preve ntion of vitam in D defic iency : an Endoc rine Socie ty clini cyn pract ice guide line. JCEM. 2010; 96(7) :1911 -30. Not Available [facility] ([facility]) [address] [facility], [place], [address], 12/27/2024 08:25:50 01/24/20 25 01/23/2025 influ syeda virus A + B + SARS- CoV-2 (COVI D19) Ag panel , rapid IA, upper respi rator y speci men Flu A negati ve Not Available In-Office Order Internal Use Only DO Not Attach Compendium DO Not Attach Compendium, Do Not Delete/merge, [id number] 01/23/2025 12:13:47 01/24/2001/23/2025 influ syeda virus A + B + SARS- CoV-2 (COVI D19) Ag panel , rapid IA, upper respi rator y speci men Flu B negati ve Not Available In-Office Order Internal Use Only DO Not Attach Compendium DO Not Attach Compendium, Do Not Delete/merge, [id number] 01/23/2025 12:13:47 01/24/2001/23/2025 influ syeda virus A + B + SARS- CoV-2 (COVI D19) Ag panel , rapid IA, upper respi rator y speci men Rapid SARS CoV 2 Ag, QL IA, respiratory specimen negati ve Not Available In-Office Order Internal Use Only DO Not Attach Compendium DO Not Attach Compendium, Do Not Delete/merge, [id number] 01/23/2025 12:13:47 06/27/1901/09/2024 MAMMO , scree monroe, tomos ynthe sis, bilat eral No observ ation record ed. jschulterma [facility] (Radiology) [address] [place], [address], 06/28/2024 16:27:47 Result Notes None recorded. 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 Quinn Mirza MD Attn: Fernando g,[address] [facility], [place], [address], [place] - [facility] 2 15:27:10 Spasmodi c movement 179671574 Completed 201711/16/2018 Kathy Mirza MD Attn: Fernando g,[address] [facility], [place], [address], [place] [facility] 9 10:29:56 Chronic headache disorder 762006849 Active 2017 Kathy Mirza MD Attn: Fernando petty,[address] [facility], [place], [address], [place] [facility] 2 15:27:10 Dysphagi a 24574540 Active 2017 sees GI Kathy Mirza MD Attn: Fernando petty,[address] [facility], [place], [address], [place] [facility] 3 09:09:49 Lumbar radiculo guerline 227470241 Active 2017 Kathy Mirza MD Attn: Fernando petty,[address] [place], [address], [place] [facility] 3 09:12:46 Persiste nt cough 649109028 Completed 201711/16/2018 Kathy Mirza MD Attn: Fernando petty,[address] [facility], [place], [address], [place] [facility] 9 10:29:49 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 Kathy Mirza MD Attn: Fernando petty,[address] [facility], [place], [address], [place] [facility] 2 15:27:10 Generali zed anxiety disorder 38597350 Active 2017 sees psych /BHA Kathy Mirza MD Attn: Fernando petty,[address] [place], [address], [place] [facility] 2 15:27:10 Uterine leiomyom a 06116643 Completed 201704/05/2017 Removal Reason: s/p total hysterect lesly Vasquez PA-C Attn: Fernando jovanny,[address] [facility], [place], [address], [place] [facility] 8 08:21:09 History of [facility] 878517781 Completed 201704/05/2017 Yanelis Vasquez PA-C Attn: Fernando petty,[address] [facility], [place], [address], [facility] - SI 8 08:21:22 Cyst of ovary 81892236 Completed 201704/05/2017 Removal Reason: bilateral ; s/p BSO Yanelis Vasquez PA-C Attn: Fernando petty,[address] [facility], [place], [address], [facility] - [facility] 8 08:22:00 Psycholo gic conversi on disorder 79187460 Active 2017 Kathy Mirza MD Attn: Fernando petty,[address] [facility], [place], [address], [facility] - SI 2 15:27:10 Strain of Achilles tendon 88824363 Active 2017 Deloris little [facility] SI 1 12:16:09 Bilatera l cataract s 01461011 Active 2020 sees ophthalmo logist Kathy Mirza MD Attn: Fernando petty,[address] [facility], [place], [address], [facility] - SI 2 15:27:10 Pain of elbow region 22971106 Active 2020 sees ortho Deloris little [facility] SI 1 12:16:09 Overacti ve urinary bladder 156096698 Active 2020 sees urologist Kathy Mirza MD Attn: Fernando petty,[address] [facility], [place], [address], [facility] - SI 2 15:27:10 Problem Notes None recorded. Procedures Surgical History Date Name Laterality Status Provider Name and Address Organization Details Recorded Time 12/26/19 21 Eye Surgery completed Zunilda Fox MA [facility] 02/15/2021 09:42:02 11/04/19 21 procedure on elbow completed DAQUAN Teague - [facility] 11/12/2020 14:36:17 03/24/19 21 repair of retina completed oJdy El [facility] 05/04/2020 11:46:06 02/07/20 20 extraction of cataract completed Jody El [facility] - [facility] 05/04/2020 11:45:43 05/25/19 19 Cerumen Removal completed Yanelis Vasquez PA-C Attn: Accounting, [address] [place], [address], [facility] - SI 05/24/2018 11:55:53 12/05/19 14 Total hysterectomy completed Yanelis Vasquez PA-C Attn: Accounting, [address] [place], [address], [facility] - SI 03/23/2017 10:11:03 03/06/19 14 Removal of ovary(s) completed Yanelis Vasquez PA-C Attn: Accounting, [address] [place], [address], [facility] - SI 03/23/2017 10:10:58 Gastrointestinal Surgery completed Morena hernandez [place] [facility] 03/23/2017 09:19:55 Tonsillectomy completed Morena hernandez MA [place] - [place] 03/23/2017 09:20:03 Insert picvad cath completed Yanelis Vasquez PA-C Attn: Accounting, [address] [place], [address], [facility] - [facility] 03/30/2017 13:12:32 Xcapsl ctrc rmvl cplx wo ecp completed Casandra Medrano [place] - [place] 08/12/2020 09:15:38 Imaging Results None recorded. Procedure Notes None recorded. Medical Equipment None Reported. Allergies Allergen ID Allergen Name Allergen Category Reaction Reaction Severity Criticality Documentation Date Start Date Code Code System Note Provider Name and Address Organization Details Recorded Time 380307 Augmentin medicatio n rash Not available Not available 03/23/2017 92394 2 RxNorm DAQUAN Sen, [place] - [place] 8 09:09:52 940878 Levaquin medicatio n other moderate Not available 04/03/20172017 38751 2 RxNorm left ankle achil les tendo n pain Yanelis Vasquez PA-C Attn: Accountin g,[address] [facility], [place], [address], [facility] - [facility] 8 15:48:13 587143 Non-stero idal anti-infl ammatory agent (substanc e) medicatio n other moderate Not available 04/03/2017 54626 5008 SNOMED GERD Yanelis Vasquez PA-C Attn: Accountin g,[address] [facility], [place], [address], [facility] - [facility] 8 16:18:27 776019 brimonidi ne medicatio n eye redness Not available Not available 05/04/2020 31861 5 RxNorm ALEXANDER Argu[place], [place] - [facility] 11:53:23 656327 Substance with sulfonami de structure and antibacte rial mechanism of action (substanc e) medicatio n eye redness Not available Not available 05/05/2020 54506 8003 SNOMED ALEXANDER [place]gu[place], [place] - [place] 11:35:29 447376 Adhesive agent (substanc e) environme nt,medica tion itching rash Not available Not available [facility] 12/26/20242020 36414 0007 SNOMED unrec ogniz ed react ion (text : Carlos ers, code: 81779 [id number]) (from exter nal sourc e) Not Available bg - External Data Service - prod 03:12:58 658110 amoxicill in medicatio n rash Not available Not available 12/26/2024 723 RxNorm React ion: Rash, , Not Available bg - External Data Service - prod 03:12:58 749350 amoxicill in / clavulana te medicatio n rash Not available high 12/26/20242009 84304 RxNorm Occur red as child , Rash when taken as infan t Occur red as child , Rash when taken as infan t Occur red as child , Not Available gb - External Data Service - prod 5 03:12:58 213411 brimonidi ne / timolol medicatio n Not available Not available low 12/26/20242020 94042 2 RxNorm unrec ogniz ed react ion (text : Eye irrit ation , code: 86030 3008) (from exter nal [facility] e) Not Available bg - External Data Service - prod 5 03:12:58 [id number] levofloxa megan medicatio n arthralgi a (joint pain) other Not available Not available low 12/26/20242017 96690 RxNorm tendo nitis Other react ion(s ): Joint pain tendo nitis Tendo n swell s tendo nitis Tendo n swell s Joint pain, tendo nitis Not Available bg - External Data Service - prod 5 03:12:58 171850 tolmetin medicatio n Not available Not available Not available 02/11/20252017 62559 RxNorm GI DOCTO R DOESN 'T WANT [...] pine ER 200 mg capsule,e xtended release [id number] r TAKE 1 CAPSULE BY MOUTH TWICE [...] Available Not Available Not Available Fluzone Quad 6211-9103 60 mcg (15 mcg x 4)/0.5 mL [...] height Body mass index (BMI) Body weight Respiratory rate Oxygen saturation Body temperature Heart rate Systolic And Diastolic Provider Name and Address Organization Details Last Updated DateTime 5 170.18 cm 37 kg/m2 316262. 8 g 16 /min 99 % 98 [degF] 98 /min 110/80 mm[Hg] ALEXANDER Méndez [place] - [facility] 5 14:43:26 Date Recorded Body height Body mass index (BMI) Body weight Oxygen saturation Heart rate Respiratory rate Body temperature Systolic And Diastolic Provider Name and Address Organization Details Last Updated DateTime 5 170.18 cm 36 kg/m2 769566. 89 g 97 % 114 /min 16 /min 96.2 [degF] 128/88 mm[Hg] Zunilda Fox [facility] 5 12:37:35 Date Recorded Body height Body mass index (BMI) Body weight Oxygen saturation Heart rate Respiratory rate Body temperature Systolic And Diastolic Provider Name and Address Organization Details Last Updated DateTime 5 170.18 cm 37.4 kg/m2 272134. 86 g 98 % 92 /min 16 /min 97.3 [degF] 117/84 mm[Hg] Zunilda Fox [facility] 5 09:10:00 Date Recorded Body height Body mass index (BMI) Body weight Oxygen saturation Heart rate Respiratory rate Body temperature Systolic And Diastolic Provider Name and Address Organization Details Last Updated DateTime 5 170.18 cm 39.1 kg/m2 441681. 66 g 96 % 96 /min 16 /min 97.3 [degF] 120/85 mm[Hg] Zunilda Fox [facility] 5 11:53:05 Date Recorded Body height Body mass index (BMI) Body weight Heart rate Respiratory rate Body temperature Systolic And Diastolic Provider Name and Address Organization Details Last Updated DateTime 5 170.18 cm 39.4 kg/m2 846162. 84 g 99 /min 16 /min 97.3 [degF] 115/82 mm[Hg] Zuinlda Fox [facility] 5 10:03:33 Social History Question Answer Notes LastModified by Organizat ion Details LastModified Time Tobacco Smoking Status Former Smoker Quit 2011 Zunilda Fox [facility] 02/19/2019 15:12:18 Do You Have An Advance [...] not available 08/06/2018 Education 2 Year College [email or web address] Information not available 03/23/2017 What Is The Highest Grade Or Level Of School You Have Completed Or The Highest Degree You Have Received? [id number] Information not available 07/06/2020 Are There Any Guns Present In Your Home? No Information not available 03/23/2017 Marital Status Single Infor mation not available 03/23/2017 What Was The Date Of Your Most Recent Tobacco Screening? 02/11/2025 Information not available 02/11/2025 How Many Children Do You Have? 0 Information not available 12/26/2024 Performs Monthly Self-breast Exam? Yes [email or web address] Information not available 03/23/2017 Do You Have [...] use any illicit or recreational drugs? No [email or web address] Information not available 11/20/2020 Do you or [...] available 07/06/2020 What is your occupation? disabled [email or web address] Information not available 03/23/2017 Do you or have you ever used e-cigarettes or vape? Never used electronic cigarettes Information not available 02/19/2019 What is your exercise level? None Information not available 12/26/2024 Mental Status Question Answer Note LastModified by Organization D etails LastModified Time Do you feel stressed (tense, restless, nervous, or anxious, or unable to sleep at night)? [id number] Information not available 08/24/2021 Family History Relationship [...] Atrial Fibrillation N High Blood Pressure N Thyroid Problems N Kidney or Bladder Problems N Depression Y COPD N Blood Clots N GI Problems Y Skin Problems N Anemia N Heart Attack ([place]) N Diabetes N Anxiety Disorder Y Muscle, Joint, or Bone Problems N Seizures/Epilepsy N Acid Reflux (GERD) Y Cancer N Stroke N Allergies N Asthma Y High Cholesterol N Hepatitis N Liver Disease [...] 08/24/2021 08:48:01 influenza, unspecified formulation 3 completed DAQUAN [place] [facility] 12/19/2022 08:42:37 COVID-19, mRNA, LNP-S, bivalent, PF, 30 mcg/0.3 mL dose 3 [place] [facility] 12/19/2022 08:44:11 influenza, unspecified formulation 4 completed DAQU[place] [facility] 12/08/2023 12:12:26 SARS-COV-2 (COVID-19) vaccine, UNSPECIFIED 4 completed DAQU[place] [facility] 05/24/2024 16:16:40 zoster, unspecified formulation 4 [place] [facility] 05/24/2024 16:17:13 zoster, unspecified formulation 4 completed [place] [facility] 05/24/2024 16:17:18 pneumococcal, unspecified formulation 3 [place] [facility] 05/24/2024 16:18:25 MMR 5 completed Not Available [facility] 02/11/2025 09:52:29 MMR 3 completed Not Available [facility] 02/11/2025 09:52:29 Hep A, pediatric, unspecified formulation 0 completed Not Available [facility] 02/11/2025 09:52:29 Influenza, split virus, trivalent, preservative 4 completed Not Available [facility] 02/11/2025 09:52:29 Influenza, split virus, quadrivalent, PF 5 completed Not Available [facility] 02/11/2025 09:52:29 zoster live 5 completed Not Available [facility] 02/11/2025 09:52:29 Influenza, split virus, trivalent, preservative 5 completed Not Available [facility] 02/11/2025 09:52:29 Influenza, split virus, trivalent, preservative 6 completed Not Available [facility] 02/11/2025 09:52:29 Influenza, split virus, quadrivalent, preservative 7 completed Not Available [facility] 02/11/2025 09:52:29 Influenza, split virus, quadrivalent, preservative 9 completed Not Available [facility] 02/11/2025 09:52:29 COVID-19, mRNA, LNP-S, bivalent, PF, 30 mcg/0.3 mL dose 2 completed Not Available [facility] 02/11/2025 09:52:29 Influenza, split virus, quadrivalent, PF 2 completed Not Available [facility] 02/11/2025 09:52:29 COVID-19, mRNA, LNP-S, PF, shelia-sucrose, 30 mcg/0.3 mL 4 completed Not Available [facility] 02/11/2025 09:52:29 Influenza, split virus, trivalent, PF 5 completed Not Available [facility] 02/11/2025 09:52:29 COVID-19, mRNA, LNP-S, PF, 50 mcg/0.5 mL 5 completed Not Available [facility] 02/11/2025 09:52:29 Influenza, split virus, quadrivalent, preservative 7 completed Deloris [place], [place] - [facility] 11/20/2020 12:16:14 Tdap 7 completed DAQUAN [place] [facility] 02/19/2019 15:11:17 Influenza, split virus, quadrivalent, PF 8 completed Deloris [place] [facility] 11/20/2020 12:16:14 Past Encounters Encounter ID Performer Location Encounter Start Date Encounter Closed Date Diagnosis/Indication Diagnosis SNOMED-CT Code Diagnosis ICD10 Code Diagnosis IMO Codes Diagnosis Note [id number] Jassi Rodriguez MD [facility] (Adult Med) [address] [place] [address] 03/23/2017 08:43:39 04/05/2017 09:28:04 Multiple sclerosis 23335759 G35 first diagnosed 2010, lesions to brain & spine. Has had mutliple flares requiring hospitaliz ation for IV steroids. Multiple medication s tried in past including Avonex, Rebif, Gilenya and Tecfidera. She completed one year of Tyserbi injections but stopped due to increased risk of PML in a positive [facility] virus patient. She will restart Tecfidera 03/28/2017. She needs to establish with a new neurologis t due to insurance no longer covering [facility]. Spasmodic movement 33650 6004 R25.3 fairly well controlled w/ recent addition of carbamazep ine to Keppra. No seizures noted on EEG per patient, but jerking movements of her arms react to anti-seizu re meds. Cont to follow with new neurologis t Chronic he adache disorder 702884479 G43.719 fairly well controlled on current medication s: amitriptyl ine, topiramate and PRN sumatripta n Dysphagia 94557175 R13.1 0 h/o esophageal strictures , Jose Guadalupe's esophagus, taking PPI & sucralfate . However, persitent sensation of something in her throat. Sees Dr. Diggs but he has referred her to specialist in [place], had to change from [facility] and has new appt at [facility] clinic. Lumbar radiculopathy 128 576701 M54.16 currently well controlled . Cont lyrica, gabapentin . Not on NSAIDs due to Ochoa's & GERD sxs. Persistent cough 0975159 02 R05 pt feels it is getting better w/ generic singulair and other allergy treatment meds. If cough worsens despite being on these medication s, will refer to new ENT specialist Transient global amnesia 460445136 G45.4 keep new patient appt with neurology. Generalize d anxiety disorder 03508179 F41.1 takes clonazepam as needed, but not every day. cont distractio n techniques , likes to watch live videos of zoo babies, currently twin tigers. Body mass index 25-29 - overweight 536647820 Z68.25 follow heart healthy diet, stay active. Depression screening positive 3700609076 28983 R45.89 reports increased anxiety & depressed mood since she found out her insurance changed. She is reluctant to add more medication s at this time, she has good family support, chats w/ friends online and uses live video feeds of baby animals at the zoo to keep her calm when she is stressed. But admits 2 ER visits for what she thought were MS flares since the new year, but were likely linked to stress & anxiety w/ having to establish with new providers including new PCP and neurologis t [id number] MD [facility]ely[facility] Chatterjee (Adult Med) [address] [place] [address] 04/03/2017 15:08:05 04/04/2017 11:22:23 Multiple sclerosis 66749210 G35 Recent hospitaliz ation records, MRI and med list reviewed, no new lesions on brain MRI. Given 2 doses of IV solu-medro l and numbness/t ingling resolved. Achilles tendinitis 1165 4001 M76.62 Possibly due to Levaquin 750mg Rx in ER for UTI (no growth on cx); instructed pt to stop the medication . given foot/ankle AAOS conditioni ng exercises to start at home. Call if not improving in 2-3 weeks. MD [facility] Chatterjee (Adult Med) [address] [place] [address] 05/25/2017 09:42:28 05/26/2017 08:16:41 Strain of Achilles tendon 89440929 S86.012D h/o MS. present since March after she was treated for UTI w/ fluoroquin olone. She has been doing the AAOS foot/ankle exercises given at Mar visit w/o relief. Pain w/ walking/we ight bearing on that left ankle but no falls. Persistent cough 8754746 02 R05 stable/con trolled on ventolin and singulair. cont current treatment, no further workup at this time. negative esophageal spasms per pt report. Psychologi c conversion disorder 07246592 F44.9 shakes for one week, trial of steroids didn't help, likely related to anxiety from disability appeal being denied by the court. Neuro recommende d she see counseling and she is back to seeing Nelly Wellington APN. Pt restarted clonazepam that she hadn't taken since 2016 Multiple sclerosis 74673 007 G35 stable, establishe d with dr. Ball and no longer on prednisone . [id number] MD Melyssa Chatterjee (Adult Med) [address] [place] [address] 06/26/2017 14:17:48 06/27/2017 07:52:52 Axillary lymphadenopathy 637036213 R59.0 likely due to recent febrile illness. cont to monitor, call office if not resolved in 2-4 weeks. Multiple sclerosis 09248 007 G35 stable, establishe d with dr. Ball and no longer on prednisone . Needs to get annual eye exam. Allergic rhinitis 564660 04 J30.2 Bereavement 94577673 Z63 .4 cont weekly counseling sessions. discussed that if overeating lasts longer than this week, call office, or if she feels depression is worsening. [id number] MD Roxanna Chatterjeehalto (Adult Med) [address] [place] [address] 09/26/2017 10:03:38 09/27/2017 17:23:00 Multiple sclerosis 07039874 G35 sxs from previous visit are improving after treatment by specialist s. She is managing chronic MS better at this time. Generalize d anxiety disorder 15586106 F41.1 stable, she continues to take clonazepam PRN but overall feels anxiety over finding new providers and treating her MS sxs are improved. Eruption 496291054 R21 possible heat rash reaction to left wrist. Stop wearing watch for now, use steroid cream. Skin lesion 31224357 L98 .9 to right medial thigh; discussed possible ringworm, but she has no known exposure. will do trial of steroid cream, call if not improving in one week. [id number] MD Melyssa Chatterjee (Adult Med) [address] [place] [address] 11/13/2017 11:10:22 11/14/2017 08:31:11 Backache 678681595 M54.9 Cont PRN Tylenol, ice; start PT as pt is not a candidate for NSAIDs due to GI sxs. Pain in right knee 57736 48116 76438 M25.561 had done well after steroid injection, unfortunat ankur her current orthopedic doctor no longer takes her insurance. 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 Recommend she f/u with neuro to make sure it is not seizure. She is taking both keppra and carbamazep ine for tremors/sh akes. no prior h/o seizures, last EEG was few years ago. dwp possible vasovagal event after she vomited Vomiting 266868033 R11.1 0 one time episode, unprovoked , not related to eating. passed out afterwards . ER w/u showed possible UTI. However, review of urine cx was negative for bacterial growth. She will complete 7 days of abx today. No further vomiting episodes. To see GI in a few weeks for f/u on dysphagia. [id number] MD R[facility]anna [facility]jee[facility] (Adult Med) [address] [place] [address] 03/30/2018 09:35:40 04/02/2018 09:05:40 Congestion of nasal sinus 16518745 R09.81 possibly contributi ng to GOMES sxs. Multiple sclerosis 77609 007 G35 she has been on 2 rounds of steroids from neuro and now on Haldol for what she calls her MS flare w/o relief, says pain sxs return after 2 days. Chronic he adache disorder 251129879 G43.719 Cont current daily meds, start treating sinus sxs and see if GOMES improves. Standard c hest X-ray abnormal 959973006 R93.89 ER note reported possible right costophren ic angle possible opacity vs. atelectasi s. Reviewed film single view not well expanded lung film, difficult to see bases. Not likely pneumonia as pt was asymptomat ic, likely atelectasi s since she was not taking deep breaths with recent myalgias. she has since completed z-pack. [id number] MD Melyssa Chatterjee (Adult Med) [address] [place] [address] 05/24/2018 11:12:06 05/28/2018 16:46:52 Impacted cerumen in right ear 0422508146 526295 H61.21 with hearing loss that improved s/p ear lavage Hearing lo ss of right ear 457374506 H91.91 stared 2 weeks ago after her MRIs done for f/u on MS, cerumen within right ear canal. Hearing returned after ear lavage. Polyp of m axillary sinus 92330027 J33.8 Noted on MRI brain done 2 weeks ago along w/. She continues to do nasal steroid and sinus rinse. Recommend she call at end of week if sinuses don't improve At [facility] risk of polypharmacy 243969953 Z91.89 Neurologis t is decreasing her gabapentin and she is feeling lethargic and achy. Advised her to continue w/ current med reduction, will take a little while to adjust to dose decrease. Keep f/u with neuro Body mass index 30+ - obesity 181655742 Z68.33 Neuro started her on low fat, low carb diet for weight loss, she is frustrated after a week she is gaining weight. Advised her to stop checking daily, do weight check weekly and continue with diet as prescribed . [id number] MD Melyssa Chatterjee (Adult Med) [address] [place] [address] 08/06/2018 15:40:32 08/07/2018 09:22:56 Moderate recurrent major depression 75686246 F33.1 Admitted to inpatient psych for suicidal thoughts, she was recommende d on cymbalta, we will get prior auth started. Advised her to keep neuro & psych appts for later this week. At [facility] risk of polypharmacy 672630740 Z91.89 discussed additive effects, despite having no previous side effects on lyrica, discussed how med + gabapentin , SSRI, amitriptyl ine all can combine to cause more harm then good. She is agreeable to discussing tapering off lyrica with neuro along w/ amitriptyl ine. She is already tapering off haldol. also need to confirm w/c anti-seizu re meds she is taking. [id number] MD Melyssa Chatterjee (Adult Med) [address] [place] [address] 08/23/2018 10:58:38 08/28/2018 16:23:23 Insomnia 179737253 G47.00 we can restart amitriptyl ine low dose and slowly taper to see if her sleep improves until she sees neuro in 3 weeks [id number] MD Roxanna [facility] (Adult Med) [address] [place] [address] 11/16/2018 09:46:25 11/19/2018 09:47:33 Multiple sclerosis 40110032 G35 with GOMES/trigemi nal neuralgia/ ? SZpt sees Dr.Sherwoo harris Generalize d anxiety disorder 11510307 F41.1 with conversion disorderpt sees psych at [facility] Nonspecifi c esophageal motility disorder 830583136 K22.4 pt sees GI /[facility] -pt is on bethanecho l Agreed to continue same GI for now due to her multiple chronic issues -may consider to change GI closer to home in future Pruritic rash 43639156 L 28.2 on lower legspossib ly due to bug bites or ant bite Obesity 005135876 E66.9 healthy diet and exercise discussed with pt [id number] [facility] [address] [place] [address] 02/19/2019 14:40:21 02/20/2019 09:35:53 Dysuria 53985625 R30.9 urine dipstick-n egpt to keep good hydration Nausea and vomiting 1693 2000 R11.2 pt has Zofran at home , but could not keep things down .pt is agreed to try suppositor y [id number] MD Roxanna [facility] (Adult Med) [address] [place] [address] 05/13/2019 09:51:52 05/14/2019 08:54:16 Multiple sclerosis 92380923 G35 with GOMES/trigemi nal neuralgia/ ? SZpt sees Dr.Sherwoo steven [place] d anxiety disorder 13494486 F41.1 with conversion disorderpt sees psych at [facility] Dysphagia 05221995 R13.1 0 with esophageal motilitypt sees GI [id number] MD Melyssa [facility]orga (Adult Med) [address] [facility] [place] [address] 11/12/2019 08:12:45 11/18/2019 11:40:20 Multiple sclerosis 23891350 G35 with GOMES/trigemi nal neuralgia/ ? SZpt sees Dr.Sherwoo harris Generalize d anxiety disorder 90356974 F41.1 with conversion disorderpt sees psych at [facility] Dysphagia 58015050 R13.1 0 with esophageal motilitypt sees GI [id number] MD Melyssa Astorga (Adult Med) [address] [place] [address] 05/04/2020 11:31:01 05/06/2020 11:44:47 Pain of elbow region 08104384 M25.522 possibly due to lateral epicondyli tis .pt is reassuredp t is going to get covid vaccine - advised pt to avoid nsaid or steroid at this timeok for pt to take tylenol Elevated blood-pressure reading without diagnosis of hypertension 730462278 R03.0 healthy diet and exercise discussed with ptmonitor bpreassess [id number] MD Melyssa Astorga (Adult Med) [address] [place] [address] 06/16/2020 14:40:21 06/18/2020 08:53:28 Pain of elbow region 57229899 M25.522 possibly due to lateral epicondyli tis . pt is reassured pt wants to see ortho since it is not getting any better ok for pt to take tylenol [id number] MD Melyssa Astorga (Adult Med) [address] [place] [address] 07/06/2020 13:58:08 07/07/2020 10:20:04 Generalized anxiety disorder 23208558 F41.1 with conversion disorderpt sees psych at [facility] Multiple sclerosis 06966 007 G35 with GOMES/trigemi nal neuralgia/ ? SZpt sees Dr.Sherwoo harris [id number] MD Melyssa [facility]a (Adult Med) [address] [facility] [place] [address] 08/12/2020 09:11:28 08/13/2020 07:49:35 Multiple sclerosis 68416231 G35 with GOMES/trigemi nal neuralgia/ ? SZpt sees Dr.Sherwoo harris Generalize d anxiety disorder 21323343 F41.1 with conversion disorderpt sees psych at [facility] Pain of elbow region 743 85145 M25.522 possibly due to lateral epicondyli tis . pt sees ortho and having PT ok for pt to take tylenol [id number] [facility] [address] [place] [address] 10/13/2020 14:27:04 10/15/2020 10:14:07 Pain of elbow region 50528750 M25.522 pt sees ortho and going for ulnar transposit ion sx in few wks Pre-surger y evaluation 572034534 Z01.818 for L/ulnar nerve transposit ion sx in few wks under [place]-pt is low risk for sx [id number] [facility] [address] [place] [address] 11/12/2020 09:31:59 11/12/2020 19:36:47 Upper respiratory infection 46400320 J06.9 covid-neg per pt and had fully vaccinated -keep good hydration /supportiv e care-go to ER if any breathing issue [id number] MD Roxanna [facility] (Adult Med) [address] [place] [address] 11/20/2020 08:04:06 11/26/2020 11:55:47 Upper respiratory infection 06726845 J06.9 covid-neg per pt and had fully vaccinated -keep good hydration /supportiv e care-compl ete antibiotic prescribed in ER-go to ER if any breathing issue Rib pain 358981827 R07.8 1 with nondisplac ed 7 th rib fx /R - pt to do deep breathing exercise [id number] MD Roxanna [facility] (Adult Med) [address] [place] [address] 02/15/2021 09:00:01 02/16/2021 12:17:20 Multiple sclerosis 46324773 G35 with GOMES/trigemi nal neuralgia/ ? SZpt sees Dr.Sherwoo harris Chronic he adache disorder 707168821 G43.719 pt is on topamax Generalize d anxiety disorder 88415836 F41.1 with conversion disorderpt sees psych at [facility] Pain of elbow region 743 59554 M25.522 pt sees ortho Localized eruption of skin 476073105 R21 on elbow - looks ring like rash - pt to use antifungal ceam [id number] MD Melyssa [facility]orga (Adult Med) [address] [place] [address] 08/24/2021 08:11:48 08/25/2021 08:04:38 Multiple sclerosis 14538233 G35 with GOMES/trigemi nal neuralgia/ ? SZpt sees Dr.Sherwoo harris Chronic he adache disorder 000946631 G43.719 pt is on topamax Generalize d anxiety disorder 91552550 F41.1 with conversion disorderpt sees psych at [facility] Localized eruption of skin 235743233 R21 on elbow - looks ring like rash - did not respond to antifungal Obesity 340895118 E66.9 healthy diet and exercise discussed with pt Pain of ri ght shoulder joint 4262624337 6881651 M25.511 Pain of sh oulder region 29912102 M25.519 -evaluated in ER- xray -neg [id number] MD Roxanna [facility] (Adult Med) [address] [place] [address] 02/07/2022 14:34:16 02/08/2022 09:20:15 Acute urinary tract infection 572253944 N39.0 pt to keep good hydration [id number] MD Melyssa [facility]orga (Adult Med) [address] [place] [address] 06/13/2022 08:25:45 06/14/2022 15:48:16 Generalized anxiety disorder 85129715 F41.1 with conversion disorderpt sees psych at [facility] Multiple sclerosis 81195 007 G35 with GOMES/trigemi nal neuralgia/ ? SZpt sees Dr.Sherwoo harris Overactive urinary bladder 956081412 N32.81 with recurrent UTI -pt sees urologist Obesity 330309793 E66.9 healthy diet and exercise discussed with pt [id number] MD Melyssa Astorga (Adult Med) [address] [place] [address] 12/19/2022 08:17:04 12/22/2022 11:43:22 Generalized anxiety disorder 44660328 F41.1 with conversion disorderpt sees psych at [facility] Overactive urinary bladder 595126586 N32.81 with recurrent UTI -pt sees urologist Multiple sclerosis 33030 007 G35 with GOMES/trigemi nal neuralgia/ ? SZpt sees Dr.Sherwoo harris Obesity 175248123 E66.9 healthy diet and exercise discussed with pt [id number] [facility] [address] [place] [address] 07/03/2023 08:36:00 07/04/2023 10:34:55 Generalized anxiety disorder [id number] F41.1 with conversion disorderpt sees psych at [facility] Overactive urinary bladder [id number] N32.81 with recurrent UTI -pt sees urologist Multiple sclerosis 09116 007 G35 with GOMES/trigemi nal neuralgia/ ? SZpt sees Dr.Sherwoo harris Obesity [id number] E66.9 healthy diet and exercise discussed with pt [id number] [facility] [address] [place] [address] 12/08/2023 11:54:20 12/11/2023 16:49:30 Bilateral earache [id number] H92.03 pt is using ear drop-pt is reassuredp t to try steam inhalation to help with sinuses [id number] Quinton Chávez MD [facility] [address] [place] [address] 05/24/2024 14:51:41 06/10/2024 09:56:46 Strain of neck muscle [id number] S16.1XXA -spasticit y noted to neck, presentati on concerning for strain of neck muscle-pat ient agreeable to trying neck exercises to help calm this muscle flare-sierra ent to return to clinic if symptoms worsen or do not improve-co nsider ultrasound if symptoms do not improve-ca re instructio ns provided [id number] [facility] [address] [place] [address] 06/26/2024 15:04:30 07/15/2024 10:53:57 Mixed anxiety and depressive disorder [id number] F41.8 [id number] -Managemen t per psychiatry -Denies active suicidal [...] to call clinic with questions Multiple sclerosis 97479 007 G35 58421 -Managemen t per neurology- patient reports symptoms are stable at this time- continue current therapy HIV screen ing declined [id number] 16754 Z53.20 [id number] Acute righ t otitis media 541221900 H66.91 9618975 -Patient presentati on consistent with acute right otitis media.-Pat ient agreeable to treatment with doxycyclin e 100mg BID for 7 days. CRYSTAL GRINDER advised patient to consume OTC probiotic or yogurt while on antibiotic therapy.-P atient to follow up in clinic if symptoms worsen or do not improve. [id number] Quinton Chávez MD [facility] (Adult Med) [address] [place] [address] 07/19/2024 14:18:10 08/05/2024 09:10:01 Otitis externa of right ear [id number] 949823 H60.91 [id number] -patient presentati on consistent with otitis externa-pa tient agreeable to treatment with Ciprodex eardrops b.i.d. for 7 days-patie nt to follow up in clinic if symptoms worsen or do not improve-ER precaution s advised Seasonal allergy 8091683 04 J30.2 48905 -patient agreeable to treatment of seasonal allergies with fluticason e nasal spray PRN Obese class II [id number] 1 18807 E66.812 [id number] CRYSTAL GRINDER advised patient to follow a well balanced diet and obtain regular exercise. Informatio nal handout provided. [id number] MD Melyssa [facility]ver (Adult Med) [address] [place] [address] 11/21/2024 11:52:56 11/25/2024 17:00:08 Acute cough [id number] R05.3 [id number] -Negative for influenza and covid-Sierra ent agreeable to treatment with tessalon perles and guaifenesi n PRN-Patien t to follow up in clinic if symptoms worsen or do not improve-CRYSTAL GRINDER encouraged patient to stay hydrated-E R precaution s advised [id number] MD Melyssa [facility] (Adult Med) [address] [place] [address] 12/26/2024 08:39:51 12/27/2024 18:30:42 Mixed anxiety and depressive disorder [id number] F41.8 580833 -Managemen t per psychiatry -Denies active suicidal [...] to call clinic with questions Multiple sclerosis 07026 007 G35.D 83937 -Managemen t per Neurology- Symptoms worsening with change in season.-Pa tient to follow up with neurologis t to have medication adjustment s-ER precaution s advised Osteoporosis 28224685 M8 1.0 [id number] -Last calcium level: ordered-La Vitamin D level: ordered- DEXA scan: 2023-reque st records-Tr end vitamin d and calcium levels-Adv ised patient to:-Increa se calcium and vitamin D intake.-Sm oking cessation. -Limit alcohol intake.-Li butch caffeine intake.-Ta ke measures to prevent falling (with low bone density, falls can result in fractured or broken bones fairly easily) Prediabetes 278910140 R7 3.03 002676 -Recheck A1c today-No medication therapy-Re commended diabetic diet-Educa swapna to check feet daily. Mixed hyperlipidemia 267 717192 E78.2 56805 -No medication therapy-Re check lipid panel-Nimo harris LFTs-Danny nt educated on the importance of diet, exercise and medication in the management of this condition. Long-term current use of drug therapy 636219966 Z79.899 71378495 Overweight 436876255 E66 .3 [id number] MD Melyss[facility] (Adult Med) [address] [place] [address] 01/23/2025 11:33:08 01/27/2025 14:18:19 Acute bilateral otitis media 488815580 H66.93 4051143 -Neative for influenza and covid-Bila teral TMs erythemato us. Patient presentati on consistent with bilateral otitis media.-Pat ient agreeable to treatment to doxycyclin e BID for 7 days. CRYSTAL GRINDER advised patient to consume OTC probiotic or yogurt while on antibiotic therapy.-P atient to follow up in clinic if symptoms worsen or do not improve-ER precaution s advised [id number] MD Melyssa Smith (Adult Med) [address] [place] [address] 02/11/2025 09:51:30 02/12/2025 11:59:32 Temporomandibular joint disorder 67094746 M26.609 925855 soft diet anti inflammato francia return if she has more problems Health Concerns Section Related Observation LastModified by Organization Detai ls LastModified Time None Recorded Concern Status LastModified by Organization Details LastModified Time None Recorded Advance Directives Directive N: Payers Insurance Date Sequence Insurance Name Policy Number Policy Orellana Covered Member ID Orellana Member ID Guarantor Name 02/08/2025 1 [place] Adeline Gurrola [id number] Adeline Gurrola 02/09/2025 [place] [facility] Adeline Gurrola [id number] Adeline Wing Gurrola 11/04/[address] [facility] (MEDICAID HMO) [id number] Adeline Gurrola [id number] Adeline Wing Gurrola 11/05/2019 3 *SELF PAY* Mikie Gurrola 03/23/2017 1 [facility] Adeline Gurrola [id number] Adeline Wing Gurrola 02/08/2025 MEDICARE [facility] Adeline Gurrola [id number] Adeline Wing Gurrola 01/23/2025 2 [employer] (MEDICARE SUPPLEMENT) Adeline Gurrola [id number] Adeline Gurrola Notes Date Note Type Note Provider Name and Address Organization Details Recorded Time 07/19/2024 text/html Patient presents to the clinic with acute complaint of ear pain. Patient's past medical history includes: headache, anxiety, anxiety, depression, ADHD, back pain, tobacco use, marijuana use, GERD, asthma, prediabetes, MS, total hysterectomy, and tonsillectomyOther providersNeurologist-Dr Jessica Ball with [facility]-Dr. Amos with [facility]/WHEEL ADJUSTER-[place] Batista in [place] -Patient reports her right ear started hurting 3-4 days ago and her left ear started hurting today.-Patient reports symptoms of sinus congestion, sneezing,-Denies experiencing symptoms of fevers, nausea, vomiting, diarrhea, increased fatigue, or body aches.-Patient has been taking benadryl to help control her symptoms. CHANTEL RUBIO- Attn: Accounting,[address] [place], [address], [facility] 08/03/2024 23:31:07 11/21/2024 text/html Patient presents to the clinic with acute complaint of cough. Patient's past medical history includes: headache, anxiety, anxiety, depression, ADHD, back pain, tobacco use, marijuana use, GERD, asthma, prediabetes, MS, total hysterectomy, and tonsillectomyOther providersNeurologist-Dr Jessica Ball with [facility]-Dr. Amos with [facility] CRYSTAL GRINDER with [facility]/WHEEL ADJUSTER-[place] Batista in [place] -Patient reports she started feeling sick Monday-Patient reports experiencing symptoms of cough, sinus congestion, sweats, diarrhea, body aches, and increased fatigue.-Denies experiencing nausea, vomiting, or sore throat.-Reports her mother had a cold last week.-Patient reports she is taking mucinex for her symptoms. [facility] Attn: Accounting,[address] [facility], [place], [address], [facility] 11/21/2024 14:46:35 12/26/2024 text/html Patient is a 39-year-old female presenting to the clinic for her six-month follow up appointment. Patient's past medical history includes: headache, anxiety, anxiety, depression, ADHD, back pain, tobacco use, marijuana use, GERD, asthma, prediabetes, MS, total hysterectomy, and tonsillectomyOther providersNeurologist-Dr Jessica Ball with [facility]-Dr. Amos with [facility] CRYSTAL GRINDER with [facility]/WHEEL ADJUSTEROseas Batista in [facility] Natalya Amezquita -Patient reports she is feeling better.-She has follow up with neurology to discuss some new neurological side effects with MS. She may need her medications adjusted. [facility] Attn: Accounting,[address] [facility], [place], [address], [facility] 12/26/2024 09:28:30 01/23/2025 text/html Patient is a 39 year old female presenting to the clinic with acute complaint of sinus congestion. Patient's past medical history includes: headache, anxiety, anxiety, depression, ADHD, back pain, tobacco use, marijuana use, GERD, asthma, prediabetes, MS, total hysterectomy, and tonsillectomyOther providersNeurologist-Dr Jessica Ball with Jennifer Amos with [facility]YSTAL GRINDER [facility]/WHEEL ADJUSTEROseas [place] [facility] Natalya Amezquita -Patient reports she started developing sinus congestion 2 weeks ago.-Reports experiencing symptoms of sinus congestion, and diarrhea.-Denies experiencing symptoms sore throat, fever, nausea, body aches, and fatigue.-She has been taking allergy medicine and this is not helping.-Reports her sinus congestion has been clear, no yellow tinge.-She is using fluticasone and montelukast with little relief. She is also taking benadryl. CHANTEL RUBIO- Attn: Accounting,[address] [place], [address], [facility] 01/23/2025 14:20:02 02/11/2025 text/html ROS as noted in the HPI Pt complaining of ear pain for the last month. She was told she had an ear infection. She does not have a problem with hearing. She says she has had infections 4 times this year Austen Holland MD Attn: Accounting,[address] [place], [address], [facility] 02/11/2025 10:15:12 OBGyn Episode No OBEpisode recorded.
--- OUTSIDE RECORDS SUMMARY | 2025-03-02 08:10 | XMS_ITS | Encounter Summary ---
Author Organization [facility] Address [address] [place] [address] Phone Care Team Providers Care Fire Control Technician G Name Role Phone Geovanna Alvarado APRN, STRUCTURAL WORKER Unavailable [phone] Kathy Mirza MD Primary Care Provider Loyd Ball MD Unavailable Unique Saba APRN, STRUCTURAL WORKER Primary Care Provider Reason for Visit * Reason Comments Medication Refill Encounter Details Date Type Department Care Team (Late st Contact Info) Description 09/25/2021 Refill [facility] Medical [facility] [place] [address] [place] [address] Loyd Ball MD [address] [place] [address] Medication Refill Social History Tobacco Use Types [...] suspected to have Coronavirus/COVID-19? No / Unsure 09/26/2021 11:07 PM CDT documented as of this encounter Plan of Treatment Upcoming Encounters Date Type Department Care Team (Late st Contact Info) Description 07/17/2025 10:00 AM CDT Office Visit [facility] [place] [address] [place] [address] Loyd Ball MD [address] [place] [address] documented as of this encounter Visit Diagnoses Diagnosis Neuropathy Mononeuritis of unspecified site documented in this encounter Additional Health Concerns Infection Onset Date Last Indicated Resolved Time COVID - 19 02/16/2022 02/16/2022 02/26/2022 12:1 6 AM LANDSCAPE FOREMAN Respiratory Rule-Out 02/16/2022 02/16/2022 022 8:42 AM LANDSCAPE FOREMAN COVID - 19 06/21/2022 06/21/2022 07/01/2022 12:1 7 AM CDT COVID - 19 11/12/2022 11/12/2022 11/22/2022 12:1 6 AM CDT documented as of this encounter Care Teams Fire Control Technician G Relationship Specialty Start Date End Date Kathy Mirza MD [address] [place] [address] PCP - General Internal Medicine 11/20/18 07/10/24 Unique Saba, CORROSION CONTROL TECHNICIAN, STRUCTURAL WORKER [address] [place] [address] PCP - General Advanced Practice Nurse 07/11/24 Geovanna Alvarado, CORROSION CONTROL TECHNICIAN, STRUCTURAL WORKER Nurse Practitioner Advanced Practice Nurse 03/24/16 Loyd Ball MD [address] [place] [address] Consulting Physician Neurology 02/08/22 documented as of this encounter
--- OUTSIDE RECORDS SUMMARY | 2025-03-02 08:10 | XMS_ITS | Encounter Summary ---
Author Organization [facility] Address [address] [place] [address] Phone Care Team Providers Care Route Delivery Manager Name Role Phone Geovanna Alvarado APRN, AUTOMOTIVE PARTS CLERK Unavailable [phone] Kathy Mirza MD Primary Care Provider [phone] Loyd Ball MD Unavailable Unique Saba APRN, AUTOMOTIVE PARTS CLERK Primary Care Provider Reason for Visit * Reason Comments Medication Refill Encounter Details Date Type Department Care Team (Late st Contact Info) Description 04/05/2022 Refill [facility] [place] [address] [place] [address] Loyd Ball MD [address] [place] [address] Medication Refill Social History Tobacco Use Types [...] Description 07/17/2025 10:00 AM CDT Office Visit [facility] Neurology [facility] [address] [place] [address] Loyd Ball MD [address] [place] [address] documented as of this encounter Visit Diagnoses Diagnosis Migraine without status migrainosus, not intractable, unspecified migraine type documented in this encounter Additional Health Concerns Infection Onset Date Last Indicated Resolved Time COVID - 19 06/21/2022 06/21/2022 07/01/2022 12:1 7 AM CDT COVID - 11/12/2022 11/12/2022 11/22/2022 12:1 6 AM CDT documented as of this encounter Care Teams Route Delivery Manager Relationship Specialty Start Date End Date Kathy Mirza MD [address] [address] PCP - General Internal Medicine 11/20/18 07/10/24 Unique Saba APRN, AUTOMOTIVE PARTS CLERK [address] [place] [address] PCP - General Advanced Practice Nurse 07/11/24 Geovanna Alvarado APRN, AUTOMOTIVE PARTS CLERK Nurse Practitioner Advanced Practice Nurse 03/24/16 Loyd Ball MD [address] [place] [address] Consulting Physician Neurology 02/08/22 documented as of this encounter
--- OUTSIDE RECORDS SUMMARY | 2025-03-02 08:11 | XMS_ITS | Clinical Summary ---
Author Organization [facility] Address [address] [place] [address] Care Team Providers Care Delivery Merchandiser Name Role Phone Yanelis Vasquez Primary Care Provider + Allergies Active Allergy Reactions Criticality Noted Date Comments Amoxicillin-Pot Clavulanate Rash Low 03/09/2010 Levofloxacin Other (See Comments) Low 05/18/2017 Tendon swells Nsaids (Non-Steroidal Anti-Inflammatory Drug) Unknown 11/30/2017 Tolmetin Unknown 03/27/2017 GI DOCTOR DOESN'T WANT PT TO TAKE Medications dimethyl fumarate delayed release (TECFIDERA) 240 mg Capsule, Delayed Release(E.C.) Take 240 mg by mouth. Active SUMAtriptan (IMITREX) 100 mg tablet Take 100 mg by mouth. 05/18/2017 Active clonazePAM (KlonoPIN) 0.5 mg Tablet Take 0.5 mg by mouth. 10/24/2014 Active famotidine (PEPCID) 20 mg tablet Take 30 mg by mouth. 02/20/2017 Active omeprazole (PriLOSEC) 40 mg Capsule, Delayed Release(E.C.) Take 40 mg by mouth. 02/20/2017 Active topiramate (TOPAMAX) 50 mg tablet Take 50 mg by mouth. 04/25/2017 Active cholecalciferol, Vitamin D3, (VITAMIN D3) 1,000 unit Capsule Take 14,000 Units by mouth. 05/18/2017 Active biotin 5 mg Capsule Take 5,000 mcg by mouth. 05/18/2017 Active carBAMazepine (CARBATROL) 200 mg Extended Release 12 hour capsule Take 200 mg by mouth. 04/25/2017 Active amitriptyline (ELAVIL) 50 mg tablet Take 50 mg by mouth. 01/08/2015 Active levETIRAcetam (KEPPRA) 500 mg tablet Take 500 mg by mouth. 04/25/2017 Active prochlorperazine maleate (COMPAZINE) 10 mg tablet Take 10 mg by mouth. 05/18/2017 Active montelukast (SINGULAIR) 10 mg tablet Take 10 mg by mouth. 02/17/2017 Active lithium carbonate (ESKALITH IR) 150 mg Capsule Take 150 mg by mouth. Active bethanechol (URECHOLINE) 5 mg tablet Take 5 mg by mouth. 08/11/2017 Active sucralfate (CARAFATE) 1 gram tablet Take 1 Gram by mouth 4 times daily before meals and at bedtime. Active predniSONE (DELTASONE) 50 mg tablet Take 50 mg by mouth. 01/29/2018 Active FLUZONE QUAD 7640-1295, PF, 60 mcg (15 mcg x 4)/0.5 mL Syringe syringe ADM 0.5ML IM UTD 0 11/09/2017 Active ondansetron (ZOFRAN) 4 mg Tablet 0 01/03/2018 Active VENTOLIN HFA 90 mcg/actuation inhaler INL 2 PFS PO Q 6 H PRN 4 01/28/2018 Active cyclobenzaprine (FLEXERIL) 5 mg Tablet TK 1 T PO TID FOR UP TO 7 DAYS PRF MSP 0 01/29/2018 Active Active Problems Problem Noted Date Diagnosed Date Muscle spasm 11/30/2017 Mastodynia 11/30/2017 Family History Medical History Relation Name Comments Breast Cancer Mother alive at 67 Cancer Mother endometrial and sarcoma Relation Name Status Comments Mother Alive Social History Tobacco Use Types Packs/Day Years Used Date Smoking Tobacco: Former Cigarettes 0.5 6 0 08/04/2008 - 08/04/2014 Smokeless Tobacco: Never Alcohol Use Standard Drinks/Week Comments Yes 0 (1 standard drink = 0.6 oz pur e alcohol) occasional Comments No Sex and Gender Information Value Date Recorded Sex Assigned at Not on file Legal Sex Female 10:40 AM CDT Gender Identity Not on file Sexual Orientation Not on file Last Filed Vital Signs Vital Sign Reading Time Taken Comments Blood Pressure 125/85 01/31/2018 10:26 AM DIESEL MAINTENANCE TECHNICIAN Pulse 80 01/31/2018 10:26 AM DIESEL MAINTENANCE TECHNICIAN Temperature 36.8 C (98.2 F) 01/31/2018 10:26 AM DIESEL MAINTENANCE TECHNICIAN Respiratory Rate - - Oxygen Saturation 97% 01/31/2018 10:26 AM DIESEL MAINTENANCE TECHNICIAN Inhaled Oxygen Concentration - - Weight 87.3 kg (192 lb 8 oz) 01/31/2018 10:26 AM DIESEL MAINTENANCE TECHNICIAN Height 170.2 cm (5' 7) 01/31/2018 10:26 AM DIESEL MAINTENANCE TECHNICIAN Body Mass Index 30.15 01/31/2018 10:26 AM DIESEL MAINTENANCE TECHNICIAN Plan of Treatment Health Maintenance Due Date Last Done Comments HEPATITIS B VACCINES (1 of 3 - 19+ 3-dose series) 10/31/2002 HPV/Cotest (21-29) 10/31/2004 CERVICAL CANCER SCREENING 10/31/2013 HPV/Cotest (30-65) 10/31/2013 PAP SMEAR 10/31/2013 BREAST CANCER SCREENING 2023 11/09/2017 INFLUENZA VACCINE (#1) 2024 6, 11/26/2015, 12/02/2014, Additional history exists DTAP/TDAP/TD VACCINES (2 - T d or Tdap) 06/27/2026 06/27/2016 HPV VACCINES (No Doses Required) Completed Procedures Procedure Name Priority Date/Time Associated Diagnosis Comments MAMMO BILAT DIAGNOSTIC Routine 11/09/2017 from Last 3 Months or Most Recently Relevant to Health Maintenance Results * MAMMO BILAT DIAGNOSTIC (11/09/2017) Anatomical Region Laterality Modality Breast Bilateral Mammography us Abstract Provider MAMMO ORDERABLES Final Result from Last 3 Months or Most Recently Relevant to Health Maintenance Insurance [place] Care Teams Delivery Merchandiser Relationship Specialty Start Date End Date Deyto, Yanelis Lucille, PA [address] [place] [address] PCP - General Physician Meat Smoker 11/30/17
--- OUTSIDE RECORDS SUMMARY | 2025-03-02 08:11 | XMS_ITS | Encounter Summary ---
Author Organization [facility] Address [address] [place] [address] [place] [address] Care Team Providers Care Division Supervisor Name Role Phone Kathy Mirza MD Primary Care Provider [phone] Encounter Details Date Type Department Care Team (Late st Contact Info) Description 10/22/2021 Lab Requisition [facility] [address] [facility] [place] [id number] Turner Fritz MD [address] [place] [address] Social History Tobacco Use Types Packs/Day Years Used Date Smoking Tobacco: Former Cigarettes 0.5 Q uit: 02/08/2015 Smokeless Tobacco: Never Alcohol Use Standard Drinks/Week Comments Yes 1 (1 standard drink = 0.6 oz pure alcohol) 1 mixed drink every 6 months or less Comments No Sex and Gender Information Value Date Recorded Sex Assigned at Not on file Legal Sex Female 6:36 PM ENVIRONMENTAL SYSTEMS COORDINATOR Gender Identity Not on file Sexual Orientation Not on file documented as of this encounter Plan of Treatment Not on file documented as of this encounter Goals Goal Patient Goal Type Associated Problems Recent Progress Patient-Stated? Author Medication Management General On track( 019 8:09 AM CDT) Marisol Mast, LETITIA Note: Expected end date: ongoing Interventions: Take all medications as prescribed Let your doctor know right away about any changes in your medications Make sure to request a refill of your medication at least one week prior to your last dose documented as of this encounter Procedures Procedure Name Priority Date/Time Associated Diagnosis Comments DERMATOPATHOLOGY Routine 10/21/2021 12:0 0 AM CDT documented in this encounter Results * DERMATOPATHOLOGY (10/21/2021 12:00 AM CDT) Case Report Dermatopathology Report Case: [id number] Authorizing Provider: Turner Fritz MD Collected: 10/21/2021 12:00 AM Ordering Location: [facility] Received: 10/22/2021 07:30 AM Pathologist: Bekah Mclaughlin MD Specimen: Skin, left elbow 4:43 PM CDT DERMATOPATHOLOGY LABORATORY Final Diagnosis Specimen A. SKIN, left elbow: SUPERFICIAL PERIVASCULAR LYMPHOCYTIC INFILTRATE (L98.9) (see microscopic description and comment) 4:43 PM CDT DERMATOPATHOLOGY LABORATORY at 1643 CDT Clinical History Eczema vs GA vs other. Path#[id number] 4:43 PM CDT DERMATOPATHOLOGY LABORATORY Gross Description Specimen A: Received is one formalin filled container labeled with the patient's name and designated left elbow. The specimen consists of a shave biopsy measuring 7x4x1 mm. Jar 0. 4:43 PM CDT DERMATOPATHOLOGY LABORATORY Microscopic Description Specimen A. SKIN, left elbow: In the available superficial dermis, there is a perivascular, mainly lymphohistiocytic inflammatory infiltrate. Additional deeper sections were obtained and reviewed. Grocott's methenamine silver (GMS) stain fails to highlight fungal elements in the available sections. COMMENT: Given the superficial nature of the biopsy specimen, a deeper dermal process cannot be excluded. 4:43 PM CDT DERMATOPATHOLOGY LABORATORY Disclaimer An external and internal positive and negative controls are appropriate for the histochemical, immunohistochemical and immunofluorescence stain(s) in this case (if any), except where stated explicitly. The performance characteristics of the stain(s) cited in this report were developed and its performance characteristic determined by the Dermatopathology Laboratory at [facility], directed by Dr. Jean Singh. These tests need not be, and therefore are not, approved by the [place] Food and Drug Administration. The tests are used for clinical purposes. Billing Codes Specimen Charges Stain Charges 29655 1 07659 1 2 4:43 PM CDT DERMATOPATHOLOGY LABORATORY Embedded Images 2 4:43 PM CDT DERMATOPATHOLOGY LABORATORY Pathology/Cytolog y TISSUE SPECIMEN FROM SKIN / Unknown 10/21/2021 10/22/2021 7:30 AM CDT us Turner Fritz MD LAB - PATHOLOGY/CYTOLOGY ORDER GREG Final Result DERMATOPATHOLOGY LABORATORY [facility] - Department of Dermatology [facility] Medicine [address] [place] [address], [address] [phone] documented in this encounter Visit Diagnoses Not on filedocumented in this encounter Care Teams Division Supervisor Relationship Specialty Start Date End Date Kathy Mirza MD [address] [place] [address] PCP - General Internal Medicine 03/20/20 documented as of this encounter
--- OUTSIDE RECORDS SUMMARY | 2025-03-02 08:11 | XMS_ITS | Encounter Summary ---
Author Organization [facility] Address [address] [place] [address] Phone Care Team Providers Care Director Of Marketing Operations Name Role Phone Geovanna Alvarado APRN, PEANUT GRADER Unavailable [phone] Kathy Mirza MD Primary Care Provider [phone] Loyd Ball MD Unavailable [phone] Unique Saba APRN, PEANUT GRADER Primary Care Provider Reason for Visit * Reason Comments Medication Refill Encounter Details Date Type Department Care Team (Late st Contact Info) Description 05/14/[address] [facility] [address] [place] [id number] Loyd Ball MD [address] [place] [address] Medication Refill Social History Tobacco Use Types [...] on file documented as of this encounter Miscellaneous Notes * Telephone Encounter - Casandra Xiong RN - 05/15/2023 8:09 AM CDT Medication failed the protocol, provider to review and approve the medication order if appropriate. Requested Prescriptions Pending Prescriptions Disp Refills levETIRAcetam (KEPPRA) 500 MG Tablet [Pharmacy Med Name: LEVETIRACETAM 500 MG TABLET] 180 Tablet 3 Sig: TAKE 1 TABLET BY MOUTH TWICE A DAY Not Delegated - Anticonvulsants Excluding Benzodiazepines Protocol Failed - 05/14/2023 7:28 AM Failed - This refill cannot be delegated Passed - Visit with relevant provider in past 12 months or upcoming 90 days Recent Visits Date Type Provider Dept 02/09/23 Office Visit Loyd Blal MD [facility] 08/09/22 Office Visit Loyd Ball MD [facility] 07/01/22 Office Visit Loyd Ball MD [facility] Showing recent visits within past 365 days and meeting all other requirements Future Appointments Date Type Provider Dept 08/03/23 Appointment Loyd Ball MD [facility] Showing future appointments within next 90 days and meeting all other requirements documented in this encounter Plan of Treatment Upcoming Encounters Date Type Department Care Team (Late st Contact Info) Description 07/17/2025 10:00 AM CDT Office Visit [facility] - [facility]rology - [place] [address] [place] [phone] Loyd Ball MD [address] [place] [address] documented as of this encounter Visit Diagnoses Diagnosis Trigeminal neuralgia of right side of face documented in this encounter Care Teams Director Of Marketing Operations Relationship Specialty Start Date End Date Kathy Mirza MD [address] [place] [address] PCP - General Internal Medicine 11/20/18 07/10/24 Unique Saba APRN, PEANUT GRADER [address] [place] [phone] PCP - General Advanced Practice Nurse 07/11/24 Geovanna Alvarado APRN, PEANUT GRADER Nurse Practitioner Advanced Practice Nurse 03/24/16 Loyd Ball MD [address] [place] [address] Consulting Physician Neurology 02/08/22 documented as of this encounter
--- OUTSIDE RECORDS SUMMARY | 2025-03-02 08:11 | XMS_ITS | Patient Health Record ---
Author Organization [facility] [employer] [facility] Address [address] [facility] [address] [place] [address] Care Team Providers Care Chicken Vaccinator Name Role Phone Yuki DUNN, Kathy Primary Care Provider Marcia Jeronimo Unavailable [phone] Janie Healy Unavailable [phone] Nelly Oconnell Unavailable [phone] Allergies Allergen (clinical drug ingredient) Drug/Non Drug Allergy documented on EMR Reaction Allergy Type Onset Date Status Substance with sulfonamide structure and antibacterial mechanism of action (substance) SULFA (SULFONAMIDE ANTIBIOTICS) (uncoded) Unknown Allergy 06/21/2023 Active amoxicillin / clavulanate Augmentin Unknown Drug Allergy 06/21/2023 Active levofloxacin levoFLOXacin Unknown Drug Allergy 06/21/2023 Active Results Component Value Reference Range Notes UDT Reviewed date:05/10/2024 08:33:17 AM Interpretation: Performing Lab: Notes/Report: Amphetamine (AMP) NEG 0 - 1000 ng/ml Buprenorphine (BUP) NEG 0 - 10 ng/ml Oxazepam (BZO) NEG 0 - 300 ng/ml Cocaine (OLEKSANDR) NEG 0 - 300 ng/ml Methamphetamine (mAMP) NEG 0 - 300 ng/ml Methylenedioxymethamphetamine (MDMA) NEG 0 - 500 ng/ml Morphine (MOP) NEG 0 - 25 ng/ml Methadone (MTD) NEG 0 - 300 ng/ml Oxycodone (OXY) NEG 0 - 300 ng/ml THC NEG 0 - 50 ng/ml x NEG 0 - 1000 ng/ml x NEG 0 - 1000 ng/ml x NEG 0 - 300 ng/ml x NEG 0 - 300 ng/ml x NEG 0 - 300 ng/ml Reason For Referral No Information Medications Medication SIG (Take, Route, Frequency, Duration) Notes Start Date End Date Status busPIRone HCl 7.5 MG Tablet 1 tablet Oral three times day; Duration: 90 days Active prednisoLONE Acetate 1 % Suspension Ophthalmic 07/05/2023 Not-Taking clonazePAM 0.5 MG Tablet 1 tablet Oral Once a day; Duration: 30 days 02/05/2025 Active Atomoxetine HCl 60 MG Capsule 1 capsule in the morning Orally Once a day; Duration: 90 days 02/05/2025 Active methylPREDNISolone 4 MG Tablet Therapy Pack Oral 07/05/2023 Not-Taki ng Pregabalin 150 MG Capsule Oral 07/05/2023 Not-Taking Clobetasol Propionate 0.05% Cream External 07/05/2023 Not-Taking Combigan 0.2-0.5 % Solution Ophthalmic 07/05/2023 Not-Taking Bethanechol Chloride 5 mg Tablet Oral 07/05/2023 Active Omeprazole 40 MG Capsule Delayed Release Oral 07/05/2023 Active Timolol Maleate 0.5 % Solution Ophthalmic 07/05/2023 Active levETIRAcetam 500 MG Tablet Oral 07/05/2023 Active Nitrofurantoin Macrocrystal 100 MG Capsule Oral 07/05/2023 Active Venlafaxine HCl 100 MG Tablet 1 tablet with food Oral Once a day; Duration: 90 days 02/05/2025 Active hydrOXYzine HCl 50 MG Tablet 1 tablet as needed Oral three times a day; Duration: 30 days 02/05/2025 Active carBAMazepine ER 200 MG Capsule Extended Release 12 Hour Oral 07/05/2023 Active Brimonidine Tartrate 0.2 % Solution Ophthalmic 07/05/2023 Active Fluticasone Propionate Diskus 50 MCG/ACT Aerosol Powder Breath Activated Inhalation *Reorder from [employer] for eRx and Interaction Alerts* 07/05/2023 Active Gabapentin 600 MG Tablet Oral 07/05/2023 Active DIMETHYL FUMARATE 240 MG CAPSULE,DELAYED RELEASE *Reorder from [employer] for eRx and Interaction Alerts* 07/05/2023 Active Topiramate 50 MG Tablet Oral 07/05/2023 Active Nystop [id number] UNIT/GM Powder External 07/05/2023 Unknown Meclizine HCl 25 MG Tablet Oral 07/05/2023 Unknown Famotidine 40 MG Tablet Oral 07/05/2023 Unknown Methocarbamol 500 MG Tablet Oral 07/05/2023 Unknown Prolia *Pick strength-form from [employer] for eRX* 07/05/2023 Active Nitrofurantoin Monohyd Macro 100 MG Capsule Oral 07/05/2023 Active Myrbetriq 25 MG Tablet Extended Release 24 Hour Oral 07/05/2023 Act rohini Ondansetron 4 MG Tablet Disintegrating Oral 07/05/2023 Active Prochlorperazine Maleate 5 MG Tablet Oral 07/05/2023 Unknown Phenazopyridine HCl 200 MG Tablet Oral 07/05/2023 Unknown SUMAtriptan Succinate 100 MG Tablet Oral 07/05/2023 Active oxyBUTYnin Chloride ER 10 MG Tablet Extended Release 24 Hour Oral 07/05/2023 Unknown Montelukast Sodium 10 MG Tablet Oral 07/05/2023 Active Ketorolac Tromethamine 0.5 % Solution Ophthalmic 07/05/2023 Active Immunizations Vaccine Route Administration Date Status Comme nts Zoster Unknown 12/18/2014 Administered Tdap Unknown 06/27/2016 Administered Pfizer Biontech Covid-19 Vac cine 2nd dose Unknown 05/05/2020 Administered Pfizer [employer]ion[employer] Covid-19 Vac cine 2nd dose Unknown 05/26/2020 Administered Pfizer Bion[employer] Covid-19 Vac cine 2nd dose Unknown 12/04/2020 Administered Pfizer [employer] Covid-19 Vac cine 2nd dose Unknown 06/01/2021 Administered Pfizer [employer] Covid-19 Vac cine 2nd dose Unknown 11/18/2021 Administered Novel [id number], preservative free Unknown 11/09/2017 Administered Novel [id number], preservative free Unknown 11/22/2019 Administered Influenza, seasonal, injecta ble, preservative free, 3 yrs and above Unknown 12/18/2014 Administered Influenza, seasonal, injecta ble, preservative free, 3 yrs and above Unknown 11/26/2015 Administered Influenza virus vaccine, quadrivalent (IIV4), split virus, 0.25 mL dosage Unknown 12/01/2015 Administered Influenza virus vaccine, quadrivalent (IIV4), split virus, 0.25 mL dosage Unknown 12/15/2015 Administered Influenza virus vaccine, quadrivalent (IIV4), split virus, 0.25 mL dosage Unknown 11/04/2016 Administered Influenza virus vaccine, quadrivalent (IIV4), split virus, 0.25 mL dosage Unknown 11/28/2016 Administered Influenza virus vaccine, quadrivalent (IIV4), split virus, 0.25 mL dosage Unknown 11/28/2018 Administered Influenza virus vaccine, quadrivalent (IIV4), split virus, 0.25 mL dosage Unknown 11/12/2019 Administered Influenza virus vaccine, quadrivalent (IIV4), split virus, 0.25 mL dosage Unknown 11/18/2021 Administered Hib, unspecified formulation Unknown 11/28/2018 Adminis tered Hep A, unspecified formulation Unknown 12/08/1999 Admin istered Social History Tobacco Use: Social History Observation Description Date Details (start date - stop date) Never Smoker 11/11/1999 - 11/10/2009 Sex Assigned At : Social History Observation Description Sex Assigned At Female Social History Household: Social Info Question Answer Notes Household Marital status: single Number of adults in household: 3 Number of children in household: 0 Number of siblings: 1 older brothe r Level of education: finished college 2 years Marital status of the child's parents: Any household tobacco use? No Any household pets? Yes dog Drug/Alcohol: Social Info Question Answer Notes Drugs Have you used drugs other than those for medical reasons in the past 12 months? No AUDIT-C (Standard) Did you have a drink containing alcohol in the past year? No Points 0 Interpretation Negative Caffeine Intake: 1-2 cups per day Tobacco Use: Social Info Question Answer Notes Tobacco Control (Standard) When did you start smoking? 11/11/1999 When did you stop smoking? 11/10/2009 Tobacco use: Nonsmoker Additional Details Category Social Info Options Details Migrated Social History Migrated Social History Alcohol Intake: None 12/13/2019,Tobacco Years: Former smoker 12/13/2019,Smoking Status: 10 04/14/2023 Drug/Alcohol: Do you smoke marijuana? Den ies Do you drink alcohol? No Problems Problem Type SNOMED Code ICD Code Onset Dates Problem Status W/U Status Risk Notes Problem Mild recurrent major depression (61663637) Major depressive disorder, recurrent, mild (F33.0) 07/19/19 24 Active confirmed Problem Generalized anxiety disorder (09555598) Generalized anxiety disorder (F41.1) 06/21/19 24 Active confirmed Problem Primary hypersomnia (41925926) Primary hypersomnia (F51.11) 06/15/19 Active confirmed Problem Attention deficit hyperactivity disorder, combined type (72631611) Attention-deficit hyperactivity disorder, combined type (F90.2) 06/21/19 Active confirmed Problem Multiple sclerosis (84765789) Multiple sclerosis (G35) 06/15/19 Active confirmed Problem Long-term current use of drug therapy (911983471) 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 (Z79.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) 06/15/19 Active confirmed Problem Panic disorder (941551419) Panic disorder [episodic paroxysmal anxiety] without agoraphobia (F41.0) 06/21/19 Active confirmed Problem Panic disorder without agoraphobia (92740686) Panic disorder without agoraphobia (F41.0) Active confirmed Problem Elevated blood-pressure reading without diagnosis of hypertension (871427055) Elevated blood pressure reading (R03.0) Active confirmed Problem Essential hypertension (52158084) Benign essential HTN (I10) Active confirmed Vital Signs Heart Rate 87 /min 2024 Respiratory Rate 18 /min 2024 Height-cm 164.47 cm 2024 Blood pressure diastolic 83 mm Hg 2024 Weight-kg 102.51 kg 2024 Height 64.75 in 2024 Blood pressure systolic 123 mm Hg 2024 Weight 226.0 lbs 2024 BMI 37.9 kg/m2 2024 Encounters Encounter Location Date Provider Diagnosis [facility] [employer] [address] [address] 03/13/2024 Janie Healy Major depressive disorder, recurrent, mild F33.0 ; Generalized anxiety disorder F41.1 ; Attention-deficit hyperactivity disorder, combined type F90.2 and Panic disorder without agoraphobia F41.0 [facility] [address] [address] 03/27/2024 Janie Helay Major depressive disorder, recurrent, mild F33.0 ; Generalized anxiety disorder F41.1 ; Panic disorder without agoraphobia F41.0 and Attention-deficit hyperactivity disorder, combined type F90.2 [facility] [address] [address] 04/24/2024 Janie Niraj Major depressive disorder, recurrent, mild F33.0 ; Generalized anxiety disorder F41.1 ; Attention-deficit hyperactivity disorder, combined type F90.2 and Panic disorder without agoraphobia F41.0 [facility] [facility] [address] [place] [address] [place] [address] 05/10/2024 Nelly Oconnell Major depressive disorder, recurrent, mild F33.0 ; Generalized anxiety disorder F41.1 ; Panic disorder [episodic paroxysmal anxiety] without agoraphobia F41.0 ; Attention-deficit hyperactivity disorder, combined type F90.2 ; 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 Z79.899 ; Primary hypersomnia F51.11 ; Benign essential HTN I10 and Elevated blood pressure reading R03.0 [facility] [facility] [address] [facility] [address] [place] [address] 05/22/2024 Janie Niraj Encounter for screen ing for depression Z13.31 ; Major depressive disorder, recurrent, mild F33.0 ; Generalized anxiety disorder F41.1 ; Attention-deficit hyperactivity disorder, combined type F90.2 and Panic disorder without agoraphobia F41.0 [facility] [facility] [address] [facility] [address] [place] [address] 06/05/2024 Janie Niraj Major depressive disorder, recurrent, mild F33.0 ; Generalized anxiety disorder F41.1 ; Panic disorder without agoraphobia F41.0 ; Encounter for screening for depression Z13.31 and Attention-deficit hyperactivity disorder, combined type F90.2 [facility] [facility] [address] [facility] [address] [place] [address] 06/19/2024 Janie Niraj Encounter for screen ing for depression Z13.31 ; Major depressive disorder, recurrent, mild F33.0 ; Generalized anxiety disorder F41.1 ; Attention-deficit hyperactivity disorder, combined type F90.2 and Panic disorder without agoraphobia F41.0 [facility] [employer] [facility] [address] [place] [address] [place] [address] 07/03/2024 Janie Niraj Encounter for screen ing for depression Z13.31 ; Major depressive disorder, recurrent, mild F33.0 ; Generalized anxiety disorder F41.1 and Panic disorder without agoraphobia F41.[address] [facility] [address] [place] [address] 07/24/2024 Janie Niraj Major depressive disorder, recurrent, mild F33.0 ; Generalized anxiety disorder F41.1 ; Attention-deficit hyperactivity disorder, combined type F90.2 ; Panic disorder [episodic paroxysmal anxiety] without agoraphobia F41.0 and Encounter for screening for depression Z13.[address] [facility] [address] [place] [address] 08/02/2024 Nelly Oconnell Encounter for screen ing for depression Z13.31 ; Major depressive disorder, recurrent, mild F33.0 ; Generalized anxiety disorder F41.1 ; Panic disorder [episodic paroxysmal anxiety] without agoraphobia F41.0 ; Attention-deficit hyperactivity disorder, combined type F90.2 ; 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 Z79.899 ; Primary hypersomnia F51.11 ; Benign essential HTN I10 ; Elevated blood pressure reading R03.0 and Encounter for screening for cardiovascular disorders Z13.[address] [address] 08/07/2024 Janie Niraj Major depressive disorder, recurrent, mild F33.0 ; Generalized anxiety disorder F41.1 ; Panic disorder [episodic paroxysmal anxiety] without agoraphobia F41.0 ; Attention-deficit hyperactivity disorder, combined type F90.2 and Encounter for screening for depression Z13.[address] [address] 08/20/2024 Janie Niraj Major depressive disorder, recurrent, mild F33.0 ; Generalized anxiety disorder F41.1 ; Attention-deficit hyperactivity disorder, combined type F90.2 ; Panic disorder [episodic paroxysmal anxiety] without agoraphobia F41.0 and Encounter for screening for depression Z13.[address] [facility] [address] [place] [address] 09/03/2024 Janie Niraj Major depressive disorder, recurrent, mild F33.0 ; Generalized anxiety disorder F41.1 ; Attention-deficit hyperactivity disorder, combined type F90.2 ; Panic disorder [episodic paroxysmal anxiety] without agoraphobia F41.0 and Encounter for screening for depression Z13.31 [place] [address] [facility] [address] [place] [address] 09/18/2024 Janie Niraj Major depressive disorder, recurrent, mild F33.0 ; Generalized anxiety disorder F41.1 ; Attention-deficit hyperactivity disorder, combined type F90.2 ; Panic disorder without agoraphobia F41.0 and Encounter for screening for depression Z13.[address] [facility] [address] [place] [address] 10/17/2024 Janie Niraj Major depressive disorder, recurrent, mild F33.0 ; Generalized anxiety disorder F41.1 ; Panic disorder without agoraphobia F41.0 and Attention-deficit hyperactivity disorder, combined type F90.[address] [facility] [address] [place] [address] 10/31/2024 Janie Niraj Major depressive disorder, recurrent, mild F33.0 ; Generalized anxiety disorder F41.1 ; Attention-deficit hyperactivity disorder, combined type F90.2 and Panic disorder [episodic paroxysmal anxiety] without agoraphobia F41.[address] [facility] [address] [place] [address] 2024 Nelly Oconnell Encounter for screen ing for depression Z13.31 ; Major depressive disorder, recurrent, mild F33.0 ; Generalized anxiety disorder F41.1 ; Panic disorder [episodic paroxysmal anxiety] without agoraphobia F41.0 ; Attention-deficit hyperactivity disorder, combined type F90.2 ; Other long-term (current) drug therapy Z79.899 ; Primary hypersomnia F51.11 and Benign essential HTN I10 [address] [facility] [address] [place] [address] 11/13/2024 Janie Niraj Major depressive disorder, recurrent, mild F33.0 ; Generalized anxiety disorder F41.1 ; Attention-deficit hyperactivity disorder, combined type F90.2 and Panic disorder [episodic paroxysmal anxiety] without agoraphobia F41.[address] [facility] [address] [place] [address] 11/25/2024 Janie Niraj Major depressive disorder, recurrent, mild F33.0 ; Generalized anxiety disorder F41.1 ; Attention-deficit hyperactivity disorder, combined type F90.2 and Panic disorder without agoraphobia F41.0 [facility] [address] [address] 12/09/2024 Janie Niraj Major depressive disorder, recurrent, mild F33.0 ; Generalized anxiety disorder F41.1 ; Attention-deficit hyperactivity disorder, combined type F90.2 and Panic disorder without agoraphobia F41.[address] [address] 12/23/2024 Janie Niraj Major depressive disorder, recurrent, mild F33.0 ; Generalized anxiety disorder F41.1 ; Attention-deficit hyperactivity disorder, combined type F90.2 and Panic disorder without agoraphobia F41.0 [place] [address] [address] 01/08/2025 Janie Niraj Major depressive disorder, recurrent, mild F33.0 ; Generalized anxiety disorder F41.1 ; Attention-deficit hyperactivity disorder, combined type F90.2 and Panic disorder without agoraphobia F41.0 [place] [address] [address] 01/22/2025 Janie Niraj Major depressive disorder, recurrent, mild F33.0 ; Generalized anxiety disorder F41.1 ; Attention-deficit hyperactivity disorder, combined type F90.2 and Panic disorder without agoraphobia F41.0 [place] [address] [facility] [address] [address] 02/05/2025 Janie Niraj Major depressive disorder, recurrent, mild F33.0 ; Generalized anxiety disorder F41.1 ; Attention-deficit hyperactivity disorder, combined type F90.2 and Panic disorder without agoraphobia F41.0 [place] [address] [address] 02/05/2025 Nelly Oconnell Major depressive disorder, recurrent, mild F33.0 ; Generalized anxiety disorder F41.1 ; Attention-deficit hyperactivity disorder, combined type F90.2 ; Panic disorder without agoraphobia F41.0 ; Encounter for screening for depression Z13.31 ; Other long-term (current) drug therapy Z79.899 and Primary hypersomnia F51.11 [facility], [facility] [address] [address] [place] [address] 02/18/2025 Janie Healy Major depressive disorder, recurrent, mild F33.0 ; Generalized anxiety disorder F41.1 ; Attention-deficit hyperactivity disorder, combined type F90.2 and Panic disorder without agoraphobia F41.0 [facility], [facility] [address] [address] [place] [address] 03/07/2024 Nelly TwitJumpdaniela [facility], [facility] [address] [place] [address] [place] [address] 03/23/2024 Nelly TwitJumpdaniela [facility], [facility] [address] [place] [address] [place] [address] 03/25/2024 Nelly TwitJumpdaniela [facility], [facility] [address] [address] [place] [address] 04/21/2024 [facility] [address] [place] [address] [place] [address] 05/19/2024 [facility] [address] [place] [address] [place] [address] 08/05/2024 [facility] [address] [place] [address] [place] [address] 10/15/2024 [facility] [address] [place] [address] [place] [address] 10/29/2024 Nelly TwitJumpdaniela [facility], [facility] [address] [place] [address] [place] [address] 10/31/2024 Nelly TwitJumpdaniela [facility], [facility] [address] [place] [address] [place] [address] 11/11/2024 [facility] [address] [place] [address] [place] [address] 11/20/2024 [facility] [address] [place] [address] [place] [address] 01/09/2025 Nelly TwitJumpdaniela [facility], [facility] [address] [place] [address] [place] [address] 01/09/2025 [facility] [address] [facility] [address] [place] [address] 02/09/2025 Nelly Oconnell Generalized anxiety disorder F41.1 Assessments Encounter Date Diagnosis (ICD Code) Assessment Notes Treatment Notes Treatment Clinical Notes Section Notes 03/13/2024 Major depressive disorder, recurrent, mild (ICD-10 - F33.0) 03/27/2024 Major depressive disorder, recurrent, mild (ICD-10 - F33.0) 04/24/2024 Major depressive disorder, recurrent, mild (ICD-10 - F33.0) 05/10/2024 Major depressive disorder, recurrent, mild (ICD-10 - F33.0) 1. depression -Effexor 100 mg daily continue therapy [facility] patient report has eye implant 02/08/23 and see neurologist see neurologist 07/27, eye implant 08/09/23 and rt eye surgery surgery next eye surgery 02/26 educated on all medications, benefits, side effects and risk, and educated on depression, anxiety, and ADHD, mood d/o and educated on compliance of medications, metabolic and movement d/o education appointment's, continue therapy discussion with patient about course of treatmentand patient instructions. 2. Generalized anxiety disorder - Effexor 100 mg daily Clonazepam 0.5 mg daily as needed # 15 to last 30 days - patient prefer to stay on as needed- Buspar 5 mg three times a day for anxiety and panic - discuss and educated on rx Discussed and educated pt regarding benzodiazepines are generally not intended for prolonged use and that use can cause tolerance, dependence, depression, and associated memory issues including dementias (this list is not exhaustive). Benzodiazepine use is generally not recommended concurrently with pain medications and/or other controlled substances due to increased risks of profound sedation, respiratory depression, coma, and even . They are not to be used with any alcohol, as this combination can also be lethal. Patient was provided caution 3. Panic attack -Hydroxyzine 50 mg twice a day for panic and anxiety- patient reported taking once to twice a day 4. Attention deficit hyperactivity disorder, combined type -NADYA-2 reviewed no early refill on control substance limit caffeine take after excise in am local pharmacy [facility] discuss non- stimulate and stimulate strattera 60 mg daily in am ADHD stimulates education Discuss with patient risk of misuse, abuse, and addiction before prescribing stimulant medicines. [employer] patients not to share their prescribed stimulant with anyone else. Educate patients and their families on these serious risks, proper storage of the medicine, and proper disposal of any unused medicine. Educated patient will monitor Throughout treatment, regularly assess and monitor them for signs and symptoms of nonmedical use, addiction, and potential diversion, which may be evidenced by more frequent renewal. requests than warranted by the prescribed dosage. [place] prescription program reviewed Random UDS 5. HTN Refer to PCP educated on healthy b/p 120/80 monitor b/p at home refer to PCP, heart healthy diet and excise limit salt intake limit soda intake and caffiene increase water . 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 depression -Effexor 100 mg daily continue therapy [facility] patient report has eye implant 02/08/23 and see neurologist see neurologist 07/27, eye implant 08/09/23 and rt eye surgery surgery next eye surgery 02/26 educated on all medications, benefits, side effects and risk, and educated on depression, anxiety, and ADHD, mood d/o and educated on compliance of medications, metabolic and movement d/o education appointment's, continue therapy discussion with patient about course of treatmentand patient instructions. 2. Generalized anxiety disorder - Effexor 100 mg daily Clonazepam 0.5 mg daily as needed # 15 to last 30 days - patient prefer to stay on as needed- Buspar 5 mg three times a day for anxiety and panic - discuss and educated on rx Discussed and educated pt regarding benzodiazepines are generally not intended for prolonged use and that use can cause tolerance, dependence, depression, and associated memory issues including dementias (this list is not exhaustive). Benzodiazepine use is generally not recommended concurrently with pain medications and/or other controlled substances due to increased risks of profound sedation, respiratory depression, coma, and even . They are not to be used with any alcohol, as this combination can also be lethal. Patient was provided caution 3. Panic attack -Hydroxyzine 50 mg twice a day for panic and anxiety- patient reported taking once to twice a day 4. Attention deficit hyperactivity disorder, combined type -NADYA-2 reviewed no early refill on control substance limit caffeine take after excise in am local pharmacy [facility] discuss non- stimulate and stimulate strattera 60 mg daily in am ADHD stimulates education Discuss with patient risk of misuse, abuse, and addiction before prescribing stimulant medicines. [employer] patients not to share their prescribed stimulant with anyone else. Educate patients and their families on these serious risks, proper storage of the medicine, and proper disposal of any unused medicine. Educated patient will monitor Throughout treatment, regularly assess and monitor them for signs and symptoms of nonmedical use, addiction, and potential diversion, which may be evidenced by more frequent renewal. requests than warranted by the prescribed dosage. [place] prescription program reviewed Random UDS 5. HTN Refer to PCP educated on healthy b/p 120/80 monitor b/p at home refer to PCP, heart healthy diet and excise limit salt intake limit soda intake and caffiene increase water . Long-term drug therapy Seen by Alanis GOLDEN-BC ([employer] HNP student) Assessment and plan reviewed and agreed upon by Nelly Oconnell HNP 05/22/2024 Major depressive disorder, recurrent, mild (ICD-10 - F33.0) 05/22/2024 Encounter for screening for depression (ICD-10 - Z13.31) 06/05/2024 Major depressive disorder, recurrent, mild (ICD-10 - F33.0) 06/05/2024 Generalized anxiety disorder (ICD-10 - F41.1) 06/19/2024 Major depressive disorder, recurrent, mild (ICD-10 - F33.0) 06/19/2024 Encounter for screening for depression (ICD-10 - Z13.31) 07/03/2024 Major depressive disorder, recurrent, mild (ICD-10 - F33.0) 07/24/2024 Major depressive disorder, recurrent, mild (ICD-10 - F33.0) 07/24/2024 Generalized anxiety disorder (ICD-10 - F41.1) 07/03/2024 Encounter for screening for depression (ICD-10 - Z13.31) 08/02/2024 Major depressive disorder, recurrent, mild (ICD-10 - F33.0) 1. depression -Effexor 100 mg daily continue therapy [facility] patient report has eye implant 02/08/23 see neurologist , eye implant 08/09/23 and rt eye surgery [id number] educated on all medications, benefits, side effects and risk, and educated on depression, anxiety, and ADHD, mood d/o and educated on compliance of medications, metabolic and movement d/o education appointment's, continue therapy discussion with patient about course of treatmentand patient instructions. 2. Generalized anxiety disorder - Effexor 100 mg daily Clonazepam 0.5 mg daily as needed # 15 to last 30 days - patient prefer to stay on as needed- Buspar 5 mg three times a day for anxiety and panic - discuss and educated on all rx Discussed and educated pt regarding benzodiazepines are generally not intended for prolonged use and that use can cause tolerance, dependence, depression, and associated memory issues including dementias (this list is not exhaustive). Benzodiazepine use is generally not recommended concurrently with pain medications and/or other controlled substances due to increased risks of profound sedation, respiratory depression, coma, and even . They are not to be used with any alcohol, as this combination can also be lethal. Patient was provided caution 3. Panic attack - Hydroxyzine 50 mg twice a day for panic and anxiety- patient reported taking once to twice a day 4. Attention deficit hyperactivity disorder, combined type -NADYA-2 reviewed no early refill on control substance limit caffeine take after excise in am local pharmacy [facility] discuss non- stimulate and stimulate strattera 60 mg daily in am ADHD stimulates education Discuss with patient risk of misuse, abuse, and addiction before prescribing stimulant medicines. [employer] patients not to share their prescribed stimulant with anyone else. Educate patients and their families on these serious risks, proper storage of the medicine, and proper disposal of any unused medicine. Educated patient will monitor Throughout treatment, regularly assess and monitor them for signs and symptoms of nonmedical use, addiction, and potential diversion, which may be evidenced by more frequent renewal. requests than warranted by the prescribed dosage. [place] prescription program reviewed Random UDS 5. HTN Refer to PCP educated on healthy b/p 120/80 monitor b/p at home refer to PCP, heart healthy diet and excise limit salt intake limit soda intake and caffiene increase water . Long-term drug therapy 08/02/2024 Encounter for screening for depression (ICD-10 - Z13.31) 1. depression -Effexor 100 mg daily continue therapy [facility] patient report has eye implant 02/08/23 see neurologist , eye implant 08/09/23 and rt eye surgery [id number] educated on all medications, benefits, side effects and risk, and educated on depression, anxiety, and ADHD, mood d/o and educated on compliance of medications, metabolic and movement d/o education appointment's, continue therapy discussion with patient about course of treatmentand patient instructions. 2. Generalized anxiety disorder - Effexor 100 mg daily Clonazepam 0.5 mg daily as needed # 15 to last 30 days - patient prefer to stay on as needed- Buspar 5 mg three times a day for anxiety and panic - discuss and educated on all rx Discussed and educated pt regarding benzodiazepines are generally not intended for prolonged use and that use can cause tolerance, dependence, depression, and associated memory issues including dementias (this list is not exhaustive). Benzodiazepine use is generally not recommended concurrently with pain medications and/or other controlled substances due to increased risks of profound sedation, respiratory depression, coma, and even . They are not to be used with any alcohol, as this combination can also be lethal. Patient was provided caution 3. Panic attack - Hydroxyzine 50 mg twice a day for panic and anxiety- patient reported taking once to twice a day 4. Attention deficit hyperactivity disorder, combined type -NADYA-2 reviewed no early refill on control substance limit caffeine take after excise in am local pharmacy [facility] discuss non- stimulate and stimulate strattera 60 mg daily in am ADHD stimulates education Discuss with patient risk of misuse, abuse, and addiction before prescribing stimulant medicines. [employer] patients not to share their prescribed stimulant with anyone else. Educate patients and their families on these serious risks, proper storage of the medicine, and proper disposal of any unused medicine. Educated patient will monitor Throughout treatment, regularly assess and monitor them for signs and symptoms of nonmedical use, addiction, and potential diversion, which may be evidenced by more frequent renewal. requests than warranted by the prescribed dosage. [place] prescription program reviewed Random UDS 5. HTN Refer to PCP educated on healthy b/p 120/80 monitor b/p at home refer to PCP, heart healthy diet and excise limit salt intake limit soda intake and caffiene increase water . Long-term drug therapy 08/07/2024 Major depressive disorder, recurrent, mild (ICD-10 - F33.0) 08/07/2024 Generalized anxiety disorder (ICD-10 - F41.1) 08/20/2024 Major depressive disorder, recurrent, mild (ICD-10 - F33.0) 08/20/2024 Generalized anxiety disorder (ICD-10 - F41.1) 09/03/2024 Major depressive disorder, recurrent, mild (ICD-10 - F33.0) 09/03/2024 Generalized anxiety disorder (ICD-10 - F41.1) 09/18/2024 Major depressive disorder, recurrent, mild (ICD-10 - F33.0) 09/18/2024 Generalized anxiety disorder (ICD-10 - F41.1) 10/31/2024 Major depressive disorder, recurrent, mild (ICD-10 - F33.0) 10/17/2024 Major depressive disorder, recurrent, mild (ICD-10 - F33.0) 2024 Encounter for screening for depression (ICD-10 - Z13.31) 1. depression - Effexor 100 mg daily continue therapy [facility] patient report has eye implant 02/08/23 see neurologist , eye implant 08/09/23 and rt eye surgery [id number] educated on all medications, benefits, side effects and risk, and educated on depression, anxiety, and ADHD, mood d/o and educated on compliance of medications, metabolic and movement d/o education appointment's, continue therapy discussion with patient about course of treatmentand patient instructions. 2. Generalized anxiety disorder - Effexor 100 mg daily Clonazepam 0.5 mg daily as needed # 15 to last 30 days - patient prefer to stay on as needed- Buspar 5 mg three times a day for anxiety and panic - discuss and educated on all rx Discussed and educated pt regarding benzodiazepines are generally not intended for prolonged use and that use can cause tolerance, dependence, depression, and associated memory issues including dementias (this list is not exhaustive). Benzodiazepine use is generally not recommended concurrently with pain medications and/or other controlled substances due to increased risks of profound sedation, respiratory depression, coma, and even . They are not to be used with any alcohol, as this combination can also be lethal. Patient was provided caution 3. Panic attack - Hydroxyzine 50 mg twice a day for panic and anxiety- patient reported taking once to twice a day 4. Attention deficit hyperactivity disorder, combined type -NADYA-2 reviewed no early refill on control substance limit caffeine take after excise in am local pharmacy [facility] discuss non- stimulate and stimulate strattera 60 mg daily in am ADHD stimulates education Discuss with patient risk of misuse, abuse, and addiction before prescribing stimulant medicines. [employer] patients not to share their prescribed stimulant with anyone else. Educate patients and their families on these serious risks, proper storage of the medicine, and proper disposal of any unused medicine. Educated patient will monitor Throughout treatment, regularly assess and monitor them for signs and symptoms of nonmedical use, addiction, and potential diversion, which may be evidenced by more frequent renewal. requests than warranted by the prescribed dosage. [place] prescription program reviewed Random UDS 5. HTN Refer to PCP educated on healthy b/p 120/80 monitor b/p at home refer to PCP, heart healthy diet and excise limit salt intake limit soda intake and caffiene increase water . Long-term drug therapy 11/13/2024 Major depressive disorder, recurrent, mild (ICD-10 - F33.0) 11/25/2024 Major depressive disorder, recurrent, mild (ICD-10 - F33.0) 12/09/2024 Major depressive disorder, recurrent, mild (ICD-10 - F33.0) 12/23/2024 Major depressive disorder, recurrent, mild (ICD-10 - F33.0) 01/08/2025 Major depressive disorder, recurrent, mild (ICD-10 - F33.0) 01/22/2025 Major depressive disorder, recurrent, mild (ICD-10 - F33.0) 02/05/2025 Major depressive disorder, recurrent, mild (ICD-10 - F33.0) 02/05/2025 Major depressive disorder, recurrent, mild (ICD-10 - F33.0) 1. depression - Effexor 100 mg daily continue therapy [facility] patient report has eye implant 02/08/23 see neurologist , eye implant 08/09/23 and rt eye surgery [email or web address] educated on all medications, benefits, side effects and risk, and educated on depression, anxiety, and ADHD, mood d/o and educated on compliance of medications, metabolic and movement d/o education appointment's, continue therapy discussion with patient about course of treatmentand patient instructions. 2. Generalized anxiety disorder - Effexor 100 mg daily Clonazepam 0.5 mg daily as needed # 15 to last 30 days - patient prefer to stay on as needed- Buspar 5 mg three times a day for anxiety and panic - discuss and educated on all rx Discussed and educated pt regarding benzodiazepines are generally not intended for prolonged use and that use can cause tolerance, dependence, depression, and associated memory issues including dementias (this list is not exhaustive). Benzodiazepine use is generally not recommended concurrently with pain medications and/or other controlled substances due to increased risks of profound sedation, respiratory depression, coma, and even . They are not to be used with any alcohol, as this combination can also be lethal. Patient was provided caution 3. Panic attack - Hydroxyzine 50 mg twice a day for panic and anxiety- patient reported taking once to twice a day 4. Attention deficit hyperactivity disorder, combined type -NADYA-2 reviewed no early refill on control substance limit caffeine take after excise in am local pharmacy [facility] discuss non- stimulate and stimulate strattera 60 mg daily in am ADHD stimulates education Discuss with patient risk of misuse, abuse, and addiction before prescribing stimulant medicines. [employer] patients not to share their prescribed stimulant with anyone else. Educate patients and their families on these serious risks, proper storage of the medicine, and proper disposal of any unused medicine. Educated patient will monitor Throughout treatment, regularly assess and monitor them for signs and symptoms of nonmedical use, addiction, and potential diversion, which may be evidenced by more frequent renewal. requests than warranted by the prescribed dosage. [place] prescription program reviewed Random UDS 5. HTN Refer to PCP educated on healthy b/p 120/80 monitor b/p at home refer to PCP, heart healthy diet and excise limit salt intake limit soda intake and caffiene increase water . Long-term drug therapy 02/05/2025 Generalized anxiety disorder (ICD-10 - F41.1) 1. depression - Effexor 100 mg daily continue therapy [facility] patient report has eye implant 02/08/23 see neurologist , eye implant 08/09/23 and rt eye surgery [id number] educated on all medications, benefits, side effects and risk, and educated on depression, anxiety, and ADHD, mood d/o and educated on compliance of medications, metabolic and movement d/o education appointment's, continue therapy discussion with patient about course of treatmentand patient instructions. 2. Generalized anxiety disorder - Effexor 100 mg daily Clonazepam 0.5 mg daily as needed # 15 to last 30 days - patient prefer to stay on as needed- Buspar 5 mg three times a day for anxiety and panic - discuss and educated on all rx Discussed and educated pt regarding benzodiazepines are generally not intended for prolonged use and that use can cause tolerance, dependence, depression, and associated memory issues including dementias (this list is not exhaustive). Benzodiazepine use is generally not recommended concurrently with pain medications and/or other controlled substances due to increased risks of profound sedation, respiratory depression, coma, and even . They are not to be used with any alcohol, as this combination can also be lethal. Patient was provided caution 3. Panic attack - Hydroxyzine 50 mg twice a day for panic and anxiety- patient reported taking once to twice a day 4. Attention deficit hyperactivity disorder, combined type -NADYA-2 reviewed no early refill on control substance limit caffeine take after excise in am local pharmacy [facility] discuss non- stimulate and stimulate strattera 60 mg daily in am ADHD stimulates education Discuss with patient risk of misuse, abuse, and addiction before prescribing stimulant medicines. [employer] patients not to share their prescribed stimulant with anyone else. Educate patients and their families on these serious risks, proper storage of the medicine, and proper disposal of any unused medicine. Educated patient will monitor Throughout treatment, regularly assess and monitor them for signs and symptoms of nonmedical use, addiction, and potential diversion, which may be evidenced by more frequent renewal. requests than warranted by the prescribed dosage. [place] prescription program reviewed Random UDS 5. HTN Refer to PCP educated on healthy b/p 120/80 monitor b/p at home refer to PCP, heart healthy diet and excise limit salt intake limit soda intake and caffiene increase water . Long-term drug therapy 02/09/2025 Generalized anxiety disorder (ICD-10 - F41.1) 02/18/2025 Major depressive disorder, recurrent, mild (ICD-10 - F33.0) 02/18/2025 Generalized anxiety disorder (ICD-10 - F41.1) 02/05/2025 Attention-deficit hyperactivity disorder, combined type (ICD-10 - F90.2) 1. depression - Effexor 100 mg daily continue therapy [facility] patient report has eye implant 02/08/23 see neurologist , eye implant 08/09/23 and rt eye surgery [email or web address] educated on all medications, benefits, side effects and risk, and educated on depression, anxiety, and ADHD, mood d/o and educated on compliance of medications, metabolic and movement d/o education appointment's, continue therapy discussion with patient about course of treatmentand patient instructions. 2. Generalized anxiety disorder - Effexor 100 mg daily Clonazepam 0.5 mg daily as needed # 15 to last 30 days - patient prefer to stay on as needed- Buspar 5 mg three times a day for anxiety and panic - discuss and educated on all rx Discussed and educated pt regarding benzodiazepines are generally not intended for prolonged use and that use can cause tolerance, dependence, depression, and associated memory issues including dementias (this list is not exhaustive). Benzodiazepine use is generally not recommended concurrently with pain medications and/or other controlled substances due to increased risks of profound sedation, respiratory depression, coma, and even . They are not to be used with any alcohol, as this combination can also be lethal. Patient was provided caution 3. Panic attack - Hydroxyzine 50 mg twice a day for panic and anxiety- patient reported taking once to twice a day 4. Attention deficit hyperactivity disorder, combined type -NADYA-2 reviewed no early refill on control substance limit caffeine take after excise in am local pharmacy [facility] discuss non- stimulate and stimulate strattera 60 mg daily in am ADHD stimulates education Discuss with patient risk of misuse, abuse, and addiction before prescribing stimulant medicines. [employer] patients not to share their prescribed stimulant with anyone else. Educate patients and their families on these serious risks, proper storage of the medicine, and proper disposal of any unused medicine. Educated patient will monitor Throughout treatment, regularly assess and monitor them for signs and symptoms of nonmedical use, addiction, and potential diversion, which may be evidenced by more frequent renewal. requests than warranted by the prescribed dosage. [place] prescription program reviewed Random UDS 5. HTN Refer to PCP educated on healthy b/p 120/80 monitor b/p at home refer to PCP, heart healthy diet and excise limit salt intake limit soda intake and caffiene increase water . Long-term drug therapy 02/05/2025 Generalized anxiety disorder (ICD-10 - F41.1) 01/22/2025 Generalized anxiety disorder (ICD-10 - F41.1) 01/08/2025 Generalized anxiety disorder (ICD-10 - F41.1) 12/23/2024 Generalized anxiety disorder (ICD-10 - F41.1) 12/09/2024 Generalized anxiety disorder (ICD-10 - F41.1) 11/25/2024 Generalized anxiety disorder (ICD-10 - F41.1) 11/13/2024 Generalized anxiety disorder (ICD-10 - F41.1) 10/17/2024 Generalized anxiety disorder (ICD-10 - F41.1) 2024 Major depressive disorder, recurrent, mild (ICD-10 - F33.0) 1. depression - Effexor 100 mg daily continue therapy [facility] patient report has eye implant 02/08/23 see neurologist , eye implant 08/09/23 and rt eye surgery [id number] educated on all medications, benefits, side effects and risk, and educated on depression, anxiety, and ADHD, mood d/o and educated on compliance of medications, metabolic and movement d/o education appointment's, continue therapy discussion with patient about course of treatmentand patient instructions. 2. Generalized anxiety disorder - Effexor 100 mg daily Clonazepam 0.5 mg daily as needed # 15 to last 30 days - patient prefer to stay on as needed- Buspar 5 mg three times a day for anxiety and panic - discuss and educated on all rx Discussed and educated pt regarding benzodiazepines are generally not intended for prolonged use and that use can cause tolerance, dependence, depression, and associated memory issues including dementias (this list is not exhaustive). Benzodiazepine use is generally not recommended concurrently with pain medications and/or other controlled substances due to increased risks of profound sedation, respiratory depression, coma, and even . They are not to be used with any alcohol, as this combination can also be lethal. Patient was provided caution 3. Panic attack - Hydroxyzine 50 mg twice a day for panic and anxiety- patient reported taking once to twice a day 4. Attention deficit hyperactivity disorder, combined type -NADYA-2 reviewed no early refill on control substance limit caffeine take after excise in am local pharmacy [facility] discuss non- stimulate and stimulate strattera 60 mg daily in am ADHD stimulates education Discuss with patient risk of misuse, abuse, and addiction before prescribing stimulant medicines. [employer] patients not to share their prescribed stimulant with anyone else. Educate patients and their families on these serious risks, proper storage of the medicine, and proper disposal of any unused medicine. Educated patient will monitor Throughout treatment, regularly assess and monitor them for signs and symptoms of nonmedical use, addiction, and potential diversion, which may be evidenced by more frequent renewal. requests than warranted by the prescribed dosage. [place] prescription program reviewed Random UDS 5. HTN Refer to PCP educated on healthy b/p 120/80 monitor b/p at home refer to PCP, heart healthy diet and excise limit salt intake limit soda intake and caffiene increase water . Long-term drug therapy 2024 Generalized anxiety disorder (ICD-10 - F41.1) 1. depression - Effexor 100 mg daily continue therapy [facility] patient report has eye implant 02/08/23 see neurologist , eye implant 08/09/23 and rt eye surgery [id number] educated on all medications, benefits, side effects and risk, and educated on depression, anxiety, and ADHD, mood d/o and educated on compliance of medications, metabolic and movement d/o education appointment's, continue therapy discussion with patient about course of treatmentand patient instructions. 2. Generalized anxiety disorder - Effexor 100 mg daily Clonazepam 0.5 mg daily as needed # 15 to last 30 days - patient prefer to stay on as needed- Buspar 5 mg three times a day for anxiety and panic - discuss and educated on all rx Discussed and educated pt regarding benzodiazepines are generally not intended for prolonged use and that use can cause tolerance, dependence, depression, and associated memory issues including dementias (this list is not exhaustive). Benzodiazepine use is generally not recommended concurrently with pain medications and/or other controlled substances due to increased risks of profound sedation, respiratory depression, coma, and even . They are not to be used with any alcohol, as this combination can also be lethal. Patient was provided caution 3. Panic attack - Hydroxyzine 50 mg twice a day for panic and anxiety- patient reported taking once to twice a day 4. Attention deficit hyperactivity disorder, combined type -NADYA-2 reviewed no early refill on control substance limit caffeine take after excise in am local pharmacy [facility] discuss non- stimulate and stimulate strattera 60 mg daily in am ADHD stimulates education Discuss with patient risk of misuse, abuse, and addiction before prescribing stimulant medicines. [employer] patients not to share their prescribed stimulant with anyone else. Educate patients and their families on these serious risks, proper storage of the medicine, and proper disposal of any unused medicine. Educated patient will monitor Throughout treatment, regularly assess and monitor them for signs and symptoms of nonmedical use, addiction, and potential diversion, which may be evidenced by more frequent renewal. requests than warranted by the prescribed dosage. [place] prescription program reviewed Random UDS 5. HTN Refer to PCP educated on healthy b/p 120/80 monitor b/p at home refer to PCP, heart healthy diet and excise limit salt intake limit soda intake and caffiene increase water . Long-term drug therapy 10/31/2024 Generalized anxiety disorder (ICD-10 - F41.1) 08/07/2024 Panic disorder [episodic paroxysmal anxiety] without agoraphobia (ICD-10 - F41.0) 09/18/2024 Attention-deficit hyperactivity disorder, combined type (ICD-10 - F90.2) 09/03/2024 Attention-deficit hyperactivity disorder, combined type (ICD-10 - F90.2) 08/20/2024 Attention-deficit hyperactivity disorder, combined type (ICD-10 - F90.2) 08/02/2024 Generalized anxiety disorder (ICD-10 - F41.1) 1. depression -Effexor 100 mg daily continue therapy [facility] patient report has eye implant 02/08/23 see neurologist , eye implant 08/09/23 and rt eye surgery [id number] educated on all medications, benefits, side effects and risk, and educated on depression, anxiety, and ADHD, mood d/o and educated on compliance of medications, metabolic and movement d/o education appointment's, continue therapy discussion with patient about course of treatmentand patient instructions. 2. Generalized anxiety disorder - Effexor 100 mg daily Clonazepam 0.5 mg daily as needed # 15 to last 30 days - patient prefer to stay on as needed- Buspar 5 mg three times a day for anxiety and panic - discuss and educated on all rx Discussed and educated pt regarding benzodiazepines are generally not intended for prolonged use and that use can cause tolerance, dependence, depression, and associated memory issues including dementias (this list is not exhaustive). Benzodiazepine use is generally not recommended concurrently with pain medications and/or other controlled substances due to increased risks of profound sedation, respiratory depression, coma, and even . They are not to be used with any alcohol, as this combination can also be lethal. Patient was provided caution 3. Panic attack - Hydroxyzine 50 mg twice a day for panic and anxiety- patient reported taking once to twice a day 4. Attention deficit hyperactivity disorder, combined type -NADYA-2 reviewed no early refill on control substance limit caffeine take after excise in am local pharmacy [facility] discuss non- stimulate and stimulate strattera 60 mg daily in am ADHD stimulates education Discuss with patient risk of misuse, abuse, and addiction before prescribing stimulant medicines. [employer] patients not to share their prescribed stimulant with anyone else. Educate patients and their families on these serious risks, proper storage of the medicine, and proper disposal of any unused medicine. Educated patient will monitor Throughout treatment, regularly assess and monitor them for signs and symptoms of nonmedical use, addiction, and potential diversion, which may be evidenced by more frequent renewal. requests than warranted by the prescribed dosage. [place] prescription program reviewed Random UDS 5. HTN Refer to PCP educated on healthy b/p 120/80 monitor b/p at home refer to PCP, heart healthy diet and excise limit salt intake limit soda intake and caffiene increase water . Long-term drug therapy 06/05/2024 Panic disorder without agoraphobia (ICD-10 - F41.0) 07/24/2024 Attention-deficit hyperactivity disorder, combined type (ICD-10 - F90.2) 07/03/2024 Generalized anxiety disorder (ICD-10 - F41.1) 06/19/2024 Generalized anxiety disorder (ICD-10 - F41.1) 05/22/2024 Generalized anxiety disorder (ICD-10 - F41.1) 05/10/2024 Panic disorder [episodic paroxysmal anxiety] without agoraphobia (ICD-10 - F41.0) 1. depression -Effexor 100 mg daily continue therapy [facility] patient report has eye implant 02/08/23 and see neurologist see neurologist 07/27, eye implant 08/09/23 and rt eye surgery surgery next eye surgery 02/26 educated on all medications, benefits, side effects and risk, and educated on depression, anxiety, and ADHD, mood d/o and educated on compliance of medications, metabolic and movement d/o education appointment's, continue therapy discussion with patient about course of treatmentand patient instructions. 2. Generalized anxiety disorder - Effexor 100 mg daily Clonazepam 0.5 mg daily as needed # 15 to last 30 days - patient prefer to stay on as needed- Buspar 5 mg three times a day for anxiety and panic - discuss and educated on rx Discussed and educated pt regarding benzodiazepines are generally not intended for prolonged use and that use can cause tolerance, dependence, depression, and associated memory issues including dementias (this list is not exhaustive). Benzodiazepine use is generally not recommended concurrently with pain medications and/or other controlled substances due to increased risks of profound sedation, respiratory depression, coma, and even . They are not to be used with any alcohol, as this combination can also be lethal. Patient was provided caution 3. Panic attack -Hydroxyzine 50 mg twice a day for panic and anxiety- patient reported taking once to twice a day 4. Attention deficit hyperactivity disorder, combined type -NADYA-2 reviewed no early refill on control substance limit caffeine take after excise in am local pharmacy [facility] discuss non- stimulate and stimulate strattera 60 mg daily in am ADHD stimulates education Discuss with patient risk of misuse, abuse, and addiction before prescribing stimulant medicines. [employer] patients not to share their prescribed stimulant with anyone else. Educate patients and their families on these serious risks, proper storage of the medicine, and proper disposal of any unused medicine. Educated patient will monitor Throughout treatment, regularly assess and monitor them for signs and symptoms of nonmedical use, addiction, and potential diversion, which may be evidenced by more frequent renewal. requests than warranted by the prescribed dosage. [place] prescription program reviewed Random UDS 5. HTN Refer to PCP educated on healthy b/p 120/80 monitor b/p at home refer to PCP, heart healthy diet and excise limit salt intake limit soda intake and caffiene increase water . Long-term drug therapy Seen by Alanis GOLDEN-BC ([facility] Assessment and plan reviewed and agreed upon by Nelly Oconnell [facility] 04/24/2024 Generalized anxiety disorder (ICD-10 - F41.1) 03/27/2024 Generalized anxiety disorder (ICD-10 - F41.1) 03/13/2024 Generalized anxiety disorder (ICD-10 - F41.1) 03/13/2024 Attention-deficit hyperactivity disorder, combined type (ICD-10 - F90.2) 03/27/2024 Panic disorder without agoraphobia (ICD-10 - F41.0) 04/24/2024 Attention-deficit hyperactivity disorder, combined type (ICD-10 - F90.2) 05/10/2024 Attention-deficit hyperactivity disorder, combined type (ICD-10 - F90.2) 1. depression -Effexor 100 mg daily continue therapy [facility] patient report has eye implant 02/08/23 and see neurologist see neurologist 07/27, eye implant 08/09/23 and rt eye surgery surgery next eye surgery 02/26 educated on all medications, benefits, side effects and risk, and educated on depression, anxiety, and ADHD, mood d/o and educated on compliance of medications, metabolic and movement d/o education appointment's, continue therapy discussion with patient about course of treatmentand patient instructions. 2. Generalized anxiety disorder - Effexor 100 mg daily Clonazepam 0.5 mg daily as needed # 15 to last 30 days - patient prefer to stay on as needed- Buspar 5 mg three times a day for anxiety and panic - discuss and educated on rx Discussed and educated pt regarding benzodiazepines are generally not intended for prolonged use and that use can cause tolerance, dependence, depression, and associated memory issues including dementias (this list is not exhaustive). Benzodiazepine use is generally not recommended concurrently with pain medications and/or other controlled substances due to increased risks of profound sedation, respiratory depression, coma, and even . They are not to be used with any alcohol, as this combination can also be lethal. Patient was provided caution 3. Panic attack -Hydroxyzine 50 mg twice a day for panic and anxiety- patient reported taking once to twice a day 4. Attention deficit hyperactivity disorder, combined type -NADYA-2 reviewed no early refill on control substance limit caffeine take after excise in am local pharmacy [facility] discuss non- stimulate and stimulate strattera 60 mg daily in am ADHD stimulates education Discuss with patient risk of misuse, abuse, and addiction before prescribing stimulant medicines. [employer] patients not to share their prescribed stimulant with anyone else. Educate patients and their families on these serious risks, proper storage of the medicine, and proper disposal of any unused medicine. Educated patient will monitor Throughout treatment, regularly assess and monitor them for signs and symptoms of nonmedical use, addiction, and potential diversion, which may be evidenced by more frequent renewal. requests than warranted by the prescribed dosage. [place] prescription program reviewed Random UDS 5. HTN Refer to PCP educated on healthy b/p 120/80 monitor b/p at home refer to PCP, heart healthy diet and excise limit salt intake limit soda intake and caffiene increase water . Long-term drug therapy Seen by Alanis GOLDEN-BC ([facility] student) Assessment and plan reviewed and agreed upon by Nelly Oconnell [facility] 05/22/2024 Attention-deficit hyperactivity disorder, combined type (ICD-10 - F90.2) 06/19/2024 Attention-deficit hyperactivity disorder, combined type (ICD-10 - F90.2) 06/05/2024 Encounter for screening for depression (ICD-10 - Z13.31) 07/24/2024 Panic disorder [episodic paroxysmal anxiety] without agoraphobia (ICD-10 - F41.0) 07/03/2024 Panic disorder without agoraphobia (ICD-10 - F41.0) 08/02/2024 Panic disorder [episodic paroxysmal anxiety] without agoraphobia (ICD-10 - F41.0) 1. depression -Effexor 100 mg daily continue therapy [facility] patient report has eye implant 02/08/23 see neurologist , eye implant 08/09/23 and rt eye surgery [id number] educated on all medications, benefits, side effects and risk, and educated on depression, anxiety, and ADHD, mood d/o and educated on compliance of medications, metabolic and movement d/o education appointment's, continue therapy discussion with patient about course of treatmentand patient instructions. 2. Generalized anxiety disorder - Effexor 100 mg daily Clonazepam 0.5 mg daily as needed # 15 to last 30 days - patient prefer to stay on as needed- Buspar 5 mg three times a day for anxiety and panic - discuss and educated on all rx Discussed and educated pt regarding benzodiazepines are generally not intended for prolonged use and that use can cause tolerance, dependence, depression, and associated memory issues including dementias (this list is not exhaustive). Benzodiazepine use is generally not recommended concurrently with pain medications and/or other controlled substances due to increased risks of profound sedation, respiratory depression, coma, and even . They are not to be used with any alcohol, as this combination can also be lethal. Patient was provided caution 3. Panic attack - Hydroxyzine 50 mg twice a day for panic and anxiety- patient reported taking once to twice a day 4. Attention deficit hyperactivity disorder, combined type -NADYA-2 reviewed no early refill on control substance limit caffeine take after excise in am local pharmacy [facility] discuss non- stimulate and stimulate strattera 60 mg daily in am ADHD stimulates education Discuss with patient risk of misuse, abuse, and addiction before prescribing stimulant medicines. [employer] patients not to share their prescribed stimulant with anyone else. Educate patients and their families on these serious risks, proper storage of the medicine, and proper disposal of any unused medicine. Educated patient will monitor Throughout treatment, regularly assess and monitor them for signs and symptoms of nonmedical use, addiction, and potential diversion, which may be evidenced by more frequent renewal. requests than warranted by the prescribed dosage. [place] prescription program reviewed Random UDS 5. HTN Refer to PCP educated on healthy b/p 120/80 monitor b/p at home refer to PCP, heart healthy diet and excise limit salt intake limit soda intake and caffiene increase water . Long-term drug therapy 08/07/2024 Attention-deficit hyperactivity disorder, combined type (ICD-10 - F90.2) 08/20/2024 Panic disorder [episodic paroxysmal anxiety] without agoraphobia (ICD-10 - F41.0) 09/03/2024 Panic disorder [episodic paroxysmal anxiety] without agoraphobia (ICD-10 - F41.0) 09/18/2024 Panic disorder without agoraphobia (ICD-10 - F41.0) 10/31/2024 Attention-deficit hyperactivity disorder, combined type (ICD-10 - F90.2) 2024 Panic disorder [episodic paroxysmal anxiety] without agoraphobia (ICD-10 - F41.0) 1. depression - Effexor 100 mg daily continue therapy [facility] patient report has eye implant 02/08/23 see neurologist , eye implant 08/09/23 and rt eye surgery [id number] educated on all medications, benefits, side effects and risk, and educated on depression, anxiety, and ADHD, mood d/o and educated on compliance of medications, metabolic and movement d/o education appointment's, continue therapy discussion with patient about course of treatmentand patient instructions. 2. Generalized anxiety disorder - Effexor 100 mg daily Clonazepam 0.5 mg daily as needed # 15 to last 30 days - patient prefer to stay on as needed- Buspar 5 mg three times a day for anxiety and panic - discuss and educated on all rx Discussed and educated pt regarding benzodiazepines are generally not intended for prolonged use and that use can cause tolerance, dependence, depression, and associated memory issues including dementias (this list is not exhaustive). Benzodiazepine use is generally not recommended concurrently with pain medications and/or other controlled substances due to increased risks of profound sedation, respiratory depression, coma, and even . They are not to be used with any alcohol, as this combination can also be lethal. Patient was provided caution 3. Panic attack - Hydroxyzine 50 mg twice a day for panic and anxiety- patient reported taking once to twice a day 4. Attention deficit hyperactivity disorder, combined type -NADYA-2 reviewed no early refill on control substance limit caffeine take after excise in am local pharmacy [facility] discuss non- stimulate and stimulate strattera 60 mg daily in am ADHD stimulates education Discuss with patient risk of misuse, abuse, and addiction before prescribing stimulant medicines. [employer] patients not to share their prescribed stimulant with anyone else. Educate patients and their families on these serious risks, proper storage of the medicine, and proper disposal of any unused medicine. Educated patient will monitor Throughout treatment, regularly assess and monitor them for signs and symptoms of nonmedical use, addiction, and potential diversion, which may be evidenced by more frequent renewal. requests than warranted by the prescribed dosage. [place] prescription program reviewed Random UDS 5. HTN Refer to PCP educated on healthy b/p 120/80 monitor b/p at home refer to PCP, heart healthy diet and excise limit salt intake limit soda intake and caffiene increase water . Long-term drug therapy 11/13/2024 Attention-deficit hyperactivity disorder, combined type (ICD-10 - F90.2) 11/25/2024 Attention-deficit hyperactivity disorder, combined type (ICD-10 - F90.2) 12/09/2024 Attention-deficit hyperactivity disorder, combined type (ICD-10 - F90.2) 12/23/2024 Attention-deficit hyperactivity disorder, combined type (ICD-10 - F90.2) 01/08/2025 Attention-deficit hyperactivity disorder, combined type (ICD-10 - F90.2) 01/22/2025 Attention-deficit hyperactivity disorder, combined type (ICD-10 - F90.2) 02/05/2025 Attention-deficit hyperactivity disorder, combined type (ICD-10 - F90.2) 02/18/2025 Attention-deficit hyperactivity disorder, combined type (ICD-10 - F90.2) 10/17/2024 Panic disorder without agoraphobia (ICD-10 - F41.0) 02/05/2025 Panic disorder without agoraphobia (ICD-10 - F41.0) 1. depression - Effexor 100 mg daily continue therapy [facility] patient report has eye implant 02/08/23 see neurologist , eye implant 08/09/23 and rt eye surgery [id number] educated on all medications, benefits, side effects and risk, and educated on depression, anxiety, and ADHD, mood d/o and educated on compliance of medications, metabolic and movement d/o education appointment's, continue therapy discussion with patient about course of treatmentand patient instructions. 2. Generalized anxiety disorder - Effexor 100 mg daily Clonazepam 0.5 mg daily as needed # 15 to last 30 days - patient prefer to stay on as needed- Buspar 5 mg three times a day for anxiety and panic - discuss and educated on all rx Discussed and educated pt regarding benzodiazepines are generally not intended for prolonged use and that use can cause tolerance, dependence, depression, and associated memory issues including dementias (this list is not exhaustive). Benzodiazepine use is generally not recommended concurrently with pain medications and/or other controlled substances due to increased risks of profound sedation, respiratory depression, coma, and even . They are not to be used with any alcohol, as this combination can also be lethal. Patient was provided caution 3. Panic attack - Hydroxyzine 50 mg twice a day for panic and anxiety- patient reported taking once to twice a day 4. Attention deficit hyperactivity disorder, combined type -NADYA-2 reviewed no early refill on control substance limit caffeine take after excise in am local pharmacy [facility] discuss non- stimulate and stimulate strattera 60 mg daily in am ADHD stimulates education Discuss with patient risk of misuse, abuse, and addiction before prescribing stimulant medicines. [employer] patients not to share their prescribed stimulant with anyone else. Educate patients and their families on these serious risks, proper storage of the medicine, and proper disposal of any unused medicine. Educated patient will monitor Throughout treatment, regularly assess and monitor them for signs and symptoms of nonmedical use, addiction, and potential diversion, which may be evidenced by more frequent renewal. requests than warranted by the prescribed dosage. [place] prescription program reviewed Random UDS 5. HTN Refer to PCP educated on healthy b/p 120/80 monitor b/p at home refer to PCP, heart healthy diet and excise limit salt intake limit soda intake and caffiene increase water . Long-term drug therapy 02/05/2025 Encounter for screening for depression (ICD-10 - Z13.31) 1. depression - Effexor 100 mg daily continue therapy [facility] patient report has eye implant 02/08/23 see neurologist , eye implant 08/09/23 and rt eye surgery [id number] educated on all medications, benefits, side effects and risk, and educated on depression, anxiety, and ADHD, mood d/o and educated on compliance of medications, metabolic and movement d/o education appointment's, continue therapy discussion with patient about course of treatmentand patient instructions. 2. Generalized anxiety disorder - Effexor 100 mg daily Clonazepam 0.5 mg daily as needed # 15 to last 30 days - patient prefer to stay on as needed- Buspar 5 mg three times a day for anxiety and panic - discuss and educated on all rx Discussed and educated pt regarding benzodiazepines are generally not intended for prolonged use and that use can cause tolerance, dependence, depression, and associated memory issues including dementias (this list is not exhaustive). Benzodiazepine use is generally not recommended concurrently with pain medications and/or other controlled substances due to increased risks of profound sedation, respiratory depression, coma, and even . They are not to be used with any alcohol, as this combination can also be lethal. Patient was provided caution 3. Panic attack - Hydroxyzine 50 mg twice a day for panic and anxiety- patient reported taking once to twice a day 4. Attention deficit hyperactivity disorder, combined type -NADYA-2 reviewed no early refill on control substance limit caffeine take after excise in am local pharmacy [facility] discuss non- stimulate and stimulate strattera 60 mg daily in am ADHD stimulates education Discuss with patient risk of misuse, abuse, and addiction before prescribing stimulant medicines. [employer] patients not to share their prescribed stimulant with anyone else. Educate patients and their families on these serious risks, proper storage of the medicine, and proper disposal of any unused medicine. Educated patient will monitor Throughout treatment, regularly assess and monitor them for signs and symptoms of nonmedical use, addiction, and potential diversion, which may be evidenced by more frequent renewal. requests than warranted by the prescribed dosage. [place] prescription program reviewed Random UDS 5. HTN Refer to PCP educated on healthy b/p 120/80 monitor b/p at home refer to PCP, heart healthy diet and excise limit salt intake limit soda intake and caffiene increase water . Long-term drug therapy 02/18/2025 Panic disorder without agoraphobia (ICD-10 - F41.0) 02/05/2025 Panic disorder without agoraphobia (ICD-10 - F41.0) 01/22/2025 Panic disorder without agoraphobia (ICD-10 - F41.0) 01/08/2025 Panic disorder without agoraphobia (ICD-10 - F41.0) 12/23/2024 Panic disorder without agoraphobia (ICD-10 - F41.0) 12/09/2024 Panic disorder without agoraphobia (ICD-10 - F41.0) 11/25/2024 Panic disorder without agoraphobia (ICD-10 - F41.0) 11/13/2024 Panic disorder [episodic paroxysmal anxiety] without agoraphobia (ICD-10 - F41.0) 2024 Attention-deficit hyperactivity disorder, combined type (ICD-10 - F90.2) 1. depression - Effexor 100 mg daily continue therapy [facility] patient report has eye implant 02/08/23 see neurologist , eye implant 08/09/23 and rt eye surgery [id number] educated on all medications, benefits, side effects and risk, and educated on depression, anxiety, and ADHD, mood d/o and educated on compliance of medications, metabolic and movement d/o education appointment's, continue therapy discussion with patient about course of treatmentand patient instructions. 2. Generalized anxiety disorder - Effexor 100 mg daily Clonazepam 0.5 mg daily as needed # 15 to last 30 days - patient prefer to stay on as needed- Buspar 5 mg three times a day for anxiety and panic - discuss and educated on all rx Discussed and educated pt regarding benzodiazepines are generally not intended for prolonged use and that use can cause tolerance, dependence, depression, and associated memory issues including dementias (this list is not exhaustive). Benzodiazepine use is generally not recommended concurrently with pain medications and/or other controlled substances due to increased risks of profound sedation, respiratory depression, coma, and even . They are not to be used with any alcohol, as this combination can also be lethal. Patient was provided caution 3. Panic attack - Hydroxyzine 50 mg twice a day for panic and anxiety- patient reported taking once to twice a day 4. Attention deficit hyperactivity disorder, combined type -NADYA-2 reviewed no early refill on control substance limit caffeine take after excise in am local pharmacy [facility] discuss non- stimulate and stimulate strattera 60 mg daily in am ADHD stimulates education Discuss with patient risk of misuse, abuse, and addiction before prescribing stimulant medicines. [employer] Judge patients not to share their prescribed stimulant with anyone else. Educate patients and their families on these serious risks, proper storage of the medicine, and proper disposal of any unused medicine. Educated patient will monitor Throughout treatment, regularly assess and monitor them for signs and symptoms of nonmedical use, addiction, and potential diversion, which may be evidenced by more frequent renewal. requests than warranted by the prescribed dosage. [place] prescription program reviewed Random UDS 5. HTN Refer to PCP educated on healthy b/p 120/80 monitor b/p at home refer to PCP, heart healthy diet and excise limit salt intake limit soda intake and caffiene increase water . Long-term drug therapy 10/17/2024 Attention-deficit hyperactivity disorder, combined type (ICD-10 - F90.2) 10/31/2024 Panic disorder [episodic paroxysmal anxiety] without agoraphobia (ICD-10 - F41.0) 09/03/2024 Encounter for screening for depression (ICD-10 - Z13.31) 09/18/2024 Encounter for screening for depression (ICD-10 - Z13.31) 08/07/2024 Encounter for screening for depression (ICD-10 - Z13.31) 08/20/2024 Encounter for screening for depression (ICD-10 - Z13.31) 08/02/2024 Attention-deficit hyperactivity disorder, combined type (ICD-10 - F90.2) 1. depression -Effexor 100 mg daily continue therapy [facility] patient report has eye implant 02/08/23 see neurologist , eye implant 08/09/23 and rt eye surgery [id number] educated on all medications, benefits, side effects and risk, and educated on depression, anxiety, and ADHD, mood d/o and educated on compliance of medications, metabolic and movement d/o education appointment's, continue therapy discussion with patient about course of treatmentand patient instructions. 2. Generalized anxiety disorder - Effexor 100 mg daily Clonazepam 0.5 mg daily as needed # 15 to last 30 days - patient prefer to stay on as needed- Buspar 5 mg three times a day for anxiety and panic - discuss and educated on all rx Discussed and educated pt regarding benzodiazepines are generally not intended for prolonged use and that use can cause tolerance, dependence, depression, and associated memory issues including dementias (this list is not exhaustive). Benzodiazepine use is generally not recommended concurrently with pain medications and/or other controlled substances due to increased risks of profound sedation, respiratory depression, coma, and even . They are not to be used with any alcohol, as this combination can also be lethal. Patient was provided caution 3. Panic attack - Hydroxyzine 50 mg twice a day for panic and anxiety- patient reported taking once to twice a day 4. Attention deficit hyperactivity disorder, combined type -NADYA-2 reviewed no early refill on control substance limit caffeine take after excise in am local pharmacy [facility] discuss non- stimulate and stimulate strattera 60 mg daily in am ADHD stimulates education Discuss with patient risk of misuse, abuse, and addiction before prescribing stimulant medicines. [employer] Judge patients not to share their prescribed stimulant with anyone else. Educate patients and their families on these serious risks, proper storage of the medicine, and proper disposal of any unused medicine. Educated patient will monitor Throughout treatment, regularly assess and monitor them for signs and symptoms of nonmedical use, addiction, and potential diversion, which may be evidenced by more frequent renewal. requests than warranted by the prescribed dosage. [place] prescription program reviewed Random UDS 5. HTN Refer to PCP educated on healthy b/p 120/80 monitor b/p at home refer to PCP, heart healthy diet and excise limit salt intake limit soda intake and caffiene increase water . Long-term drug therapy 07/24/2024 Encounter for screening for depression (ICD-10 - Z13.31) 06/19/2024 Panic disorder without agoraphobia (ICD-10 - F41.0) 06/05/2024 Attention-deficit hyperactivity disorder, combined type (ICD-10 - F90.2) 05/22/2024 Panic disorder without agoraphobia (ICD-10 - F41.0) 05/10/2024 Other long-term (current) drug therapy (ICD-10 - Z79.899) 1. depression -Effexor 100 mg daily continue therapy [facility] patient report has eye implant 02/08/23 and see neurologist see neurologist 07/27, eye implant 08/09/23 and rt eye surgery surgery next eye surgery 02/26 educated on all medications, benefits, side effects and risk, and educated on depression, anxiety, and ADHD, mood d/o and educated on compliance of medications, metabolic and movement d/o education appointment's, continue therapy discussion with patient about course of treatmentand patient instructions. 2. Generalized anxiety disorder - Effexor 100 mg daily Clonazepam 0.5 mg daily as needed # 15 to last 30 days - patient prefer to stay on as needed- Buspar 5 mg three times a day for anxiety and panic - discuss and educated on rx Discussed and educated pt regarding benzodiazepines are generally not intended for prolonged use and that use can cause tolerance, dependence, depression, and associated memory issues including dementias (this list is not exhaustive). Benzodiazepine use is generally not recommended concurrently with pain medications and/or other controlled substances due to increased risks of profound sedation, respiratory depression, coma, and even . They are not to be used with any alcohol, as this combination can also be lethal. Patient was provided caution 3. Panic attack -Hydroxyzine 50 mg twice a day for panic and anxiety- patient reported taking once to twice a day 4. Attention deficit hyperactivity disorder, combined type -NADYA-2 reviewed no early refill on control substance limit caffeine take after excise in am local pharmacy [facility] discuss non- stimulate and stimulate strattera 60 mg daily in am ADHD stimulates education Discuss with patient risk of misuse, abuse, and addiction before prescribing stimulant medicines. [employer] Judge patients not to share their prescribed stimulant with anyone else. Educate patients and their families on these serious risks, proper storage of the medicine, and proper disposal of any unused medicine. Educated patient will monitor Throughout treatment, regularly assess and monitor them for signs and symptoms of nonmedical use, addiction, and potential diversion, which may be evidenced by more frequent renewal. requests than warranted by the prescribed dosage. [place] prescription program reviewed Random UDS 5. HTN Refer to PCP educated on healthy b/p 120/80 monitor b/p at home refer to PCP, heart healthy diet and excise limit salt intake limit soda intake and caffiene increase water . Long-term drug therapy Seen by Alanis GOLDEN-ABIGAIL ([facility] Assessment and plan reviewed and agreed upon by Nelly Oconnell HNP 04/24/2024 Panic disorder without agoraphobia (ICD-10 - F41.0) 03/27/2024 Attention-deficit hyperactivity disorder, combined type (ICD-10 - F90.2) 03/13/2024 Panic disorder without agoraphobia (ICD-10 - F41.0) 05/10/2024 Primary hypersomnia (ICD-10 - F51.11) 1. depression -Effexor 100 mg daily continue therapy [facility] patient report has eye implant 02/08/23 and see neurologist see neurologist 07/27, eye implant 08/09/23 and rt eye surgery surgery next eye surgery 02/26 educated on all medications, benefits, side effects and risk, and educated on depression, anxiety, and ADHD, mood d/o and educated on compliance of medications, metabolic and movement d/o education appointment's, continue therapy discussion with patient about course of treatmentand patient instructions. 2. Generalized anxiety disorder - Effexor 100 mg daily Clonazepam 0.5 mg daily as needed # 15 to last 30 days - patient prefer to stay on as needed- Buspar 5 mg three times a day for anxiety and panic - discuss and educated on rx Discussed and educated pt regarding benzodiazepines are generally not intended for prolonged use and that use can cause tolerance, dependence, depression, and associated memory issues including dementias (this list is not exhaustive). Benzodiazepine use is generally not recommended concurrently with pain medications and/or other controlled substances due to increased risks of profound sedation, respiratory depression, coma, and even . They are not to be used with any alcohol, as this combination can also be lethal. Patient was provided caution 3. Panic attack -Hydroxyzine 50 mg twice a day for panic and anxiety- patient reported taking once to twice a day 4. Attention deficit hyperactivity disorder, combined type -NADYA-2 reviewed no early refill on control substance limit caffeine take after excise in am local pharmacy [facility] discuss non- stimulate and stimulate strattera 60 mg daily in am ADHD stimulates education Discuss with patient risk of misuse, abuse, and addiction before prescribing stimulant medicines. [employer] Judge patients not to share their prescribed stimulant with anyone else. Educate patients and their families on these serious risks, proper storage of the medicine, and proper disposal of any unused medicine. Educated patient will monitor Throughout treatment, regularly assess and monitor them for signs and symptoms of nonmedical use, addiction, and potential diversion, which may be evidenced by more frequent renewal. requests than warranted by the prescribed dosage. [place] prescription program reviewed Random UDS 5. HTN Refer to PCP educated on healthy b/p 120/80 monitor b/p at home refer to PCP, heart healthy diet and excise limit salt intake limit soda intake and caffiene increase water . Long-term drug therapy Seen by Alanis Adler [employer] ([facility] student) Assessment and plan reviewed and agreed upon by Nelly Oconnell [facility] 08/02/[facility]24 Other long-term (current) drug therapy (ICD-10 - Z79.899) 1. depression -Effexor 100 mg daily continue therapy [facility] patient report has eye implant 02/08/23 see neurologist , eye implant 08/09/23 and rt eye surgery [id number] educated on all medications, benefits, side effects and risk, and educated on depression, anxiety, and ADHD, mood d/o and educated on compliance of medications, metabolic and movement d/o education appointment's, continue therapy discussion with patient about course of treatmentand patient instructions. 2. Generalized anxiety disorder - Effexor 100 mg daily Clonazepam 0.5 mg daily as needed # 15 to last 30 days - patient prefer to stay on as needed- Buspar 5 mg three times a day for anxiety and panic - discuss and educated on all rx Discussed and educated pt regarding benzodiazepines are generally not intended for prolonged use and that use can cause tolerance, dependence, depression, and associated memory issues including dementias (this list is not exhaustive). Benzodiazepine use is generally not recommended concurrently with pain medications and/or other controlled substances due to increased risks of profound sedation, respiratory depression, coma, and even . They are not to be used with any alcohol, as this combination can also be lethal. Patient was provided caution 3. Panic attack - Hydroxyzine 50 mg twice a day for panic and anxiety- patient reported taking once to twice a day 4. Attention deficit hyperactivity disorder, combined type -NADYA-2 reviewed no early refill on control substance limit caffeine take after excise in am local pharmacy [facility] discuss non- stimulate and stimulate strattera 60 mg daily in am ADHD stimulates education Discuss with patient risk of misuse, abuse, and addiction before prescribing stimulant medicines. [employer] Judge patients not to share their prescribed stimulant with anyone else. Educate patients and their families on these serious risks, proper storage of the medicine, and proper disposal of any unused medicine. Educated patient will monitor Throughout treatment, regularly assess and monitor them for signs and symptoms of nonmedical use, addiction, and potential diversion, which may be evidenced by more frequent renewal. requests than warranted by the prescribed dosage. [place] prescription program reviewed Random UDS 5. HTN Refer to PCP educated on healthy b/p 120/80 monitor b/p at home refer to PCP, heart healthy diet and excise limit salt intake limit soda intake and caffiene increase water . 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 depression - Effexor 100 mg daily continue therapy [facility] patient report has eye implant 02/08/23 see neurologist , eye implant 08/09/23 and rt eye surgery [id number] educated on all medications, benefits, side effects and risk, and educated on depression, anxiety, and ADHD, mood d/o and educated on compliance of medications, metabolic and movement d/o education appointment's, continue therapy discussion with patient about course of treatmentand patient instructions. 2. Generalized anxiety disorder - Effexor 100 mg daily Clonazepam 0.5 mg daily as needed # 15 to last 30 days - patient prefer to stay on as needed- Buspar 5 mg three times a day for anxiety and panic - discuss and educated on all rx Discussed and educated pt regarding benzodiazepines are generally not intended for prolonged use and that use can cause tolerance, dependence, depression, and associated memory issues including dementias (this list is not exhaustive). Benzodiazepine use is generally not recommended concurrently with pain medications and/or other controlled substances due to increased risks of profound sedation, respiratory depression, coma, and even . They are not to be used with any alcohol, as this combination can also be lethal. Patient was provided caution 3. Panic attack - Hydroxyzine 50 mg twice a day for panic and anxiety- patient reported taking once to twice a day 4. Attention deficit hyperactivity disorder, combined type -NADYA-2 reviewed no early refill on control substance limit caffeine take after excise in am local pharmacy [facility] discuss non- stimulate and stimulate strattera 60 mg daily in am ADHD stimulates education Discuss with patient risk of misuse, abuse, and addiction before prescribing stimulant medicines. [employer] Judge patients not to share their prescribed stimulant with anyone else. Educate patients and their families on these serious risks, proper storage of the medicine, and proper disposal of any unused medicine. Educated patient will monitor Throughout treatment, regularly assess and monitor them for signs and symptoms of nonmedical use, addiction, and potential diversion, which may be evidenced by more frequent renewal. requests than warranted by the prescribed dosage. [place] prescription program reviewed Random UDS 5. HTN Refer to PCP educated on healthy b/p 120/80 monitor b/p at home refer to PCP, heart healthy diet and excise limit salt intake limit soda intake and caffiene increase water . Long-term drug therapy 02/05/2025 Other long-term (current) drug therapy (ICD-10 - Z79.899) 1. depression - Effexor 100 mg daily continue therapy [facility] patient report has eye implant 02/08/23 see neurologist , eye implant 08/09/23 and rt eye surgery [id number] educated on all medications, benefits, side effects and risk, and educated on depression, anxiety, and ADHD, mood d/o and educated on compliance of medications, metabolic and movement d/o education appointment's, continue therapy discussion with patient about course of treatmentand patient instructions. 2. Generalized anxiety disorder - Effexor 100 mg daily Clonazepam 0.5 mg daily as needed # 15 to last 30 days - patient prefer to stay on as needed- Buspar 5 mg three times a day for anxiety and panic - discuss and educated on all rx Discussed and educated pt regarding benzodiazepines are generally not intended for prolonged use and that use can cause tolerance, dependence, depression, and associated memory issues including dementias (this list is not exhaustive). Benzodiazepine use is generally not recommended concurrently with pain medications and/or other controlled substances due to increased risks of profound sedation, respiratory depression, coma, and even . They are not to be used with any alcohol, as this combination can also be lethal. Patient was provided caution 3. Panic attack - Hydroxyzine 50 mg twice a day for panic and anxiety- patient reported taking once to twice a day 4. Attention deficit hyperactivity disorder, combined type -NADYA-2 reviewed no early refill on control substance limit caffeine take after excise in am local pharmacy [facility] discuss non- stimulate and stimulate strattera 60 mg daily in am ADHD stimulates education Discuss with patient risk of misuse, abuse, and addiction before prescribing stimulant medicines. [employer] Judge patients not to share their prescribed stimulant with anyone else. Educate patients and their families on these serious risks, proper storage of the medicine, and proper disposal of any unused medicine. Educated patient will monitor Throughout treatment, regularly assess and monitor them for signs and symptoms of nonmedical use, addiction, and potential diversion, which may be evidenced by more frequent renewal. requests than warranted by the prescribed dosage. [place] prescription program reviewed Random UDS 5. HTN Refer to PCP educated on healthy b/p 120/80 monitor b/p at home refer to PCP, heart healthy diet and excise limit salt intake limit soda intake and caffiene increase water . Long-term drug therapy 02/05/2025 Primary hypersomnia (ICD-10 - F51.11) 1. depression - Effexor 100 mg daily continue therapy [facility] patient report has eye implant 02/08/23 see neurologist , eye implant 08/09/23 and rt eye surgery /24 educated on all medications, benefits, side effects and risk, and educated on depression, anxiety, and ADHD, mood d/o and educated on compliance of medications, metabolic and movement d/o education appointment's, continue therapy discussion with patient about course of treatmentand patient instructions. 2. Generalized anxiety disorder - Effexor 100 mg daily Clonazepam 0.5 mg daily as needed # 15 to last 30 days - patient prefer to stay on as needed- Buspar 5 mg three times a day for anxiety and panic - discuss and educated on all rx Discussed and educated pt regarding benzodiazepines are generally not intended for prolonged use and that use can cause tolerance, dependence, depression, and associated memory issues including dementias (this list is not exhaustive). Benzodiazepine use is generally not recommended concurrently with pain medications and/or other controlled substances due to increased risks of profound sedation, respiratory depression, coma, and even . They are not to be used with any alcohol, as this combination can also be lethal. Patient was provided caution 3. Panic attack - Hydroxyzine 50 mg twice a day for panic and anxiety- patient reported taking once to twice a day 4. Attention deficit hyperactivity disorder, combined type -NADYA-2 reviewed no early refill on control substance limit caffeine take after excise in am local pharmacy [facility] discuss non- stimulate and stimulate strattera 60 mg daily in am ADHD stimulates education Discuss with patient risk of misuse, abuse, and addiction before prescribing stimulant medicines. [employer] Judge patients not to share their prescribed stimulant with anyone else. Educate patients and their families on these serious risks, proper storage of the medicine, and proper disposal of any unused medicine. Educated patient will monitor Throughout treatment, regularly assess and monitor them for signs and symptoms of nonmedical use, addiction, and potential diversion, which may be evidenced by more frequent renewal. requests than warranted by the prescribed dosage. [place] prescription program reviewed Random UDS 5. HTN Refer to PCP educated on healthy b/p 120/80 monitor b/p at home refer to PCP, heart healthy diet and excise limit salt intake limit soda intake and caffiene increase water . Long-term drug therapy 2024 Primary hypersomnia (ICD-10 - F51.11) 1. depression - Effexor 100 mg daily continue therapy [facility] patient report has eye implant 02/08/23 see neurologist , eye implant 08/09/23 and rt eye surgery [id number] educated on all medications, benefits, side effects and risk, and educated on depression, anxiety, and ADHD, mood d/o and educated on compliance of medications, metabolic and movement d/o education appointment's, continue therapy discussion with patient about course of treatmentand patient instructions. 2. Generalized anxiety disorder - Effexor 100 mg daily Clonazepam 0.5 mg daily as needed # 15 to last 30 days - patient prefer to stay on as needed- Buspar 5 mg three times a day for anxiety and panic - discuss and educated on all rx Discussed and educated pt regarding benzodiazepines are generally not intended for prolonged use and that use can cause tolerance, dependence, depression, and associated memory issues including dementias (this list is not exhaustive). Benzodiazepine use is generally not recommended concurrently with pain medications and/or other controlled substances due to increased risks of profound sedation, respiratory depression, coma, and even . They are not to be used with any alcohol, as this combination can also be lethal. Patient was provided caution 3. Panic attack - Hydroxyzine 50 mg twice a day for panic and anxiety- patient reported taking once to twice a day 4. Attention deficit hyperactivity disorder, combined type -NADYA-2 reviewed no early refill on control substance limit caffeine take after excise in am local pharmacy [facility] discuss non- stimulate and stimulate strattera 60 mg daily in am ADHD stimulates education Discuss with patient risk of misuse, abuse, and addiction before prescribing stimulant medicines. [employer] Judge patients not to share their prescribed stimulant with anyone else. Educate patients and their families on these serious risks, proper storage of the medicine, and proper disposal of any unused medicine. Educated patient will monitor Throughout treatment, regularly assess and monitor them for signs and symptoms of nonmedical use, addiction, and potential diversion, which may be evidenced by more frequent renewal. requests than warranted by the prescribed dosage. [place] prescription program reviewed Random UDS 5. HTN Refer to PCP educated on healthy b/p 120/80 monitor b/p at home refer to PCP, heart healthy diet and excise limit salt intake limit soda intake and caffiene increase water . Long-term drug therapy 08/02/2024 Primary hypersomnia (ICD-10 - F51.11) 1. depression -Effexor 100 mg daily continue therapy [facility] patient report has eye implant 02/08/23 see neurologist , eye implant 08/09/23 and rt eye surgery [id number] educated on all medications, benefits, side effects and risk, and educated on depression, anxiety, and ADHD, mood d/o and educated on compliance of medications, metabolic and movement d/o education appointment's, continue therapy discussion with patient about course of treatmentand patient instructions. 2. Generalized anxiety disorder - Effexor 100 mg daily Clonazepam 0.5 mg daily as needed # 15 to last 30 days - patient prefer to stay on as needed- Buspar 5 mg three times a day for anxiety and panic - discuss and educated on all rx Discussed and educated pt regarding benzodiazepines are generally not intended for prolonged use and that use can cause tolerance, dependence, depression, and associated memory issues including dementias (this list is not exhaustive). Benzodiazepine use is generally not recommended concurrently with pain medications and/or other controlled substances due to increased risks of profound sedation, respiratory depression, coma, and even . They are not to be used with any alcohol, as this combination can also be lethal. Patient was provided caution 3. Panic attack - Hydroxyzine 50 mg twice a day for panic and anxiety- patient reported taking once to twice a day 4. Attention deficit hyperactivity disorder, combined type -NADYA-2 reviewed no early refill on control substance limit caffeine take after excise in am local pharmacy [facility] discuss non- stimulate and stimulate strattera 60 mg daily in am ADHD stimulates education Discuss with patient risk of misuse, abuse, and addiction before prescribing stimulant medicines. [employer] patients not to share their prescribed stimulant with anyone else. Educate patients and their families on these serious risks, proper storage of the medicine, and proper disposal of any unused medicine. Educated patient will monitor Throughout treatment, regularly assess and monitor them for signs and symptoms of nonmedical use, addiction, and potential diversion, which may be evidenced by more frequent renewal. requests than warranted by the prescribed dosage. [place] prescription program reviewed Random UDS 5. HTN Refer to PCP educated on healthy b/p 120/80 monitor b/p at home refer to PCP, heart healthy diet and excise limit salt intake limit soda intake and caffiene increase water . Long-term drug therapy 05/10/2024 Benign essential HTN (ICD-10 - I10) 1. depression -Effexor 100 mg daily continue therapy [facility] patient report has eye implant 02/08/23 and see neurologist see neurologist 07/27, eye implant 08/09/23 and rt eye surgery surgery next eye surgery 02/26 educated on all medications, benefits, side effects and risk, and educated on depression, anxiety, and ADHD, mood d/o and educated on compliance of medications, metabolic and movement d/o education appointment's, continue therapy discussion with patient about course of treatmentand patient instructions. 2. Generalized anxiety disorder - Effexor 100 mg daily Clonazepam 0.5 mg daily as needed # 15 to last 30 days - patient prefer to stay on as needed- Buspar 5 mg three times a day for anxiety and panic - discuss and educated on rx Discussed and educated pt regarding benzodiazepines are generally not intended for prolonged use and that use can cause tolerance, dependence, depression, and associated memory issues including dementias (this list is not exhaustive). Benzodiazepine use is generally not recommended concurrently with pain medications and/or other controlled substances due to increased risks of profound sedation, respiratory depression, coma, and even . They are not to be used with any alcohol, as this combination can also be lethal. Patient was provided caution 3. Panic attack -Hydroxyzine 50 mg twice a day for panic and anxiety- patient reported taking once to twice a day 4. Attention deficit hyperactivity disorder, combined type -NADYA-2 reviewed no early refill on control substance limit caffeine take after excise in am local pharmacy [facility] discuss non- stimulate and stimulate strattera 60 mg daily in am ADHD stimulates education Discuss with patient risk of misuse, abuse, and addiction before prescribing stimulant medicines. [employer] patients not to share their prescribed stimulant with anyone else. Educate patients and their families on these serious risks, proper storage of the medicine, and proper disposal of any unused medicine. Educated patient will monitor Throughout treatment, regularly assess and monitor them for signs and symptoms of nonmedical use, addiction, and potential diversion, which may be evidenced by more frequent renewal. requests than warranted by the prescribed dosage. [place] prescription program reviewed Random UDS 5. HTN Refer to PCP educated on healthy b/p 120/80 monitor b/p at home refer to PCP, heart healthy diet and excise limit salt intake limit soda intake and caffiene increase water . Long-term drug therapy Seen by Alanis GOLDEN-BC ([facility]) Assessment and plan reviewed and agreed upon by Nelly Oconnell [facility] 05/10/2024 Elevated blood pressure reading (ICD-10 - R03.0) 1. depression -Effexor 100 mg daily continue therapy [facility] patient report has eye implant 02/08/23 and see neurologist see neurologist 07/27, eye implant 08/09/23 and rt eye surgery surgery next eye surgery 02/26 educated on all medications, benefits, side effects and risk, and educated on depression, anxiety, and ADHD, mood d/o and educated on compliance of medications, metabolic and movement d/o education appointment's, continue therapy discussion with patient about course of treatmentand patient instructions. 2. Generalized anxiety disorder - Effexor 100 mg daily Clonazepam 0.5 mg daily as needed # 15 to last 30 days - patient prefer to stay on as needed- Buspar 5 mg three times a day for anxiety and panic - discuss and educated on rx Discussed and educated pt regarding benzodiazepines are generally not intended for prolonged use and that use can cause tolerance, dependence, depression, and associated memory issues including dementias (this list is not exhaustive). Benzodiazepine use is generally not recommended concurrently with pain medications and/or other controlled substances due to increased risks of profound sedation, respiratory depression, coma, and even . They are not to be used with any alcohol, as this combination can also be lethal. Patient was provided caution 3. Panic attack -Hydroxyzine 50 mg twice a day for panic and anxiety- patient reported taking once to twice a day 4. Attention deficit hyperactivity disorder, combined type -NADYA-2 reviewed no early refill on control substance limit caffeine take after excise in am local pharmacy [facility] discuss non- stimulate and stimulate strattera 60 mg daily in am ADHD stimulates education Discuss with patient risk of misuse, abuse, and addiction before prescribing stimulant medicines. [employer] patients not to share their prescribed stimulant with anyone else. Educate patients and their families on these serious risks, proper storage of the medicine, and proper disposal of any unused medicine. Educated patient will monitor Throughout treatment, regularly assess and monitor them for signs and symptoms of nonmedical use, addiction, and potential diversion, which may be evidenced by more frequent renewal. requests than warranted by the prescribed dosage. [place] prescription program reviewed Random UDS 5. HTN Refer to PCP educated on healthy b/p 120/80 monitor b/p at home refer to PCP, heart healthy diet and excise limit salt intake limit soda intake and caffiene increase water . Long-term drug therapy Seen by Alanis GOLDEN-BC ([facility]) Assessment and plan reviewed and agreed upon by Nelly Oconnell [facility] 08/02/2024 Benign essential HTN (ICD-10 - I10) 1. depression -Effexor 100 mg daily continue therapy [facility] patient report has eye implant 02/08/23 see neurologist , eye implant 08/09/23 and rt eye surgery [id number] educated on all medications, benefits, side effects and risk, and educated on depression, anxiety, and ADHD, mood d/o and educated on compliance of medications, metabolic and movement d/o education appointment's, continue therapy discussion with patient about course of treatmentand patient instructions. 2. Generalized anxiety disorder - Effexor 100 mg daily Clonazepam 0.5 mg daily as needed # 15 to last 30 days - patient prefer to stay on as needed- Buspar 5 mg three times a day for anxiety and panic - discuss and educated on all rx Discussed and educated pt regarding benzodiazepines are generally not intended for prolonged use and that use can cause tolerance, dependence, depression, and associated memory issues including dementias (this list is not exhaustive). Benzodiazepine use is generally not recommended concurrently with pain medications and/or other controlled substances due to increased risks of profound sedation, respiratory depression, coma, and even . They are not to be used with any alcohol, as this combination can also be lethal. Patient was provided caution 3. Panic attack - Hydroxyzine 50 mg twice a day for panic and anxiety- patient reported taking once to twice a day 4. Attention deficit hyperactivity disorder, combined type -NADYA-2 reviewed no early refill on control substance limit caffeine take after excise in am local pharmacy [facility] discuss non- stimulate and stimulate strattera 60 mg daily in am ADHD stimulates education Discuss with patient risk of misuse, abuse, and addiction before prescribing stimulant medicines. [employer] patients not to share their prescribed stimulant with anyone else. Educate patients and their families on these serious risks, proper storage of the medicine, and proper disposal of any unused medicine. Educated patient will monitor Throughout treatment, regularly assess and monitor them for signs and symptoms of nonmedical use, addiction, and potential diversion, which may be evidenced by more frequent renewal. requests than warranted by the prescribed dosage. [place] prescription program reviewed Random UDS 5. HTN Refer to PCP educated on healthy b/p 120/80 monitor b/p at home refer to PCP, heart healthy diet and excise limit salt intake limit soda intake and caffiene increase water . Long-term drug therapy 2024 Benign essential HTN (ICD-10 - I10) 1. depression - Effexor 100 mg daily continue therapy [facility] patient report has eye implant 02/08/23 see neurologist , eye implant 08/09/23 and rt eye surgery [id number] educated on all medications, benefits, side effects and risk, and educated on depression, anxiety, and ADHD, mood d/o and educated on compliance of medications, metabolic and movement d/o education appointment's, continue therapy discussion with patient about course of treatmentand patient instructions. 2. Generalized anxiety disorder - Effexor 100 mg daily Clonazepam 0.5 mg daily as needed # 15 to last 30 days - patient prefer to stay on as needed- Buspar 5 mg three times a day for anxiety and panic - discuss and educated on all rx Discussed and educated pt regarding benzodiazepines are generally not intended for prolonged use and that use can cause tolerance, dependence, depression, and associated memory issues including dementias (this list is not exhaustive). Benzodiazepine use is generally not recommended concurrently with pain medications and/or other controlled substances due to increased risks of profound sedation, respiratory depression, coma, and even . They are not to be used with any alcohol, as this combination can also be lethal. Patient was provided caution 3. Panic attack - Hydroxyzine 50 mg twice a day for panic and anxiety- patient reported taking once to twice a day 4. Attention deficit hyperactivity disorder, combined type -NADYA-2 reviewed no early refill on control substance limit caffeine take after excise in am local pharmacy [facility] discuss non- stimulate and stimulate strattera 60 mg daily in am ADHD stimulates education Discuss with patient risk of misuse, abuse, and addiction before prescribing stimulant medicines. [employer] patients not to share their prescribed stimulant with anyone else. Educate patients and their families on these serious risks, proper storage of the medicine, and proper disposal of any unused medicine. Educated patient will monitor Throughout treatment, regularly assess and monitor them for signs and symptoms of nonmedical use, addiction, and potential diversion, which may be evidenced by more frequent renewal. requests than warranted by the prescribed dosage. [place] prescription program reviewed Random UDS 5. HTN Refer to PCP educated on healthy b/p 120/80 monitor b/p at home refer to PCP, heart healthy diet and excise limit salt intake limit soda intake and caffiene increase water . Long-term drug therapy 08/02/2024 Elevated blood pressure reading (ICD-10 - R03.0) 1. depression -Effexor 100 mg daily continue therapy [facility] patient report has eye implant 02/08/23 see neurologist , eye implant 08/09/23 and rt eye surgery [id number] educated on all medications, benefits, side effects and risk, and educated on depression, anxiety, and ADHD, mood d/o and educated on compliance of medications, metabolic and movement d/o education appointment's, continue therapy discussion with patient about course of treatmentand patient instructions. 2. Generalized anxiety disorder - Effexor 100 mg daily Clonazepam 0.5 mg daily as needed # 15 to last 30 days - patient prefer to stay on as needed- Buspar 5 mg three times a day for anxiety and panic - discuss and educated on all rx Discussed and educated pt regarding benzodiazepines are generally not intended for prolonged use and that use can cause tolerance, dependence, depression, and associated memory issues including dementias (this list is not exhaustive). Benzodiazepine use is generally not recommended concurrently with pain medications and/or other controlled substances due to increased risks of profound sedation, respiratory depression, coma, and even . They are not to be used with any alcohol, as this combination can also be lethal. Patient was provided caution 3. Panic attack - Hydroxyzine 50 mg twice a day for panic and anxiety- patient reported taking once to twice a day 4. Attention deficit hyperactivity disorder, combined type -NADYA-2 reviewed no early refill on control substance limit caffeine take after excise in am local pharmacy [facility] discuss non- stimulate and stimulate strattera 60 mg daily in am ADHD stimulates education Discuss with patient risk of misuse, abuse, and addiction before prescribing stimulant medicines. [employer] patients not to share their prescribed stimulant with anyone else. Educate patients and their families on these serious risks, proper storage of the medicine, and proper disposal of any unused medicine. Educated patient will monitor Throughout treatment, regularly assess and monitor them for signs and symptoms of nonmedical use, addiction, and potential diversion, which may be evidenced by more frequent renewal. requests than warranted by the prescribed dosage. [place] prescription program reviewed Random UDS 5. HTN Refer to PCP educated on healthy b/p 120/80 monitor b/p at home refer to PCP, heart healthy diet and excise limit salt intake limit soda intake and caffiene increase water . Long-term drug therapy 08/02/2024 Encounter for screening for cardiovascular disorders (ICD-10 - Z13.6) 1. depression -Effexor 100 mg daily continue therapy [facility] patient report has eye implant 02/08/23 see neurologist , eye implant 08/09/23 and rt eye surgery [id number] educated on all medications, benefits, side effects and risk, and educated on depression, anxiety, and ADHD, mood d/o and educated on compliance of medications, metabolic and movement d/o education appointment's, continue therapy discussion with patient about course of treatmentand patient instructions. 2. Generalized anxiety disorder - Effexor 100 mg daily Clonazepam 0.5 mg daily as needed # 15 to last 30 days - patient prefer to stay on as needed- Buspar 5 mg three times a day for anxiety and panic - discuss and educated on all rx Discussed and educated pt regarding benzodiazepines are generally not intended for prolonged use and that use can cause tolerance, dependence, depression, and associated memory issues including dementias (this list is not exhaustive). Benzodiazepine use is generally not recommended concurrently with pain medications and/or other controlled substances due to increased risks of profound sedation, respiratory depression, coma, and even . They are not to be used with any alcohol, as this combination can also be lethal. Patient was provided caution 3. Panic attack - Hydroxyzine 50 mg twice a day for panic and anxiety- patient reported taking once to twice a day 4. Attention deficit hyperactivity disorder, combined type -NADYA-2 reviewed no early refill on control substance limit caffeine take after excise in am local pharmacy [facility] discuss non- stimulate and stimulate strattera 60 mg daily in am ADHD stimulates education Discuss with patient risk of misuse, abuse, and addiction before prescribing stimulant medicines. [employer] patients not to share their prescribed stimulant with anyone else. Educate patients and their families on these serious risks, proper storage of the medicine, and proper disposal of any unused medicine. Educated patient will monitor Throughout treatment, regularly assess and monitor them for signs and symptoms of nonmedical use, addiction, and potential diversion, which may be evidenced by more frequent renewal. requests than warranted by the prescribed dosage. [place] prescription program reviewed Random UDS 5. HTN Refer to PCP educated on healthy b/p 120/80 monitor b/p at home refer to PCP, heart healthy diet and excise limit salt intake limit soda intake and caffiene increase water . Long-term drug therapy 03/13/2024 Other Client states she has been utilizing the time she has been cooped up in the house, due to winter weather, to straighten and organize her room. She has not needed to go to the ER due to panic attacks since early February. She states she is learning to successfully manage them when they occur. Therapist actively listened to client and provided a supportive intervention by helping client maintain her current level of functioning through the showing of acceptance. PHQ=7 mild 03/27/2024 Other Cliient has been experiencing nerve pain and been staying home. Winter weather and temperatures have also factored into her need to stay home and rest. She reports she has gradually been cleaning and orgainizing her bedroom. She focued on changes that have been occurring since [place] was sworn in as president. This has been her primary source of anxiety and depression. Therapist actively listened to client and utilized a cognitive behavioral intervention to help client explore strategies to minimize anxiety and depression while also taking care of her health (ex: utilizing a timer to ensure she moves around and also getting up and moving). PHQ=13 moderate MARK=11 moderate 04/24/2024 Other Client reports she has been experiencing increased anxiety as the current administration is tossing around the idea of moving people with chronic illnesses to rehabilitation facilities. The administration has specifically named people with ADHD, MS, and depression/anxie ty. She has been organizing her living space to work off some of her anxiety related to politics. Therapist actively listened to client and utilized a cognitive behavioral intervention to help client explore strategies to further reduce her anxiety (ex: looking for news stories that balance out the negatives). PHQ=11 moderate MARK=17 severe 05/22/2024 Other Client reports she has been reducing her exposure to news in an attempt to minimize her anxiety related to events in this country. Client is excited that her parents are going to put a bathroom in the basement, where client's bedroom is. She is excited and is planning what the end result will look like. Client continues to stay busy with craft projects. She also focuses a great deal of her attention on what ever sport is going on for the season (currently basketball). Therapist actively listened to client and asked questions for clarification. The therapist then provided a supportive intervention by helping client maintain her current level of functioning through the showing of acceptance. PHQ=8 mild 06/05/2024 Other Client reports her anxiety has been increasing due to the current politics of this country. Therapist allowed client to vent her concerns and frustration. Therapist then utilized a cognitive behavioral intervention to assist client with exploring strategies to minimize her anxiety (minimizing her news consumption, being focused on her crafts which also helps her to feel productive and improves self-esteem). PHQ=8 mild MARK=12 moderate 06/19/2024 Other Client reports she had a panic attack on 06/16/24. She had gone 90 days without one. She focused on her frustration with the current administration in [place]. The local Social Security office is being closed down, which could impact the client's disability. Therapist actively listened to client and utilized a cognitive behavioral intervention to help client reduce her anxieties about the political situation (be careful of doom scrolling, seek out calming music, seek out things that make her laugh). PHQ=8 mild MARK=8 mild 07/03/2024 Other Client has been actively engaged in watching the basketball play offs, and this helps her tto maintain a good. Her father continues to work on remodeling client's bedroom and adding a bathroom for her. Client is getting excited that the remodel is moving forward at a good pace. She spent most of the session expressing her frustration with the current administration. Therapist actively listened to client and utilized a cognitive behavioral intervention to help client explore strategies to look into activities that can help her to feel more proactive (writing to her representatives, participate in local protests, etc). PHQ=9 mild MARK=7 mild 07/24/2024 Other Client focused on recent news stories that she has come across recently, that have been upsetting to her in some form or fashion. The egress window was finally installed in the basement where she lives. The bathroom is currently being added. Then she will be out of her room for about a month while the basement is being painted and new brandie installed. She ran into a corner of the room when she got up the other night. She states she had a migraine so did not turn on any lights. She still has a light bruise on her forehead. She states it has just felt like one thing after another has been happening. Therapist actaively listened to client and utilized a cognitive behavioral intervention to help client explore strategies to minimize her anxiety level which appears to be the most affected by recent events. PHQ=8 mild MARK=13 moderate 08/07/2024 Other Client reports she has been experiencing a lot of pain due to the change in the weather. Her uncle and father continue to make progress in remodeling client's bedroom (added an egress, adding electrical outlets, adding a bathroom, and finishing the ceiling). She states the property cementer machine joiner behind her parent's home brought 5 cows and a rooster to the property and has not mowed (the grass is over a foot tall). Client states she reported him to the [facility]. She is still stressed by that animal cementer machine joiner's inattention to his animals. Therapist actively listened to client and utilized a cognitive behavioral intervention to help client explore strategies to minimize her stress (write letters to the land cementer machine joiner that are not sent, follow up with the [facility]). PHQ=8 mild MARK=7 mild 08/20/2024 Other Client she wants to focus a bit more on the traumas in her life. Therapist and client went over the [employer] to get a picture of the traumas she has experienced in her life. Therapist then utilized a cognitive behavioral intervention to help client explore strategies to minimize trauma triggers. PHQ=7 mild MARK=8 mild 09/03/2024 Other Client reports she has all her clothes in trash bags while she waits for her room to be finished (ceiling, paint, brandie, and closest to be finished. She states she is growing impatient but knows it won't be much longer until it is all finished. Client is staying up to date on the politics of this country and is finding ways to minimize her anxiety about the impact of these pollicies may have on her financial future. Therapist actively listened to client and utilized a supportive intervention by validating and supporting the ways in which client is minimizing the impact of outside events on her mental health. PHQ=7 mild 09/18/2024 Other Client reports her room is almost done. She is less anxious because the construction is nearly complete and she has been able to start putting her possessions away and organizing her room. She is doing better minimizing the number of panic attacks. She has created a self soothing kit that she is able to keep in her purse should she have a panic attack when away from the home. Therapist actively listened to client and asked questions for clarification. Therapist then utilized a cognitive behavioral intervention to help client exxplore additional strategies to minimize anxiety and panic attacks. PHQ=7 mild MARK=8 mild 10/17/2024 Other Client has been experiencing an increase in nerve pain. She has been stressed out about tenderness in one of her breasts. Client's doctor is in the process of getting another mammogram approved by client;s insurance (currently her biggest stressor). The remodel on her bedroom and bathroom addition is finally completed. Therapist actively listened to client and utilized a cognitive behavioral intervention to help client explore strategies to minimize her anxiety at this time. PHQ=6 mild 10/31/2024 Other Client reports her mammogram was good so she no longer needs to worry about this. She states that her doctor's office screwing up the order for the mammogram on multiple occasions, she has decided to find another ob-chuck wagon driver. She has been very denis, for the most part, with most of her doctors and the care she receives from them. She focused the session on all the medical testing and procedures she has endured since being diagnosed with MS. Therapist actively listened to client and asked questions for clarification. Therapist then provided support and validation for client's strengths in navigating her medical journey. PHQ=6 mild 11/13/2024 Other Client reports she has another round of tests next week to address the problems she is having with a hernia. She states she saw a mouse in hr room and was very upset by this. SHe also spent time venting about the current political situation in this country. She also discused her frustration with a local business. All these issues have increased client's anxiety. Therapist actively listened to client and utilized a cognitive behavioral intervention to help client explore strategies to minimize her anxiety. PHQ=7 mild 11/25/2024 Other Client continues to struggle with what has been diagnosed as a cold. With the medication prescribed is finally allowing her to sleep through the night. Client focused on the hate that is so vocal in this country, at this time. She is upset by the threat to free speech. Therapist actively listened to client and utilized a cognitive behavioral intervention to assist client with exploring strategies to minimize her anxieties. PHQ=7 mild 12/09/2024 Other Client is excited because the 2nd Algramo movie will be coming out next month. She states she had one panic attack 2 nights ago and another this morning. She focused on her health issues and their impact on her mental health. Therapist actively listened to client and asked questions for clarification. Therapist then assisted client with exploring strategies to minimize the stress/anxiety she experiences with some of her doctors. PHQ=7 mild MARK=7 mild 12/23/2024 Other Client states she is having new MS symptoms. She has an appointment with her doctor that is in the next 2 weeks and will discuss this with him at that appointment. Client is excited about the new Algramo movie and she will be able to see it twice starting this coming weekend. She is also feeling excited about the opening of basketball season. She keeps herself busy with crafts that are related to her interests. Therapist actively listened to client and asked questions for clarification. Therapist then utilized a cognitive behavioral intervention to assist client with exploring strategies to help minimize her anxiety. PHQ=7 mild MARK=13 moderate 01/08/2025 Other Client is excited this morning as she was able to get some limited Algram[employer] merchandise on the way to this appointment. Client reports she has been indulging herself in obtaining some of this merchandise as she knows her appointment with her neurologist, on the , is not going to go as well as recent previous appointments. Client also focused on her favorite basketball team and her concerns about the current politics in this country. Some of her anxiety is good and other anxiety causes concern. Therapist actively listened to client and utilized a cogntive behavioral intervention to help her explore strategies to better manage her troublesome anxiety. PHQ=8 mild MARK=7 mild 01/22/2025 Other Client is very excited about getting to see the movie Wicked this week, not once but three. She will saw one in the theater, will see one at home on [address], and again in the theater tomorrow. Her excitement about the movie is helping to minimize her anxiety about her MRI on Monday. She has been experiencing electric shocks in he arms and hands. Therapist actively listened to client and utilized a cognitive behavioral intervention to help client explore further strategies to minimize her anxiety. PHQ=7 mild 02/05/2025 Other Client reports the doctor ended up doing a biopsy on her throat and stomach due to what was seen in the testing. She discussed some of her [employer] shopping and how polite shoppers were to each other. She states she had 3 panic attacks just prior to her tests. She focused on current stressers such as politics. Therapist actively listened to client and utilized a cognitive behavioral intervention to help client explore strategies to minimize her anxiety. PHQ=6 mild 02/18/2025 Other Client reports she has been having an increase in panic attacks (at least 1 daily and sometimes 3 a day). She has discussed this with her FACILITIES PROJECT MANAGER and medication has been adjusted. Prior to this, she had gone 7 weeks without a panic attack. Therapist actively listened to client and utilized a cognitive behavioral intervention to assist client with exploring strategies to minimize anxiety. Plan Of Treatment Next Appt Details Provider Name:Janie Healy , 03/04/2025 08:00:00 AM, [address], [facility] [address], [address], Provider Name:Janie Healy , 03/17/2025 08:00:00 AM, [address], [address], [place], [address], Provider Name:Janie Healy , 04/02/2025 08:00:00 AM, [address], [facility], [place], [address], Provider Name:Janie Healy , 04/16/2025 08:00:00 AM, [address], [facility], [place], [address], Provider Name:Marcia Merlyn olvera, 05/19/2025 08:30:00 AM, [address], [facility], [place], [address], Insurance Providers Payer Name Payer Address Payer Phone Subscriber Number Group Number Insured Name Patient Relationship to Insured Coverage Start Date Coverage End Date [place] [address] [place] [address] [id number] VALDEZ VINSON Self - patient is the insured [facility] Insurance Medicare Supplement [address] [address] [place] [address] [id number] VALDEZ VINSON Self - patient is the insured Medical (General) History Medical History History ICD Code Problems: Attention deficit hyperactivit y disorder, combined type Generalized anxiety disorder Long-term drug therapy Mild recurrent major depression Moderately severe recurrent major depres kate Multiple sclerosis Panic attack Recurrent hypersomnia Unable to concentrate , eye surgery Surgical History Surgery Date(Month/Year) Cholecystectomy (37726270) Hysterectomy/revise vagina (91390) Remove tonsils and adenoids (63532) Tonsilectomy/adenoids 03/06/1986 Removal of gallbladder (85071) 3 Hysterectomy (24401) 03/06/2013 eye implant 03/06/2013 Cataract surgery (31628) 08/07/2020 Cataract surgery (00746) 02/07/2020
--- OUTSIDE RECORDS SUMMARY | 2025-03-02 08:11 | XMS_ITS | Clinical Summary ---
Author Organization [facility] Address [address] [place] [address] [place] [address] Care Team Providers Care Deodorizer Operator Name Role Phone Kathy Mirza MD Primary Care Provider [phone] Source Comments [facility],non-owned Affiliates and Associated Physician Practices is amultiple site organization consisting of ambulatory clinics and hospital sitesin [place], [place], [place] and [place]. This disclosure is being madepursuant to the Care Everywhere program and may not contain all information available regarding this patient. Last updated 17.[facility] Allergies Active Allergy Reactions Criticality Noted Date Comments Amoxicillin-Pot Clavulanate Rash Medium 03/09/19 11 Occurred as child, Augmentin Rash Medium 03/09/2010 Rash when taken as infant Levofloxacin Other Low 04/05/2017 Other reaction(s): Joint pain tendonitis Tendon swells Nsaids Unknown 03/27/2017 Other reaction(s): Unknown GI DOCTOR DOESN'T WANT PT TO TAKE No reaction to NSAIDs; states not allowed to take due to GERD. Medications * Be aware that medications may not be up to date on this document. Alwaysverify current medications with the patient. Biotin 5000 MCG Take 5,000 mcg by mouth BID. 8 Active amitriptyline (ELAVIL) 50 MG tablet Take 50 mg by mouth. 5 Active SUMAtriptan (IMITREX) 100 MG tablet Take 100 mg by mouth. 8 Active montelukast (SINGULAIR) 10 MG tablet Take 10 mg by mouth. 7 Active topiramate (TOPAMAX) 50 MG tablet Take 50 mg by mouth BID. 8 Active prochlorperazin e (COMPAZINE) 10 MG tablet Take 10 mg by mouth q6h PRN. 8 Active clonazePAM (KLONOPIN) 0.5 MG tablet Take 0.5 mg by mouth 3X/day PRN. 5 Active levETIRAcetam (KEPPRA) 500 MG tablet Take 500 mg by mouth BID. 8 Active Vitamin D, Cholecalciferol , 1000 UNITS CAPS Take 14,000 Units by mouth DAILY. 8 Active dimethyl fumarate (TECFIDERA) 240 MG capsule Take 240 mg by mouth 2 times daily Active LITHIUM CARBONATE PO Take 150 mg by mouth at bedtime Active albuterol HFA (VENTOLIN HFA) 108 (90 BASE) MCG/ACT inhaler Inhale 2 puffs by mouth 2 times daily Active FAMOTIDINE PO Take 20 mg by mouth every evening Active carBAMazepine ER 12hr (CARBATROL) 200 MG capsule Take by mouth every 12 hours Active gabapentin (NEURONTIN) 600 MG tablet Take 600 mg by mouth 3 times daily Active haloperidol (HALDOL) 5 MG tablet Take 1.25 mg by mouth 2 times daily Active pregabalin (LYRICA) 25 MG capsule Take 25 mg by mouth 3 times daily Active FLUTICASONE FUROATE NA [place] into the nose once daily as needed Active Fexofenadine HCl (ALLERGY 24-HR PO) Take by mouth once daily Active esomeprazole (NEXIUM) 40 MG capsule Take 1 capsule by mouth 2 times daily,before breakfast and supper 60 capsule 3 9 Active bethanechol (URECHOLINE) 5 MG tablet Take 1 tablet by mouth 3 times daily before meals 90 tablet 5 9 Active venlafaxine (EFFEXOR) 37.5 MG tablet Take 75 mg by mouth once daily Active raNITIdine (ZANTAC) 300 MG tablet Take 300 mg by mouth at bedtime Active melatonin 3 MG tablet Take 3 mg by mouth at bedtime Active omeprazole (PRILOSEC) 40 MG capsuleIndicati ons:Ulcerative Esophagitis Take 1 capsule by mouth 2 times daily,before breakfast and supper Reasons: Esophagus Inflammation with Ulcers 60 capsule 6 9 Active Active Problems Problem Noted Date Diagnosed Date Mastodynia 11/30/2017 Muscle spasm 11/30/2017 Chronic pain in left foot 09/07/2017 Ineffective esophageal motility 08/12/2017 Achilles tendinitis of left lower extremity 03/2017 Bursitis of left ankle 07/04/2017 Equinus contracture of left ankle 07/04/2017 Ochoa's esophagus 05/18/2017 Trigeminal neuralgia 05/18/2017 Overview (07/03/2018): Overview: Overview: Right trigeminal neuralgia Overview: Right trigeminal neuralgia Overview: Right trigeminal neuralgia Dysphagia 05/18/2017 Relapsing remitting multiple sclerosis 8 Overview (07/03/2018): Overview: Overview: MS - Multiple sclerosis Overview: MS - Multiple sclerosis Overview: Relapsing remitting multiple sclerosis Overview: MS - Multiple sclerosis Chronic migraine without aur a with status migrainosus, not intractable 05/18/2017 Overview (07/03/2018): Overview: Overview: Migraine Overview: Migraine Overview: Migraine Gastroesophageal reflux disease with esophagitis 05/18/2017 Overview (06/05/2017): Overview: GERD Last Assessment & Plan: Will [...] after there recommendations, will test for Asthma. Memory loss 05/18/2017 Overview (07/03/2018): Overview: Overview: Transient global amnesia Overview: Transient global amnesia Overview: Memory loss Overview: Transient global amnesia Anxiety and depression 05/18/2017 GERD (gastroesophageal reflux disease) 8 Migraines 03/28/2017 Neuropathy 03/28/2017 PUD (peptic ulcer disease) 03/28/2017 Fitting and adjustment of vascular catheter 03/06 Lumbar radiculopathy 02/06/2017 Cough in adult 02/03/2017 Overview (07/03/2018): Last Assessment & Plan: Encouraged Pt. To use Albuterol inhaler in the AM and PM since her symptoms are worse during those times. Also to take Claritin/Kell/Zyrtec daily at bedtime. 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 Overview: GERD Last Assessment & Plan: Will [...] after there recommendations, will test for Asthma. Resolved Problems Problem Noted Date Diagnosed Date Resolved Date UTI (urinary tract infection) 03/28/2017 07/17/2018 Immunizations Immunization Administration Dates Next Due INFLUENZA VACCINE, TRIV. (AF LURIA, FLUZONE TRIVALENT; 6MO+) (IIV3) 11/26/2015,11/20/2015,12/02/2014,2013 INFLUENZA VACCINE 11/28/2016 INFLUENZA VACCINE, QUADR. (F LUZONE; FLULAVAL; FLUARIX; AFLURIA QUADRIVALENT; 6MO+), 0.5 ML (IIV4) 12/01/2015,12/02/2014 TDAP (7yrs+) 06/27/2016 Family History Medical History Relation Name Comments Other Brother Migraines; Stat us: Alive None Known Father Status: Alive Cancer - Breast Mother Status: Aliv e Cancer - Other Mother Relation Name Status Comments Brother Father Mother Social History Tobacco Use Types Packs/Day Years Used Date Smoking Tobacco: Former Cigarettes 0.5 Q uit: 02/08/2015 Smokeless Tobacco: Never Alcohol Use Standard Drinks/Week Comments Yes 1 (1 standard drink = 0.6 oz pure alcohol) 1 mixed drink every 6 months or less Comments No Sex and Gender Information Value Date Recorded Sex Assigned at Not on file Legal Sex Female 6:36 PM CERTIFIED FIRST ASSISTANT Gender Identity Not on file Sexual Orientation Not on file Last Filed Vital Signs Vital Sign Reading Time Taken Comments Blood Pressure 108/78 10/25/2018 2:50 PM CDT Pulse 90 10/25/2018 2:50 PM CDT Temperature 36 C (96.8 F) 10/25/2018 2:19 PM CDT Respiratory Rate 14 10/25/2018 2:50 PM CDT Oxygen Saturation 96% 10/25/2018 2:50 PM CDT Inhaled Oxygen Concentration - - Weight 93.9 kg (207 lb) 10/25/2018 1:34 PM CDT Height 170.2 cm (5' 7) 10/25/2018 1:34 PM CDT Body Mass Index 32.42 10/25/2018 1:34 PM CDT Plan of Treatment Health Maintenance Due Date Last Done Comments LIPID TESTING 1985 HIV SCREENING 10/31/1998 HEPATITIS C SCREENING 10/27/2001 HEPATITIS B VACCINE (1 of 3 - 19+ 3-dose series) 10/31/2002 HPV VACCINE (1 - 3-dose SCDM series) 10/31/2010 MAMMOGRAM 09/11/2020 09/11/2018, 11/09/2017 DEPRESSION SCREENING 03/06/2024 COVID-19 VACCINE ( - 2024- season) 2024 INFLUENZA VACCINE (#1) 2024 9, 11/09/2017, 11/28/2016, Additional history exists DTAP/TDAP/TD VACCINES (2 - Td or Tdap) 06/27/2026 06/27/2016 ZOSTER VACCINE (1 of 2) 10/31/2033 HIB VACCINE Aged Out No longer eligi ble based on patient's age to complete this topic MENINGOCOCCAL (Group B) VACCINE SHARED DECISION-MAKING Aged Out No longer eligible based on patient's age to complete this topic MENINGOCOCCAL GROUPS A/C/Y/W VACCINE Aged Out No longer eligible based on patient's age to complete this topic PNEUMOCOCCAL VACCINE Aged Out No long er eligible based on patient's age to complete this topic Goals Goal Patient Goal Type Associated Problems Recent Progress Patient-Stated? Author Medication Management General On track( 019 8:09 AM CDT) Marisol Mast RN Note: Expected end date: ongoing Interventions: Take all medications as prescribed Let your doctor know right away about any changes in your medications Make sure to request a refill of your medication at least one week prior to your last dose Insurance MEDICARE MEDICAID - OUT OF [facility] MEDICARE COMMERCIAL GENERIC Care Teams Deodorizer Operator Relationship Specialty Start Date End Date Kathy Mirza MD [address] [place] [address] PCP - General Internal Medicine 03/20/20
--- OUTSIDE RECORDS SUMMARY | 2025-03-02 08:11 | XMS_ITS | Encounter Summary ---
Author Organization [facility] Address [address] [place] [address] Phone Care Team Providers Care Methane Gas Collection System Operator Name Role Phone Geovanna Alvarado APRN, GUITAR PLAYER Unavailable [phone] Kathy Mirza MD Primary Care Provider [phone] Loyd Ball MD Unavailable [phone] Unique Saba APRN, GUITAR PLAYER Primary Care Provider Reason for Visit * Reason Comments Medication Refill Encounter Details Date Type Department Care Team (Late st Contact Info) Description 05/21/2023 Refill [facility] [address] [place] [id number] Loyd Ball MD [address] [place] [address] Medication Refill Social History Tobacco Use Types [...] Telephone Encounter - Casandra Xiong RN - 05/22/2023 8:12 AM CDT Medication failed the protocol, provider to review and approve the medication order if appropriate. Requested Prescriptions Pending Prescriptions Disp Refills carBAMazepine (CARBATROL) 200 MG CAPSULE SR 12 HR [Pharmacy Med Name: CARBAMAZEPINE ER 200 MG CAP] 180 Capsule 3 Sig: TAKE 1 CAPSULE BY MOUTH TWICE A DAY Not Delegated - Anticonvulsants Excluding Benzodiazepines Protocol Failed - 05/21/2023 7:29 AM Failed - This refill cannot be delegated Passed - Visit with relevant provider in past 12 months or upcoming 90 days Recent Visits Date Type Provider Dept 02/09/23 Office Visit Loyd Ball MD [facility] Neurology [facility] 08/09/22 Office Visit Loyd Ball MD [facility] Neurology [facility] 07/01/22 Office Visit Loyd Ball MD [facility] Neurology [facility] Showing recent visits within past 365 days and meeting all other requirements Future Appointments Date Type Provider Dept 08/03/23 Appointment Loyd Ball MD [facility] Showing future appointments within next 90 days and meeting all other requirements documented in this encounter Plan of Treatment Upcoming Encounters Date Type Department Care Team (Late st Contact Info) Description 07/17/2025 10:00 AM CDT Office Visit [facility] [address] [facility] [place] [address] Loyd Ball MD [address] [place] [address] documented as of this encounter Visit Diagnoses Diagnosis Trigeminal neuralgia of right side of face documented in this encounter Care Teams Methane Gas Collection System Operator Relationship Specialty Start Date End Date Kathy Mirza MD [address] [place] [address] PCP - General Internal Medicine 11/20/18 07/10/24 Unique Saba APRN, GUITAR PLAYER [address] [place] [address] PCP - General Advanced Practice Nurse 07/11/24 Geovanna Alvarado APRN, GUITAR PLAYER Nurse Practitioner Advanced Practice Nurse 03/24/16 Loyd Ball MD [address] [place] [address] Consulting Physician Neurology 02/08/22 documented as of this encounter
--- OUTSIDE RECORDS SUMMARY | 2025-03-02 08:11 | XMS_ITS | Encounter Summary ---
Author Organization [facility] Address [address] [place] [address] Phone Care Team Providers Care Video Editing Internship Name Role Phone Geovanna Alvarado APRN, BASEBALL PITCHER Unavailable [phone] Kathy Mirza MD Primary Care Provider [phone] Loyd Ball MD Unavailable Unique Saba VETERINARY SURGERY TECHNOLOGIST, BASEBALL PITCHER Primary Care Provider Reason for Visit * Reason Comments Medication Refill Encounter Details Date Type Department Care Team (Late st Contact Info) Description 02/13/2023 Refill [facility] - Neurology [facility] [address] [place] [address] Alexandria Coppola APRN, SUPERVISOR SHOP [address] [place] [address] Medication Refill Social History Tobacco Use Types [...] Telephone Encounter - Casandra Xiong RN - 02/13/2023 12:55 PM CST Medication failed the protocol, provider to review and approve the medication order if appropriate. Requested Prescriptions Pending Prescriptions Disp Refills pregabalin (LYRICA) 150 MG Capsule [Pharmacy Med Name: PREGABALIN 150 MG CAPSULE] 90 Capsule 2 Sig: TAKE 1 CAPSULE BY MOUTH THREE TIMES A DAY Not Delegated - Anticonvulsants Excluding Benzodiazepines Protocol Failed - 02/13/2023 11:51 AM Failed - This refill cannot be delegated Passed - Visit with relevant provider in past 12 months or upcoming 90 days Recent Visits Date Type Provider Dept 02/09/23 Office Visit Loyd Ball MD [facility] Neurology [facility] 08/09/22 Office Visit Loyd Ball MD [facility] Neurology [facility] 07/01/22 Office Visit Loyd Ball MD [facility] Showing recent visits within past 365 days and meeting all other requirements Future Appointments No visits were found meeting these conditions. Showing future appointments within next 90 days and meeting all other requirements CHECKER documented in this encounter Plan of Treatment Upcoming Encounters Date Type Department Care Team (Late st Contact Info) Description 07/17/2025 10:00 AM CDT [facility] - [address] [place] [address] Loyd Ball MD [address] [place] [address] documented as of this encounter Visit Diagnoses Diagnosis MS (multiple sclerosis) Multiple sclerosis documented in this encounter Care Teams Video Editing Internship Relationship Specialty Start Date End Date Kathy Mirza MD [address] [place] [address] PCP - General Internal Medicine 11/20/18 07/10/24 Unique Saba APRN, BASEBALL PITCHER [address] [place] [address] PCP - General Advanced Practice Nurse 07/11/24 Geovanna Alvarado APRN, BASEBALL PITCHER Nurse Practitioner Advanced Practice Nurse 03/24/16 Loyd Ball MD [address] [place] [address] Consulting Physician Neurology 02/08/22 documented as of this encounter
--- OUTSIDE RECORDS SUMMARY | 2025-03-02 08:11 | XMS_ITS ---
Care Plan - [facility] Created on: March 02, 2025 VINSONSUKHJINDER SMITHHER Frye : 1985 Sex: Female Author Organization [facility] Address [address] [place] [address] Phone Care Team Providers Care Industrial Maintenance Repairer Helper Name Role Phone THANH RYAN Primary Care Provider [phone] AKI DUNN, JAZ C Unavailable [phone]
--- NOTE | 2025-03-02 08:31 | ED.SKABFB ---
HPI - Skin/Abscess/Foreign Bdy General Chief complaint: Skin/Abscess/Foreign Body Stated complaint: poss spider bite Time Seen by Provider: 03/02/25 08:20 Source: patient and RN notes reviewed Mode of arrival: ambulatory Limitations: no limitations History of Present Illness HPI narrative: 39-year-old female patient presents Express Care complaining of possible spider bite to her right forearm. Patient reports redness, swelling, pain to right lower forearm. Patient notice some yellow clear drainage as well. She says the swelling is getting worse. Patient reports that is hot to touch. Patient has a history of bipolar disorder, multiple sclerosis. Related Data Home Medications ?Medication ?Instructions ?Recorded ?Confirmed ?Last Taken ?Type carbamazepine 200 mg tablet 200 mg PO Q12H 02/15/19 07/05/23 Unknown History clonazepam 0.5 mg tablet 0.5 mg PO BID PRN Anxiety 02/15/19 07/05/23 Unknown History levetiracetam 500 mg tablet 500 mg PO BID 02/15/19 07/05/23 Unknown History sumatriptan succinate 100 mg tablet 100 mg PO ONCE PRN Migraine 02/15/19 07/05/23 Unknown History Headache mirabegron 25 mg tablet,extended 25 mg PO HS 11/15/20 07/05/23 Unknown History release 24 hr (Myrbetriq) timolol maleate 0.5 % eye drops 0.5 drp LEFT EYE QAM 11/15/20 07/05/23 Unknown History brimonidine 0.1 % eye drops 1 drp LEFT EYE BID 10/21/21 07/05/23 Unknown History atomoxetine 60 mg capsule 60 mg PO QAM 07/05/23 07/05/23 Unknown History bethanechol chloride 5 mg tablet 5 mg PO TID 07/05/23 07/05/23 Unknown History buspirone 5 mg tablet 5 mg PO TID 07/05/23 07/05/23 Unknown History cholecalciferol (vitamin D3) 250 250 mcg PO DAILY 07/05/23 07/05/23 Unknown History mcg (10,000 unit) tablet denosumab 60 mg/mL subcutaneous 60 mg subcut [id number] 07/05/23 07/05/23 Unknown History syringe (Prolia) dexamethasone 0.7 mg intravitreal 1 implant intravitreal ONCE 07/05/23 07/05/23 Unknown History implant (Ozurdex) dimethyl fumarate 240 mg 240 mg PO BID 07/05/23 07/05/23 Unknown History capsule,delayed release (Tecfidera) fluticasone propionate 50 2 spray intranasal DAILY 07/05/23 07/05/23 Unknown History mcg/actuation nasal spray,suspension hydroxyzine HCl 50 mg tablet 50 mg PO TID PRN Anxiety 07/05/23 07/05/23 Unknown History montelukast 10 mg tablet 10 mg PO HS 07/05/23 07/05/23 Unknown History omeprazole 40 mg capsule,delayed 40 mg PO BID 07/05/23 07/05/23 Unknown History release ondansetron 4 mg disintegrating 4 mg PO Q6H PRN Nausea And Vomiting 07/05/23 07/05/23 Unknown History tablet pregabalin 150 mg capsule (Lyrica) 150 mg PO TID 07/05/23 07/05/23 Unknown History venlafaxine 100 mg tablet 100 mg PO DAILY 07/05/23 07/05/23 Unknown History famotidine 20 mg tablet mg 03/02/25 Unknown History haloperidol 1 mg tablet mg 03/02/25 Unknown History Allergies Allergy/AdvReac Type Severity Reaction Status Date / Time amoxicillin (From Augmentin) Allergy Mild Rash Verified 03/02/25 08:15 clavulanic acid (From Allergy Mild Rash Verified 03/02/25 08:15 Augmentin) Sulfa (Sulfonamide Allergy Mild Other Verified 03/02/25 08:15 Antibiotics) NSAIDS (Non-Steroidal AdvReac Intermediate GI doc Verified 03/02/25 08:15 Anti-Inflamma won't let her have it adhesive AdvReac Mild Rash Verified 03/02/25 08:15 levofloxacin AdvReac Unknown Other Verified 03/02/25 08:15 Review of Systems Review of Systems: CONSTITUTIONAL: Denies fever, chills, or sweats. EYES: Denies visual changes, redness, or discharge. ENT: Denies rhinorrhea, congestion, sore throat, or otalgia. CARDIOVASCULAR: Denies chest pain, palpitations, or edema. RESPIRATORY: Denies cough or dyspnea. GASTROINTESTINAL: Denies abdominal pain, nausea, vomiting, or diarrhea. GENITOURINARY: Denies dysuria or hematuria. SKIN: Denies rash or itching. Positive for wound. MUSCULOSKELETAL: Denies back pain, joint pain, or myalgia. NEUROLOGIC: Denies headache, numbness, or weakness. PSYCHIATRIC: Denies anxiety or depression. All other systems reviewed are negative, except as documented in HPI. [facility] Past Medical History Medical History Esophageal dysmotility Depression Anxiety GERD (gastroesophageal reflux disease) Asthma Hiatal hernia Trigeminal neuralgia Multiple sclerosis Migraine Surgical History Surgical History History of cholecystectomy Family History Family History Mother Diabetes mellitus Sibling Family history of migraine headaches Social History Social History Smoking status: Never smoker Alcohol intake: former Gender identity (if verbalized by the patient): Female Comments At the time of my signature, I reviewed and agree with the nursing past medical, surgical, social, and family history. There is no relevant family history pertinent to the patient complaint. Exam Narrative: GENERAL: This is a well-nourished, well-developed adult, in no apparent distress. They are non ill-appearing, nontoxic appearing. HEAD: normocephalic, atraumatic. EYES: Sclera clear/white. Conjunctiva normal. Vision is grossly intact. Extraocular movements intact EARS: External ears normal, Hearing grossly intact. NOSE: External nose normal THROAT: Mucous membranes moist, NECK: Neck supple, CARDIOVASCULAR: Regular rate and rhythm RESPIRATORY: Respiratory rate normal, respiratory effort nonlabored, no respiratory distress SKIN: Right forearm: There is area erythema and swelling to the distal anterior forearm. Is measured approximately 3 cm x 3 cm. For serous fluid draining. It is hot to touch. Mildly tender to palpate. No area of fluctuance, mild induration. NEURO: awake, alert, and oriented to person, place and time. There were no obvious focal neurologic abnormalities. EXTREMITIES: No joint tenderness, effusion, or edema noted. BACK: Nontender without deformity. Course Course Level of Care: Express Care Visit Vital Signs Vital signs: Vital Signs Temperature 97.9 F 03/02/25 08:10 Pulse Rate 99 03/02/25 08:10 Respiratory Rate 20 03/02/25 08:10 Blood Pressure 144/78 H 03/02/25 08:10 Pulse Oximetry 98 03/02/25 08:10 Oxygen Delivery Room Air 03/02/25 08:10 Temperature 97.9 F 03/02/25 08:10 Pulse Rate 99 03/02/25 08:10 Respiratory Rate 20 03/02/25 08:10 Blood Pressure 144/78 H 03/02/25 08:10 Pulse Oximetry 98 03/02/25 08:10 Oxygen Delivery Room Air 03/02/25 08:10 MDM MDM Narrative Medical decision making narrative: Appears patient is likely a cellulitis. Will treat with doxycycline. Discussed physical exam findings. Advised supportive measures and signs/symptoms to go to the ER. Pt is appropriate for outpt treatment and f/u. Differential Diagnosis Differential Diagnosis: Differential diagnostic considerations for skin/abscess/foreign body issues include abscess of skin or subcutaneous tissue, viral exanthem, dermatophytosis, urticaria, herpes zoster, allergic reaction to drug, cellulitis, eczema, insect bites, impetigo, contact dermatitis, vasculitis. Critical Care Time Critical Care Time Critical Care Time: No Discharge Plan Discharge Clinical Impression: Cellulitis of forearm, right Patient Disposition: Home Condition: Stable Instructions: Antibiotic Form, Cellulitis (ED) Additional Instructions: Clean with soap and water only; Avoid using alcohol and peroxide. Tylenol or Motrin as needed for pain or fevers. Take antibiotic until it's gone. Please schedule a follow up visit with your personal physician for further evaluation and treatment within 3-5days She developed worsening redness, swelling, pain, fevers, green/yellow drainage, red streaking, or any serious concerns please go to the ER immediately. Patient Language: Swedish Prescriptions: New doxycycline monohydrate 100 mg capsule 100 mg PO BID 7 Days Qty: 14 0RF No Action mirabegron [Myrbetriq] 25 mg tablet extended release 24 hr 25 mg PO HS timolol maleate 0.5 % drops 0.5 drp LEFT EYE QAM sumatriptan succinate 100 mg Tablet 100 mg PO ONCE PRN (Reason: Migraine Headache) clonazepam 0.5 mg Tablet 0.5 mg PO BID PRN (Reason: Anxiety) levetiracetam 500 mg Tablet 500 mg PO BID carbamazepine 200 mg Tablet 200 mg PO Q12H atomoxetine 60 mg capsule 60 mg PO QAM bethanechol chloride 5 mg tablet 5 mg PO TID buspirone 5 mg tablet 5 mg PO TID fluticasone propionate 50 mcg/actuation spray,suspension 2 spray INTRANASAL DAILY hydroxyzine HCl 50 mg Tablet 50 mg PO TID PRN (Reason: Anxiety) pregabalin [Lyrica] 150 mg Capsule 150 mg PO TID omeprazole 40 mg capsule,delayed release(DR/EC) 40 mg PO BID venlafaxine 100 mg tablet 100 mg PO DAILY montelukast 10 mg Tablet 10 mg PO HS ondansetron 4 mg Tablet,Disintegrating 4 mg PO Q6H PRN (Reason: Nausea And Vomiting) Ozurdex 0.7 mg Implant 1 implant INTRAVITREAL ONCE Prolia 60 mg/mL Syringe 60 mg SUBCUT [id number] dimethyl fumarate [Tecfidera] 240 mg Capsule,Delayed Release(Dr/Ec) 240 mg PO BID cholecalciferol (vitamin D3) 250 mcg (10,000 unit) Tablet 250 mcg PO DAILY haloperidol 1 mg tablet famotidine 20 mg tablet brimonidine 0.1 % Drops 1 drp LEFT EYE BID Rx Instructions: Left eye Follow-up/Referrals: Wandy,Unique Pena APRN [Primary Care Provider, Unknown] Time of Disposition: 08:28
== END 2025-03-02 08:46 | disposition home or self-care (01) ==
PROVIDERS: PCP Nurse Practitioner Family
DX: L03.113 Cellulitis of right upper limb (principal); G35.D Multiple sclerosis, unspecified; K21.9 Gastro-esophageal reflux disease without esophagitis; J45.909 Unspecified asthma, uncomplicated; F41.9 Anxiety disorder, unspecified; F31.9 Bipolar disorder, unspecified
CPT/HCPCS: 99213; G0463